=== PATIENT | male | born 1990 | race Caucasian/White ===

== ENCOUNTER 2018-02-04 20:02 | Emergency (ER) | payer SELFPAY ==
[2018-02-04 20:43] LABS: Absolute Lymphocytes (CBC) 2.1 K/uL (0.7-4.9); Absolute Monocytes 0.8 K/uL (0.1-1.3); Absolute Neutrophil 4.8 K/uL (1.8-8.0); Basophils % 1.1 % (0-1.3); Eosinophils % 1.6 % (0-4.4); Hematocrit 44.4 % (39.6-49.0); Lymphocytes % 27.2 % (15.3-44.8); MCH 29.5 pg (27.0-35.0); MCV 87.4 fL (80-100); MPV 7.8 fL (7.6-11.3); Monocytes % 9.9 % (3.3-12.3); RBC Red Blood Cell Count 5.08 M/uL (4.33-5.43)
[2018-02-04 20:52] LABS: Protime INR 1.18
[2018-02-04 20:59] LABS: Barbiturates NEGATIVE; Benzodiazepines NEGATIVE; Cocaine NEGATIVE; Opiates NEGATIVE; Phencyclidine NEGATIVE; THC Cannibis NEGATIVE
--- NOTE | 2018-02-04 21:00 | RAD REPORT ---
EXAM DESCRIPTION: RAD - Chest Single View - 02/04/2018 8:54 pm CLINICAL HISTORY: Chest pain. COMPARISON: 08/18/2017 FINDINGS: Portable technique limits examination quality. The lungs are grossly clear. The heart is normal in size. No displaced fractures. IMPRESSION: No acute intrathoracic process suspected.
[2018-02-04 21:07] LABS: Bicarbonate 24 mEq/L (21-31); Glucose Level 115 mg/dL (65-120); Potassium 3.3 mEq/L (3.6-5.0); Sodium Level 136 mEq/L (135-145)
[2018-02-04 21:13] LABS: ALT/SGPT 27 IU/L (10-60); AST/SGOT 22 IU/L (10-42); Albumin 4.7 g/dL (3.2-5.5); Alkaline Phosphatase 51 IU/L (42-121); BUN Blood Urea Nitrogen 21 mg/dL (6-20); Bilirubin Direct 0.2 mg/dL (0-0.2); Bilirubin Total 1.7 mg/dL (0.3-1.2); Protein, Total 7.8 g/dL (6.0-8.3)
[2018-02-04 21:19] LABS: METHAMPHETAM POSITIVE (NEGATIVE)
[2018-02-04 21:19] LABS: Alcohol Serum/Plasma < 10 mg/dl
[2018-02-04] MEDS ORDERED: NA CHLORIDE 0.9% 1,000 ML ONE (21:40)
[2018-02-04] MEDS ORDERED: POTASSIUM 25 MEQ EFFERV TAB ONE (22:55)
[2018-02-04 23:15] LABS: Urine Blood NEGATIVE (NEG); Urine Glucose NEGATIVE (NEG); Urine Protein 1+ (NEG); Urine Specific Gravity >1.030 (1.005-1.030); Urine pH 5.5 (5.0-7.0)
--- NOTE | 2018-02-05 09:38 | ER ---
Nurse's Notes [facility] Name: Gil Jose Age: 27 yrs Sex: Male : 1990 Arrival Date: 02/04/2018 Time: 20:07 Bed 18 Private MD: None, None Diagnosis: Depression, substance abuse (amphetamines), Suicidal Ideation/attempt Presentation: 02/04 20:15 Presenting complaint: EMS states: "He isn't really talking to us, but what we got was jd3 that he drank two chemicals 'the works: toilet bowl signs cleaner,' and a 'shower gel.' He is also complaining of his right side of his mouth and teeth, and his throat burning/hurting.". Transition of care: patient was not received from another setting of care. Onset of symptoms was February 04, 2018. Risk Assessment: Do you want to hurt yourself or someone else? Patient reports desire/thoughts of hurting themselves or someone else. Provider notified. Initial Sepsis Screen: Does the patient meet any 2 criteria? No. Patient's initial sepsis screen is negative. Does the patient have a suspected source of infection? No. Patient's initial sepsis screen is negative. Care prior to arrival: None. 20:15 Method Of Arrival: EMS: [facility] jd3 20:15 Acuity: FRANKI 2 jd3 Historical: - Allergies: 20:23 Codeine; jd3 - Home Meds: 20:23 None [Active]; jd3 - PMHx: 20:23 Anxiety; Asthma; Hernia; jd3 - PSHx: 20:23 Hernia repair; jd3 - Immunization history:: Adult Immunizations unknown. - Social history:: Smoking status: unknown. - Ebola Screening: : No symptoms or risks identified at this time. Screenin:38 Abuse screen: Denies threats or abuse. Nutritional screening: No deficits noted. jd3 Tuberculosis screening: No symptoms or risk factors identified. Fall Risk IV access (20 points). Ambulatory Aid- None/Bed Rest/Nurse Assist (0 pts). Mental Status- Overestimates/Forgets Limitations (15 pts.). Total Montejo Fall Scale indicates Low Risk Score (25-44 pts). Fall prevention measures have been instituted. Side Rails Up X 2 Placed close to Nursing Station Frequent Obs/Assesments occuring Family Present and informed to notify staff if they need to leave bedside. 02/05 08:42 Patient has been NPO before screening. The patient is alert, able to follow commands. iw The patient does not exhibit slurred or garbled speech The patient is not exhibiting difficulty speaking. The patient does not exhibit difficulty understanding words. The patient is able to swallow own secretions with no drooling or need for suction. Patient tolerated one teaspoon of water. No drooling, immediate coughing, gurgling, or clearing of the throat was noted. The patient tolerated 90mL of water. No drooling, immediate coughing, gurgling, or clearing of the throat was noted. The patient passed the bedside swallow screening. Oral medications may be given as ordered. Contact Physician for further diet orders. Assessment: 02/04 20:28 General: Appears uncomfortable, Behavior is inappropriate for age, quiet, jd3 uncooperative. Pain: Complains of pain in mouth and neck Quality of pain is described as burning, Unable to use pain scale. Patient appears to be guarding, quiet. Neuro: Level of Consciousness is awake, lethargic, Oriented to person, place, time, situation. Cardiovascular: Heart tones S1 S2 present Capillary refill < 3 seconds Patient's skin is warm and dry. Rhythm is regular. Respiratory: Airway is patent Respiratory effort is even, unlabored, Respiratory pattern is regular, symmetrical, Breath sounds with wheezes bilaterally. GI: Abdomen is round Bowel sounds present X 4 quads. Abd is soft and non tender X 4 quads. Reports nausea. : No signs and/or symptoms were reported regarding the genitourinary system. EENT: No signs and/or symptoms were reported regarding the EENT system. Derm: Skin is intact, Skin is dry, Skin is normal, Skin temperature is warm. Musculoskeletal: Circulation, motion, and sensation intact. Range of motion: intact in all extremities. 21:10 Reassessment: Patient stated to this nurse "I didn't drink any of the shower signs cleaner, I aj got the toilet bowl signs cleaner in my mouth and I am not sure if I swallowed any. I got some in my eye." Patient asked by police crime scene technician if he did this with the intent to harm himself and patient stated, "Why else would I do it." Patient reports pain and blurred vision to left eye. Eye irrigated with 20 ML of NS, patient would not tolerate more. Denies pain or burning in throat chest or abdomen. 21:10 Reassessment: pt refusing care. jd3 21:55 Reassessment: Patient and/or family updated on plan of care and expected duration. Pain jd3 level reassessed. Patient is alert, oriented x 3, equal unlabored respirations, skin warm/dry/pink. mental health officer at bedside. 22:10 Reassessment: Patient appears in no apparent distress at this time. Patient and/or jd3 family updated on plan of care and expected duration. Pain level reassessed. Patient is alert, oriented x 3, equal unlabored respirations, skin warm/dry/pink. pt complying with treatment. 23:15 Reassessment: Patient appears in no apparent distress at this time. Patient and/or jd3 family updated on plan of care and expected duration. Pain level reassessed. Patient is alert, oriented x 3, equal unlabored respirations, skin warm/dry/pink. Patient states feeling better. 02/05 01:00 Reassessment: Patient appears in no apparent distress at this time. Patient and/or jd3 family updated on plan of care and expected duration. Pain level reassessed. Patient is alert, oriented x 3, equal unlabored respirations, skin warm/dry/pink. pt resting in bed with eyes closed, even and unlabored respirations, no signs of distress noted at this time. sitter at bedside. 01:51 Reassessment: Patient appears in no apparent distress at this time. No changes from jd3 previously documented assessment. Patient and/or family updated on plan of care and expected duration. Pain level reassessed. Patient is alert, oriented x 3, equal unlabored respirations, skin warm/dry/pink. 02:45 Reassessment: Patient appears in no apparent distress at this time. No changes from jd3 previously documented assessment. Patient and/or family updated on plan of care and expected duration. Pain level reassessed. Patient is alert, oriented x 3, equal unlabored respirations, skin warm/dry/pink. 03:25 Reassessment: Patient appears in no apparent distress at this time. No changes from jd3 previously documented assessment. Patient and/or family updated on plan of care and expected duration. Pain level reassessed. Patient is alert, oriented x 3, equal unlabored respirations, skin warm/dry/pink. 04:17 Reassessment: Patient appears in no apparent distress at this time. No changes from jd3 previously documented assessment. Patient and/or family updated on plan of care and expected duration. Pain level reassessed. Patient is alert, oriented x 3, equal unlabored respirations, skin warm/dry/pink. 05:17 Reassessment: Patient appears in no apparent distress at this time. No changes from jd3 previously documented assessment. Patient and/or family updated on plan of care and expected duration. Pain level reassessed. Patient is alert, oriented x 3, equal unlabored respirations, skin warm/dry/pink. 06:15 Reassessment: Patient appears in no apparent distress at this time. No changes from jd3 previously documented assessment. Patient and/or family updated on plan of care and expected duration. Pain level reassessed. Patient is alert, oriented x 3, equal unlabored respirations, skin warm/dry/pink. 06:50 Reassessment: Patient appears in no apparent distress at this time. [facility] staff at em bedside. 07:15 General: Appears in no apparent distress. comfortable, Behavior is calm, cooperative, em Reports reports only drinking 2 gulps of toilet bowl signs cleaner, when asked if he still feels like hurting himself, replies, "I don't know haven't had time to think about it, I have been sleeping." reports wanting help, denies pain. Pain: Denies pain. Neuro: Level of Consciousness is awake, alert, obeys commands, Oriented to person, place, time, situation. Cardiovascular: Capillary refill < 3 seconds Patient's skin is warm and dry. Respiratory: Airway is patent Respiratory effort is even, unlabored, Respiratory pattern is regular, symmetrical. GI: Abdomen is flat. : No signs and/or symptoms were reported regarding the genitourinary system. EENT: Eyes. Derm: Skin is intact, Skin is pink, warm \\T\\ dry. Musculoskeletal: Range of motion: intact in all extremities. 07:25 Reassessment: Patient appears in no apparent distress at this time. I agree with above iw assessment by Mauricio Villarreal LVN. 08:21 Reassessment: Patient appears in no apparent distress at this time. Patient and/or em family updated on plan of care and expected duration. Pain level reassessed. Patient is alert, oriented x 3, equal unlabored respirations, skin warm/dry/pink. pt eating breakfast, tolerated well. 08:47 Reassessment: pt request to leave, will sign out AMA, denies SI/HI, pt request his em belongings, Dr. Mcintyre notified, Dr. Mcintyre at bedside, pt states, he is staying at "[facility]" and is in a program to help get his life together. contact information is Sreekanth - [phone]. 09:10 Reassessment: Patient appears in no apparent distress at this time. Spoke with Sreekanth at [facility]," will send transportation and be in treatment at facility. 09:45 Reassessment: Patient appears in no apparent distress at this time. Patient and/or em family updated on plan of care and expected duration. Pain level reassessed. awaiting for transportation to transport to "[facility]". 10:20 Reassessment: Patient appears in no apparent distress at this time. transportation em here, will take pt to facility, pt verbalizes understanding to return to ER if SI/HI. Psych: 02/04 20:32 Subjective: Patient's mood is sad, Delusions are denied, Hallucinations are denied jd3 Having thoughts of suicide. 20:36 Objective: Patient is uncooperative, using poor eye contact, Speech is slow, soft, jd3 slurred. Interventions: Removed personal items and placed in bag. Patient placed in hospital gown. Searched person for dangerous items. Urine collected and sent for urine drug test. Suicide Risk Assessment: Sad Person Scale: Sex of patient: Male: Score 1 point. Age of patient: Score 1 point if patient 15-34. Depression: Score 1 point if signs of depression are present. Previous Attempt: Score 1 point if patient has previously attempted suicide. Substance Abuse: Score 0 point if patient does not abuse alcohol or drugs. Rational Thinking: Score 1 point if patient is lacking rational thinking. Social Support: Score 1 point if social support is lacking and/or unavailable. Organized Plan: Score 1 point if patient had a plan in place. Relationship: Score 1 point if patient is , , , or for a single male Chronic Sickness: Score 0 point if patient does not have a chronic illness, debilitating, or severe disorder. TOTAL POINTS: If total points are 7-10, the proposed clinical action is to hospitalize or commit. Implement suicide precautions. Safety Checks: Personal items have been removed. Door is open. No visitors are present at this time. Pt denies substance abuse. Vital Signs: 20:27 BP 137 / 93; Pulse 117; Resp 19 S; Temp 98.6(O); Pulse Ox 95% on R/A; Weight 86.18 kg jd3 (R); Height 5 ft. 7 in. (170.18 cm) (R); Pain 5/10; 21:30 jd3 22:09 BP 137 / 86; Pulse 79; Resp 18; Pulse Ox 98% ; ms 23:33 BP 120 / 73; Pulse 95; Resp 17 S; Pulse Ox 98% on R/A; Pain 1/10; jd3 05 03:25 BP 114 / 69; Pulse 83; Resp 16 S; Pulse Ox 98% on R/A; Pain 0/10; jd3 07:15 BP 113 / 61; Pulse 84; Resp 16; Pulse Ox 97% on R/A; Pain 0/10; em 09:45 BP 118 / 71; Pulse 79; Resp 18; Pulse Ox 97% on R/A; Pain 0/10; em 05/25 20:27 Body Mass Index 29.76 (86.18 kg, 170.18 cm) jd3 02/04 21:30 pt refused. waiting for [facility] health officer before further implementations and jd3 procedures are done. ED Course: 20:07 Patient arrived in ED. rg2 20:07 Safety Checks: Personal items have been removed. The door is open or patient has been jd3 placed in a hallway bed/chair. There are no family/friend visitors at this time Sitter present at this time. 20:09 Abhay Bermudez NP is PHCP. pm1 20:09 Javid Alejandro MD is Attending Physician. pm1 20:15 Yash Walsh RN is Primary Nurse. jd3 20:15 Safety Checks: Personal items have been removed. The door is open or patient has been jd3 placed in a hallway bed/chair. There are no family/friend visitors at this time Sitter present at this time. 20:18 Triage completed. jd3 20:28 Arm band placed on. jd3 20:30 Safety Checks: Personal items have been removed. The door is open or patient has been jd3 placed in a hallway bed/chair. There are no family/friend visitors at this time Sitter present at this time. 20:36 None, None is Private Physician. ds1 20:36 notified poison control: they advised to monitor for aspiration, vomiting, drooling, \\T\\ rg2 dyspnea. give ice chips and to ensure able to swallow. they main concern in [employer] of mouth and esophagus. Pt is a candidate for EGD. 20:38 Patient has correct armband on for positive identification. Placed in gown. Bed in low jd3 position. Call light in reach. Side rails up X2. Adult w/ patient. 20:45 Safety Checks: Personal items have been removed. The door is open or patient has been jd3 placed in a hallway bed/chair. There are no family/friend visitors at this time Sitter present at this time. 20:54 Chest Single View XRAY In Process Unspecified. EDMS 21:00 Safety Checks: Personal items have been removed. The door is open or patient has been jd3 placed in a hallway bed/chair. There are no family/friend visitors at this time Sitter present at this time. 21:15 Safety Checks: Personal items have been removed. The door is open or patient has been jd3 placed in a hallway bed/chair. There are no family/friend visitors at this time Sitter present at this time. 21:30 Safety Checks: Personal items have been removed. The door is open or patient has been jd3 placed in a hallway bed/chair. There are no family/friend visitors at this time Sitter present at this time. 21:45 Safety Checks: Personal items have been removed. The door is open or patient has been jd3 placed in a hallway bed/chair. There are no family/friend visitors at this time Sitter present at this time. 23:00 Safety Checks: Personal items have been removed. The door is open or patient has been jd3 placed in a hallway bed/chair. There are no family/friend visitors at this time Sitter present at this time. 23:15 Safety Checks: Personal items have been removed. The door is open or patient has been jd3 placed in a hallway bed/chair. There are no family/friend visitors at this time Sitter present at this time. 23:30 Safety Checks: Personal items have been removed. The door is open or patient has been jd3 placed in a hallway bed/chair. There are no family/friend visitors at this time Sitter present at this time. 23:45 Safety Checks: Personal items have been removed. The door is open or patient has been jd3 placed in a hallway bed/chair. There are no family/friend visitors at this time Sitter present at this time. 02/05 00:00 Safety Checks: Personal items have been removed. The door is open or patient has been jd3 placed in a hallway bed/chair. There are no family/friend visitors at this time Sitter present at this time. 00:15 Safety Checks: Personal items have been removed. The door is open or patient has been jd3 placed in a hallway bed/chair. There are no family/friend visitors at this time Sitter present at this time. 00:30 Safety Checks: Personal items have been removed. The door is open or patient has been jd3 placed in a hallway bed/chair. There are no family/friend visitors at this time Sitter present at this time. 00:45 Safety Checks: Personal items have been removed. The door is open or patient has been jd3 placed in a hallway bed/chair. There are no family/friend visitors at this time Sitter present at this time. 01:00 Safety Checks: Personal items have been removed. The door is open or patient has been jd3 placed in a hallway bed/chair. There are no family/friend visitors at this time Sitter present at this time. 01:15 Safety Checks: Personal items have been removed. The door is open or patient has been jd3 placed in a hallway bed/chair. There are no family/friend visitors at this time Sitter present at this time. 01:30 Safety Checks: Personal items have been removed. The door is open or patient has been jd3 placed in a hallway bed/chair. There are no family/friend visitors at this time Sitter present at this time. 01:45 Safety Checks: Personal items have been removed. The door is open or patient has been jd3 placed in a hallway bed/chair. There are no family/friend visitors at this time Sitter present at this time. 02:00 Safety Checks: Personal items have been removed. The door is open or patient has been jd3 placed in a hallway bed/chair. There are no family/friend visitors at this time Sitter present at this time. 02:15 Safety Checks: Personal items have been removed. The door is open or patient has been jd3 placed in a hallway bed/chair. There are no family/friend visitors at this time Sitter present at this time. 02:30 Safety Checks: Personal items have been removed. The door is open or patient has been jd3 placed in a hallway bed/chair. There are no family/friend visitors at this time Sitter present at this time. 02:45 Safety Checks: Personal items have been removed. The door is open or patient has been jd3 placed in a hallway bed/chair. There are no family/friend visitors at this time Sitter present at this time. 03:00 Safety Checks: Personal items have been removed. The door is open or patient has been jd3 placed in a hallway bed/chair. There are no family/friend visitors at this time Sitter present at this time. 03:15 Safety Checks: Personal items have been removed. The door is open or patient has been jd3 placed in a hallway bed/chair. There are no family/friend visitors at this time Sitter present at this time. 03:30 Safety Checks: Personal items have been removed. The door is open or patient has been jd3 placed in a hallway bed/chair. There are no family/friend visitors at this time Sitter present at this time. 03:45 Safety Checks: Personal items have been removed. The door is open or patient has been jd3 placed in a hallway bed/chair. There are no family/friend visitors at this time Sitter present at this time. 04:00 Safety Checks: Personal items have been removed. The door is open or patient has been jd3 placed in a hallway bed/chair. There are no family/friend visitors at this time Sitter present at this time. 04:15 Safety Checks: Personal items have been removed. The door is open or patient has been jd3 placed in a hallway bed/chair. There are no family/friend visitors at this time Sitter present at this time. 04:30 Safety Checks: Personal items have been removed. The door is open or patient has been jd3 placed in a hallway bed/chair. There are no family/friend visitors at this time Sitter present at this time. 04:45 Safety Checks: Personal items have been removed. The door is open or patient has been jd3 placed in a hallway bed/chair. There are no family/friend visitors at this time Sitter present at this time. 05:00 Safety Checks: Personal items have been removed. The door is open or patient has been jd3 placed in a hallway bed/chair. There are no family/friend visitors at this time Sitter present at this time. 05:15 Safety Checks: Personal items have been removed. The door is open or patient has been jd3 placed in a hallway bed/chair. There are no family/friend visitors at this time Sitter present at this time. 05:30 Safety Checks: Personal items have been removed. The door is open or patient has been jd3 placed in a hallway bed/chair. There are no family/friend visitors at this time Sitter present at this time. 05:45 Safety Checks: Personal items have been removed. The door is open or patient has been jd3 placed in a hallway bed/chair. There are no family/friend visitors at this time Sitter present at this time. 06:00 Safety Checks: Personal items have been removed. The door is open or patient has been jd3 placed in a hallway bed/chair. There are no family/friend visitors at this time Sitter present at this time. 06:15 Safety Checks: Personal items have been removed. The door is open or patient has been jd3 placed in a hallway bed/chair. There are no family/friend visitors at this time Sitter present at this time. 06:30 Safety Checks: Personal items have been removed. The door is open or patient has been jd3 placed in a hallway bed/chair. There are no family/friend visitors at this time Sitter present at this time. 06:45 Safety Checks: Personal items have been removed. The door is open or patient has been jd3 placed in a hallway bed/chair. There are no family/friend visitors at this time Sitter present at this time. 09:35 Attending Physician role handed off by Javid Alejandro MD [facility] 09:35 Sreekanth Mcintyre MD is Attending Physician. kdr 09:41 No provider procedures requiring assistance completed. IV discontinued, intact, em bleeding controlled, No redness/swelling at site. Pressure dressing applied. Administered Medications: 02/04 23:03 Drug: Potassium Effervescent Tablet 50 mEq Route: PO; jd3 02/05 00:45 Follow up: Response: No adverse reaction jd3 02/04 23:03 Drug: NS 0.9% 1000 ml Route: IV; Rate: 1 bolus; Site: right antecubital; jd3 02/05 00:00 Follow up: Response: No adverse reaction; IV Status: Completed infusion; IV Intake: jd3 1000ml Intake: 00:00 IV: 1000ml; Total: 1000ml. jd3 Outcome: 09:37 Discharge ordered by MD. kdr 10:30 Discharged to home ambulatory. em 10:30 Condition: good 10:30 Discharge instructions given to patient, Instructed on discharge instructions, follow up and referral plans. Demonstrated understanding of instructions, follow-up care. 10:34 Patient left the ED. em Signatures: Dispatcher [employer] EDMS Ade Valderrama rg2 Brooklynn Rollins RN RN aj Rittger, Kevin, MD MD [facility] Mauricio Villarreal, BANK RECONCILIATOR BANK RECONCILIATOR em Lovely Kwok ds1 Kerrie Guzman, Debbie Ellington RN ms Abhay Bermudez, INDUSTRIAL THERAPIST INDUSTRIAL THERAPIST pm1 Yash Walsh RN RN jd3 Corrections: (The following items were deleted from the chart) 00:12 02/04 20:15 Presenting complaint: EMS states: "He isn't really talking to us, but what jd3 we got was that he drank two chemicals 'the works: toilet bowl signs cleaner,' and a 'shower gel.' H is also complaining of his right side of his mouth and teeth, and his throat burning/hurting." jd3 02/05 08:25 07:15 General: Appears in no apparent distress. comfortable, Behavior is calm, em cooperative, em 08: 08:21 Reassessment: Patient appears in no apparent distress at this time. Patient em and/or family updated on plan of care and expected duration. Pain level reassessed. Patient is alert, oriented x 3, equal unlabored respirations, skin warm/dry/pink. pt eating breakfast, tolerated well, reports only drinking 2 gulps of toilet bowl signs cleaner, denies pain em
--- NOTE | 2018-02-05 09:38 | EDPHYS ---
Physician Documentation [facility] Name: Gil Jose Age: 27 yrs Sex: Male : 1990 Arrival Date: 02/04/2018 Time: 20:07 Bed 18 Private MD: None, None ED Physician Sreekanth Mcintyre HPI: 02/04 22:00 This 27 yrs old Male presents to ER via EMS with complaints of Ingestion of pm1 foreign Substance. 22:00 The patient presents to the emergency department with a history of a suicide gesture, pm1 Drank toilet bowl aircraft cabin cleaner with intent to harm himself. Onset: The symptoms/episode began/occurred just prior to arrival. Past psychiatric history: Prior diagnosis: Schizophrenia per learning and development officer. Patient will not discuss psychiatric history with me, Psychiatric medications include: none, Primary psychiatric physician: the patient does not have a primary psychiatric physician, it is unknown whether or not the patient has had a prior suicide gesture, the patient has a previous inpatient psychiatric history, Per learning and development officer, patient will not discuss psychiatric history with me. Severity of symptoms: in the emergency department the symptoms have improved. Patient with complaints of mouth pain and left eye pain. Patient reports 1/4 full size bottle of [employer] Toilet Bowl Machine Sole Leveler. He put the aircraft cabin cleaner in his mouth but is not certain if he swallowed it. He reports that he splashed some in his left eye. Patient without any throat or abdominal pain. Historical: - Allergies: 20:23 Codeine; jd3 - Home Meds: 20:23 None [Active]; jd3 - PMHx: 20:23 Anxiety; Asthma; Hernia; jd3 - PSHx: 20:23 Hernia repair; jd3 - Immunization history:: Adult Immunizations unknown. - Social history:: Smoking status: unknown. - Ebola Screening: : No symptoms or risks identified at this time. ROS: 22:00 Constitutional: Negative for fever, chills, and weight loss, ENT: Negative for injury, pm1 pain, and discharge, Neck: Negative for injury, pain, and swelling, Cardiovascular: Negative for chest pain, palpitations, and edema, Respiratory: Negative for shortness of breath, cough, wheezing, and pleuritic chest pain, Abdomen/GI: Negative for abdominal pain, nausea, vomiting, diarrhea, and constipation, Back: Negative for injury and pain, : Negative for injury, bleeding, discharge, and swelling, MS/Extremity: Negative for injury and deformity, Skin: Negative for injury, rash, and discoloration, Neuro: Negative for headache, weakness, numbness, tingling, and seizure. 22:00 Eyes: Positive for pain, of the left eye. 22:00 Psych: Positive for suicide gesture, suicidal ideation. Exam: 21:36 Eyes: pH 7.0 left eye. pm1 22:00 Constitutional: This is a well developed, well nourished patient who is awake, alert, pm1 and in no acute distress. Head/Face: Normocephalic, atraumatic. 22:00 ENT: Nares patent. No nasal discharge, no septal abnormalities noted. Tympanic membranes are normal and external auditory canals are clear. Oropharynx with no redness, swelling, or masses, exudates, or evidence of obstruction, uvula midline. Mucous membranes moist. Neck: Trachea midline, no thyromegaly or masses palpated, and no cervical lymphadenopathy. Supple, full range of motion without nuchal rigidity, or vertebral point tenderness. No Meningismus. Chest/axilla: Normal chest wall appearance and motion. Nontender with no deformity. No lesions are appreciated. Cardiovascular: Regular rate and rhythm with a normal S1 and S2. No gallops, murmurs, or rubs. Normal PMI, no JVD. No pulse deficits. Respiratory: Lungs have equal breath sounds bilaterally, clear to auscultation and percussion. No rales, rhonchi or wheezes noted. No increased work of breathing, no retractions or nasal flaring. Abdomen/GI: Soft, non-tender, with normal bowel sounds. No distension or tympany. No guarding or rebound. No evidence of tenderness throughout. Back: No spinal tenderness. No costovertebral tenderness. Full range of motion. Skin: Warm, dry with normal turgor. Normal color with no rashes, no lesions, and no evidence of cellulitis. MS/ Extremity: Pulses equal, no cyanosis. Neurovascular intact. Full, normal range of motion. 22:00 Eyes: Periorbital structures: appear normal, Pupils: no acute changes, Extraocular movements: intact throughout, Conjunctiva: injected, in the left eye. 22:00 Neuro: Orientation: is normal, Mentation: is normal, Motor: is normal, moves all fours, Sensation: is normal, no obvious gross deficits, Gait: is steady, at a normal pace, without difficulty. 22:00 Psych: Behavior/mood is uncooperative, Affect is flat. Vital Signs: 20:27 BP 137 / 93; Pulse 117; Resp 19 S; Temp 98.6(O); Pulse Ox 95% on R/A; Weight 86.18 kg jd3 (R); Height 5 ft. 7 in. (170.18 cm) (R); Pain 5/10; 21:30 jd3 22:09 BP 137 / 86; Pulse 79; Resp 18; Pulse Ox 98% ; ms 23:33 BP 120 / 73; Pulse 95; Resp 17 S; Pulse Ox 98% on R/A; Pain 1/10; jd3 02/05 03:25 BP 114 / 69; Pulse 83; Resp 16 S; Pulse Ox 98% on R/A; Pain 0/10; jd3 07:15 BP 113 / 61; Pulse 84; Resp 16; Pulse Ox 97% on R/A; Pain 0/10; em 09:45 BP 118 / 71; Pulse 79; Resp 18; Pulse Ox 97% on R/A; Pain 0/10; em 02/04 20:27 Body Mass Index 29.76 (86.18 kg, 170.18 cm) jd3 02/04 21:30 pt refused. waiting for [facility] health officer before further implementations and jd3 procedures are done. MDM: 20:22 Patient medically screened. pm1 22:00 ED course: Patient drinking water without any nausea or vomiting. Patient denies any pm1 pain with drinking water. 23:56 Data reviewed: vital signs. Data interpreted: Pulse oximetry: on room air is 98 %. pm1 Interpretation: normal. 02/05 09:38 ED course: Had a detailed discussion with the patient about the events that led to his kdr being in the ED. He denies suicidal attempts/self harm. Has a long history of SI. Little family support locally. Has arranged for a place to stay in [place]. He has been there before as part of a rehab program. They were contacted by the nursing staff (see their note). . 02/04 20:23 Order name: Acetaminophen; Complete Time: 21:34 pm1 02/04 20:23 Order name: Basic Metabolic Panel; Complete Time: 21:34 02/04 20:23 Order name: CBC with Diff; Complete Time: 20:44 pm02/04 20:23 Order name: ETOH Level; Complete Time: 21:34 02/04 20:23 Order name: Hepatic Function; Complete Time: 21:34 02/04 20:23 Order name: PT-INR; Complete Time: 21:34 02/04 20:23 Order name: Ptt, Activated; Complete Time: 21:34 02/04 20:23 Order name: Salicylate; Complete Time: 22:33 pm02/04 20:23 Order name: Urine Drug Screen; Complete Time: 21:34 02/04 20:44 Order name: Chest Single View XRAY; Complete Time: 21:34 02/04 21:49 Order name: Urine Dipstick--Ancillary (enter results); Complete Time: 23:44 02/05 04:21 Order name: Potassium [facility] 02/04 20:23 Order name: EKG; Complete Time: 20:24 02/04 20:23 Order name: EKG - Nurse/Tech; Complete Time: 20:33 02/04 20:23 Order name: IV Saline Lock; Complete Time: 20:33 02/04 20:23 Order name: Labs collected and sent; Complete Time: 20:33 02/04 20:23 Order name: Urine Dipstick-Ancillary (obtain specimen); Complete Time: 20:51 02/04 20:44 Order name: Swallow Screen; Complete Time: 21:28 pm02/05 07:40 Order name: Diet Regular; Complete Time: 07:40 em Administered Medications: 02/04 23:03 Drug: Potassium Effervescent Tablet 50 mEq Route: PO; d3 02/05 00:45 Follow up: Response: No adverse reaction 02/04 23:03 Drug: NS 0.9% 1000 ml Route: IV; Rate: 1 bolus; Site: right antecubital; 02/05 00:00 Follow up: Response: No adverse reaction; IV Status: Completed infusion; IV Intake: jd3 1000ml Disposition: 13:50 Co-signature as Attending Physician, Sreekanth Mcintyre MD I agree with the assessment and kdr plan of care. Disposition: 02/05/18 09:37 Discharged to Home. Impression: Depression, substance abuse (amphetamines), Suicidal Ideation/attempt. - Condition is Fair. - Discharge Instructions: Polysubstance Abuse, Helping Someone Who is Suicidal, Depression, Adult, Ftsf-cu-Deni. - Thank You Letter, SBAR form form. - Follow up: Private Physician; When: 1 - 2 days; Reason: If symptoms return, Further diagnostic work-up, Recheck today's complaints, Continuance of care, Re-evaluation by your physician. - Problem is an acute exacerbation. - Symptoms have improved. Signatures: Dispatcher [employer] EDMS Sreekanth Mcintyre MD MD kdr Mauricio Villarreal, RETAIL SERVICE LEAD MERCHANDISER RETAIL SERVICE LEAD MERCHANDISER em Abhay Bermudez, ORACLE HYPERION CONSULTANT ORACLE HYPERION CONSULTANT pm1 Yash Walsh RN RN jd3 Corrections: (The following items were deleted from the chart) 02/04 23:04 21:07 Visual Acuity ordered. pm1 jd3 23:04 21:07 Misc. Order ordered. pm1 jd3 02/05 10:34 09:37 02/05/2018 09:37 Discharged to Home. Impression: Depression, substance abuse em (amphetamines), Suicidal Ideation/attempt. Condition is Fair. Forms are SBAR form, Medication Reconciliation Form, Thank You Letter, Antibiotic Education, Prescription Opioid Use. Follow up: Private Physician; When: 1 - 2 days; Reason: If symptoms return, Further diagnostic work-up, Recheck today's complaints, Continuance of care, Re-evaluation by your physician. Problem is an acute exacerbation. Symptoms have improved. kdr
--- NOTE | 2018-02-05 10:19 | EKG ---
Test Date: 2018-02-04 Test Time: 20:12:36 Enrollment Advisor: MEASUREMENT RESULTS: Intervals: Rate: 96 GA: 116 QRSD: 82 QT: 324 QTc: 409 [place]: P: 41 GA: 116 QRS: 66 T: 56 INTERPRETIVE STATEMENTS: Normal sinus rhythm Normal ECG Compared to ECG 11/09/2017 22:43:07 Sinus tachycardia no longer present Electronically Signed On 02-05-18 10:18:42 CDT by Louis Modi
[2018-02-05 10:39] VITALS: TEMP 98.6
[2018-02-05 10:43] VITALS: O2SAT 97
[2018-02-05 10:45] VITALS: BP 118/71
== END 2018-02-05 10:34 | disposition home or self-care (01) ==
LOC: ER 20:02
DX: T65.892A Toxic effect of other specified substances, intentional self-harm, initial encounter (principal); F15.10 Other stimulant abuse, uncomplicated; Y92.89 Other specified places as the place of occurrence of the external cause; Z88.5 Allergy status to narcotic agent
CPT/HCPCS: 36415; 71045; 80048; 80076; 80307; 80320; 80329; 81003; 84132; 85025; 85610; 85730; 93005; 96360; 99285; J7030

== ENCOUNTER 2020-06-15 23:45 | Emergency (ER) | payer SELFPAY ==
--- NOTE | 2020-06-16 01:05 | ER ---
Nurse's Notes [facility] Name: Gil Jose Age: 29 yrs Sex: Male : 1990 Arrival Date: 06/15/2020 Time: 23:48 Bed Waiting Private MD: Diagnosis: Presentation: 06/16 00:06 Chief complaint: Patient states: Nausea, vomiting began 2 hours; Diarrhea that began lp1 this morning, x3 episodes; Denies fever; abdominal cramping. Coronavirus screen: Client denies travel out of the [place] in the last 14 days. nausea, vomiting. Ebola Screen: No symptoms or risks identified at this time. Risk Assessment: Do you want to hurt yourself or someone else? Patient reports no desire to harm self or others. Onset of symptoms was June 16, 2020. 00:06 Method Of Arrival: Ambulatory lp1 00:06 Acuity: FRANKI 3 lp1 00:09 Initial Sepsis Screen: Does the patient meet any 2 criteria? No. Patient's initial lp1 sepsis screen is negative. Does the patient have a suspected source of infection? No. Patient's initial sepsis screen is negative. Triage Assessment: 00:10 General: Appears in no apparent distress. Behavior is appropriate for age. Pain: Denies lp1 pain. EENT: No signs and/or symptoms were reported regarding the EENT system. Neuro: Level of Consciousness is awake, alert, obeys commands. Cardiovascular: Patient's skin is warm and dry. Respiratory: Respiratory effort is even, unlabored. GI: Reports vomiting, Patient carrying emesis bag of about 150ml of emesis, yellow in color. : No signs and/or symptoms were reported regarding the genitourinary system. Derm: Skin is intact, Skin is dry, Skin is normal. Musculoskeletal: No deficits noted. Historical: - Allergies: 00:09 Codeine; lp1 - Home Meds: 00:09 None [Active]; lp1 - PMHx: 00:09 Anxiety; Asthma; Hernia; lp1 - PSHx: 00:09 Hernia repair; lp1 - Immunization history:: Adult Immunizations up to date. - Social history:: Smoking status: Patient reports the use of cigarette tobacco products, smokes one pack cigarettes per day. Screenin:09 Abuse screen: Denies threats or abuse. Denies injuries from another. Nutritional lp1 screening: No deficits noted. Tuberculosis screening: No symptoms or risk factors identified. Fall Risk None identified. Assessment: 00:35 Reassessment: Per lab, patient did not want labs drawn until assigned a room; remains lp1 in lobby at this time. Vital Signs: 00:09 BP 129 / 84; Pulse 97; Resp 18; Temp 98(O); Pulse Ox 98% on R/A; Weight 92.99 kg (R); lp1 Height 5 ft. 7 in. (170.18 cm); Pain 0/10; 00:09 Body Mass Index 32.11 (92.99 kg, 170.18 cm) lp1 ED Course: 06/15 23:48 Patient arrived in ED. bp1 06/16 00:00 Patient's name was called from ER lobby. No response. lp1 00:08 Triage completed. lp1 00:10 Abdominal pain workup initiated per nursing protocol. lp1 01:29 Patient's name was called from ER lobby. Unable to locate patient. Will disposition as lp1 left without being seen by a provider. Administered Medications: No medications were administered Outcome: 01:04 Patient left the ED. lp1 01:29 Patient left the ED. 1 Signatures: Sarah Magdaleno RN RN [address] [facility] Corrections: (The following items were deleted from the chart) 01:53 00:35 Reassessment: Per lab, patient did not want labs drawn until assigned a room lp1 lp1
[2020-06-16 01:52] VITALS: BP 129/84; TEMP 98; O2SAT 98
== END 2020-06-16 01:29 | disposition left against medical advice (07) ==
LOC: ER 23:45
DX: Z53.21 Procedure and treatment not carried out due to patient leaving prior to being seen by health care provider (principal)
CPT/HCPCS: 99281

== ENCOUNTER 2020-10-21 18:06 | Emergency (ER) | payer SELFPAY ==
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
[2020-10-21 21:35] VITALS: BP 136/77; TEMP 98.2; O2SAT 100
== END 2020-10-21 20:54 | disposition left against medical advice (07) ==
LOC: ER 18:06
DX: H53.8 Other visual disturbances (principal); F17.210 Nicotine dependence, cigarettes, uncomplicated; F41.9 Anxiety disorder, unspecified; J45.909 Unspecified asthma, uncomplicated; Z53.21 Procedure and treatment not carried out due to patient leaving prior to being seen by health care provider
CPT/HCPCS: 82947; 99281

== ENCOUNTER 2020-10-23 15:56 | Emergency (ER) | payer OTHER, SELFPAY ==
--- NOTE | 2020-10-23 18:06 | RAD REPORT ---
EXAM DESCRIPTION: RAD - C Spine Ap/Lat - 10/23/2020 5:48 pm CLINICAL HISTORY: Neck pain FINDINGS: Limited evaluation C7 spinous process No fracture or dislocation visualized
--- NOTE | 2020-10-23 18:09 | RAD REPORT ---
EXAM DESCRIPTION: RAD - Ribs Left - 10/23/2020 5:45 pm CLINICAL HISTORY: Rib pain FINDINGS: No fracture seen
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
[2020-10-23 18:34] VITALS: BP 119/78; TEMP 97.7; O2SAT 99
[2020-10-23] MEDS ORDERED: HYDROCODONE/APAP 10/325 TAB ONE (18:42)
== END 2020-10-23 18:30 | disposition home or self-care (01) ==
LOC: ER 15:56
DX: M54.2 Cervicalgia (principal); R07.81 Pleurodynia; V49.40XA Driver injured in collision with unspecified motor vehicles in traffic accident, initial encounter; F41.9 Anxiety disorder, unspecified; J45.909 Unspecified asthma, uncomplicated; K44.9 Diaphragmatic hernia without obstruction or gangrene
CPT/HCPCS: 72040; 99283

== ENCOUNTER 2020-12-16 00:44 | Emergency (ER) | payer SELFPAY ==
[2020-12-16 01:40] LABS: Absolute Lymphocytes (CBC) 1.9 K/uL (0.7-4.9); Basophils % 1.3 % (0-1.3); Hematocrit 42.1 % (39.6-49.0); Lymphocytes % 23.3 % (15.3-44.8); MPV 7.6 fL (7.6-11.3); RBC Red Blood Cell Count 4.89 M/uL (4.33-5.43)
[2020-12-16 01:54] LABS: Protime INR 1.05
[2020-12-16 02:02] LABS: ALT/SGPT 42 U/L (12-78); AST/SGOT 21 U/L (15-37); Albumin 3.8 g/dL (3.4-5.0); Alkaline Phosphatase 63 U/L (45-117); BUN Blood Urea Nitrogen 17 mg/dL (7-18); Bicarbonate 27 mmol/L (21-32); Bilirubin Direct 0.2 mg/dL (0-0.2); Bilirubin Total 0.7 mg/dL (0.2-1.0); Glucose Level 129 mg/dL (74-106); NT PRO-BNP 23 pg/mL (<125); Potassium 3.3 mmol/L (3.5-5.1); Protein, Total 7.1 g/dL (6.4-8.2); Sodium Level 139 mmol/L (136-145); Troponin (Emerg Dept Use Only) < 0.02 ng/mL (0.0-0.045)
[2020-12-16 02:16] LABS: Barbiturates NEGATIVE (NEGATIVE); Benzodiazepines NEGATIVE (NEGATIVE); Cocaine NEGATIVE (NEGATIVE); METHAMPHETAM NEGATIVE (NEGATIVE); Methadone NEGATIVE (NEGATIVE); Opiates NEGATIVE (NEGATIVE); Phencyclidine NEGATIVE (NEGATIVE); THC Cannibis NEGATIVE (NEGATIVE)
--- NOTE | 2020-12-16 02:42 | ER ---
Nurse's Notes [facility] Name: Gil Jose Age: 30 yrs Sex: Male : 1990 Arrival Date: 12/16/2020 Time: 00:47 Bed 18 Private MD: Diagnosis: Palpitations Presentation: 12/16 00:59 Chief complaint: Patient states: palpitations that woke me up abruptly about 30 minutes em ago, felt like heart was racing, denies chest pain or N/V. Coronavirus screen: Client denies travel out of the [place] in the last 14 days. Ebola Screen: Patient negative for fever greater than or equal to 101.5 degrees Fahrenheit, and additional compatible Ebola Virus Disease symptoms Patient denies exposure to infectious person. Patient denies travel to an Ebola-affected area in the 21 days before illness onset. No symptoms or risks identified at this time. Initial Sepsis Screen: Does the patient meet any 2 criteria? HR > 90 bpm. No. Patient's initial sepsis screen is negative. Does the patient have a suspected source of infection? No. Patient's initial sepsis screen is negative. Risk Assessment: Do you want to hurt yourself or someone else? Patient reports no desire to harm self or others. Onset of symptoms was December 16, 2020. 00:59 Method Of Arrival: Ambulatory em 00:59 Acuity: FRANKI 3 em Historical: - Allergies: 01:02 Codeine; em - PMHx: 01:02 Asthma; Anxiety; Hernia; em - PSHx: 01:02 Hernia repair; em - Immunization history:: Adult Immunizations up to date. - Social history:: Smoking status: Reported history of juuling and/or vaping. Screenin:48 Abuse screen: Denies threats or abuse. Nutritional screening: No deficits noted. fu Tuberculosis screening: No symptoms or risk factors identified. Fall Risk None identified. Assessment: 01:46 General: Appears uncomfortable, Behavior is cooperative, appropriate for age, anxious, fu Denies fever, feeling ill, fatigue, chills. Pain: Denies pain. Neuro: Level of Consciousness is awake, alert, obeys commands, Oriented to person, place, time, situation, Machine Cell Tuber are equal bilaterally Moves all extremities. Gait is steady, Speech is normal, Facial symmetry appears normal, Denies weakness dizziness, numbness headache. Cardiovascular: Reports palpitations, Denies chest pain, nausea, syncope, vomiting. Respiratory: Respiratory effort is even, unlabored, Respiratory pattern is regular. GI: Patient currently denies abdominal pain, diarrhea, nausea, vomiting. : No signs and/or symptoms were reported regarding the genitourinary system. EENT: No signs and/or symptoms were reported regarding the EENT system. Derm: Skin is intact, Skin is normal. Musculoskeletal: No signs and/or symptoms reported regarding the musculoskeletal system. 02:44 Reassessment: Patient and/or family updated on plan of care and expected duration. Pain fu level reassessed. Patient is alert, oriented x 3, equal unlabored respirations, skin warm/dry/pink. Vital Signs: 00:59 BP 125 / 69; Pulse 93; Resp 18; Temp 98.2(O); Pulse Ox 99% on R/A; Weight 92.99 kg; em Height 5 ft. 7 in. (170.18 cm); Pain 0/10; 01:45 BP 116 / 64; Pulse 90; Resp 14; Pulse Ox 93% on R/A; Pain 0/10; fu 02:30 BP 121 / 59; Pulse 79; Resp 13; Pulse Ox 93% on R/A; Pain 0/10; fu 00:59 Body Mass Index 32.11 (92.99 kg, 170.18 cm) em ED Course: 00:47 Patient arrived in ED. es 00:59 Ahmet Pompa MD is Attending Physician. tw4 01:01 Triage completed. em 01:02 Arm band placed on. em 01:04 Og Torres, RN is Primary Nurse. fu 01:18 XRAY Chest (1 view) In Process Unspecified. EDMS 01:20 Inserted saline lock: 20 gauge in right antecubital area, using aseptic technique. fu Blood collected. 01:25 Basic Metabolic Panel Sent. fu 01:25 CBC with Diff Sent. fu 01:25 LFT's Sent. fu 01:25 Magnesium Sent. fu 01:49 Patient has correct armband on for positive identification. Bed in low position. Call fu light in reach. monitoring and evaluation advisor on. Pulse ox on. NIBP on. 01:49 EKG done, reviewed by Ahmet Pompa MD. fu 03:22 No provider procedures requiring assistance completed. fu 03:22 IV discontinued, bleeding controlled, Pressure dressing applied. fu Administered Medications: No medications were administered Outcome: 02:41 Discharge ordered by tw4 03:22 Discharged to home ambulatory. fu 03:22 Condition: stable 03:22 Discharge instructions given to patient, Instructed on discharge instructions, follow up and referral plans. Demonstrated understanding of instructions, follow-up care. 03:22 Patient left the ED. fu Signatures: Dispatcher [employer] Dee Magallon Edgar, RN Og Bal RN Ahmet Brunson MD MD tw4
--- NOTE | 2020-12-16 02:42 | EDPHYS ---
Physician Documentation [facility] Name: Gil Jose Age: 30 yrs Sex: Male : 1990 Arrival Date: 12/16/2020 Time: 00:47 Bed 18 Private MD: ED Physician Ahmet Pompa HPI: 12/16 02:08 This 30 yrs old Male presents to ER via Ambulatory with complaints of tw4 Palpitations. 02:08 The patient presents with a history of heart skipping beats. Context: The symptoms tw4 occur at rest. Onset: The symptoms/episode began/occurred 1 week(s) ago, and became persistent just prior to arrival. Duration: The patient or guardian reports multiple episodes, that wax and wane, with no pattern. Modifying factors: The symptoms are aggravated by nothing. The symptoms are alleviated by nothing. Severity of symptoms: At their worst the symptoms were moderate in the emergency department the symptoms are unchanged. The patient has not experienced similar symptoms in the past. Historical: - Allergies: 01:02 Codeine; em - PMHx: 01:02 Asthma; Anxiety; Hernia; em - PSHx: 01:02 Hernia repair; em - Immunization history:: Adult Immunizations up to date. - Social history:: Smoking status: Reported history of juuling and/or vaping. ROS: 02:08 Constitutional: Negative for fever, chills, and weight loss, Eyes: Negative for injury, tw4 pain, redness, and discharge, Respiratory: Negative for shortness of breath, cough, wheezing, and pleuritic chest pain, Abdomen/GI: Negative for abdominal pain, nausea, vomiting, diarrhea, and constipation, Back: Negative for injury and pain, MS/Extremity: Negative for injury and deformity, Skin: Negative for injury, rash, and discoloration, Neuro: Negative for headache, weakness, numbness, tingling, and seizure. 02:08 Cardiovascular: Positive for palpitations, Negative for chest pain, edema, orthopnea. Exam: 02:08 Constitutional: This is a well developed, well nourished patient who is awake, alert, tw4 and in no acute distress. Head/Face: Normocephalic, atraumatic. Chest/axilla: Normal chest wall appearance and motion. Nontender with no deformity. No lesions are appreciated. Cardiovascular: Regular rate and rhythm with a normal S1 and S2. No gallops, murmurs, or rubs. Normal PMI, no JVD. No pulse deficits. Respiratory: Lungs have equal breath sounds bilaterally, clear to auscultation and percussion. No rales, rhonchi or wheezes noted. No increased work of breathing, no retractions or nasal flaring. Abdomen/GI: Soft, non-tender, with normal bowel sounds. No distension or tympany. No guarding or rebound. No evidence of tenderness throughout. Back: No spinal tenderness. No costovertebral tenderness. Full range of motion. Skin: Warm, dry with normal turgor. Normal color with no rashes, no lesions, and no evidence of cellulitis. MS/ Extremity: Pulses equal, no cyanosis. Neurovascular intact. Full, normal range of motion. Neuro: Awake and alert, GCS 15, oriented to person, place, time, and situation. Cranial nerves II-XII grossly intact. Motor strength 5/5 in all extremities. Sensory grossly intact. Cerebellar exam normal. Normal gait. Vital Signs: 00:59 BP 125 / 69; Pulse 93; Resp 18; Temp 98.2(O); Pulse Ox 99% on R/A; Weight 92.99 kg; em Height 5 ft. 7 in. (170.18 cm); Pain 0/10; 01:45 BP 116 / 64; Pulse 90; Resp 14; Pulse Ox 93% on R/A; Pain 0/10; fu 02:30 BP 121 / 59; Pulse 79; Resp 13; Pulse Ox 93% on R/A; Pain 0/10; fu 00:59 Body Mass Index 32.11 (92.99 kg, 170.18 cm) em MDM: 00:59 Patient medically screened. 12/16 01:00 Order name: Basic Metabolic Panel 12/16 01:00 Order name: CBC with Diff 12/16 01:00 Order name: LFT's 12/16 01:00 Order name: Magnesium 12/16 01:00 Order name: NT PRO-BNP; Complete Time: 02:36 12/16 02:36 Interpretation: Within normal limits: NT PRO-BNP 23. 12/16 01:00 Order name: PT-INR; Complete Time: 02:36 12/16 02:36 Interpretation: Within normal limits: PT 12.1. 12/16 01:00 Order name: Troponin (emerg Dept Use Only); Complete Time: 02:36 12/16 02:36 Interpretation: Within normal limits: TROPED < 0.02. 12/16 01:00 Order name: XRAY Chest (1 view) 12/16 01:00 Order name: EKG; Complete Time: 01:01 12/16 01:01 Order name: Basic Metabolic Panel; Complete Time: 02:36 EDMS 12/16 02:36 Interpretation: Normal except: K 3.3; GLUC 129. 12/16 01:01 Order name: CBC with Automated Diff; Complete Time: 02:36 EDMS 12/16 02:36 Interpretation: Within normal limits. 12/16 01:01 Order name: Liver (Hepatic) Function; Complete Time: 02:36 EDMS 12/16 02:36 Interpretation: Within normal limits. 12/16 01:01 Order name: Magnesium; Complete Time: 02:36 EDMS 12/16 02:37 Interpretation: Within normal limits: MG 2.0. 12/16 01:11 Order name: Urine Drug Screen; Complete Time: 02:36 4 12/16 02:37 Interpretation: Within normal limits. 12/16 01:00 Order name: Cardiac monitoring; Complete Time: :25 12/16 01:00 Order name: EKG - Nurse/Tech; Complete Time: 01:04 12/16 01:00 Order name: IV Saline Lock; Complete Time: :12/16 01:00 Order name: Labs collected and sent; Complete Time: :12/16 01:00 Order name: O2 Per Protocol; Complete Time: :12/16 01:00 Order name: O2 Sat Monitoring; Complete Time: : EC:08 Rate is 76 beats/min. Rhythm is regular, Sinus arrythmia. QRS [place] is Normal. VT tw4 interval is normal. QRS interval is normal. QT interval is normal. No Q waves. T waves are Normal. No ST changes noted. Clinical impression: Sinus arrythmia. Interpreted by me. Reviewed by me. Administered Medications: No medications were administered Disposition: 12/16/20 02:41 Discharged to Home. Impression: Palpitations. - Condition is Stable. - Medication Reconciliation Form, Thank You Letter, Antibiotic Education, Prescription Opioid Use form. - Follow up: Private Physician; When: Upon discharge from the Emergency Department; Reason: Recheck today's complaints, Continuance of care, Re-evaluation by your physician. - Problem is new. - Symptoms have improved. Signatures: Dispatcher [employer] Mauricio Quiroga RN Og Bal RN RN fu Wadley, Terrence, MD MD tw4 Corrections: (The following items were deleted from the chart) 03:22 02:41 12/16/2020 02:41 Discharged to Home. Impression: Palpitations. Condition is fu Stable. Forms are Medication Reconciliation Form, Thank You Letter, Antibiotic Education, Prescription Opioid Use. Follow up: Private Physician; When: Upon discharge from the Emergency Department; Reason: Recheck today's complaints, Continuance of care, Re-evaluation by your physician. Problem is new. Symptoms have improved. tw4
[2020-12-16 03:46] VITALS: TEMP 98.2
[2020-12-16 03:48] VITALS: O2SAT 93
[2020-12-16 03:49] VITALS: BP 121/59
--- NOTE | 2020-12-16 08:25 | RAD REPORT ---
EXAM DESCRIPTION: RAD - Chest Single View - 12/16/2020 1:18 am CLINICAL HISTORY: PALPITATIONS COMPARISON: Portable January 2018 TECHNIQUE: AP portable chest image was obtained 12/16/2020 1:18 am . FINDINGS: Lungs are clear. Heart and vasculature are normal. No measurable pleural effusion and no p neumothorax. No acute bony abnormality seen. No acute aortic findings suspected. IMPRESSION: No acute cardiopulmonary process. No significant change from comparison study.
--- NOTE | 2020-12-16 08:55 | EKG ---
Test Date: 2020-12-16 Test Time: 01:00:12 Psychology Clinician: LADY MEASUREMENT RESULTS: Intervals: Rate: 76 OR: 140 QRSD: 86 QT: 346 QTc: 389 [place]: P: 53 OR: 140 QRS: 75 T: 62 INTERPRETIVE STATEMENTS: Normal sinus rhythm with sinus arrhythmia Normal ECG Compared to ECG 02/04/2018 20:12:36 No significant changes Electronically Signed On 12-16-20 08:55:07 CDT by Louis Modi
== END 2020-12-16 03:22 | disposition home or self-care (01) ==
LOC: ER 00:44
DX: R00.2 Palpitations (principal); F17.290 Nicotine dependence, other tobacco product, uncomplicated; J45.909 Unspecified asthma, uncomplicated; F41.9 Anxiety disorder, unspecified
CPT/HCPCS: 36415; 71045; 80048; 80076; 80307; 83735; 83880; 84484; 85025; 85610; 93005; 99284

== ENCOUNTER 2020-12-26 16:08 | Emergency (ER) | payer SELFPAY ==
--- NOTE | 2020-12-26 21:01 | ER ---
Nurse's Notes [facility] Name: Gil Jose Age: 30 yrs Sex: Male : 1990 Arrival Date: 12/26/2020 Time: 16:11 Bed External Waiting Private MD: Diagnosis: Presentation: 12/26 16:34 Chief complaint: Patient states: SOB and palpitations int. for 10 days. Came here for ll1 same last week. Nothing specific found. Episodes of chest pain at times. Coronavirus screen: Client denies travel out of the [place] in the last 14 days. chills, difficulty breathing, fatigue, shortness of breath, Client presents with at least one sign or symptom that may indicate coronavirus-19. Standard/surgical mask placed on the client. Ebola Screen: Patient denies travel to an Ebola-affected area in the 21 days before illness onset. Initial Sepsis Screen: Does the patient meet any 2 criteria? No. Patient's initial sepsis screen is negative. Does the patient have a suspected source of infection? No. Patient's initial sepsis screen is negative. Risk Assessment: Do you want to hurt yourself or someone else? Patient reports no desire to harm self or others. Onset of symptoms was December 16, 2020. 16:34 Method Of Arrival: Ambulatory ll1 16:34 Acuity: FRANKI 3 ll1 Historical: - Allergies: 16:34 Codeine; ll1 - PMHx: 16:34 Anxiety; Hernia; ll1 - PSHx: 16:34 Hernia repair; ll1 - Immunization history:: Client reports having NOT received the Covid vaccine. Flu vaccine is not up to date. - Social history:: Smoking status: Reported history of juuling and/or vaping. Patient/guardian denies using tobacco, Stopped _ months ago .5. Vital Signs: 16:34 BP 119 / 76; Pulse 89; Resp 18; Temp 97.5; Pulse Ox 97% ; Weight 99.79 kg; Height 5 ft. ll1 7 in. (170.18 cm); Pain 0/10; 16:34 Body Mass Index 34.46 (99.79 kg, 170.18 cm) ll1 ED Course: 16:11 Patient arrived in ED. mr 16:37 Triage completed. ll1 16:37 Arm band placed on. ll1 17:49 EKG completed in triage. Results shown to MD. 1 20:00 Germán Parker PA is PHCP. tru 20:00 Brian Do MD is Attending Physician. tru Administered Medications: No medications were administered Outcome: 21:00 Patient left the ED. 1 Signatures: Germán Parker PA PA jmm Rivera, Mary mr Cindy Weiss, RN RN [facility]
== END 2020-12-26 21:00 | disposition left against medical advice (07) ==
LOC: ER 16:08
DX: Z53.21 Procedure and treatment not carried out due to patient leaving prior to being seen by health care provider (principal)
CPT/HCPCS: 93005; 99281

== ENCOUNTER 2021-08-06 23:25 | Emergency (ER) | payer SELFPAY ==
--- NOTE | 2021-08-07 01:54 | EDPHYS ---
Physician Documentation [facility] Name: Gil Jose Age: 30 yrs Sex: Male : 1990 Arrival Date: 08/06/2021 Time: 23:39 Bed 18 Private MD: ED Physician Sreekanth Mcintyre HPI: 08/07 03:51 This 30 yrs old Male presents to ER via Ambulatory with complaints of Sore Throat. kdr 03:51 The patient presents with sore throat. The patient describes throat pain as raw, kdr scratchy. Onset: The symptoms/episode began/occurred gradually, 2 day(s) ago. Severity of symptoms: At their worst the symptoms were mild, moderate, just prior to arrival, in the emergency department the symptoms are unchanged. Modifying factors: The symptoms are alleviated by nothing, the symptoms are aggravated by fluids, foods, Patient's oral intake status: good. Associated signs and symptoms: The patient has no apparent associated signs or symptoms. The patient has not experienced similar symptoms in the past. The patient has not recently seen a physician. Patient complains of a fever and sore throat for last 2 days. His temperature was noted to be about 100.1. He last had Tylenol at 4 hours prior to arrival. He also communicated that he had had oral sex with an individual who was recently diagnosed with herpes. He was concerned that he may have contracted this infection from the exposure . Historical: - Allergies: 00:11 Codeine; bb - Home Meds: 00:11 suboxone [Active]; bb - PMHx: 00:11 Anxiety; Asthma; Hernia; bb - PSHx: 00:11 hernia; bb - Immunization history:: Adult Immunizations up to date, Client reports having NOT received the Covid vaccine. - Social history:: Smoking status: Reported history of juuling and/or vaping. Patient uses alcohol, but reports only rare drinking. Patient/guardian denies using street drugs. ROS: 03:51 Constitutional: Negative for chills, and weight loss -he has had fever of 100.1 kdr recently Eyes: Negative for injury, pain, redness, and discharge, Neck: Negative for injury, pain, and swelling, Cardiovascular: Negative for chest pain, palpitations, and edema, Respiratory: Negative for shortness of breath, cough, wheezing, and pleuritic chest pain, Abdomen/GI: Negative for abdominal pain, nausea, vomiting, diarrhea, and constipation, Back: Negative for injury and pain, : Negative for injury, bleeding, discharge, and swelling, MS/Extremity: Negative for injury and deformity, Skin: Negative for injury, rash, and discoloration, Neuro: Negative for headache, weakness, numbness, tingling, and seizure activity. Psych: Negative for depression, anxiety, suicide ideation, homicidal ideation, and hallucinations, Allergy/Immunology: Negative for hives, rash, and allergies, Endocrine: Negative for neck swelling, polydipsia, polyuria, polyphagia, and marked weight changes, Hematologic/Lymphatic: Negative for swollen nodes, abnormal bleeding, and unusual bruising. 03:51 ENT: Positive for sore throat. Exam: 03:51 Constitutional: This is a well developed, well nourished patient who is awake, alert, kdr and in no acute distress. Head/Face: Normocephalic, atraumatic. Eyes: Pupils equal round and reactive to light, extra-ocular motions intact. Lids and lashes normal. Conjunctiva and sclera are non-icteric and not injected. Cornea within normal limits. Periorbital areas with no swelling, redness, or edema. Neck: Trachea midline, no thyromegaly or masses palpated, and no cervical lymphadenopathy. Supple, full range of motion without nuchal rigidity, or vertebral point tenderness. No Meningismus. Chest/axilla: Normal chest wall appearance and motion. Nontender with no deformity. No lesions are appreciated. Cardiovascular: Regular rate and rhythm with a normal S1 and S2. No gallops, murmurs, or rubs. Normal PMI, no JVD. No pulse deficits. Respiratory: Lungs have equal breath sounds bilaterally, clear to auscultation and percussion. No rales, rhonchi or wheezes noted. No increased work of breathing, no retractions or nasal flaring. Abdomen/GI: Soft, non-tender, with normal bowel sounds. No distension or tympany. No guarding or rebound. No evidence of tenderness throughout. Back: No spinal tenderness. No costovertebral tenderness. Full range of motion. Skin: Warm, dry with normal turgor. Normal color with no rashes, no lesions, and no evidence of cellulitis. MS/ Extremity: Pulses equal, no cyanosis. Neurovascular intact. Full, normal range of motion. Neuro: Awake and alert, GCS 15, oriented to person, place, time, and situation. Cranial nerves II-XII grossly intact. Motor strength 5/5 in all extremities. Sensory grossly intact. Cerebellar exam normal. Normal gait. Psych: Awake, alert, with orientation to person, place and time. Behavior, mood, and affect are within normal limits. 03:51 ENT: Posterior pharynx: Tonsils: with erythema, no enlargement, no exudate, no ulcerations, erythema, that is mild. Vital Signs: 00:09 BP 128 / 74; Pulse 86; Resp 16 S; Temp 98.3(O); Pulse Ox 100% on R/A; Weight 97.52 kg bb (R); Height 5 ft. 7 in. (170.18 cm) (R); Pain 7/10; 02:35 BP 117 / 45; Pulse 76; Resp 16 S; Temp 98(O); Pulse Ox 98% on R/A; bb 00:09 Body Mass Index 33.67 (97.52 kg, 170.18 cm) bb MDM: 01:53 Patient medically screened. kdr 03:51 Data reviewed: vital signs, nurses notes, lab test result(s). Counseling: I had a kdr detailed discussion with the patient and/or guardian regarding: the historical points, exam findings, and any diagnostic results supporting the discharge/admit diagnosis, lab results. 08/07 00:19 Order name: Strep bb 08/07 01:35 Order name: Throat Culture EDMS Administered Medications: No medications were administered Disposition Summary: 08/07/21 01:53 Discharge Ordered Location: Home kdr Problem: new kdr Symptoms: have improved kdr Condition: Stable kdr Diagnosis - Acute laryngopharyngitis kdr - Viral infection, unspecified kdr - Unspecified sexually transmitted disease - Possible secondary to exposure kdr Followup: kdr - With: Private Physician - When: 2 - 3 days - Reason: If symptoms return, Further diagnostic work-up, Recheck today's complaints, Continuance of care, Re-evaluation by your physician Discharge Instructions: - Discharge Summary Sheet kdr - Pharyngitis, [id number] kdr - Sore Throat, [id number] kdr - Viral Illness, Adult kdr Forms: - Medication Reconciliation Form kdr - Thank You Letter kdr - Antibiotic Education kdr Prescriptions: - Acyclovir 400 mg Oral Tablet - take 1 tablet by ORAL route every 8 hours for 7 days; 21 tablet; Refills: 0, kdr Product Selection Permitted Signatures: Dispatcher [employer] Sreekanth William MD MD kdr Ballard, Brenda, RN RN bb
--- NOTE | 2021-08-07 01:54 | ER ---
Nurse's Notes [facility] Name: Gil Jose Age: 30 yrs Sex: Male : 1990 Arrival Date: 08/06/2021 Time: 23:39 Bed 18 Private MD: Diagnosis: Acute laryngopharyngitis;Viral infection, unspecified;Unspecified sexually transmitted disease-Possible secondary to exposure Presentation: 08/07 00:09 Chief complaint: Patient states: he has had a fever and sore throat x 2 days fever was bb 100.1 last dose of tylenol 4 hours ago. Coronavirus screen: At this time, the client does not indicate any symptoms associated with coronavirus-19. Ebola Screen: No symptoms or risks identified at this time. Initial Sepsis Screen: Does the patient meet any 2 criteria? No. Patient's initial sepsis screen is negative. Does the patient have a suspected source of infection? No. Patient's initial sepsis screen is negative. Risk Assessment: Do you want to hurt yourself or someone else? Patient reports no desire to harm self or others. Onset of symptoms was August 04, 2021. 00:09 Method Of Arrival: Ambulatory bb 00:09 Acuity: FRANKI 4 bb Triage Assessment: 00:11 General: Appears in no apparent distress. Behavior is calm, cooperative. Pain: bb Complains of pain in throat Pain currently is 4 out of 10 on a pain scale. EENT: Throat is reddened. Neuro: Level of Consciousness is awake, alert, obeys commands, Oriented to person, place, time, situation. Cardiovascular: Capillary refill < 3 seconds Patient's skin is warm and dry. Respiratory: Respiratory effort is even, unlabored, Respiratory pattern is regular. GI: No signs and/or symptoms were reported involving the gastrointestinal system. Derm: Skin is pink, warm \T\ dry. Musculoskeletal: Circulation, motion, and sensation intact. Historical: - Allergies: 00:11 Codeine; bb - Home Meds: 00:11 suboxone [Active]; bb - PMHx: 00:11 Anxiety; Asthma; Hernia; bb - PSHx: 00:11 hernia; bb - Immunization history:: Adult Immunizations up to date, Client reports having NOT received the Covid vaccine. - Social history:: Smoking status: Reported history of juuling and/or vaping. Patient uses alcohol, but reports only rare drinking. Patient/guardian denies using street drugs. Screenin:15 Abuse screen: Denies threats or abuse. Nutritional screening: No deficits noted. bb Tuberculosis screening: No symptoms or risk factors identified. Fall Risk None identified. Assessment: 01:15 Reassessment: No changes from previously documented assessment. Patient is alert, bb oriented x 3, equal unlabored respirations, skin warm/dry/pink. 02:34 Reassessment: Patient is alert, oriented x 3, equal unlabored respirations, skin bb warm/dry/pink. pt verbalized understanding of and agrees to plan of care discharge instructions given pt ambulated with steady gait to exit. 02:36 Respiratory: Airway. bb Vital Signs: 00:09 BP 128 / 74; Pulse 86; Resp 16 S; Temp 98.3(O); Pulse Ox 100% on R/A; Weight 97.52 kg bb (R); Height 5 ft. 7 in. (170.18 cm) (R); Pain 7/10; 02:35 BP 117 / 45; Pulse 76; Resp 16 S; Temp 98(O); Pulse Ox 98% on R/A; bb 00:09 Body Mass Index 33.67 (97.52 kg, 170.18 cm) bb ED Course: 08/06 23:39 Patient arrived in ED. 23:49 Sreekanth Mcintyre MD is Attending Physician. kdr 08/07 00:11 Triage completed. bb 00:11 Arm band placed on Patient placed in waiting room, Patient notified of wait time. bb 01:15 Nisreen Reyes, RN is Primary Nurse. bb 01:15 Patient has correct armband on for positive identification. Bed in low position. Call bb light in reach. 02:36 Patient did not have IV access during this emergency room visit. bb 02:36 No provider procedures requiring assistance completed. bb Administered Medications: No medications were administered Outcome: 01:53 Discharge ordered by . kdr 02:36 Discharged to home ambulatory. bb 02:36 Condition: stable 02:36 Discharge instructions given to patient, Instructed on discharge instructions, follow up and referral plans. medication usage, Demonstrated understanding of instructions, follow-up care, medications, Prescriptions given X 1. 02:36 Patient left the ED. bb Signatures: Sreekanth Mcintyre MD MD kdr Nisreen Reyes, AILEEN RN bb Tiera Leal
[2021-08-07 02:42] VITALS: BP 117/45; TEMP 98; O2SAT 98
== END 2021-08-07 02:36 | disposition home or self-care (01) ==
LOC: ER 23:25
DX: J06.0 Acute laryngopharyngitis (principal); B34.9 Viral infection, unspecified; A64 Unspecified sexually transmitted disease; F41.9 Anxiety disorder, unspecified; Z88.5 Allergy status to narcotic agent
CPT/HCPCS: 87070; 87081; 99282

== ENCOUNTER 2022-10-15 10:39 | Emergency (ER) | payer SELFPAY ==
--- OUTSIDE RECORDS SUMMARY | 2022-10-15 10:49 | XMS REPORT | Continuity of Care Document ---
:1990 Author Organization [facility] t Address [facility] [place] [address] Care Team Providers Name Role Phone Jass Rollins Attending Clinician Unavailable Bhupinder Moreau Attending Clinician Unavailable Payers Payer Name Policy Type Policy Number Effective Date Expiration Date S ource Problems This patient has no known problems. Allergies, Adverse Reactions, Alerts This patient has no known allergies or adverse reactions. Social History Social Habit Start Date Stop Date Quantity Comments Source Sex Assigned At [birth year] Male Madalyn Maddox. 00:00:00 00:00:00 [facility] Smoking Status Start Date Stop Date Source Unknown if ever smoked [facility] Medications This patient has no known medications. Procedures Procedure Date / Time Performed Performing Clinician Sour e XR Chest 1 View 2022-08-13 21:50:00 [facility] EKG 12 Lead in 2022-05-24 17:21:00 [facility] EKG 12 Lead in 2022-05-24 17:21:00 [facility] Emergency [facility] XR Chest 1 View 2022-05-24 17:05:00 [facility] XR Chest 1 View 2022-05-24 17:05:00 [facility] Encounters Start End Encounter Admission Attending Care Care Encounter Source Date/Time Date/Time Type Type Clinicians Facility Department ID 2022-08-13 2022-08-13 Emergency ER Jass Rollins STKASSI STLSJB [id number] [facility] 21:09:00 23:08:00 -[id number] Franc Marie n 2022-05-25 2022-05-25 Emergency ER RACHEL Moreau STLSJB [id number] [facility] 01:41:00 03:05:00 Bhupinder -[id number] Franc Marie n 2022-05-24 2022-05-24 Emergency ER RACHEL Moreau STLSJB [id number] [facility] 16:49:00 18:08:00 Bhupinder -[id number] Franc Marie n Results Test Description Test Time Test Comments Results Result Comments Source Chemistry - BNP, HgbA1c, PTHi 2022-08-13 22:22:00 Test Item Value Reference Range Interpretation Comme nts Chemistry - BNP, HgbA1c, PTHi (test code = BNP) 28.8 pg/mL 0-100 N [id number] 22:21:00 Test Item Value Reference Range Interpretation Comments Chemistry (test code = 140 mmol/L 136-145 N NA-T) Chemistry (test code = 3.7 mmol/L 3.5-5.1 N K-T) Chemistry (test code = 106 mmol/L 98-107 N CL) Chemistry (test code = 26 mmol/L 22-29 N CO2) Chemistry (test code = 12 mmol/L 10-20 N ANGP) Chemistry (test code = 14 mg/dL 8.9-20.6 N BUN) Chemistry (test code = 0.84 mg/dL 0.7-1.3 N CREATT) Chemistry (test code = 120 Refer ence Range for EGFRCR) Estimated GFR: Greater than 90 mL/min/1.73 [id number] eGFR is based on the CK D-EPI 2020 equation thatdoes not us e a race coefficien t. Chemistry (test code = 116 mg/dL 70-105 H GLU-T) Chemistry (test code = 9.0 mg/dL 7.8-10.44 N CA) Chemistry (test code = 0.4 mg/dL 0.2-1.2 N TBILI-T) Chemistry (test code = 6.8 g/dL 6.0-8.3 N TP) Chemistry (test code = 4.2 g/dL 3.5-5.0 N ALB) Chemistry (test code = 2.6 g/dL 2.4-3.5 N GLOB) Chemistry (test code = 1.6 g/dL 1.2-2.2 N AG) Chemistry (test code = 52 U/L 40-110 N ALP) Chemistry (test code = 24 U/L 5-34 N AST) Chemistry (test code = 37 U/L 8-55 N ALT) [id number] 22:21:00 Test Item Value Reference Range Interpretation Comments Chemistry (test 0.015 ng/mL < 0.028 code = TROPI-R) Reference Ra nge 0.00 - 0.028 ng /mL Negative 0.029 - 0.29 ng/mL Indetermi cortez Greater or Equa l to 0.3 ng/mL Strongly suggests [place] [id number] 22:09:00 Test Item Value Reference Range Interpretation Comments Hematology (test code = WBCT) 6.4 10x3/uL 4.8-10.8 N Hematology (test code = RBCT) 4.78 mill/uL 4.70-6.10 N Hematology (test code = HGBT) 14.0 g/dL 14.0-18.0 N Hematology (test code = HCTT) 41.9 % 42.0-52.0 L Hematology (test code = MCV) 87.6 fl 78.0-98.0 N Hematology (test code = MCH) 29.2 pg 27.0-31.0 N Hematology (test code = MCHC) 33.3 g/dL 32.0-36.0 N Hematology (test code = RDW) 12.0 % 11.5-14.5 N Hematology (test code = PLTT) 316 10x3/uL 130-400 N Hematology (test code = MPV) 6.4 fL 7.4-10.4 L Hematology (test code = %NEUT) 72.8 % 42.0-75.0 N Hematology (test code = %LYMPH) 16.6 % 21.0-51.0 L Hematology (test code = %MONO) 8.4 % 0.0-10.0 N Hematology (test code = %EOS) 0.8 % 0.0-10.0 N Hematology (test code = %BASO) 1.5 % 0.0-1.0 H Hematology (test code = NEUT#) 4.6 thou/uL 1.40-6.50 N Hematology (test code = LYMPH#) 1.1 thou/uL 1.20-3.40 L Hematology (test code = MONO#) 0.5 thou/uL 0.11-0.59 N Hematology (test code = EOS#) 0.0 thou/uL 0.0-0.7 N Hematology (test code = BASO#) 0.1 thou/uL 0.0-0.2 N Serum or plasma sodium measurement (moles/volume)2022-08-13 21:55:00 Test Item Value Reference Range Interpretation Comments Sodium Level (test code = 2951-2) 140 mmol/L 136-145 [facility] potassium [facility] (moles/volume)2022-08-13 21:55:00 Test Item Value Reference Range Interpretation Comments Potassium Level (test code = 3.7 mmol/L 3.5-5.1 2823-3) [facility] chloride measurement (moles/volume)2022-08-13 21:55:00 Test Item Value Reference Range Interpretation Comments Chloride Level (test code = 106 mmol/L 98-107 5-0) [facility] plasma carbon dioxide, total measurement (moles/volume)2022-08-13 21:55:00 Test Item Value Reference Range Interpretation Comments Carbon Dioxide Level (test code = 26 mmol/L -29 2027-) [facility] or plasma anion [id number] 21:55:00 Test Item Value Reference Range Interpretation Comments Anion Gap (test code = 52422-0) 12 mmol/L 10-20 [facility] urea nitrogen measurement (mass/volume)2022-08-13 21:55:00 Test Item Value Reference Range Interpretation Comments Blood Urea Nitrogen (test code = 14 mg/dL 8.9-20.6 3094-0) [facility] creatinine measurement (mass/volume)2022-08-13 21:55:00 Test Item Value Reference Range Interpretation Comments Creatinine (test code = 2160-0) 0.84 mg/dL 0.7-1.3 [facility]Gl[facility] rate/1.73 sq M.predicted [Volume Rate/Area] in Serum, Plasma [id number] 21:55:00 Test Item Value Reference Range Interpretation Comments Estimated GFR (CKD-EPI 2020) (test code 120 = 80979-1) [facility]ucose [Mass/volume] in Serum or Plasma 2022-08-13 21:55:00 Test Item Value Reference Range Interpretation Comments Glucose Level (test code = 2345-7) 116 mg/dL 70-105 [facility] calcium measurement (mass/volume)2022-08-13 21:55:00 Test Item Value Reference Range Interpretation Comments Calcium Level (test code = 93275-3) 9.0 mg/dL 7.8-10.44 [facility] total bilirubin measurement (mass/volume)2022-08-13 21:55:00 Test Item Value Reference Range Interpretation Comments Total Bilirubin (test code = 0.4 mg/dL 0.2-1.2 1975-2) [facility] protein measurement (mass/volume)2022-08-13 21:55:00 Test Item Value Reference Range Interpretation Comments Serum Total Protein (test code = 6.8 g/dL 6.0-8.3 2885-2) [facility] or plasma albumin measurement by bromocresol green (BCG) dye binding method ([id number] 21:55:00 Test Item Value Reference Range Interpretation Comments Albumin (test code = 67967-8) 4.2 g/dL 3.5-5.0 [facility]obulin [Mass/volume] in Serum by calculation 2022-08-13 21:55:00 Test Item Value Reference Range Interpretation Comments Globulin (test code = 41320-7) 2.6 g/dL 2.4-3.5 [facility]Albumin/Globulin [Mass Ratio] in Serum or [id number] 21:55:00 Test Item Value Reference Range Interpretation Comments Albumin/Globulin Ratio (test code = 1.6 g/dL 1.2-2.2 1759-0) [facility]Alkaline phosphatase [Enzymatic activity/volume] in Serum or [id number] 21:55:00 Test Item Value Reference Range Interpretation Comments Alkaline Phosphatase (test code = 52 U/L 40-110 6768-6) [facility]rum or plasma aspartate aminotransferase measurement (enzymatic activity/volume)2022-08-13 21:55:00 Test Item Value Reference Range Interpretation Comments Aspartate Amino Transf (AST/SGOT) 24 U/L 5-34 (test code = 1920-8) [facility]ererum or plasma alanine aminotransferase measurement without P-5'-P (enzymatic [id number] 21:55:00 Test Item Value Reference Range Interpretation Comments Alanine Aminotransferase (ALT/SGPT) 37 U/L 8-55 (test code = 1744-2) [facility]Leukocytes [#/volume] in Blood by Automated [id number] 21:55:00 Test Item Value Reference Range Interpretation Comments White Blood Count (test code = 6.4 10x3/uL 4.8-10.8 6690-2) [facility] erythrocytes automated count (number/volume)2022-08-13 21:55:00 Test Item Value Reference Range Interpretation Comments Red Blood Count (test code = 4.78 mill/uL 4.70-6.10 789-8) [facility]Blood hemoglobin measurement (mass/volume) 2022-08-13 21:55:00 Test Item Value Reference Range Interpretation Comments Hemoglobin (test code = 718-7) 14.0 g/dL 14.0-18.0 [facility] DivisionAutomated erythrocyte mean corpuscular volume 2022-08-13 21:55:00 Test Item Value Reference Range Interpretation Comments Mean Corpuscular Volume (test code = 87.6 fl 78.0-98.0 787-2) [facility] DivisionAutomated erythrocyte mean corpuscular hemoglobin (mass per erythrocyte)2022-08-13 21:55:00 Test Item Value Reference Range Interpretation Comments Mean Corpuscular Hemoglobin (test 29.2 pg 27.0-31.0 code = 785-6) [facility] DivisionAutomated erythrocyte mean corpuscular hemoglobin concentration measurement (mass/[id number] 21:55:00 Test Item Value Reference Range Interpretation Comments Mean Corpuscular Hemoglobin Concent 33.3 g/dL 32.0-36.0 (test code = 786-4) [facility]Automated erythrocyte distribution width ratio 2022-08-13 21:55:00 Test Item Value Reference Range Interpretation Comments Red Cell Distribution Width (test code 12.0 % 11.5-14.5 = 788-0) [facility] DivisionAutomated blood platelet count (count/volume) 2022-08-13 21:55:00 Test Item Value Reference Range Interpretation Comments Platelet Count (test code = 316 10x3/uL 130-400 777-3) [facility] DivisionAutomated blood platelet mean [id number] 21:55:00 Test Item Value Reference Range Interpretation Comments Mean Platelet Volume (test code = 6.4 fL 7.4-10.4 05797-5) [facility] DivisionAutomated blood neutrophils/100 leukocytes 2022-08-13 21:55:00 Test Item Value Reference Range Interpretation Comments Neutrophils % (test code = 770-8) 72.8 % 42.0-75.0 [facility] DivisionLymphocytes/100 leukocytes in Blood by Automated [id number] 21:55:00 Test Item Value Reference Range Interpretation Comments Lymphocytes % (test code = 736-9) 16.6 % 21.0-51.0 [facility] DivisionAutomated blood monocytes/100 leukocytes 2022-08-13 21:55:00 Test Item Value Reference Range Interpretation Comments Monocytes % (test code = 5905-5) 8.4 % 0.0-10.0 [facility] DivisionAutomated blood eosinophils/100 leukocytes 2022-08-13 21:55:00 Test Item Value Reference Range Interpretation Comments Eosinophils % (test code = 713-8) 0.8 % 0.0-10.0 [facility] DivisionAutomated blood basophils/100 leukocytes 2022-08-13 21:55:00 Test Item Value Reference Range Interpretation Comments Basophils % (test code = 706-2) 1.5 % 0.0-1.0 [facility] neutrophils automated count (number/volume)2022-08-13 21:55:00 Test Item Value Reference Range Interpretation Comments Neutrophils # (test code = 751-8) 4.6 thou/uL 1.40-6.50 [facility] DivisionLymphocytes [#/volume] in Blood by Automated [id number] 21:55:00 Test Item Value Reference Range Interpretation Comments Lymphocytes # (test code = 731-0) 1.1 thou/uL 1.20-3.40 [facility] monocytes automated count (number/volume) 2022-08-13 21:55:00 Test Item Value Reference Range Interpretation Comments Monocytes # (test code = 742-7) 0.5 thou/uL 0.11-0.59 [facility] eosinophils automated count (count/volume)2022-08-13 21:55:00 Test Item Value Reference Range Interpretation Comments Eosinophils # (test code = 711-2) 0.0 thou/uL 0.0-0.7 [facility] blood basophil count (count/volume) 2022-08-13 21:55:00 Test Item Value Reference Range Interpretation Comments Basophils # (test code = 704-7) 0.1 thou/uL 0.0-0.2 [facility] DivisionChemistry2022-09-12 02:47:00 Test Item Value Reference Range Interpretation Comments Chemistry (test Less than < 0.028 code = TROPI-R) 0.010 ng/mL Reference Ra nge 0.00 - 0.028 ng /mL Negative 0.029 - 0.29 ng/mL Indetermi cortez Greater or Equa l to 0.3 ng/mL Stron gly suggests [place] [id number] 02:46:00 Test Item Value Reference Range Interpretation Comments Chemistry (test code = 140 mmol/L 136-145 N NA-T) Chemistry (test code = 3.8 mmol/L 3.5-5.1 N K-T) Chemistry (test code = 107 mmol/L 98-107 N CL) Chemistry (test code = 22 mmol/L 22-29 N CO2) Chemistry (test code = 15 mmol/L 10-20 N ANGP) Chemistry (test code = 14 mg/dL 8.9-20.6 N BUN) Chemistry (test code = 0.83 mg/dL 0.7-1.3 N CREATT) Chemistry (test code = 121 Refer ence Range for EGFRCR) Estimated GFR: Greater than 90 mL/min/1.73 v0Hxzdzloe eGFR is based on the CK D-EPI 2020 equation thatdoes not us e a race coefficien t. Chemistry (test code = 91 mg/dL 70-105 N GLU-T) Chemistry (test code = 8.9 mg/dL 7.8-10.44 N CA) Chemistry (test code = 1.2 mg/dL 0.2-1.2 N TBILI-T) Chemistry (test code = 7.2 g/dL 6.0-8.3 N TP) Chemistry (test code = 4.3 g/dL 3.5-5.0 N ALB) Chemistry (test code = 2.9 g/dL 2.4-3.5 N GLOB) Chemistry (test code = 1.5 g/dL 1.2-2.2 N AG) Chemistry (test code = 53 U/L 40-110 N ALP) Chemistry (test code = 28 U/L 5-34 N AST) Chemistry (test code = 50 U/L 8-55 N ALT) [id number] 02:43:00 Test Item Value Reference Range Interpretation Comments Coagulation (test Less than 0.27-0.43 L * Referenc e Range code = DDIMTT) 0.27 *mcg/mL Units: mcg/mL of fibrinogen equi valent units(FEU)Based upon a retrospective study of [facility] in January 2006, a result of"Less than 0. 44 mcg/mL FEU" is predictive of t he absence ofa DVT or PE. [id number] 02:38:00 Test Item Value Reference Range Interpretation Comments Hematology (test code 6.9 thou/uL 4.8-10.8 N = WBCT) Hematology (test code 4.79 mill/uL 4.70-6.10 N = RBCT) Hematology (test code 14.1 g/dL 14.0-18.0 N = HGBT) Hematology (test code 41.1 % 42.0-52.0 L = HCTT) Hematology (test code 85.8 fL 78.0-98.0 N ICU.TE U @0237. Pt. = MCV) received fluids on 05/24 visit Hematology (test code 29.4 pg 27.0-31.0 N = MCH) Hematology (test code 34.2 g/dL 32.0-36.0 N = MCHC) Hematology (test code 12.4 % 11.5-14.5 N = RDW) Hematology (test code 267 thou/uL 130-400 N = PLTT) Hematology (test code 6.0 fL 7.4-10.4 L = MPV) Hematology (test code 54.6 % 42.0-75.0 N = %NEUT) Hematology (test code 33.4 % 21.0-51.0 N = %LYMPH) Hematology (test code 9.2 % 0.0-10.0 N = %MONO) Hematology (test code 1.7 % 0.0-10.0 N = %EOS) Hematology (test code 1.1 % 0.0-1.0 H = %BASO) Hematology (test code 3.8 thou/uL 1.40-6.50 N = NEUT#) Hematology (test code 2.3 thou/uL 1.20-3.40 N = LYMPH#) Hematology (test code 0.6 thou/uL 0.11-0.59 H = MONO#) Hematology (test code 0.1 thou/uL 0.0-0.7 N = EOS#) Hematology (test code 0.1 thou/uL 0.0-0.2 N = BASO#) Serum or plasma urea nitrogen measurement (mass/volume)2022-05-25 02:15:00 Test Item Value Reference Range Interpretation Comments Blood Urea Nitrogen (test code = 14 mg/dL 8.9-20.6 3094-0) [facility]ere[facility] creatinine measurement (mass/volume)2022-05-25 02:15:00 Test Item Value Reference Range Interpretation Comments Creatinine (test code = 2160-0) 0.83 mg/dL 0.7-1.3 [facility] DivisionGlomerular filtration rate/1.73 sq M.predicted [Volume Rate/Area] in Serum, Plasma [id number] 02:15:00 Test Item Value Reference Range Interpretation Comments Estimated GFR (CKD-EPI 2020) (test code 121 = 71628-8) [facility]Glucose [Mass/volume] in Serum or Plasma 2022-05-25 02:15:00 Test Item Value Reference Range Interpretation Comments Glucose Level (test code = 2345-7) 91 mg/dL 70-105 [facility]ere[facility] or plasma calcium measurement (mass/volume)2022-05-25 02:15:00 Test Item Value Reference Range Interpretation Comments Calcium Level (test code = 69763-1) 8.9 mg/dL 7.8-10.44 [facility]ererum or plasma total bilirubin measurement (mass/volume)2022-05-25 02:15:00 Test Item Value Reference Range Interpretation Comments Total Bilirubin (test code = 1.2 mg/dL 0.2-1.2 1974-2) [facility] or plasma protein measurement (mass/volume)2022-05-25 02:15:00 Test Item Value Reference Range Interpretation Comments Serum Total Protein (test code = 7.2 g/dL 6.0-8.3 2885-2) [facility]ererum or plasma albumin measurement by bromocresol green (BCG) dye binding method ([id number] 02:15:00 Test Item Value Reference Range Interpretation Comments Albumin (test code = 21222-1) 4.3 g/dL 3.5-5.0 [facility]Globulin [Mass/volume] in Serum by calculation 2022-05-25 02:15:00 Test Item Value Reference Range Interpretation Comments Globulin (test code = 04955-2) 2.9 g/dL 2.4-3.5 [facility] DivisionAlbumin/Globulin [Mass Ratio] in Serum or [id number] 02:15:00 Test Item Value Reference Range Interpretation Comments Albumin/Globulin Ratio (test code = 1.5 g/dL 1.2-2.2 1759-0) [facility]Alkaline phosphatase [Enzymatic activity/volume] in Serum or [id number] 02:15:00 Test Item Value Reference Range Interpretation Comments Alkaline Phosphatase (test code = 53 U/L 40-110 6768-6) [facility] or plasma aspartate aminotransferase measurement (enzymatic activity/volume)2022-05-25 02:15:00 Test Item Value Reference Range Interpretation Comments Aspartate Amino Transf (AST/SGOT) 28 U/L 5-34 (test code = 1920-8) [facility]ererum or plasma alanine aminotransferase measurement without P-5'-P (enzymatic [id number] 02:15:00 Test Item Value Reference Range Interpretation Comments Alanine Aminotransferase (ALT/SGPT) 50 U/L 8-55 (test code = 1744-2) [facility]Leukocytes [#/volume] in Blood by Automated [id number] 02:15:00 Test Item Value Reference Range Interpretation Comments White Blood Count (test code = 6.9 thou/uL 4.8-10.8 6690-2) [facility] erythrocytes automated count (number/volume)2022-05-25 02:15:00 Test Item Value Reference Range Interpretation Comments Red Blood Count (test code = 4.79 mill/uL 4.70-6.10 789-8) [facility] hemoglobin measurement (mass/volume) 2022-05-25 02:15:00 Test Item Value Reference Range Interpretation Comments Hemoglobin (test code = 718-7) 14.1 g/dL 14.0-18.0 [facility]Automated erythrocyte mean corpuscular volume 2022-05-25 02:15:00 Test Item Value Reference Range Interpretation Comments Mean Corpuscular Volume (test code = 85.8 fL 78.0-98.0 787-2) [facility]Autom[facility] erythrocyte mean corpuscular hemoglobin (mass per erythrocyte)2022-05-25 02:15:00 Test Item Value Reference Range Interpretation Comments Mean Corpuscular Hemoglobin (test 29.4 pg 27.0-31.0 code = 785-6) [facility]Autom[facility] erythrocyte mean corpuscular hemoglobin concentration measurement (mass/[id number] 02:15:00 Test Item Value Reference Range Interpretation Comments Mean Corpuscular Hemoglobin Concent 34.2 g/dL 32.0-36.0 (test code = 786-4) [facility] erythrocyte distribution width ratio 2022-05-25 02:15:00 Test Item Value Reference Range Interpretation Comments Red Cell Distribution Width (test code 12.4 % 11.5-14.5 = 788-0) [facility] DivisionAutomated blood platelet count (count/volume) 2022-05-25 02:15:00 Test Item Value Reference Range Interpretation Comments Platelet Count (test code = 267 thou/uL 130-400 777-3) [facility] DivisionAutom[facility] blood platelet mean [id number] 02:15:00 Test Item Value Reference Range Interpretation Comments Mean Platelet Volume (test code = 6.0 fL 7.4-10.4 00006-7) [facility]Autom[facility] blood neutrophils/100 leukocytes 2022-05-25 02:15:00 Test Item Value Reference Range Interpretation Comments Neutrophils % (test code = 770-8) 54.6 % 42.0-75.0 [facility] DivisionLymphocytes/100 leukocytes in Blood by Automated [id number] 02:15:00 Test Item Value Reference Range Interpretation Comments Lymphocytes % (test code = 736-9) 33.4 % 21.0-51.0 [facility]Autom[facility] blood monocytes/100 leukocytes 2022-05-25 02:15:00 Test Item Value Reference Range Interpretation Comments Monocytes % (test code = 5905-5) 9.2 % 0.0-10.0 [facility]Automated blood eosinophils/100 leukocytes 2022-05-25 02:15:00 Test Item Value Reference Range Interpretation Comments Eosinophils % (test code = 713-8) 1.7 % 0.0-10.0 [facility] DivisionAutomated blood basophils/100 leukocytes 2022-05-25 02:15:00 Test Item Value Reference Range Interpretation Comments Basophils % (test code = 706-2) 1.1 % 0.0-1.0 [facility]Blood neutrophils automated count (number/volume)2022-05-25 02:15:00 Test Item Value Reference Range Interpretation Comments Neutrophils # (test code = 751-8) 3.8 thou/uL 1.40-6.50 [facility] DivisionLymphocytes [#/volume] in Blood by Automated [id number] 02:15:00 Test Item Value Reference Range Interpretation Comments Lymphocytes # (test code = 731-0) 2.3 thou/uL 1.20-3.40 [facility] monocytes automated count (number/volume) 2022-05-25 02:15:00 Test Item Value Reference Range Interpretation Comments Monocytes # (test code = 742-7) 0.6 thou/uL 0.11-0.59 [facility] eosinophils automated count (count/volume)2022-05-25 02:15:00 Test Item Value Reference Range Interpretation Comments Eosinophils # (test code = 711-2) 0.1 thou/uL 0.0-0.7 [facility] DivisionAutomated blood basophil count (count/volume) 2022-05-25 02:15:00 Test Item Value Reference Range Interpretation Comments Basophils # (test code = 704-7) 0.1 thou/uL 0.0-0.2 [facility] DivisionFibrin D-dimer FEU measurement in platelet poor plasma (mass/volume)2022-05-25 02:15:00 Test Item Value Reference Range Interpretation Comments D-Dimer (test code = Less than 0.27 *mcg/mL 0.27-0.43 77364-7) [facility] or plasma sodium measurement (moles/volume)2022-05-25 02:15:00 Test Item Value Reference Range Interpretation Comments Sodium Level (test code = 2951-2) 140 mmol/L 136-145 [facility]ere[facility] or plasma potassium measurement (moles/volume)2022-05-25 02:15:00 Test Item Value Reference Range Interpretation Comments Potassium Level (test code = 3.8 mmol/L 3.5-5.1 2823-3) [facility]ere[facility] or plasma chloride measurement (moles/volume)2022-05-25 02:15:00 Test Item Value Reference Range Interpretation Comments Chloride Level (test code = 107 mmol/L 98-107 2075-0) [facility]ererum or plasma carbon dioxide, total measurement (moles/volume)2022-05-25 02:15:00 Test Item Value Reference Range Interpretation Comments Carbon Dioxide Level (test code = 22 mmol/L -2027-) [facility]ererum or plasma anion [id number] 02:15:00 Test Item Value Reference Range Interpretation Comments Anion Gap (test code = 41554-9) 15 mmol/L 10-20 [facility] - BNP, HgbA1c, [id number] 17:35:00 Test Item Value Reference Range Interpretation Comments Chemistry - BNP, HgbA1c, PTHi 34.2 pg/mL 0-100 N (test code = BNP) [id number] 17:34:00 Test Item Value Reference Range Interpretation Comments Chemistry (test 0.013 ng/mL < 0.028 code = TROPI-R) Reference Ra nge 0.00 - 0.028 ng /mL Negative 0.029 - 0.29 ng/mL Indetermi cortez Greater or Equa l to 0.3 ng/mL Strongly suggests [place] [id number] 17:32:00 Test Item Value Reference Range Interpretation Comments Chemistry (test code = 139 mmol/L 136-145 N NA-T) Chemistry (test code = 3.5 mmol/L 3.5-5.1 N K-T) Chemistry (test code = 106 mmol/L 98-107 N CL) Chemistry (test code = 22 mmol/L 22-29 N CO2) Chemistry (test code = 15 mmol/L 10-20 N ANGP) Chemistry (test code = 12 mg/dL 8.9-20.6 N BUN) Chemistry (test code = 0.91 mg/dL 0.7-1.3 N CREATT) Chemistry (test code = 116 Refer ence Range for EGFRCR) Estimated GFR: Greater than 90 mL/min/1.73 f9Tpxbjioc eGFR is based on the CK D-EPI 2020 equation thatdoes not us e a race coefficien t. Chemistry (test code = 113 mg/dL 70-105 H GLU-T) Chemistry (test code = 9.2 mg/dL 7.8-10.44 N CA) Chemistry (test code = 1.3 mg/dL 0.2-1.2 H TBILI-T) Chemistry (test code = 7.6 g/dL 6.0-8.3 N TP) Chemistry (test code = 4.5 g/dL 3.5-5.0 N ALB) Chemistry (test code = 3.1 g/dL 2.4-3.5 N GLOB) Chemistry (test code = 1.5 g/dL 1.2-2.2 N AG) Chemistry (test code = 57 U/L 40-110 N ALP) Chemistry (test code = 28 U/L 5-34 N AST) Chemistry (test code = 54 U/L 8-55 N ALT) [id number] 17:32:00 Test Item Value Reference Range Interpretation Comments Chemistry (test code = CK) 342 U/L 30-200 H [id number] 17:21:00 Test Item Value Reference Range Interpretation Comments Hematology (test code = WBCT) 7.4 thou/uL 4.8-10.8 N Hematology (test code = RBCT) 4.88 mill/uL 4.70-6.10 N Hematology (test code = HGBT) 14.1 g/dL 14.0-18.0 N Hematology (test code = HCTT) 43.3 % 42.0-52.0 N Hematology (test code = MCV) 88.7 fL 78.0-98.0 N Hematology (test code = MCH) 29.0 pg 27.0-31.0 N Hematology (test code = MCHC) 32.6 g/dL 32.0-36.0 N Hematology (test code = RDW) 12.3 % 11.5-14.5 N Hematology (test code = PLTT) 308 thou/uL 130-400 N Hematology (test code = MPV) 6.4 fL 7.4-10.4 L Hematology (test code = %NEUT) 67.5 % 42.0-75.0 N Hematology (test code = %LYMPH) 22.0 % 21.0-51.0 N Hematology (test code = %MONO) 8.7 % 0.0-10.0 N Hematology (test code = %EOS) 0.5 % 0.0-10.0 N Hematology (test code = %BASO) 1.2 % 0.0-1.0 H Hematology (test code = NEUT#) 5.0 thou/uL 1.40-6.50 N Hematology (test code = LYMPH#) 1.6 thou/uL 1.20-3.40 N Hematology (test code = MONO#) 0.6 thou/uL 0.11-0.59 H Hematology (test code = EOS#) 0.0 thou/uL 0.0-0.7 N Hematology (test code = BASO#) 0.1 thou/uL 0.0-0.2 N Glomerular filtration rate/1.73 sq M.predicted [Volume Rate/Area] in Serum, Plasma [id number] 17:05:00 Test Item Value Reference Range Interpretation Comments Estimated GFR (CKD-EPI 2020) (test code 116 = 04051-5) [facility] [Mass/volume] in Serum or Plasma 2022-05-24 17:05:00 Test Item Value Reference Range Interpretation Comments Glucose Level (test code = 2345-7) 113 mg/dL 70-105 [facility] calcium measurement (mass/volume)2022-05-24 17:05:00 Test Item Value Reference Range Interpretation Comments Calcium Level (test code = 81124-9) 9.2 mg/dL 7.8-10.44 [facility] total bilirubin measurement (mass/volume)2022-05-24 17:05:00 Test Item Value Reference Range Interpretation Comments Total Bilirubin (test code = 1.3 mg/dL 0.2-1.2 1975-2) [facility] protein measurement (mass/volume)2022-05-24 17:05:00 Test Item Value Reference Range Interpretation Comments Serum Total Protein (test code = 7.6 g/dL 6.0-8.3 2885-2) [facility] albumin measurement by bromocresol green (BCG) dye binding method ([id number] 17:05:00 Test Item Value Reference Range Interpretation Comments Albumin (test code = 09714-3) 4.5 g/dL 3.5-5.0 [facility]Globulin [Mass/volume] in Serum by calculation 2022-05-24 17:05:00 Test Item Value Reference Range Interpretation Comments Globulin (test code = 81203-2) 3.1 g/dL 2.4-3.5 [facility]Albumin/Globulin [Mass Ratio] in Serum or [id number] 17:05:00 Test Item Value Reference Range Interpretation Comments Albumin/Globulin Ratio (test code = 1.5 g/dL 1.2-2.2 1759-0) [facility] DivisionAlkaline phosphatase [Enzymatic activity/volume] in Serum or Panvea5007-39-27 17:05:00 Test Item Value Reference Range Interpretation Comments Alkaline Phosphatase (test code = 57 U/L 40-110 6768-6) [facility] plasma aspartate aminotransferase measurement (enzymatic activity/volume)2022-05-24 17:05:00 Test Item Value Reference Range Interpretation Comments Aspartate Amino Transf (AST/SGOT) 28 U/L 5-34 (test code = 1920-8) [facility] DivisionCreatine kinase [Enzymatic activity/volume] in Serum or [id number] 17:05:00 Test Item Value Reference Range Interpretation Comments Creatine Kinase (test code = 2157-6) 342 U/L 30-200 [facility] or plasma alanine aminotransferase measurement without P-5'-P (enzymatic [id number] 17:05:00 Test Item Value Reference Range Interpretation Comments Alanine Aminotransferase (ALT/SGPT) 54 U/L 8-55 (test code = 1744-2) [facility] DivisionLeukocytes [#/volume] in Blood by Automated [id number] 17:05:00 Test Item Value Reference Range Interpretation Comments White Blood Count (test code = 7.4 thou/uL 4.8-10.8 6690-2) [facility]Blood erythrocytes automated count (number/volume)2022-05-24 17:05:00 Test Item Value Reference Range Interpretation Comments Red Blood Count (test code = 4.88 mill/uL 4.70-6.10 789-8) [facility]Blood hemoglobin measurement (mass/volume) 2022-05-24 17:05:00 Test Item Value Reference Range Interpretation Comments Hemoglobin (test code = 718-7) 14.1 g/dL 14.0-18.0 [facility] DivisionAutomated erythrocyte mean corpuscular volume 2022-05-24 17:05:00 Test Item Value Reference Range Interpretation Comments Mean Corpuscular Volume (test code = 88.7 fL 78.0-98.0 787-2) [facility] DivisionAutomated erythrocyte mean corpuscular hemoglobin (mass per erythrocyte)2022-05-24 17:05:00 Test Item Value Reference Range Interpretation Comments Mean Corpuscular Hemoglobin (test 29.0 pg 27.0-31.0 code = 785-6) [facility] DivisionAutomated erythrocyte mean corpuscular hemoglobin concentration measurement (mass/[id number] 17:05:00 Test Item Value Reference Range Interpretation Comments Mean Corpuscular Hemoglobin Concent 32.6 g/dL 32.0-36.0 (test code = 786-4) [facility] DivisionAutomated erythrocyte distribution width ratio 2022-05-24 17:05:00 Test Item Value Reference Range Interpretation Comments Red Cell Distribution Width (test code 12.3 % 11.5-14.5 = 788-0) [facility] DivisionAutomated blood platelet count (count/volume) 2022-05-24 17:05:00 Test Item Value Reference Range Interpretation Comments Platelet Count (test code = 308 thou/uL 130-400 777-3) [facility] DivisionAutomated blood platelet mean [id number] 17:05:00 Test Item Value Reference Range Interpretation Comments Mean Platelet Volume (test code = 6.4 fL 7.4-10.4 27212-9) [facility] DivisionAutomated blood neutrophils/100 leukocytes 2022-05-24 17:05:00 Test Item Value Reference Range Interpretation Comments Neutrophils % (test code = 770-8) 67.5 % 42.0-75.0 [facility] DivisionLymphocytes/100 leukocytes in Blood by Automated [id number] 17:05:00 Test Item Value Reference Range Interpretation Comments Lymphocytes % (test code = 736-9) 22.0 % 21.0-51.0 [facility] DivisionAutomated blood monocytes/100 leukocytes 2022-05-24 17:05:00 Test Item Value Reference Range Interpretation Comments Monocytes % (test code = 5905-5) 8.7 % 0.0-10.0 [facility] DivisionAutomated blood eosinophils/100 leukocytes 2022-05-24 17:05:00 Test Item Value Reference Range Interpretation Comments Eosinophils % (test code = 713-8) 0.5 % 0.0-10.0 [facility] DivisionAutomated blood basophils/100 leukocytes 2022-05-24 17:05:00 Test Item Value Reference Range Interpretation Comments Basophils % (test code = 706-2) 1.2 % 0.0-1.0 [facility]Blood neutrophils automated count (number/volume)2022-05-24 17:05:00 Test Item Value Reference Range Interpretation Comments Neutrophils # (test code = 751-8) 5.0 thou/uL 1.40-6.50 [facility] DivisionLymphocytes [#/volume] in Blood by Automated [id number] 17:05:00 Test Item Value Reference Range Interpretation Comments Lymphocytes # (test code = 731-0) 1.6 thou/uL 1.20-3.40 [facility] monocytes automated count (number/volume) 2022-05-24 17:05:00 Test Item Value Reference Range Interpretation Comments Monocytes # (test code = 742-7) 0.6 thou/uL 0.11-0.59 [facility]Blood eosinophils automated count (count/volume)2022-05-24 17:05:00 Test Item Value Reference Range Interpretation Comments Eosinophils # (test code = 711-2) 0.0 thou/uL 0.0-0.7 [facility] DivisionAutomated blood basophil count (count/volume) 2022-05-24 17:05:00 Test Item Value Reference Range Interpretation Comments Basophils # (test code = 704-7) 0.1 thou/uL 0.0-0.2 [facility] sodium measurement (moles/volume)2022-05-24 17:05:00 Test Item Value Reference Range Interpretation Comments Sodium Level (test code = 2951-2) 139 mmol/L 136-145 [facility]ere[facility] or plasma potassium measurement (moles/volume)2022-05-24 17:05:00 Test Item Value Reference Range Interpretation Comments Potassium Level (test code = 3.5 mmol/L 3.5-5.1 2823-3) [facility] or plasma chloride measurement (moles/volume)2022-05-24 17:05:00 Test Item Value Reference Range Interpretation Comments Chloride Level (test code = 106 mmol/L 98-107 2075-0) [facility]ere[facility] or plasma carbon dioxide, total measurement (moles/volume)2022-05-24 17:05:00 Test Item Value Reference Range Interpretation Comments Carbon Dioxide Level (test code = 22 mmol/L 22-29 2027-9) [facility]ere[facility] or plasma anion [id number] 17:05:00 Test Item Value Reference Range Interpretation Comments Anion Gap (test code = 73671-6) 15 mmol/L 10-20 [facility]ere[facility] or plasma urea nitrogen measurement (mass/volume)2022-05-24 17:05:00 Test Item Value Reference Range Interpretation Comments Blood Urea Nitrogen (test code = 12 mg/dL 8.9-20.6 3094-0) [facility] plasma creatinine measurement (mass/volume)2022-05-24 17:05:00 Test Item Value Reference Range Interpretation Comments Creatinine (test code = 2160-0) 0.91 mg/dL 0.7-1.3 [facility] DivisionGlomerular filtration rate/1.73 sq M.predicted [Volume Rate/Area] in Serum, Plasma [id number] 17:05:00 Test Item Value Reference Range Interpretation Comments Estimated GFR (CKD-EPI 2020) (test code 116 = 74398-3) [facility] DivisionGlucose [Mass/volume] in Serum or Plasma 2022-05-24 17:05:00 Test Item Value Reference Range Interpretation Comments Glucose Level (test code = 2345-7) 113 mg/dL 70-105 [facility]ere[facility] plasma calcium measurement (mass/volume)2022-05-24 17:05:00 Test Item Value Reference Range Interpretation Comments Calcium Level (test code = 40235-6) 9.2 mg/dL 7.8-10.44 [facility]ere[facility] or plasma total bilirubin measurement (mass/volume)2022-05-24 17:05:00 Test Item Value Reference Range Interpretation Comments Total Bilirubin (test code = 1.3 mg/dL 0.2-1.2 1974-2) [facility] or plasma protein measurement (mass/volume)2022-05-24 17:05:00 Test Item Value Reference Range Interpretation Comments Serum Total Protein (test code = 7.6 g/dL 6.0-8.3 2885-2) [facility]ere[facility] or plasma albumin measurement by bromocresol green (BCG) dye binding method ([id number] 17:05:00 Test Item Value Reference Range Interpretation Comments Albumin (test code = 71912-2) 4.5 g/dL 3.5-5.0 [facility] DivisionGlobulin [Mass/volume] in Serum by calculation 2022-05-24 17:05:00 Test Item Value Reference Range Interpretation Comments Globulin (test code = 02134-0) 3.1 g/dL 2.4-3.5 [facility] DivisionAlbumin/Globulin [Mass Ratio] in Serum or [id number] 17:05:00 Test Item Value Reference Range Interpretation Comments Albumin/Globulin Ratio (test code = 1.5 g/dL 1.2-2.2 1759-0) [facility] DivisionAlkaline phosphatase [Enzymatic activity/volume] in Serum or Dxtcge9360-95-03 17:05:00 Test Item Value Reference Range Interpretation Comments Alkaline Phosphatase (test code = 57 U/L 40-110 6768-6) [facility] or plasma aspartate aminotransferase measurement (enzymatic activity/volume)2022-05-24 17:05:00 Test Item Value Reference Range Interpretation Comments Aspartate Amino Transf (AST/SGOT) 28 U/L 5-34 (test code = 1920-8) [facility] DivisionCreatine kinase [Enzymatic activity/volume] in Serum or [id number] 17:05:00 Test Item Value Reference Range Interpretation Comments Creatine Kinase (test code = 2157-6) 342 U/L 30-200 [facility]ere[facility] or plasma alanine aminotransferase measurement without P-5'-P (enzymatic smkeye4896-39-06 17:05:00 Test Item Value Reference Range Interpretation Comments Alanine Aminotransferase (ALT/SGPT) 54 U/L 8-55 (test code = 1744-2) [facility] DivisionLeukocytes [#/volume] in Blood by Automated [id number] 17:05:00 Test Item Value Reference Range Interpretation Comments White Blood Count (test code = 7.4 thou/uL 4.8-10.8 6690-2) [facility]Blood erythrocytes automated count (number/volume)2022-05-24 17:05:00 Test Item Value Reference Range Interpretation Comments Red Blood Count (test code = 4.88 mill/uL 4.70-6.10 789-8) [facility] DivisionBlood hemoglobin measurement (mass/volume) 2022-05-24 17:05:00 Test Item Value Reference Range Interpretation Comments Hemoglobin (test code = 718-7) 14.1 g/dL 14.0-18.0 [facility] DivisionAutomated erythrocyte mean corpuscular volume 2022-05-24 17:05:00 Test Item Value Reference Range Interpretation Comments Mean Corpuscular Volume (test code = 88.7 fL 78.0-98.0 787-2) [facility] DivisionAutomated erythrocyte mean corpuscular hemoglobin (mass per erythrocyte)2022-05-24 17:05:00 Test Item Value Reference Range Interpretation Comments Mean Corpuscular Hemoglobin (test 29.0 pg 27.0-31.0 code = 785-6) [facility] DivisionAutomated erythrocyte mean corpuscular hemoglobin concentration measurement (mass/hcl0754-93-79 17:05:00 Test Item Value Reference Range Interpretation Comments Mean Corpuscular Hemoglobin Concent 32.6 g/dL 32.0-36.0 (test code = 786-4) [facility] DivisionAutomated erythrocyte distribution width ratio 2022-05-24 17:05:00 Test Item Value Reference Range Interpretation Comments Red Cell Distribution Width (test code 12.3 % 11.5-14.5 = 788-0) [facility] DivisionAutomated blood platelet count (count/volume) 2022-05-24 17:05:00 Test Item Value Reference Range Interpretation Comments Platelet Count (test code = 308 thou/uL 130-400 777-3) [facility] DivisionAutomated blood platelet mean [id number] 17:05:00 Test Item Value Reference Range Interpretation Comments Mean Platelet Volume (test code = 6.4 fL 7.4-10.4 94831-5) [facility] DivisionAutomated blood neutrophils/100 leukocytes 2022-05-24 17:05:00 Test Item Value Reference Range Interpretation Comments Neutrophils % (test code = 770-8) 67.5 % 42.0-75.0 [facility] DivisionLymphocytes/100 leukocytes in Blood by Automated [id number] 17:05:00 Test Item Value Reference Range Interpretation Comments Lymphocytes % (test code = 736-9) 22.0 % 21.0-51.0 [facility] DivisionAutomated blood monocytes/100 leukocytes 2022-05-24 17:05:00 Test Item Value Reference Range Interpretation Comments Monocytes % (test code = 5905-5) 8.7 % 0.0-10.0 [facility] DivisionAutomated blood eosinophils/100 leukocytes 2022-05-24 17:05:00 Test Item Value Reference Range Interpretation Comments Eosinophils % (test code = 713-8) 0.5 % 0.0-10.0 [facility] DivisionAutomated blood basophils/100 leukocytes 2022-05-24 17:05:00 Test Item Value Reference Range Interpretation Comments Basophils % (test code = 706-2) 1.2 % 0.0-1.0 [facility] neutrophils automated count (number/volume)2022-05-24 17:05:00 Test Item Value Reference Range Interpretation Comments Neutrophils # (test code = 751-8) 5.0 thou/uL 1.40-6.50 [facility] DivisionLymphocytes [#/volume] in Blood by Automated [id number] 17:05:00 Test Item Value Reference Range Interpretation Comments Lymphocytes # (test code = 731-0) 1.6 thou/uL 1.20-3.40 [facility] monocytes automated count (number/volume) 2022-05-24 17:05:00 Test Item Value Reference Range Interpretation Comments Monocytes # (test code = 742-7) 0.6 thou/uL 0.11-0.59 [facility] DivisionBlood eosinophils automated count (count/volume)2022-05-24 17:05:00 Test Item Value Reference Range Interpretation Comments Eosinophils # (test code = 711-2) 0.0 thou/uL 0.0-0.7 [facility] DivisionAutomated blood basophil count (count/volume) 2022-05-24 17:05:00 Test Item Value Reference Range Interpretation Comments Basophils # (test code = 704-7) 0.1 thou/uL 0.0-0.2 [facility] sodium measurement (moles/volume)2022-05-24 17:05:00 Test Item Value Reference Range Interpretation Comments Sodium Level (test code = 2951-2) 139 mmol/L 136-145 [facility]ere[facility] or plasma potassium measurement (moles/volume)2022-05-24 17:05:00 Test Item Value Reference Range Interpretation Comments Potassium Level (test code = 3.5 mmol/L 3.5-5.1 2823-3) [facility] or plasma chloride measurement (moles/volume)2022-05-24 17:05:00 Test Item Value Reference Range Interpretation Comments Chloride Level (test code = 106 mmol/L 98-107 5-0) [facility]ererum or plasma carbon dioxide, total measurement (moles/volume)2022-05-24 17:05:00 Test Item Value Reference Range Interpretation Comments Carbon Dioxide Level (test code = 22 mmol/L 22-29 2028-05) [facility] or plasma anion [id number] 17:05:00 Test Item Value Reference Range Interpretation Comments Anion Gap (test code = 85856-3) 15 mmol/L 10-20 [facility] plasma urea nitrogen measurement (mass/volume)2022-05-24 17:05:00 Test Item Value Reference Range Interpretation Comments Blood Urea Nitrogen (test code = 12 mg/dL 8.9-20.6 3094-0) [facility] creatinine measurement (mass/volume)2022-05-24 17:05:00 Test Item Value Reference Range Interpretation Comments Creatinine (test code = 2160-0) 0.91 mg/dL 0.7-1.3 [facility]XR [facility] : 1990 [facility]: HOW[facility] HER[facility] [address] Phys: Jass Rollins, PATRICK [id number] : 1990 Age: 31 SEX:M [phone] Exam Date: 08/13/22 Status:REG ER Acct: [id number] Loc: [facility] Pt Unit #: [id number] Report #: [id number] CC: Jass Rollins DOIMDGING SERVICES REPORT Report Status: Signed Order # Category/Exam [id number] RAD/XR Chest 1 View Portable ([id number]): . Results Portable chest at 2218 (08/13/2022) HISTORY: Palpitations COMPARISON: 05/24/2022 FINDINGS: The heart remains normal in size and the lungs are clear. No acute infiltrate or effusionwas seen. There is no vascular congestion or edema. IMPRESSION: Stable exam showing no acute findings Reported By: ESSENCE BRYAN Electronically Signed Date/Time: 08/13/222216 Technologist: Dictated Date/Time: 08/13/222215 Transcribed Date/Time:XR Chest 1 View Portable [facility] : 1990 [facility] Pt Name: HOWARD HERCULES [address] Phys: Bhupinder Moreau, [place] [id number] : 1990 Age: 31 SEX:M [phone] Exam Date: 05/24/22 Status: REG ER Acct: [id number] Loc: [facility] Pt Unit #: [id number] Report #: [id number] CC: Bhupinder Moreau IMAGING SERVICES REPORT Order # Category/Exam [id number] RAD/XR Chest 1 View Portable ([id number]): . Results EXAM: Single view of the chest HISTORY: Dyspnea COMPARISON: None FINDINGS: Single view of the chest shows a normal sized cardiomediastinal silhouette. There is no evidence of consolidation, mass, or pleural effusion. No acute osseous abnormality. IMPRESSION: No acute cardiopulmonary disease Reported By: Panfilo Toscano DO Electronically Signed Date/Time: 05/24/221724 Technologist: SACHA Dictated Date/Time: 05/24/221724 Transcribed Date/Time:
--- NOTE | 2022-10-15 11:08 | RAD REPORT ---
EXAM DESCRIPTION: CT - Head Brain Wo Cont - 10/15/2022 11:03 am CLINICAL HISTORY: Headache COMPARISON: HEAD BRAIN W O CONTRAST dated 05/05/2015 TECHNIQUE: Axial 5 mm thick images of the head were obtained without IV contrast. All CT scans are performed using dose optimization technique as appropriate and may include automated exposure control or mA/KV adjustment according to patient size. FINDINGS: No intracranial hemorrhage, mass, edema or shift of mid-line structures. No acute infarcti on changes seen. No abnormal extra-axial fluid collections. Ventricles are normal. No globe or orbita l content abnormality identifiable. Mastoid air cells and visualized portions of the paranasal sinuses are clear. No acute bony findings. IMPRESSION: Negative non-contrast CT head examination for acute or significant finding.
[2022-10-15] MEDS ORDERED: METOCLOPRAMIDE 10 MG/2mL INJ ONE (11:15)
[2022-10-15] MEDS ORDERED: NA CHLORIDE 0.9% 1,000 ML ONE (11:16)
[2022-10-15] MEDS ORDERED: KETOROLAC 30 MG/ML INJ ONE (11:16)
[2022-10-15] MEDS ORDERED: DIPHENHYDRAMINE 50 MG/ML VIAL ONE (11:16)
--- NOTE | 2022-10-15 12:36 | EDPHYS ---
Physician Documentation [facility] Name: Gil Jose Age: 32 yrs Sex: Male : 1990 Arrival Date: 10/15/2022 Time: 10:41 Bed 5 Private MD: ED Physician Mathew Briones HPI: 10/15 10:56 This 32 yrs old Male presents to ER via Ambulatory with complaints of Headache. pm1 10:56 The patient complains of pain to the Behind left eye. The patient describes the pm1 headache as aching, constant. Onset: The symptoms/episode began/occurred yesterday. Associated signs and symptoms: Pertinent positives: nausea, vomiting, Pertinent negatives: dizziness, fever. Severity of symptoms: in the emergency department the pain is actually worse. Headache History: The patient has had previous headaches and this one is similar to previous episodes. The symptoms are alleviated by nothing. the symptoms are aggravated by nothing. The patient has experienced similar episodes in the past, multiple times, and the symptoms today are exactly the same, to prior his prior headaches. He usually has kaleidoscope-like vision at the lateral aspect of his vision with headaches behind his eye. He usually is able to sleep it off but it did not go away when he woke up this time and defines that as his worse ever. Headache was not sudden onset and gradually got worse. Historical: - Allergies: 10:45 Codeine; ll1 - PMHx: 10:45 Anxiety; Asthma; Hernia; ll1 - PSHx: 10:45 hernia; ll1 - Immunization history:: Adult Immunizations up to date, Client reports having NOT received the Covid vaccine. - Social history:: Smoking status: Reported history of juuling and/or vaping. ROS: 10:56 Constitutional: Negative for fever, chills, and weight loss, Cardiovascular: Negative pm1 for chest pain, palpitations, and edema, Respiratory: Negative for shortness of breath, cough, wheezing, and pleuritic chest pain. 10:56 Neck: Negative for injury, pain, and swelling, Abdomen/GI: Negative for abdominal pain, nausea, vomiting, diarrhea, and constipation, Back: Negative for injury and pain, MS/Extremity: Negative for injury and deformity, Skin: Negative for injury, rash, and discoloration. 10:56 Neuro: Positive for headache, of the left eye. 10:56 All other systems are negative. Exam: 10:56 Constitutional: This is a well developed, well nourished patient who is awake, alert, pm1 and in no acute distress. Head/Face: Normocephalic, atraumatic. 10:56 Back: No spinal tenderness. No costovertebral tenderness. Full range of motion. Skin: Warm, dry with normal turgor. Normal color with no rashes, no lesions, and no evidence of cellulitis. MS/ Extremity: Pulses equal, no cyanosis. Neurovascular intact. Full, normal range of motion. 10:56 Eyes: Exam is negative for acute changes, Periorbital structures: no acute changes, Pupils: no acute changes, Extraocular movements: no acute changes, Conjunctiva: no acute changes, no injection. 10:56 ENT: Exam is negative for acute changes, Mouth: no acute changes, Lips: normal, moist, Oral mucosa: normal, pink and intact, moist. 10:56 Neck: Exam negative for acute changes, ROM/movement: no acute changes, Meningeal signs: are not present. 10:56 Cardiovascular: Exam negative for acute changes, Rate: normal, Rhythm: regular, Pulses: no pulse deficits are appreciated. 10:56 Respiratory: Exam negative for acute changes, respiratory distress, shortness of breath. 10:56 Abdomen/GI: Exam negative for acute changes, Inspection: abdomen appears normal. 10:56 Neuro: Exam negative for acute changes, Orientation: is normal, Mentation: is normal, Cranial nerves: CN II- XII are normal as tested, Cerebellar function: normal finger to nose testing, Motor: is normal, moves all fours, Sensation: no obvious gross deficits. Vital Signs: 10:53 BP 124 / 70; Pulse 70; Resp 18; Temp 98.2; Pulse Ox 100% ; Weight 95.25 kg; Height 5 ll1 ft. 7 in. (170.18 cm); Pain 7/10; 11:50 BP 135 / 52; Pulse 102; Resp 24 S; Pulse Ox 100% on R/A; Pain 1/10; kc6 12:24 BP 120 / 59; Pulse 75; Resp 17; Pulse Ox 96% on R/A; ap3 10:53 Body Mass Index 32.89 (95.25 kg, 170.18 cm) ll1 MDM: 10:56 Patient medically screened. pm1 10:56 Differential diagnosis: cluster headache, intracerebral hemorrhage, migraine, pm1 subarachnoid bleed, tension headache. 12:34 Data reviewed: vital signs. pm1 12:34 Counseling: I had a detailed discussion with the patient and/or guardian regarding: the pm1 historical points, exam findings, and any diagnostic results supporting the discharge/admit diagnosis, radiology results, the need for outpatient follow up, a family practitioner, to return to the emergency department if symptoms worsen or persist or if there are any questions or concerns that arise at home. 10/15 10:56 Order name: CT Head Brain wo Cont; Complete Time: 11:09 pm1 10/15 10:56 Order name: IV Saline Lock; Complete Time: 11:23 pm1 Administered Medications: 11:22 Drug: NS 0.9% 1000 ml Route: IV; Rate: 1000 ml; Site: right antecubital; kc6 12:43 Follow up: Response: No adverse reaction; IV Status: Completed infusion; IV Intake: kc6 1000ml 11:23 Drug: Benadryl (diphenhydrAMINE) 25 mg Route: IVP; Site: right antecubital; kc6 11:51 Follow up: Response: No adverse reaction kc6 11:23 Drug: Reglan (metoCLOPramide) 10 mg Route: IVP; Site: right antecubital; kc6 11:51 Follow up: Response: No adverse reaction kc6 11:23 Drug: Ketorolac 30 mg Route: IVP; Site: right antecubital; kc6 11:51 Follow up: Response: No adverse reaction; Pain is decreased kc6 Disposition: 19:21 Co-signature as Attending Physician, Mathew TYLER was immediately available on-site ms3 in the Emergency Department for consultation in the care of the patient. Disposition Summary: 10/15/22 12:35 Discharge Ordered Location: Home pm1 Problem: new pm1 Symptoms: have improved pm1 Condition: Stable pm1 Diagnosis - Headache pm1 Followup: pm1 - With: Emergency Department - When: As needed - Reason: Worsening of condition Followup: pm1 - With: Private Physician - When: 2 - 3 days - Reason: Recheck today's complaints, Continuance of care, Re-evaluation by your physician Discharge Instructions: - Discharge Summary Sheet pm1 - Cluster Headache pm1 - General Headache Without Cause pm1 - Migraine Headache pm1 Forms: - Medication Reconciliation Form pm1 - Thank You Letter pm1 - Antibiotic Education pm1 - Prescription Opioid Use pm1 - Work release form ss Prescriptions: - [id number] - take 1 tablet by ORAL route every 6 hours As needed; 20 tablet; Refills: 0, pm1 Product Selection Permitted Signatures: Dispatcher [employer] Abhay Walker NP SIGNAL WORKER pm1 Cindy Weiss RN RN ll1 Mathew Briones DO DO ms3 Maria Eugenia Birmingham RN RN kc6
--- NOTE | 2022-10-15 12:36 | ER ---
Nurse's Notes [facility] Name: Gil Jose Age: 32 yrs Sex: Male : 1990 Arrival Date: 10/15/2022 Time: 10:41 Bed 5 Private MD: Diagnosis: Headache Presentation: 10/15 10:50 Chief complaint: Patient states: ERNANDEZ, pressure behind eyes, change in peripheral vision ll1 since last night. + N/V. Coronavirus screen: Client denies travel out of the [place] in the last 14 days. At this time, the client does not indicate any symptoms associated with coronavirus-19. Ebola Screen: Patient denies travel to an Ebola-affected area in the 21 days before illness onset. Initial Sepsis Screen: Does the patient meet any 2 criteria? No. Patient's initial sepsis screen is negative. Does the patient have a suspected source of infection? Yes: S/S of meningitis or endocarditis. Risk Assessment: Do you want to hurt yourself or someone else? Patient reports no desire to harm self or others. Onset of symptoms was October 14, 2022. 10:50 Method Of Arrival: Ambulatory ll1 10:50 Acuity: FRANKI 3 ll1 Triage Assessment: 11:25 Headache History: Denies prior headaches. kc6 Historical: - Allergies: 10:45 Codeine; ll1 - PMHx: 10:45 Anxiety; Asthma; Hernia; ll1 - PSHx: 10:45 hernia; ll1 - Immunization history:: Adult Immunizations up to date, Client reports having NOT received the Covid vaccine. - Social history:: Smoking status: Reported history of juuling and/or vaping. Screenin:25 [facility] ED Fall Risk Assessment (Adult) History of falling in the last 3 months, kc6 including since admission No falls in past 3 months (0 pts) Confusion or Disorientation No (0 pts) Intoxicated or Sedated No (0 pts) Impaired Gait No (0 pts) Mobility Assist Device Used No (0 pt) Altered Elimination No (0 pt) Score/Fall Risk Level 0 - 2 = Low Risk Oriented to surroundings, Maintained a safe environment, Educated pt \T\ family on fall prevention, incl call for assistance when getting out of bed, Assessed \T\ reinforced patient's understanding of fall precautions, Hourly rounding (assess needs \T\ fall precautionary measures) done. Abuse screen: Denies threats or abuse. Denies injuries from another. Nutritional screening: No deficits noted. Tuberculosis screening: No symptoms or risk factors identified. Assessment: 11:23 General: Appears in no apparent distress. comfortable, Behavior is calm, cooperative, kc6 appropriate for age. Pain: Complains of pain in head Pain does not radiate. Pain currently is 7 out of 10 on a pain scale. Quality of pain is described as throbbing, pulsating, Pain began 1 day ago. Is continuous, Alleviated by nothing. Aggravated by increased activity, repositioning, Noted to be resistant to movement, Also complains of no other associated symptoms. Neuro: [place] Agitation-Sedation Scale (RASS): 0 - Alert and Calm Level of Consciousness is awake, alert, obeys commands, Oriented to person, place, time, situation, Appropriate for age. Cardiovascular: Capillary refill < 3 seconds. Cardiovascular: Denies chest pain. Respiratory: Airway is patent Trachea midline Respiratory effort is even, unlabored, Respiratory pattern is regular, symmetrical. GI: Parent/caregiver reports the patient having nausea, vomiting. : No signs and/or symptoms were reported regarding the genitourinary system. EENT: No signs and/or symptoms were reported regarding the EENT system. Derm: No signs and/or symptoms reported regarding the dermatologic system. Skin is intact, Skin is pink, warm \T\ dry. Musculoskeletal: No signs and/or symptoms reported regarding the musculoskeletal system. Circulation, motion, and sensation intact. Capillary refill < 3 seconds, Range of motion: intact in all extremities. 11:50 Reassessment: Patient and/or family updated on plan of care and expected duration. Pain kc6 level reassessed. Patient is alert, oriented x 3, equal unlabored respirations, skin warm/dry/pink. client stated his pain has decreased from a 7/10 to a 1/10 Patient states feeling better. Patient states symptoms have improved. Vital Signs: 10:53 BP 124 / 70; Pulse 70; Resp 18; Temp 98.2; Pulse Ox 100% ; Weight 95.25 kg; Height 5 ll1 ft. 7 in. (170.18 cm); Pain 7/10; 11:50 BP 135 / 52; Pulse 102; Resp 24 S; Pulse Ox 100% on R/A; Pain 1/10; kc6 12:24 BP 120 / 59; Pulse 75; Resp 17; Pulse Ox 96% on R/A; ap3 10:53 Body Mass Index 32.89 (95.25 kg, 170.18 cm) ll1 ED Course: 10:41 Patient arrived in ED. as 10:41 Abhay Bermudez NP is PHCP. pm1 10:41 Mathew Briones DO is Attending Physician. pm1 10:45 Arm band placed on. ll1 10:52 Triage completed. ll1 11:05 CT Head Brain wo Cont In Process Unspecified. EDMS 11:22 Maria Eugenia Birmingham, RN is Primary Nurse. kc6 11:25 Patient has correct armband on for positive identification. Bed in low position. Call kc6 light in reach. Side rails up X2. Adult w/ patient. 12:42 No provider procedures requiring assistance completed. IV discontinued, intact, kc6 bleeding controlled, No redness/swelling at site. Pressure dressing applied. Administered Medications: 11:22 Drug: NS 0.9% 1000 ml Route: IV; Rate: 1000 ml; Site: right antecubital; kc6 12:43 Follow up: Response: No adverse reaction; IV Status: Completed infusion; IV Intake: kc6 1000ml 11:23 Drug: Benadryl (diphenhydrAMINE) 25 mg Route: IVP; Site: right antecubital; kc6 11:51 Follow up: Response: No adverse reaction kc6 11:23 Drug: Reglan (metoCLOPramide) 10 mg Route: IVP; Site: right antecubital; kc6 11:51 Follow up: Response: No adverse reaction kc6 11:23 Drug: Ketorolac 30 mg Route: IVP; Site: right antecubital; kc6 11:51 Follow up: Response: No adverse reaction; Pain is decreased kc6 Medication: 12:42 VIS not applicable for this client. kc6 Intake: 12:43 IV: 1000ml; Total: 1000ml. kc6 Outcome: 12:35 Discharge ordered by MD. pm1 12:42 Discharged to home ambulatory, with significant other. kc6 12:42 Condition: stable 12:42 Discharge instructions given to patient, significant other, Instructed on discharge instructions, follow up and referral plans. Demonstrated understanding of instructions, follow-up care. 12:43 Patient left the ED. kc6 Signatures: Dispatcher [employer] Cathy Hartley Patrick, JOHNY HAND OR MACHINE PASTER pm1 Brooklynn Coleman RN RN ap3 Cindy Weiss RN RN ll1 Maria Eugenia Birmingham RN RN kc6 Corrections: (The following items were deleted from the chart) 10:55 10:53 Pulse 70bpm; Resp 18bpm; Pulse Ox 100%; Temp 98.2F; 95.25 kg; Height 5 ft. 7 in.; ll1 BMI: 32.8; Pain 7/10; ll1
[2022-10-15 12:47] VITALS: TEMP 98.2
[2022-10-15 12:50] VITALS: BP 120/59; O2SAT 96
== END 2022-10-15 12:43 | disposition home or self-care (01) ==
LOC: ER 10:39
DX: R51.9 Headache, unspecified (principal); Z88.5 Allergy status to narcotic agent
CPT/HCPCS: 70450; 96361; 96374; 96375; 99283; J1200; J2765; J7030

== ENCOUNTER 2024-05-09 18:17 | Emergency (ER) | payer OTHER ==
--- OUTSIDE RECORDS SUMMARY | 2024-05-09 18:25 | XMS REPORT | Continuity of Care Document ---
Author Name Unknown Address [address] [facility] [address] [place] [address] [facility] thconnect Address [address] [facility] [address] [place] [address] Care Team Providers Care Managed Care Coordinator Name Role Phone PCP, NO Primary Care Physician Unavailab Ramón Barone Attending Clinician Unavailable Cliff Hu Attending Clinician Unavailable Claudia Solo Attending Clinician UnavailRICHAR Rosales Attending Clinician UnavailJass Reyes Attending Clinician Unavailable Bhupinder Moreau Attending Clinician Unavailab ildefonso Physician, No Primary or Family Admitting Clinic kaitlynn Unavailable Cliff Hu Admitting Clinician Unavailable Payers Payer Name Policy Type Policy Number Effective Date Expirati on Date Source Allergies, Adverse Reactions, Alerts Allergy Name Allergy Type Status Severity Reaction(s) Onset Date Inactive Date Treating Clinician Comments Source fluticas one furoate DA Active U ANXIETY 12-21 00:00: 00 [facility] vilanter ol DA Active U ANXIETY - 00:00: 00 [facility] umeclidi nium DA Active U ANXIETY - 00:00: 00 [facility] codeine DA Active NE HIVES 12-18 00:00: 00 [facility] TRILOGY DA Active SV SOB, ANXIETY 12-17 00:00: 00 [facility] codeine DA Active NE HIVES 12-11 00:00: 00 [facility] fexofena dine DA Active MO SOB, ANXIETY 12-11 00:00: 00 [facility] Social History Social Habit Start Date Stop Date Quantity Comments Source Sex Assigned At 1990 00:00:00 1990 00:00:00 Male [facility] Smoking Status Start Date Stop Date Source Unknown if ever smoked [facility] Procedures Procedure Date / Time Performed Performing Clinicia n Source XR Chest 1 View Portable 2022-08-13 21:50:00 [facility] EKG 12 Lead in Emergency Room 2022-05-24 17:21:00 [facility] EKG 12 Lead in Emergency Room 2022-05-24 17:21:00 [facility] XR Chest 1 View Portable 2022-05-24 17:05:00 [facility] XR Chest 1 View Portable 2022-05-24 17:05:00 [facility] Encounters Start Date/Time End Date/Time Encounter Type Admission Type Attending [facility] Care Facility Care Department Encounter ID Source 2023-12-22 18:34:00 2023-12-23 00:43:00 Emergency EM Ramón Cuellar [facility] [id number] [facility] 2023-12-19 02:52:00 2023-12-20 13:24:00 Inpatient EM Cliff Hu [facility] CARD [id number] [facility] 2023-12-12 17:07:00 2023-12-12 19:38:00 Emergency EM Claudia Solo [facility] CERS [id number] [facility] 2022-11-08 21:00:00 2022-11-08 22:05:00 Emergency ER RICHAR ORTIZ [id number] 2022-08-13 21:09:00 2022-08-13 23:08:00 Emergency ER Jass Rollins [facility] [id number] [facility] 2022-05-25 01:41:00 2022-05-25 03:05:00 Emergency ER Bhupinder Moreau [facility] [id number] [facility] 2022-05-24 16:49:00 2022-05-24 18:08:00 Emergency ER Bhupinder Moreau [facility] [id number] [facility] Results Test Description Test Time Test Comments Results Resul t Comments Source - DUP VEIN UNI LT 2023-12-23 00:03:00 [facility] 1990 Sex: M FAX: Marii Gaytan MD R3 [place]: St: REG Name: HOWARD HERCULES [facility] : 1990 Age/S: 33/M [address] Unit #: [id number] Loc: [place] [address] Phys: Marii Gaytan MD R3 Acct: [id number] Dis Date: Status: REG ER PHONE #: [phone] Exam Date: 12/22/20232338 FAX #: [phone] Reason: swelling, r/o DVT EXAMS: CPT CODE: [id number] [place] [address] Examination: Ultrasound venous duplex left lower extremity Location code: H60 Comparison: None Discussion: Clinical history is remarkable for pain and swelling. Grayscale, duplex and spectral analysis was performed of the deep veins left lower extremity. The deep veins are normal in appearance. There is no evidence for deep venous thrombus. There is good compressibility the deep veins with normal response to augmentation and Valsalva maneuver. Impression: 1. There is no evidence for deep venous thrombus identified in the left lower extremity at 0003 Reported and signed by: Balbir Anderson MD CC: Marii Gaytan MD Technologist: YAMILE TOBIAS [facility] Date/Time/By: 12/23/2023 (2) : By: [email or web address] PAGE 1 Signed Report FAX: Marii Gaytan MD R3 [place]: St: REG Name: HOWARD HERCULES [facility] : 1990 Age/S: 33/M [address] Unit #: [id number] Loc: [place] [address] Phys: Marii Gaytan MD R3 Acct: [id number] Dis Date: Status: REG ER PHONE #: [phone] Exam Date: 12/22/20232338 FAX #: [phone] Reason: swelling, r/o DVT EXAMS: CPT CODE: [id number] [place] [address] (Continued) Orig Print D/T: S: 12/23/2023 (0006) PAGE 2 Signed Report Spec Comments: SOBLIHARI FUNCTION [id number] 21:06:00* Test Item Value Reference Range Interpretation Comme nts TOTAL PROTEIN (test code = PROT) 8.0 g/dL 6.3-8.2 N "A positive bias may occur for patients taking Eltrombopag(a bone marrow stimulant used to treat thrombocytopenia andaplastic anemia)." ALBUMIN (test code = ALB) 4.8 g/dL 3.5-5.0 N BILIRUBIN TOTAL (test code = BILT) 1.2 mg/dL 0.2-1.3 N "A positive b ias may occur for patients taking Eltrombopag(a bone marrow stimulant used to treat thrombocytopenia andaplastic anemia)." BILIRUBIN CONJUGATED (test code = BILCON) 0 mg/dL 0-0.3 N "A positive bias may occur for patients taking Eltrombopag(a bone marrow stimulant used to treat thrombocytopenia andaplastic anemia)." CONJUGATED BILIRUBIN IS THE REPLACEMENT ASSAY FOR DIRECTBILIRUBIN. BILIRUBIN UNCONJUGATED (test code = BILUNC) 1.2 mg/dL 0-1.1 H SGOT/AST (test code = AST) 72 U/L 15-46 H SGPT/ALT (test code = ALT) 92 U/L 0-49 H ALKALINE PHOSPHATASE (test code = ALKP) 56 U/L 38-126 N Spec Comments: SOBCREATINE KINASE (CK)2023-12-22 21:06:00* Test Item Value Reference Range Interpretation Comme nts CREATINE KINASE (CK) (test c ode = CK) 1118 U/L 55-170 H Spec Comments: [id number] 21:06:00* Test Item Value Reference Range Interpretation Comme nts LIPASE (test code = LIP) 88 U/L 23-300 N Spec Comments: [id number] 21:06:00* Test Item Value Reference Range Interpretation Comme nts MAGNESIUM (test code = MAG) 1.8 mg/dL 1.6-2.3 N Spec Comments: SOBNT PRO-BRAIN NATRIURETIC [id number] 21:06:00* Test Item Value Reference Range Interpretation Comme nts NT PRO-BRAIN NATRIURETIC PEPTI (test code = PROBNP) 21.1 pg/mL See_Comment N INTERPRETATION O F RESULTS Results of this test should be used in accordance with the appropriate clinical guidelines and in conjunction with clinical presentation and other diagnostic tests. Clinical guidelines recommend using natriuretic peptides in both Emergency Department (ED) and outpatient settings for diagnosis or exclusion of heart failure (HF). The performance of the VITROS NT-proBNP II test was evaluated separately in each of these settings using published age-independent and age-dependent cutoffs. EMERGENCY DEPARTMENT SETTINGS/INPATIENT: For patients presenting to the ED settings with acute or worsening dyspnea and clinical suspicion of HF, the VITROS NT-proBNP II test results should be interpreted as indicatedin the table below. ========Results(pg/mL) Age Group *Interpretation <300 All *Negative: Heart Failure Unlikely >=450 22-<50 * POSITIVE: Heart Failure >=900 50-<75 Likely >=1800 >=75 --------OUTPATIENT SETTINGS: In the outpatient settings, the optimal use of natriuretic peptides is to exclude HF. Therefore, a lower rule-out cutoff which increases sensitivity and negative predictive value is needed, as patients can present with limited, less acute HF symptoms. For ambulatory patients presenting to outpatient facilitieswith clinical suspicion of HF not previously diagnosed andat least one sign, symptom or risk factor for HF, the VITROSNT-proBNP II test results should be interpreted as indicatedin the table below: Results(pg/mL) Age Group *Interpretation <125 ALL * Negative - Heart Failure Unlikely >=125 ALL * Consider Heart Failure as well as other causes of NT-ProBNP elvation. The following interferents causes a bias at concentrationslisted in procedure. -Cefoxitin sodium -Sodium Azide [Automated message] The system which generated this result transmitted reference range: <20.0-125. The reference range was not used to interpret this result as normal/abnormal. Spec Comments: [id number] 21:06:00* Test Item Value Reference Range Interpretation Comme nts TROPONIN-I (test code = TROPI) < 0.012 ng/mL 0.012-0.033 L Please be advised of the updated reference ranges for the new Chemistry instrumentation. VITROS TROPONIN I CRITERIANORMAL PATIENT W/O CIRCULATING TNI: 0.012-0.033 ng/mLAMI DIAGNOSTIC CUTOFF: >/= 0.120 ng/mL~~~~~~~~~~~~~~~~~~~~~~ ~~~~~~~~~~~~~~~~~~~~~~~~~~~ ~~~~~~~~~~The use of serial sampling and testing protocol is arecommended practice.An elevated troponin level alone is often not sufficient fordiagnosis of myocardial infarction. Troponin results obtained by different assays may vary.Evaluation of the extent of myocardial damage based onincrease of troponin would be valid only if similarmethodology is used.~~~~~~~~~~~~~~~~~~~~~~ ~~~~~~~~~~~~~~~~~~~~~~~~~~~ ~~~~~~~~~~ A POSITIVE BIAS MAY OCCUR FOR PATIENTS TAKING BIOTIN SUPPLEMENTS~~~~~~~~~~~~~~~~ ~~~~~~~~~~~~~~~~~~~~~~~~~~~ ~~~~~~~~~~~~~~~~ Spec Comments: [id number] 20:18:00* Test Item Value Reference Range Interpretation Comme nts D-DIMER (test code = DDIMER) 274 ng/mLFEU 0-500 N THE DDIMER METHO D IS USED IN THE EXCLUSION OF DEEP VEINTHROMBOSIS AND/OR PULMONARY EMBOLISM AND THE CLINICAL CUT-OFF VALUE FOR EXCLUSION (500 NG/ML FEU) OF THESE CONDITIONSIS VALIDATED BY THE BILINGUAL TRAINER OF THE METHOD. A NEGATIVE DDIMER RESULT WHEN COMBINED WITH A CLINICALASSESSMENT OF LOW PRETEST PROBABILITY HAS BEEN SHOWN TO HAVEA HIGH NEGATIVE PREDICTIVE VALUE OF DVT OR PE. D-DIMER VALUES >500 ng/mL ARE NOT DIAGNOSTIC FOR DVT,PEOR DIC WITHOUT OTHER CONFIRMATORY TESTS AND APPROPRIATECLINICAL EVALUATIONS. - XR CHEST 1 [id number] 20:10:00 [facility] 1990 Sex: M FAX: Debbie Martel PA-C [place]: St: PRE Name: HOWARD HERCULES [facility] : 1990 Age/S: 33/M [address] Unit #: [id number] Loc: [place] [address] Phys: Debbie Martel PA-C Acct: [id number] Dis Date: Status: PRE ER PHONE #: [phone] Exam Date: 12/22/20231999 FAX #: [phone] Reason: Shortness of breath EXAMS: CPT CODE: [id number] XR CHEST 1 V 06868 EXAM: AP chest LOCATION: H 12 HISTORY: Shortness of breath COMPARISON: None. FINDINGS: The lungs are clear. No infiltrate or effusion is seen. The pulmonary vasculature is normal. The heart size is normal. The mediastinal silhouette isunremarkable. The bony thorax is intact. IMPRESSION: No acute disease. at 2009 Reported and signed by: Finesse Boyd MD CC: Debbie Martel Technologist: FRANK BEE Trnscrd Date/Time/By: 12/22/2023 (2009) : By: Felicia PAGE 1 Signed Report FAX: Debbie Martel PA-C [place]: St: PRE Name: HOWARD HERCULES [facility] : 1990 Age/S: 33/M [address] Unit #: [id number] Loc: [place] [address] Phys: Debbie Martel PA-C Acct: [id number] Dis Date: Status: PRE ER PHONE #: [phone] Exam Date: 2023 FAX #: [phone] Reason: Shortness of breath EXAMS: CPT CODE: [id number] XR CHEST 1 V 92983 (Continued) Orig Print D/T: S: 12/22/2023 (2012) PAGE 2 Signed ReportCBC W/AUTO [id number] 20:08:00* Test Item Value Reference Range Interpretation Comme nts WHITE BLOOD CELL (test code = WBC) 7.2 x10 3/uL 5.0-12.0 N RED BLOOD CELL (test code = RBC) 4.97 x10 6/uL 4.70-6.10 N HEMOGLOBIN (test code = HGB) 14.0 g/dL 14.0-18.0 N HEMATOCRIT (test code = HCT) 42.8 % 37.0-49.0 N MEAN CELL VOLUME (test code = MCV) 86 fL 80-94 N MEAN CELL HGB (test code = MCH) 28.2 pg 27-31 N MEAN CELL HGB CONCENTRATION (test code = MCHC) 32.7 g/dL 33-37 L RED CELL DISTRIBUTION WIDTH (test code = RDW) 13.3 % 11.5-15.5 N PLATELET COUNT (test code = PLT) 290 x10 3/uL 130-400 N MEAN PLATELET VOLUME (test c ode = MPV) 9.2 fL 9.4-16.4 L NEUTROPHIL % (test code = NT%) 69.2 % 43-65 H IMMATURE GRANULOCYTE % (test code = IG%) 0.3 % 0.0-2.0 N LYMPHOCYTE % (test code = LY%) 19.7 % 20.5-45.5 L MONOCYTE % (test code = MO%) 8.6 % 5.5-11.7 N EOSINOPHIL % (test code = EO%) 1.5 % 0.9-2.9 N BASOPHIL % (test code = BA%) 0.7 % 0.2-1.0 N NUCLEATED RBC % (test code = NRBC%) 0.0 % 0-1.0 N NEUTROPHIL # (test code = NT#) 4.97 x10 3/uL 2.2-4.8 H IMMATURE GRANULOCYTE # (test code = IG#) 0.02 x10 3/uL 0-0.03 N LYMPHOCYTE # (test code = LY#) 1.42 x10 3/uL 1.3-2.9 N MONOCYTE # (test code = MO#) 0.62 x10 3/uL 0.3-0.8 N EOSINOPHIL # (test code = EO#) 0.11 x10 3/uL 0.0-0.2 N BASOPHIL # (test code = BA#) 0.05 x10 3/uL 0.0-0.1 N [id number] 01:08:00* Test Item Value Reference Range Interpretation Comme nts LEAD (test code = LEAD) <1.0 ug/dL 0.0-3.4 Testing performe d by Inductively coupled plasma/MassSpectrometry.An alysis by inductively coupled plasma/massspectrometry (ICP/MS) Environmental Exposure: WHO Recommendation <5.0 Occupational Exposure: OSHA Lead Std 40.0 JONAH 30.0 Detection Limit = 1.0Performed At: [facility] [id number] Pasquale Travis MD Ph:[phone]][id number] 12:27:00* Test Item Value Reference Range Interpretation Comme nts CKMB (test code = CKMBT) 0.68 ng/mL 0.5-5.0 A positive bias may occur for patients taking BIOTINsupplements. Spec Comments: CK TODAYCREATINE KINASE (CK)2023-12-20 09:59:00* Test Item Value Reference Range Interpretation Comme nts CREATINE KINASE (CK) (test c ode = CK) 3586 U/L 55-170 HH COMPREHENSIVE METABOLIC [id number] 06:00:00* Test Item Value Reference Range Interpretation Comme nts SODIUM (test code = NA) 138 mmol/L 137-145 N POTASSIUM (test code = K) 3.9 mmol/L 3.4-5.0 N CHLORIDE (test code = CL) 112 mmol/L 98-107 H CARBON DIOXIDE (test code = CO2) 24 mmol/L 22-30 N ANION GAP (test code = GAP) 6 mmol/L 10-20 L GLUCOSE (test code = GLU) 106 mg/dL 74-106 N BLOOD UREA NITROGEN (test code = BUN) 11 mg/dL 9-20 N GLOMERULAR FILTRATION RATE (test code = GFR) 126 mL/min The Glomerular Filtration Rate is a calculated parameterbased on serum Creatinine, patient age and sex. GFR valuesless than 60 mL/min/1.73 square meters are indicative ofChronic Kidney Disease. Values less than 15 mL/min/1.73square meters indicate Kidney failure. The calculation forGFR is based on the CKD-EPI (2020) calculation. This formulais race indifferent and is the recommended formula for GFRby the National Kidney Foundation for Adults.The GFR will not calculate if the sex is unknown or if thepatient's age is <18 years. CREATININE (test code = CREAT) 0.7 mg/dL 0.7-1.3 N TOTAL PROTEIN (test code = PROT) 6.1 g/dL 6.3-8.2 L "A positive bias may occur for patients taking Eltrombopag(a bone marrow stimulant used to treat thrombocytopenia andaplastic anemia)." ALBUMIN (test code = ALB) 3.4 g/dL 3.5-5.0 L CALCIUM (test code = CA) 8.2 mg/dL 8.4-10.2 L BILIRUBIN TOTAL (test code = BILT) 0.4 mg/dL 0.2-1.3 N "A positive b ias may occur for patients taking Eltrombopag(a bone marrow stimulant used to treat thrombocytopenia andaplastic anemia)." BILIRUBIN CONJUGATED (test code = BILCON) 0 mg/dL 0-0.3 N "A positive bias may occur for patients taking Eltrombopag(a bone marrow stimulant used to treat thrombocytopenia andaplastic anemia)." CONJUGATE D BILIRUBIN IS THE REPLACEMENT ASSAY FOR DIRECTBILIRUBIN. BILIRUBIN UNCONJUGATED (test code = BILUNC) 0.4 mg/dL 0-1.1 N SGOT/AST (test code = AST) 52 U/L 15-46 H SGPT/ALT (test code = ALT) 62 U/L 0-49 H ALKALINE PHOSPHATASE (test code = ALKP) 44 U/L 38-126 N INDEX HEMOLYSIS (test code = HEMINDEX) 22 Index/DL 0-100 N CBC W/AUTO [id number] 05:51:00* Test Item Value Reference Range Interpretation Comme nts WHITE BLOOD CELL (test code = WBC) 5.7 x10 3/uL 5.0-12.0 N RED BLOOD CELL (test code = RBC) 4.40 x10 6/uL 4.70-6.10 L HEMOGLOBIN (test code = HGB) 12.4 g/dL 14.0-18.0 L HEMATOCRIT (test code = HCT) 38.7 % 37.0-49.0 N MEAN CELL VOLUME (test code = MCV) 88 fL 80-94 N MEAN CELL HGB (test code = MCH) 28.2 pg 27-31 N MEAN CELL HGB CONCENTRATION (test code = MCHC) 32.0 g/dL 33-37 L RED CELL DISTRIBUTION WIDTH (test code = RDW) 13.3 % 11.5-15.5 N PLATELET COUNT (test code = PLT) 250 x10 3/uL 130-400 MEAN PLATELET VOLUME (test c ode = MPV) 9.6 fL 9.4-16.4 N NEUTROPHIL % (test code = NT%) 45.3 % 43-65 N IMMATURE GRANULOCYTE % (test code = IG%) 0.2 % 0.0-2.0 N LYMPHOCYTE % (test code = LY%) 40.5 % 20.5-45.5 N MONOCYTE % (test code = MO%) 10.1 % 5.5-11.7 N EOSINOPHIL % (test code = EO%) 3.4 % 0.9-2.9 H BASOPHIL % (test code = BA%) 0.5 % 0.2-1.0 N NUCLEATED RBC % (test code = NRBC%) 0.0 % 0-1.0 N NEUTROPHIL # (test code = NT#) 2.57 x10 3/uL 2.2-4.8 N IMMATURE GRANULOCYTE # (test code = IG#) 0.01 x10 3/uL 0-0.03 N LYMPHOCYTE # (test code = LY#) 2.29 x10 3/uL 1.3-2.9 N MONOCYTE # (test code = MO#) 0.57 x10 3/uL 0.3-0.8 N EOSINOPHIL # (test code = EO#) 0.19 x10 3/uL 0.0-0.2 N BASOPHIL # (test code = BA#) 0.03 x10 3/uL 0.0-0.1 N CBC W/AUTO [id number] 13:41:00* Test Item Value Reference Range Interpretation Comme nts WHITE BLOOD CELL (test code = WBC) 4.8 x10 3/uL 5.0-12.0 L RED BLOOD CELL (test code = RBC) 4.30 x10 6/uL 4.70-6.10 L HEMOGLOBIN (test code = HGB) 12.1 g/dL 14.0-18.0 L CALLED RESULTS T O [id number] 12/19/23 AT 1152 BY [id number]. HEMATOCRIT (test code = HCT) 38.4 % 37.0-49.0 N MEAN CELL VOLUME (test code = MCV) 89 fL 80-94 N MEAN CELL HGB (test code = MCH) 28.1 pg 27-31 N MEAN CELL HGB CONCENTRATION (test code = MCHC) 31.5 g/dL 33-37 L RED CELL DISTRIBUTION WIDTH (test code = RDW) 13.3 % 11.5-15.5 N PLATELET COUNT (test code = PLT) 151 x10 3/uL 130-400 CALLED RESULTS T O [id number] 12/19/23 AT 1152 BY [id number]. MEAN PLATELET VOLUME (test code = MPV) 10.1 fL 9.4-16.4 N NEUTROPHIL % (test code = NT%) 53.6 % 43-65 N IMMATURE GRANULOCYTE % (test code = IG%) 0.2 % 0.0-2.0 N LYMPHOCYTE % (test code = LY%) 32.8 % 20.5-45.5 N MONOCYTE % (test code = MO%) 10.5 % 5.5-11.7 N EOSINOPHIL % (test code = EO%) 2.1 % 0.9-2.9 N BASOPHIL % (test code = BA%) 0.8 % 0.2-1.0 N NUCLEATED RBC % (test code = NRBC%) 0.0 % 0-1.0 N NEUTROPHIL # (test code = NT#) 2.54 x10 3/uL 2.2-4.8 N IMMATURE GRANULOCYTE # (test code = IG#) 0.01 x10 3/uL 0-0.03 N LYMPHOCYTE # (test code = LY#) 1.56 x10 3/uL 1.3-2.9 N MONOCYTE # (test code = MO#) 0.50 x10 3/uL 0.3-0.8 N EOSINOPHIL # (test code = EO#) 0.10 x10 3/uL 0.0-0.2 N BASOPHIL # (test code = BA#) 0.04 x10 3/uL 0.0-0.1 N PLATELET ESTIMATE (test code = PLTEST) ADEQUATE ADEQUATE PLATELET MORPHOLOGY (test code = PLTMORPH) NORMAL NORMAL URINALYSIS [id number] 13:06:00* Test Item Value Reference Range Interpretation Comme nts UA COLOR (test code = COLU) Light-Yellow Yellow UA APPEARANCE (test code = APPU) Clear Clear UA GLUCOSE DIPSTICK (test code = DGLUU) Normal Negative UA BILIRUBIN DIPSTICK (test code = BILU) Negative Negative UA KETONE DIPSTICK (test code = KETU) Negative mg/dL Negative UA SPECIFIC GRAVITY (test code = SGU) 1.024 <1.030 UA BLOOD DIPSTICK (test code = BLANCA) Negative Negative UA PH DIPSTICK (test code = RICKY) 6.0 5.0-8.0 UA PROTEIN DIPSTICK (test code = PROU) NEGATIVE mg/dL Negative UA UROBILINOGEN DIPSTICK (test code = URO) Negative mg/dL Negative UA NITRITE DIPSTICK (test code = KARTHIKEYAN) Negative Negative UA LEUKOCYTE ESTERASE DIPSTICK (test code = LEUU) NEGATIVE Negative UA WBC (test code = WBCU) 0-3 /HPF See_Comment [Automated Paracosma Nanapi] The system which generated this result transmitted reference range: <4-5. The reference range was not used to interpret this result as normal/abnormal. UA RBC (test code = RBCU) 0-3 /HPF See_Comment [Automated Paracosma Nanapi] The system which generated this result transmitted reference range: <4-5. The reference range was not used to interpret this result as normal/abnormal. UA BACTERIA (test code = BACU) None /HPF None-Rare UA MUCUS (test code = MUCU) Rare /LPF See_Comment [Automated messa ge] The system which generated this result transmitted reference range: <Rare. The reference range was not used to interpret this result as normal/abnormal. CARDIAC ENZYMES [id number] 12:53:00* Test Item Value Reference Range Interpretation Comme nts TROPONIN-I (test code = TROPI) < 0.012 ng/mL 0.012-0.033 L Please be advised of the updated reference ranges for the new Chemistry instrumentation. VITROS TROPONIN I CRITERIANORMAL PATIENT W/O CIRCULATING TNI: 0.012-0.033 ng/mLAMI DIAGNOSTIC CUTOFF: >/= 0.120 ng/mL~~~~~~~~~~~~~~~~~~~~~~ ~~~~~~~~~~~~~~~~~~~~~~~~~~~ ~~~~~~~~~~The use of serial sampling and testing protocol is arecommended practice.An elevated troponin level alone is often not sufficient fordiagnosis of myocardial infarction. Troponin results obtained by different assays may vary.Evaluation of the extent of myocardial damage based onincrease of troponin would be valid only if similarmethodology is used.~~~~~~~~~~~~~~~~~~~~~~ ~~~~~~~~~~~~~~~~~~~~~~~~~~~ ~~~~~~~~~~ A POSITIVE BIAS MAY OCCUR FOR PATIENTS TAKING BIOTIN SUPPLEMENTS~~~~~~~~~~~~~~~~ ~~~~~~~~~~~~~~~~~~~~~~~~~~~ ~~~~~~~~~~~~~~~~ [id number] 12:50:00* Test Item Value Reference Range Interpretation Comme nts CKMB (test code = CKMBT) 1.31 ng/mL 0.5-5.0 A positive bias may occur for patients taking BIOTINsupplements. COMPREHENSIVE METABOLIC [id number] 12:16:00* Test Item Value Reference Range Interpretation Comme nts SODIUM (test code = NA) 136 mmol/L 137-145 L POTASSIUM (test code = K) 4.1 mmol/L 3.4-5.0 N CHLORIDE (test code = CL) 110 mmol/L 98-107 H CARBON DIOXIDE (test code = CO2) 20 mmol/L 22-30 L ANION GAP (test code = GAP) 9 mmol/L 10-20 L GLUCOSE (test code = GLU) 108 mg/dL 74-106 H BLOOD UREA NITROGEN (test code = BUN) 15 mg/dL 9-20 N GLOMERULAR FILTRATION RATE (test code = GFR) 126 mL/min The Glomerular Filtration Rate is a calculated parameterbased on serum Creatinine, patient age and sex. GFR valuesless than 60 mL/min/1.73 square meters are indicative ofChronic Kidney Disease. Values less than 15 mL/min/1.73square meters indicate Kidney failure. The calculation forGFR is based on the CKD-EPI (2020) calculation. This formulais race indifferent and is the recommended formula for GFRby the National Kidney Foundation for Adults.The GFR will not calculate if the sex is unknown or if thepatient's age is <18 years. CREATININE (test code = CREAT) 0.7 mg/dL 0.7-1.3 N TOTAL PROTEIN (test code = PROT) 5.8 g/dL 6.3-8.2 L "A positive bias may occur for patients taking Eltrombopag(a bone marrow stimulant used to treat thrombocytopenia andaplastic anemia)." ALBUMIN (test code = ALB) 3.4 g/dL 3.5-5.0 L CALCIUM (test code = CA) 8.3 mg/dL 8.4-10.2 L BILIRUBIN TOTAL (test code = BILT) 0.6 mg/dL 0.2-1.3 N "A positive b ias may occur for patients taking Eltrombopag(a bone marrow stimulant used to treat thrombocytopenia andaplastic anemia)." BILIRUBIN CONJUGATED (test code = BILCON) 0 mg/dL 0-0.3 N "A positive bias may occur for patients taking Eltrombopag(a bone marrow stimulant used to treat thrombocytopenia andaplastic anemia)." CONJUGATE D BILIRUBIN IS THE REPLACEMENT ASSAY FOR DIRECTBILIRUBIN. BILIRUBIN UNCONJUGATED (test code = BILUNC) 0.4 mg/dL 0-1.1 N SGOT/AST (test code = AST) 75 U/L 15-46 H SGPT/ALT (test code = ALT) 69 U/L 0-49 H ALKALINE PHOSPHATASE (test code = ALKP) 40 U/L 38-126 N INDEX HEMOLYSIS (test code = HEMINDEX) 53 Index/DL 0-100 N CARDIAC ENZYMES [id number] 12:16:00* Test Item Value Reference Range Interpretation Comme nts TROPONIN-I (test code = TROPI) < 0.012 ng/mL 0.012-0.033 L Please be advised of the updated reference ranges for the new Chemistry instrumentation. VITROS TROPONIN I CRITERIANORMAL PATIENT W/O CIRCULATING TNI: 0.012-0.033 ng/mLAMI DIAGNOSTIC CUTOFF: >/= 0.120 ng/mL~~~~~~~~~~~~~~~~~~~~~~ ~~~~~~~~~~~~~~~~~~~~~~~~~~~ ~~~~~~~~~~The use of serial sampling and testing protocol is arecommended practice.An elevated troponin level alone is often not sufficient fordiagnosis of myocardial infarction. Troponin results obtained by different assays may vary.Evaluation of the extent of myocardial damage based onincrease of troponin would be valid only if similarmethodology is used.~~~~~~~~~~~~~~~~~~~~~~ ~~~~~~~~~~~~~~~~~~~~~~~~~~~ ~~~~~~~~~~ A POSITIVE BIAS MAY OCCUR FOR PATIENTS TAKING BIOTIN SUPPLEMENTS~~~~~~~~~~~~~~~~ ~~~~~~~~~~~~~~~~~~~~~~~~~~~ ~~~~~~~~~~~~~~~~ [id number] 12:16:00* Test Item Value Reference Range Interpretation Comme nts CKMB (test code = CKMBT) 1.18 ng/mL 0.5-5.0 N A positive bias may occur for patients taking BIOTINsupplements. LIPID PROFILE (CORONARY RISK)2023-12-19 08:37:00* Test Item Value Reference Range Interpretation Comme nts TRIGLYCERIDES (test code = TRIG) 96 mg/dL TRIGLYCERIDES REFERENCE RANGE:Normal: <150 mg/dLBorderline High: 150-199 mg/dLHigh: 200-499 mg/dLVery High: >=500 mg/dL CHOLESTEROL (test code = CHOL) 107 mg/dL CHOLESTEROL REFE RENCE RANGE:DESIRABLE: < 200 mg/dLBORDERLINE: 200-239 mg/dLHIGH: >=240 mg/dL HDL CHOLESTEROL (test code = HDL) 30 mg/dL 40-59 L LIPOPROTEIN LDL (test code = LDLC) 74.90 mg/dL 32-99 N CORONARY RISK FACTOR (test code = RISK) 3.57 CHOL/HDL RISK MALE: 1/2 AVG 3.43 FEMALE: 1/2 AVG 3.27 AVG 4.97 AVG 4.44 2X AVG 9.55 2X AVG 7.05 3X AVG 23.39 3X AVG 11.04~~~~~~~~~~~~~~~~ ~~~~~~~~~~~~~~~~~~~~~ ~~~~~~~~~~~~~~~~~~~~~ ~~National Cholesterol Education (NCEP) Guidelines:~~~~~~~~~~ ~~~~~~~~~~~~~~~~~~~~~ ~~~~~~~~~~~~~~~~~~~~~ ~~~~~~~~ HDL Cholesterol<40mg/dL : HDL Cholesterol (Major risk factor for CHD)>60mg/dL: HDL Cholesterol (Negative risk factor for CHD)40-59mg/dL: Borderline Risk LDL Cholesterol<100mg/d L: Desirable LDL-C rvowcidsbzulw810-819b g/dL: Borderline High Risk LDL-C nozathwifzkxn719-993w g/dL: High risk LDL-C concentration HDL-LDL Cholesterol is affected by a number of factors suchas smoking, age and sex.~~~~~~~~~~~~~~~~~ ~~~~~~~~~~~~~~~~~~~~~ ~~~~~~~~~~~~~~~~~~~~~ ~ [id number] 08:37:00* Test Item Value Reference Range Interpretation Comme nts MAGNESIUM (test code = MAG) 2.1 mg/dL 1.6-2.3 N CARDIAC ENZYMES [id number] 08:37:00* Test Item Value Reference Range Interpretation Comme nts TROPONIN-I (test code = TROPI) < 0.012 ng/mL 0.012-0.033 L Please be advised of the updated reference ranges for the new Chemistry instrumentation. VITROS TROPONIN I CRITERIANORMAL PATIENT W/O CIRCULATING TNI: 0.012-0.033 ng/mLAMI DIAGNOSTIC CUTOFF: >/= 0.120 ng/mL~~~~~~~~~~~~~~~~~~~~~~ ~~~~~~~~~~~~~~~~~~~~~~~~~~~ ~~~~~~~~~~The use of serial sampling and testing protocol is arecommended practice.An elevated troponin level alone is often not sufficient fordiagnosis of myocardial infarction. Troponin results obtained by different assays may vary.Evaluation of the extent of myocardial damage based onincrease of troponin would be valid only if similarmethodology is used.~~~~~~~~~~~~~~~~~~~~~~ ~~~~~~~~~~~~~~~~~~~~~~~~~~~ ~~~~~~~~~~ A POSITIVE BIAS MAY OCCUR FOR PATIENTS TAKING BIOTIN SUPPLEMENTS~~~~~~~~~~~~~~~~ ~~~~~~~~~~~~~~~~~~~~~~~~~~~ ~~~~~~~~~~~~~~~~ T4 [id number] 04:42:00* Test Item Value Reference Range Interpretation Comme nts T4 FREE (test code = T4F) 1.19 ng/dL 0.78-2.19 N - CTA CHEST FOR [id number] 02:50:00 [facility] 1990 Sex: M FAX: Klaudia Haq MD [address]: St: REG Name: HOWARD HERCULES [facility] [place] : 1990 Age/S: 33/M [address]: [id number] Loc: [place] [address] Phys: Klaudia Haq MD R3 Acct: [id number] Dis Date: Status: REG ER PHONE #: [phone] Exam Date: 12/18/20232358 FAX #: [phone] Reason: CHEST PAIN/SOB EXAMS: CPT CODE: [id number] [place] [address] LOCATION: 8 HISTORY: Male, 33 yearsof age with CHEST PAIN/SOB EXAM: CT ANGIOGRAPHY OF THE CHEST COMPARISON: Chest x-ray same day TECHNIQUE: Helical axial images were obtained from thoracic inlet to upper abdomen with nonionic IV contrast using the CT angiography protocol. Image post processing with 3-D volume rendering and/or MIPs and multiplanar reconstruction performed at the advanced workstation. One or more of the following dose reduction techniques were used: Automated exposure control; adjustment of the mA and/or kV according to the patient size; and/or use of iterative reconstruction technique. STATEMENT: Exam quality is acceptable. FINDINGS: AORTA: No aneurysm or dissection. PULMONARY ARTERIES: Within normal limits size and only moderately enhanced. No obvious central or proximal subcentral pulmonary artery filling defect. Distal pulmonary arteries not well assessed due to hemodilution. HEART: Heart size within normal limits. No significant pericardial effusion. MEDIASTINUM: No pneumomediastinum. Esophagus is unremarkable. No pathologically enlarged lymph nodes by CT criteria. Visualized portions of thyroid gland unremarkable. PLEURA: No pleural effusions. No pneumothorax. LUNGS: No significant emphysema. No focal infiltrate, consolidation or mass. BONES/SOFT TISSUES: No acute osseous abnormality. OTHER:Images through the upper abdomen show fatty infiltration of liver. IMPRESSION: 1. No obvious central or proximal subcentral pulmonary embolism. 2. No aortic aneurysm or dissection. 3. No acute infiltrate or effusion. PAGE 1 Signed Report (CONTINUED) FAX: Klaudia Haq MD R[address] [place]: St: REG------ Name: HOWARD HERCULES [facility] : 1990 Age/S: 33/M [address] Unit: [id number] Loc: [place], [place] [address]Cerz: Klaudia Haq MD Acct: [id number] Dis Date: Status: REG ER PHONE #: [phone] Exam Date: 12/18/2023 2359 FAX #: [phone] Reason: CHEST PAIN/SOB EXAMS: CPT CODE: [id number] [place] [address] (Continued) at 0250 Reported and signed by: Leila Mead MD CC: Klaudia Haq MD Technologist: RANI SAUNDERS; STEPHANIE Trnscrd Dt/Tm: 12/19/2023 (249) [email or web address] Orig Print D/T: S: 12/19/2023 (3 PAGE 2 SignedReportTSH REFLEX TO [id number] 02:49:00* Test Item Value Reference Range Interpretation Comme nts TSH REFLEX TO FT4 (test code = TSHREFLEX) 8.490 MIU/L 0.465-4.68 H A positive bias may occur for patients taking BIOTINsupplements. - CT ABD PELVIS W/[id number] 02:47:00 [facility] : 1990 Sex: M FAX: Klaudia Haq MD R[address] [place]: St: REG Name: HOWARD HERCULES [facility] : 1990 Age/S: 33/M [address] Unit: [id number] Loc: [place] [address] Phys: Klaudia Haq MD R3 Acct: [id number] Dis Date: Status: REG ER PHONE #: [phone] Exam Date: 12/18/2023 4838 FAX #: [phone] Reason: RLQ, RUQ ABDOMINAL PAIN EXAMS: CPT CODE: [id number] CT ABD PELVIS W/CONT 71073 LOCATION: H48 HISTORY: Male, 33 years of age with RLQ, RUQ ABDOMINAL PAIN EXAM: CT ABDOMEN AND PELVIS WITH IV CONTRAST COMPARISON: None at this time. TECHNIQUE: Contrast: Nonionic IV contrast was given. No GI contrast was given. Portal venous phase: Abdomen and pelvis Delayed phase: None Reconstructions: Coronal and sagittal One or more of the following dose reduction techniques were used: Automated exposure control; adjustment of the mA and/or kV according to the patient size; and/or use of iterative reconstruction technique. FINDINGS: Statements: Exam quality is acceptable. LOWER THORAX: Unremarkable. HEPATOBILIARY: Liver is fatty infiltrated. No discrete solid mass or hepatomegaly. The gallbladder is unremarkable. No biliary dilatation. PANCREAS: The pancreas is normal. SPLEEN: The spleen is normal. No mass or enlargement. ADRENALS: The adrenals are normal. GENITOURINARY: Right kidney contains a 1.5 cm diameter 54 Hounsfield units density exophytic mass in lower pole. No other discrete renal mass, hydronephrosis, or renal stone. Ureters are unremarkable. Urinary bladder is unremarkable. The visualized reproductive organs are unremarkable. GASTROINTESTINAL: No bowel wall thickening, bowel obstruction orperienteric inflammation. The appendix is normal. VASCULAR: No aortic aneurysm or dissection. IVC is unremarkable. Portal vein is patent. LYMPHATICS: No enlarged lymph nodes by CT size criteria. PAGE1 Signed Report (CONTINUED) FAX: Klaudia Haq MD R3 [place]: St: REG Name: HOWARD HERCULES [facility] : 1990 Age/S: 33/M [address] Unit: [id number] Loc: [place] [address] Phys: Klaudia Haq MD R3 Acct: [id number] Dis Date: Status: REG ER PHONE #: [phone] Exam Date: 12/18/2023 4068 FAX #: [phone] Reason: RLQ, RUQ ABDOMINAL PAIN EXAMS: CPT CODE: [id number] CT ABD PELVIS W/VTBU32241 (Continued) BONES/SOFT TISSUES: No acute osseous findings. 4.3 cm fat-containing umbilical hernia is noted. No other ventral hernias are seen. PERITONEUM/OTHER: No free intraperitoneal air. No free intraperitoneal fluid. IMPRESSION: 1. No acute findings in abdomen or pelvis. 2. 1.5 cm hypoden se solid appearing mass inferior right kidney. Recommend nonemergent further assessment with multiphasic contrast enhanced CT scan or MRI. 3. Fatty liver. 4. 4.3 cm fat-containing umbilical hernia. at 0247 Reported and signed by: Leila Mead MD CC: Klaudia Haq MD Technologist: RANI SAUNDERS; VIRGIE PÉREZ Trnscrd Dt/Tm: 12/19/2023 (0247) t.[email or web address] Orig Print D/T: S: 12/19/2023 (7070 PAGE 2 Signed Report- DUP VEIN [id number] 23:43:00 [facility] : 1990 Sex: M FAX: Klaudia Haq MD R[address] [place]: St: REG Name: HOWARD HERCULES [facility] : 1990 Age/S: 33/M [address] Unit #: [id number] Loc: [place] [address] Phys: Klaudia Haq MD R3 Acct: [id number] Dis Date: Status: REG ER PHONE #: [phone] Exam Date: 12/18/20232306 FAX #: [phone] Reason: BILATERAL CALF PAIN/SPASMS EXAMS: CPT CODE: [id number] DUP VEIN NATHEN 03889 EXAM: Ultrasound bilateral lower extremity venous Doppler LOCATION: C3 HISTORY: BILATERAL CALF PAIN/SPASMS COMPARISON: None available at the time of interpretation. TECHNIQUE: Grayscale real-time B-mode imaging with color flow and spectral flow Doppler analysis was performed of the bilateral lower extremities. FINDINGS: There is normal compressibility with no evidence of thrombus in the visualized venous structures of the bilateral lower extremities. IMPRESSION: No DVT in the visualized venous structures of the bilateral lower extremities. at 2343 Reported and signed by: Андрей Hein MD CC: Klaudia Haq MD Technologist: JASON GOMEZ Trnscrd Date/Time/By: 12/18/2023 (9474) : By: [email or web address] PAGE 1 Signed Report FAX: Klaudia Haq MD R3 [place]: St: REG Name: SHAWANDA HERCULES [facility] : 1990 Age/S: 33/M [address] Unit #: [id number] Loc: [place] [address] Phys: Klaudia Haq MD R3 Acct: [id number] Dis Date: Status: REG ER PHONE #: [phone] Date: 12/18/20232306 FAX #: [phone] Reason: BILATERAL CALF PAIN/SPASMS EXAMS: CPT CODE: [id number] DUP VEIN NATHEN 77297 (Continued) Orig Print D/T: S: 12/18/2023 (5944) PAGE 2 Signed ReportBASIC METABOLIC [id number] 23:11:00* Test Item Value Reference Range Interpretation Comme nts SODIUM (test code = NA) 138 mmol/L 137-145 N POTASSIUM (test code = K) 3.9 mmol/L 3.4-5.0 N CHLORIDE (test code = CL) 101 mmol/L 98-107 N CARBON DIOXIDE (test code = CO2) 30 mmol/L 22-30 N ANION GAP (test code = GAP) 11 mmol/L 10-20 N GLUCOSE (test code = GLU) 100 mg/dL 74-106 N BLOOD UREA NITROGEN (test code = BUN) 11 mg/dL 9-20 N GLOMERULAR FILTRATION RATE (test code = GFR) 116 mL/min The Glomerular Filtration Rate is a calculated parameterbased on serum Creatinine, patient age and sex. GFR valuesless than 60 mL/min/1.73 square meters are indicative ofChronic Kidney Disease. Values less than 15 mL/min/1.73square meters indicate Kidney failure. The calculation forGFR is based on the CKD-EPI (2020) calculation. This formulais race indifferent and is the recommended formula for GFRby the National Kidney Foundation for Adults.The GFR will not calculate if the sex is unknown or if thepatient's age is <18 years. CREATININE (test code = CREAT) 0.9 mg/dL 0.7-1.3 N CALCIUM (test code = CA) 9.2 mg/dL 8.4-10.2 N INDEX HEMOLYSIS (test code = HEMINDEX) 18 Index/DL 0-100 N LIVER FUNCTION [id number] 23:11:00* Test Item Value Reference Range Interpretation Comme nts TOTAL PROTEIN (test code = PROT) 7.8 g/dL 6.3-8.2 N "A positive bias may occur for patients taking Eltrombopag(a bone marrow stimulant used to treat thrombocytopenia andaplastic anemia)." ALBUMIN (test code = ALB) 4.6 g/dL 3.5-5.0 N BILIRUBIN TOTAL (test code = BILT) 0.9 mg/dL 0.2-1.3 N "A positive b ias may occur for patients taking Eltrombopag(a bone marrow stimulant used to treat thrombocytopenia andaplastic anemia)." BILIRUBIN CONJUGATED (test code = BILCON) 0 mg/dL 0-0.3 N "A positive bias may occur for patients taking Eltrombopag(a bone marrow stimulant used to treat thrombocytopenia andaplastic anemia)." CONJUGATED BILIRUBIN IS THE REPLACEMENT ASSAY FOR DIRECTBILIRUBIN. BILIRUBIN UNCONJUGATED (test code = BILUNC) 1.0 mg/dL 0-1.1 N SGOT/AST (test code = AST) 84 U/L 15-46 H SGPT/ALT (test code = ALT) 95 U/L 0-49 H ALKALINE PHOSPHATASE (test code = ALKP) 56 U/L 38-126 N CREATINE KINASE (CK)2023-12-18 23:11:00* Test Item Value Reference Range Interpretation Comme nts CREATINE KINASE (CK) (test c ode = CK) 7023 U/L 55-170 HH [id number] 23:11:00* Test Item Value Reference Range Interpretation Comme nts MAGNESIUM (test code = MAG) 2.0 mg/dL 1.6-2.3 N [id number] 23:11:00* Test Item Value Reference Range Interpretation Comme nts TROPONIN-I (test code = TROPI) < 0.012 ng/mL 0.012-0.033 L Please be advised of the updated reference ranges for the new Chemistry instrumentation. VITROS TROPONIN I CRITERIANORMAL PATIENT W/O CIRCULATING TNI: 0.012-0.033 ng/mLAMI DIAGNOSTIC CUTOFF: >/= 0.120 ng/mL~~~~~~~~~~~~~~~~~~~~~~ ~~~~~~~~~~~~~~~~~~~~~~~~~~~ ~~~~~~~~~~The use of serial sampling and testing protocol is arecommended practice.An elevated troponin level alone is often not sufficient fordiagnosis of myocardial infarction. Troponin results obtained by different assays may vary.Evaluation of the extent of myocardial damage based onincrease of troponin would be valid only if similarmethodology is used.~~~~~~~~~~~~~~~~~~~~~~ ~~~~~~~~~~~~~~~~~~~~~~~~~~~ ~~~~~~~~~~ A POSITIVE BIAS MAY OCCUR FOR PATIENTS TAKING BIOTIN SUPPLEMENTS~~~~~~~~~~~~~~~~ ~~~~~~~~~~~~~~~~~~~~~~~~~~~ ~~~~~~~~~~~~~~~~ - XR CHEST 1 [id number] 22:34:00 [facility] : 1990 Sex: M FAX: Francisco JavierPawan [place]: St: REG Name: HOWARD HERCULES [facility] [place] : 1990 Age/S: 33/M [address] Unit #: [id number] Loc: [place] [address] Phys: Pawan Mcintyre Acct: [id number] Dis Date: Status: REG ER PHONE #: [phone] Exam Date: 12/18/20232144 FAX #: [phone] Reason: chest pain EXAMS: CPT CODE: [id number] XR CHEST 1 V 29850 EXAM: - XR CHEST 1 V COMPARISON: 02/11/2024 LOCATION: C3 HISTORY: chest pain FINDINGS: Single view of the chest. No indwelling lines or tubes. No pneumothorax. The lungs are clear without significant effusions. The mediastinal contours are unremarkable/unchanged. No acute osseous findings are present. IMPRESSION: No acute cardiopulmonary abnormality. at 2234 Reported and signed by: Андрей Hein MD CC: Pawan Mcintyre Technologist: Klaudia Schwartz Trnscrd Date/Time/By: 12/18/2023 (2233) : By: [email or web address] PAGE 1 Signed Report FAX: Pawan Mcintyre [place]: St: REG -- Name: HOWARD HERCULES [facility] [place] : 1990 Age/S: 33/M [address] Unit #: [id number] Loc: [place] [address] Phys: DavidpaulkenishaPawan Ivan BAHENANN Acct: [id number] Dis Date: Status: REG ER PHONE #: [phone] Exam Date: 12/18/20232144 FAX #: [phone] Reason: chest pain EXAMS: CPT CODE: [id number] XR CHEST 1 V 89850 (Continued) Orig Print D/T: S: 12/18/2023 (2236) PAGE 2 Signed ReportCBC W/AUTO [id number] 22:25:00* Test Item Value Reference Range Interpretation Comme nts WHITE BLOOD CELL (test code = WBC) 8.8 x10 3/uL 5.0-12.0 N RED BLOOD CELL (test code = RBC) 5.11 x10 6/uL 4.70-6.10 N HEMOGLOBIN (test code = HGB) 14.1 g/dL 14.0-18.0 N HEMATOCRIT (test code = HCT) 44.1 % 37.0-49.0 N MEAN CELL VOLUME (test code = MCV) 86 fL 80-94 N MEAN CELL HGB (test code = MCH) 27.6 pg 27-31 N MEAN CELL HGB CONCENTRATION (test code = MCHC) 32.0 g/dL 33-37 L RED CELL DISTRIBUTION WIDTH (test code = RDW) 13.2 % 11.5-15.5 N PLATELET COUNT (test code = PLT) 301 x10 3/uL 130-400 N MEAN PLATELET VOLUME (test c ode = MPV) 9.5 fL 9.4-16.4 N NEUTROPHIL % (test code = NT%) 61.8 % 43-65 N IMMATURE GRANULOCYTE % (test code = IG%) 0.3 % 0.0-2.0 N LYMPHOCYTE % (test code = LY%) 27.1 % 20.5-45.5 N MONOCYTE % (test code = MO%) 8.6 % 5.5-11.7 N EOSINOPHIL % (test code = EO%) 1.4 % 0.9-2.9 N BASOPHIL % (test code = BA%) 0.8 % 0.2-1.0 N NUCLEATED RBC % (test code = NRBC%) 0.0 % 0-1.0 N NEUTROPHIL # (test code = NT#) 5.44 x10 3/uL 2.2-4.8 H IMMATURE GRANULOCYTE # (test code = IG#) 0.03 x10 3/uL 0-0.03 N LYMPHOCYTE # (test code = LY#) 2.39 x10 3/uL 1.3-2.9 N MONOCYTE # (test code = MO#) 0.76 x10 3/uL 0.3-0.8 N EOSINOPHIL # (test code = EO#) 0.12 x10 3/uL 0.0-0.2 N BASOPHIL # (test code = BA#) 0.07 x10 3/uL 0.0-0.1 N COMPREHENSIVE METABOLIC [id number] 18:27:00* Test Item Value Reference Range Interpretation Comme nts SODIUM (test code = NA) 138 MMOL/L 135-147 N POTASSIUM (test code = K) 3.8 MMOL/L 3.6-5.2 N CHLORIDE (test code = CL) 99 MMOL/L 98-108 N CARBON DIOXIDE (test code = CO2) 28 mmol/L 21-32 N GLUCOSE (test code = GLU) 109 mg/dL 70-110 N BLOOD UREA NITROGEN (test code = BUN) 12 MG/DL 6-21 N GLOMERULAR FILTRATION RATE (test code = GFR) 116 mL/min The Glomerular Filtration Rate is a calculated parameterbased on serum Creatinine, patient age and sex. GFR valuesless than 60 mL/min/1.73 square meters are indicative ofChronic Kidney Disease. Values less than 15 mL/min/1.73square meters indicate Kidney failure. The calculation forGFR is based on the CKD-EPI (202) calculation. This formulais race indifferent and is the recommended formula for GFRby the National Kidney Foundation for Adults.The GFR will not calculate if the sex is unknown or if thepatient's age is <18 years. CREATININE (test code = CREAT) 0.9 mg/dL 0.6-1.3 N TOTAL PROTEIN (test code = PROT) 7.9 g/dL 6.0-8.2 N ALBUMIN (test code = ALB) 4.3 G/DL 3.7-5.5 N CALCIUM (test code = CA) 8.8 mg/dL 8.7-10.5 N BILIRUBIN TOTAL (test code = BILT) 0.80 mg/dL 0.0-1.0 N SGOT/AST (test code = AST) 32 UNITS/L 10-37 N SGPT/ALT (test code = ALT) 65 UNITS/L 12-78 N ALKALINE PHOSPHATASE (test code = ALKP) 68 UNITS/L 46-116 N CREATINE KINASE (CK)2023-12-12 18:27:00* Test Item Value Reference Range Interpretation Comme [facility] CREATINE KINASE (CK) (test c ode = CK) 259 UNITS/L 26-308 N Chemistry - BNP, HgbA1c, [id number] 22:22:00* Test Item Value Reference Range Interpretation Comme [facility] Chemistry - BNP, HgbA1c, PTH i (test code = BNP) 28.8 pg/mL 0-100 N [id number] 22:21:00* Test Item Value Reference Range Interpretation Comme nts Chemistry (test code = NA-T) 140 mmol/L 136-145 N Chemistry (test code = K-T) 3.7 mmol/L 3.5-5.1 N Chemistry (test code = CL) 106 mmol/L 98-107 N Chemistry (test code = CO2) 26 mmol/L 22-29 N Chemistry (test code = ANGP) 12 mmol/L 10-20 N Chemistry (test code = BUN) 14 mg/dL 8.9-20.6 N Chemistry (test code = CREATT) 0.84 mg/dL 0.7-1.3 N Chemistry (test code = EGFRCR) 120 Reference Range for Estimated GFR: Greater than 90 mL/min/1.73 t0Jrmrkzwr eGFR is based on the CKD-EPI 2020 equation thatdoes not use a race coefficient. Chemistry (test code = GLU-T) 116 mg/dL 70-105 H Chemistry (test code = CA) 9.0 mg/dL 7.8-10.44 N Chemistry (test code = TBILI-T) 0.4 mg/dL 0.2-1.2 N Chemistry (test code = TP) 6.8 g/dL 6.0-8.3 N Chemistry (test code = ALB) 4.2 g/dL 3.5-5.0 N Chemistry (test code = GLOB) 2.6 g/dL 2.4-3.5 N Chemistry (test code = AG) 1.6 g/dL 1.2-2.2 N Chemistry (test code = ALP) 52 U/L 40-110 N Chemistry (test code = AST) 24 U/L 5-34 N Chemistry (test code = ALT) 37 U/L 8-55 N [id number] 22:21:00* Test Item Value Reference Range Interpretation Comme nts Chemistry (test code = TROPI-R) 0.015 ng/mL < 0.028 Reference Range 0.00 - 0.028 ng/mL Negative 0.029 - 0.29 ng/mL Indeterminate Greater or Equal to 0.3 ng/mL Strongly suggests NE [id number] 22:09:00* Test Item Value Reference Range Interpretation Comme nts Hematology (test code = WBCT) 6.4 10x3/uL [...] N Serum or plasma sodium measurement (moles/volume)2022-08-13 21:55:00* Test Item Value Reference Range Interpretation Comme [facility] Sodium Level (test code = 2951-2) 140 mmol/L 136-145 [facility] potassium [facility] (moles/volume)2022-08-13 21:55:00* Test Item Value Reference Range Interpretation Comme nts Potassium Level (test code = 2823-3) 3.7 mmol/L 3.5-5.1 [facility] chloride measurement (moles/volume)2022-08-13 21:55:00* Test Item Value Reference Range Interpretation Comme nts Chloride Level (test code = 2075-0) 106 mmol/L 98-107 [facility] carbon dioxide, total measurement (moles/volume)2022-08-13 21:55:00* Test Item Value Reference Range Interpretation Comme nts Carbon Dioxide Level (test c ode = 8-9) 26 mmol/L 22-29 [facility] plasma anion [id number] 21:55:00* Test Item Value Reference Range Interpretation Comme nts Anion Gap (test code = 59970-8) 12 mmol/L 10-20 [facility] urea nitrogen measurement (mass/volume)2022-08-13 21:55:00* Test Item Value Reference Range Interpretation Comme nts Blood Urea Nitrogen (test co de = 3094-0) 14 mg/dL 8.9-20.6 [facility] plasma creatinine measurement (mass/volume)2022-08-13 21:55:00* Test Item Value Reference Range Interpretation Comme nts Creatinine (test code = 2160-0) 0.84 mg/dL 0.7-1.3 [facility] CareGlomerular filtration rate/1.73 sq M.predicted [Volume Rate/Area] in Serum, Plasma [id number] 21:55:00* Test Item Value Reference Range Interpretation Comme nts Estimated GFR (CKD-EPI 2020) (test code = 47467-5) 120 [facility] Care[facility]ucose [Mass/volume] in Serum or Plasma 2022-08-13 21:55:00* Test Item Value Reference Range Interpretation Comme [facility] Glucose Level (test code = 2345-7) 116 mg/dL 70-105 [facility] plasma calcium measurement (mass/volume)2022-08-13 21:55:00* Test Item Value Reference Range Interpretation Comme [facility] Calcium Level (test code = 27159-5) 9.0 mg/dL 7.8-10.44 [facility] plasma total bilirubin measurement (mass/volume)2022-08-13 21:55:00* Test Item Value Reference Range Interpretation Comme [facility] Total Bilirubin (test code = 1975-2) 0.4 mg/dL 0.2-1.2 [facility] plasma protein measurement (mass/volume)2022-08-13 21:55:00* Test Item Value Reference Range Interpretation Comme [facility] Serum Total Protein (test co de = 2885-2) 6.8 g/dL 6.0-8.3 [facility] Hospitaler[facility] or plasma albumin measurement by bromocresol green (BCG) dye binding method ([id number] 21:55:00* Test Item Value Reference Range Interpretation Comme [facility] Albumin (test code = 47231-7) 4.2 g/dL 3.5-5.0 [facility] Care[facility]obulin [Mass/volume] in Serum by calculation 2022-08-13 21:55:00* Test Item Value Reference Range Interpretation Comme nts Globulin (test code = 73622-8) 2.6 g/dL 2.4-3.5 [facility] Care[facility]/Globulin [Mass Ratio] in Serum or [id number] 21:55:00* Test Item Value Reference Range Interpretation Comme nts Albumin/Globulin Ratio (test code = 1759-0) 1.6 g/dL 1.2-2.2 [facility] CareAlkaline phosphatase [Enzymatic activity/volume] in Serum or [id number] 21:55:00* Test Item Value Reference Range Interpretation Comme nts Alkaline Phosphatase (test c ode = 6768-6) 52 U/L 40-110 [facility]ate aminotransferase measurement (enzymatic activity/volume)2022-08-13 21:55:00* Test Item Value Reference Range Interpretation Comme nts Aspartate Amino Transf (AST/ SGOT) (test code = 1920-8) 24 U/L 5-34 [facility] alanine aminotransferase measurement without P-5'-P (enzymatic [id number] 21:55:00* Test Item Value Reference Range Interpretation Comme [facility] Alanine Aminotransferase (AL T/SGPT) (test code = 1744-2) 37 U/L 8-55 [facility] Care[facility]uk[facility] [#/volume] in Blood by Automated [id number] 21:55:00* Test Item Value Reference Range Interpretation Comme nts White Blood Count (test code = 6690-2) 6.4 10x3/uL 4.8-10.8 [facility] CareBlood erythrocytes automated count (number/volume)2022-08-13 21:55:00* Test Item Value Reference Range Interpretation Comme [facility] Red Blood Count (test code = 789-8) 4.78 mill/uL 4.70-6.10 [facility] CareBlood hemoglobin measurement (mass/volume) 2022-08-13 21:55:00* Test Item Value Reference Range Interpretation Comme nts Hemoglobin (test code = 718-7) 14.0 g/dL 14.0-18.0 [facility] CareAutomated erythrocyte mean corpuscular volume 2022-08-13 21:55:00* Test Item Value Reference Range Interpretation Comme [facility] Mean Corpuscular Volume (blanca t code = 787-2) 87.6 fl 78.0-98.0 [facility] CareAutomated erythrocyte mean corpuscular hemoglobin (mass per erythrocyte)2022-08-13 21:55:00* Test Item Value Reference Range Interpretation Comme [facility] Mean Corpuscular Hemoglobin (test code = 785-6) 29.2 pg 27.0-31.0 [facility] CareAutomated erythrocyte mean corpuscular hemoglobin concentration measurement (mass/[id number] 21:55:00* Test Item Value Reference Range Interpretation Comme [facility] Mean Corpuscular Hemoglobin Concent (test code = 786-4) 33.3 g/dL 32.0-36.0 [facility] CareAutom[facility] erythrocyte distribution width ratio 2022-08-13 21:55:00* Test Item Value Reference Range Interpretation Comme [facility] Red Cell Distribution Width (test code = 788-0) 12.0 % 11.5-14.5 [facility] CareAutom[facility] blood platelet count (count/volume) 2022-08-13 21:55:00* Test Item Value Reference Range Interpretation Comme [facility] Platelet Count (test code = 777-3) 316 10x3/uL 130-400 [facility] CareAutom[facility] blood platelet mean [id number] 21:55:00* Test Item Value Reference Range Interpretation Comme [facility] Mean Platelet Volume (test c ode = 81414-0) 6.4 fL 7.4-10.4 [facility] CareAutomated blood neutrophils/100 leukocytes 2022-08-13 21:55:00* Test Item Value Reference Range Interpretation Comme [facility] Neutrophils % (test code = 770-8) 72.8 % 42.0-75.0 [facility] CareLymphocytes/100 leukocytes in Blood by Automated [id number] 21:55:00* Test Item Value Reference Range Interpretation Comme nts Lymphocytes % (test code = 736-9) 16.6 % 21.0-51.0 [facility] CareAutom[facility] blood monocytes/100 leukocytes 2022-08-13 21:55:00* Test Item Value Reference Range Interpretation Comme nts Monocytes % (test code = 5905-5) 8.4 % 0.0-10.0 [facility] CareAutom[facility] blood eosinophils/100 leukocytes 2022-08-13 21:55:00* Test Item Value Reference Range Interpretation Comme nts Eosinophils % (test code = 713-8) 0.8 % 0.0-10.0 [facility] CareAutomated blood basophils/100 leukocytes 2022-08-13 21:55:00* Test Item Value Reference Range Interpretation Comme [facility] Basophils % (test code = 706-2) 1.5 % 0.0-1.0 [facility] neutrophils automated count (number/volume)2022-08-13 21:55:00* Test Item Value Reference Range Interpretation Comme [facility] Neutrophils # (test code = 751-8) 4.6 thou/uL 1.40-6.50 [facility] CareLymphocytes [#/volume] in Blood by Automated [id number] 21:55:00* Test Item Value Reference Range Interpretation Comme [facility] Lymphocytes # (test code = 731-0) 1.1 thou/uL 1.20-3.40 [facility] CareBlood monocytes automated count (number/volume) 2022-08-13 21:55:00* Test Item Value Reference Range Interpretation Comme [facility] Monocytes # (test code = 742-7) 0.5 thou/uL 0.11-0.59 [facility] CareBlood eosinophils automated count (count/volume)2022-08-13 21:55:00* Test Item Value Reference Range Interpretation Comme [facility] Eosinophils # (test code = 711-2) 0.0 thou/uL 0.0-0.7 [facility] CareAutom[facility] blood basophil count (count/volume) 2022-08-13 21:55:00* Test Item Value Reference Range Interpretation Comme nts Basophils # (test code = 704-7) 0.1 thou/uL 0.0-0.2 [facility] CareChemistry2022-09-12 02:47:00* Test Item Value Reference Range Interpretation Comme nts Chemistry (test code = TROPI-R) Less than 0.010 ng/mL < 0.028 * Reference Range 0.00 - 0.028 ng/mL Negative 0.029 - 0.29 ng/mL Indeterminate Greater or Equal to 0.3 ng/mL Strongly suggests NE Slwojsusy2777-90-70 02:46:00* Test Item Value Reference Range Interpretation Comme nts Chemistry (test code = NA-T) 140 mmol/L 136-145 N Chemistry (test code = K-T) 3.8 mmol/L 3.5-5.1 N Chemistry (test code = CL) 107 mmol/L 98-107 N Chemistry (test code = CO2) 22 mmol/L 22-29 N Chemistry (test code = ANGP) 15 mmol/L 10-20 N Chemistry (test code = BUN) 14 mg/dL 8.9-20.6 N Chemistry (test code = CREATT) 0.83 mg/dL 0.7-1.3 N Chemistry (test code = EGFRCR) 121 Reference Range for Estimated GFR: Greater than 90 mL/min/1.73 [id number] eGFR is based on the CKD-EPI 2020 equation thatdoes not use a race coefficient. Chemistry (test code = GLU-T) 91 mg/dL 70-105 N Chemistry (test code = CA) 8.9 mg/dL 7.8-10.44 N Chemistry (test code = TBILI-T) 1.2 mg/dL 0.2-1.2 N Chemistry (test code = TP) 7.2 g/dL 6.0-8.3 N Chemistry (test code = ALB) 4.3 g/dL 3.5-5.0 N Chemistry (test code = GLOB) 2.9 g/dL 2.4-3.5 N Chemistry (test code = AG) 1.5 g/dL 1.2-2.2 N Chemistry (test code = ALP) 53 U/L 40-110 N Chemistry (test code = AST) 28 U/L 5-34 N Chemistry (test code = ALT) 50 U/L 8-55 N Uvsaooqbsqe0038-97-63 02:43:00* Test Item Value Reference Range Interpretation Comme nts Coagulation (test code = DDIMTT) Less than 0.27 *mcg/mL 0.27-0.43 L * Reference Range Units: mcg/mL of fibrinogen equivalent units(FEU)Based upon a retrospective study of [facility] patients in January 2006, a result of"Less than 0.44 mcg/mL FEU" is predictive of the absence ofa DVT or PE. [id number] 02:38:00* Test Item Value Reference Range Interpretation Comme nts Hematology (test code = WBCT) 6.9 thou/uL 4.8-10.8 N Hematology (test code = RBCT) 4.79 mill/uL 4.70-6.10 N Hematology (test code = HGBT) 14.1 g/dL 14.0-18.0 N Hematology (test code = HCTT) 41.1 % 42.0-52.0 L Hematology (test code = MCV) 85.8 fL 78.0-98.0 N ICU.TEU @0237. P t. received fluids on 05/24 visit Hematology (test code = MCH) 29.4 pg 27.0-31.0 N Hematology (test code = MCHC) 34.2 g/dL 32.0-36.0 N Hematology (test code = RDW) 12.4 % 11.5-14.5 N Hematology (test code = PLTT) 267 thou/uL 130-400 N Hematology (test code = MPV) 6.0 fL 7.4-10.4 L Hematology (test code = %NEUT) 54.6 % 42.0-75.0 N Hematology (test code = %LYMPH) 33.4 % 21.0-51.0 N Hematology (test code = %MONO) 9.2 % 0.0-10.0 N Hematology (test code = %EOS) 1.7 % 0.0-10.0 N Hematology (test code = %BASO) 1.1 % 0.0-1.0 H Hematology (test code = NEUT#) 3.8 thou/uL 1.40-6.50 N Hematology (test code = LYMPH#) 2.3 thou/uL 1.20-3.40 N Hematology (test code = MONO#) 0.6 thou/uL 0.11-0.59 H Hematology (test code = EOS#) 0.1 thou/uL 0.0-0.7 N Hematology (test code = BASO#) 0.1 thou/uL 0.0-0.2 N Serum or plasma creatinine measurement (mass/volume)2022-05-25 02:15:00* Test Item Value Reference Range Interpretation Comme [facility] Creatinine (test code = 2160-0) 0.83 mg/dL 0.7-1.3 [facility] CareGlomerular filtration rate/1.73 sq M.predicted [Volume Rate/Area] in Serum, Plasma [id number] 02:15:00* Test Item Value Reference Range Interpretation Comme nts Estimated GFR (CKD-EPI 2020) (test code = 97633-7) 121 [facility] CareGlucose [Mass/volume] in Serum or Plasma 2022-05-25 02:15:00* Test Item Value Reference Range Interpretation Comme [facility] Glucose Level (test code = 2345-7) 91 mg/dL 70-105 [facility] calcium measurement (mass/volume)2022-05-25 02:15:00* Test Item Value Reference Range Interpretation Comme nts Calcium Level (test code = 12908-1) 8.9 mg/dL 7.8-10.44 [facility] total bilirubin measurement (mass/volume)2022-05-25 02:15:00* Test Item Value Reference Range Interpretation Comme nts Total Bilirubin (test code = 1975-2) 1.2 mg/dL 0.2-1.2 [facility] plasma protein measurement (mass/volume)2022-05-25 02:15:00* Test Item Value Reference Range Interpretation Comme [facility] Serum Total Protein (test co de = 2885-2) 7.2 g/dL 6.0-8.3 [facility]er[facility] plasma albumin measurement by bromocresol green (BCG) dye binding method ([id number] 02:15:00* Test Item Value Reference Range Interpretation Comme [facility] Albumin (test code = 30686-1) 4.3 g/dL 3.5-5.0 [facility] CareGlobulin [Mass/volume] in Serum by calculation 2022-05-25 02:15:00* Test Item Value Reference Range Interpretation Comme nts Globulin (test code = 29933-0) 2.9 g/dL 2.4-3.5 [facility] CareAlbumin/Globulin [Mass Ratio] in Serum or [id number] 02:15:00* Test Item Value Reference Range Interpretation Comme [facility] Albumin/Globulin Ratio (test code = 1759-0) 1.5 g/dL 1.2-2.2 [facility] CareAlkaline phosphatase [Enzymatic activity/volume] in Serum or Anyciv2478-40-27 02:15:00* Test Item Value Reference Range Interpretation Comme nts Alkaline Phosphatase (test c ode = 6768-6) 53 U/L 40-110 [facility] plasma aspartate aminotransferase measurement (enzymatic activity/volume)2022-05-25 02:15:00* Test Item Value Reference Range Interpretation Comme nts Aspartate Amino Transf (AST/ SGOT) (test code = 1920-8) 28 U/L 5-34 [facility] alanine aminotransferase measurement without P-5'-P (enzymatic [id number] 02:15:00* Test Item Value Reference Range Interpretation Comme nts Alanine Aminotransferase (AL T/SGPT) (test code = 1744-2) 50 U/L 8-55 [facility] CareLeukocytes [#/volume] in Blood by Automated [id number] 02:15:00* Test Item Value Reference Range Interpretation Comme nts White Blood Count (test code = 6690-2) 6.9 thou/uL 4.8-10.8 [facility] CareBlood erythrocytes automated count (number/volume)2022-05-25 02:15:00* Test Item Value Reference Range Interpretation Comme nts Red Blood Count (test code = 789-8) 4.79 mill/uL 4.70-6.10 [facility] CareBlood hemoglobin measurement (mass/volume) 2022-05-25 02:15:00* Test Item Value Reference Range Interpretation Comme nts Hemoglobin (test code = 718-7) 14.1 g/dL 14.0-18.0 [facility] CareAutomated erythrocyte mean corpuscular volume 2022-05-25 02:15:00* Test Item Value Reference Range Interpretation Comme [facility] Mean Corpuscular Volume (blanca t code = 787-2) 85.8 fL 78.0-98.0 [facility] CareAutomated erythrocyte mean corpuscular hemoglobin (mass per erythrocyte)2022-05-25 02:15:00* Test Item Value Reference Range Interpretation Comme [facility] Mean Corpuscular Hemoglobin (test code = 785-6) 29.4 pg 27.0-31.0 [facility] CareAutomated erythrocyte mean corpuscular hemoglobin concentration measurement (mass/[id number] 02:15:00* Test Item Value Reference Range Interpretation Comme [facility] Mean Corpuscular Hemoglobin Concent (test code = 786-4) 34.2 g/dL 32.0-36.0 [facility] CareAutomated erythrocyte distribution width ratio 2022-05-25 02:15:00* Test Item Value Reference Range Interpretation Comme [facility] Red Cell Distribution Width (test code = 788-0) 12.4 % 11.5-14.5 [facility] CareAutom[facility] blood platelet count (count/volume) 2022-05-25 02:15:00* Test Item Value Reference Range Interpretation Comme [facility] Platelet Count (test code = 777-3) 267 thou/uL 130-400 [facility] CareAutomated blood platelet mean lkxrrh9640-48-67 02:15:00* Test Item Value Reference Range Interpretation Comme [facility] Mean Platelet Volume (test c ode = 46397-5) 6.0 fL 7.4-10.4 [facility] CareAutomated blood neutrophils/100 leukocytes 2022-05-25 02:15:00* Test Item Value Reference Range Interpretation Comme nts Neutrophils % (test code = 770-8) 54.6 % 42.0-75.0 [facility] CareLymphocytes/100 leukocytes in Blood by Automated [id number] 02:15:00* Test Item Value Reference Range Interpretation Comme nts Lymphocytes % (test code = 736-9) 33.4 % 21.0-51.0 [facility] CareAutom[facility] blood monocytes/100 leukocytes 2022-05-25 02:15:00* Test Item Value Reference Range Interpretation Comme nts Monocytes % (test code = 5905-5) 9.2 % 0.0-10.0 [facility] CareAutom[facility] blood eosinophils/100 leukocytes 2022-05-25 02:15:00* Test Item Value Reference Range Interpretation Comme nts Eosinophils % (test code = 713-8) 1.7 % 0.0-10.0 [facility] CareAutomated blood basophils/100 leukocytes 2022-05-25 02:15:00* Test Item Value Reference Range Interpretation Comme nts Basophils % (test code = 706-2) 1.1 % 0.0-1.0 [facility] CareBl[facility] neutrophils automated count (number/volume)2022-05-25 02:15:00* Test Item Value Reference Range Interpretation Comme nts Neutrophils # (test code = 751-8) 3.8 thou/uL 1.40-6.50 [facility] CareLymphocytes [#/volume] in Blood by Automated [id number] 02:15:00* Test Item Value Reference Range Interpretation Comme nts Lymphocytes # (test code = 731-0) 2.3 thou/uL 1.20-3.40 [facility] CareBlood monocytes automated count (number/volume) 2022-05-25 02:15:00* Test Item Value Reference Range Interpretation Comme nts Monocytes # (test code = 742-7) 0.6 thou/uL 0.11-0.59 [facility] CareBlood eosinophils automated count (count/volume)2022-05-25 02:15:00* Test Item Value Reference Range Interpretation Comme nts Eosinophils # (test code = 711-2) 0.1 thou/uL 0.0-0.7 [facility] CareAutomated blood basophil count (count/volume) 2022-05-25 02:15:00* Test Item Value Reference Range Interpretation Comme nts Basophils # (test code = 704-7) 0.1 thou/uL 0.0-0.2 [facility] CareFibrin D-dimer FEU measurement in platelet poor plasma (mass/volume)2022-05-25 02:15:00* Test Item Value Reference Range Interpretation Comme [facility] D-Dimer (test code = 94953-1) Less than 0.27 *mcg/mL 0.27-0.43 [facility] sodium measurement (moles/volume)2022-05-25 02:15:00* Test Item Value Reference Range Interpretation Comme [facility] Sodium Level (test code = 2951-2) 140 mmol/L 136-145 [facility] plasma potassium measurement (moles/volume)2022-05-25 02:15:00* Test Item Value Reference Range Interpretation Comme [facility] Potassium Level (test code = 2823-3) 3.8 mmol/L 3.5-5.1 [facility]er[facility] plasma chloride measurement (moles/volume)2022-05-25 02:15:00* Test Item Value Reference Range Interpretation Comme [facility] Chloride Level (test code = 2075-0) 107 mmol/L 98-107 [facility] plasma carbon dioxide, total measurement (moles/volume)2022-05-25 02:15:00* Test Item Value Reference Range Interpretation Comme [facility] Carbon Dioxide Level (test c ode = 2027-9) 22 mmol/L 22-29 [facility] plasma anion [id number] 02:15:00* Test Item Value Reference Range Interpretation Comme [facility] Anion Gap (test code = 27072-5) 15 mmol/L 10-20 [facility] urea nitrogen measurement (mass/volume)2022-05-25 02:15:00* Test Item Value Reference Range Interpretation Comme [facility] Blood Urea Nitrogen (test co de = 3094-0) 14 mg/dL 8.9-20.6 [facility] CareChem[facility] - BNP, HgbA1c, [id number] 17:35:00* Test Item Value Reference Range Interpretation Comme [facility] Chemistry - BNP, HgbA1c, PTH i (test code = BNP) 34.2 pg/mL 0-100 N Xshltwnsm3180-21-30 17:34:00* Test Item Value Reference Range Interpretation Comme [facility] Chemistry (test code = TROPI-R) 0.013 ng/mL < 0.028 Reference Range 0.00 - 0.028 ng/mL Negative 0.029 - 0.29 ng/mL Indeterminate Greater or Equal to 0.3 ng/mL Strongly suggests NE Bdcualebm7186-71-74 17:32:00* Test Item Value Reference Range Interpretation Comme [facility] Chemistry (test code = NA-T) 139 mmol/L 136-145 N Chemistry (test code = K-T) 3.5 mmol/L 3.5-5.1 N Chemistry (test code = CL) 106 mmol/L 98-107 N Chemistry (test code = CO2) 22 mmol/L 22-29 N Chemistry (test code = ANGP) 15 mmol/L 10-20 N Chemistry (test code = BUN) 12 mg/dL 8.9-20.6 N Chemistry (test code = CREATT) 0.91 mg/dL 0.7-1.3 N Chemistry (test code = EGFRCR) 116 Reference Range for Estimated GFR: Greater than 90 mL/min/1.73 b8Pmbfqedh eGFR is based on the CKD-EPI 2020 equation thatdoes not use a race coefficient. Chemistry (test code = GLU-T) 113 mg/dL 70-105 H Chemistry (test code = CA) 9.2 mg/dL 7.8-10.44 N Chemistry (test code = TBILI-T) 1.3 mg/dL 0.2-1.2 H Chemistry (test code = TP) 7.6 g/dL 6.0-8.3 N Chemistry (test code = ALB) 4.5 g/dL 3.5-5.0 N Chemistry (test code = GLOB) 3.1 g/dL 2.4-3.5 N Chemistry (test code = AG) 1.5 g/dL 1.2-2.2 N Chemistry (test code = ALP) 57 U/L 40-110 N Chemistry (test code = AST) 28 U/L 5-34 N Chemistry (test code = ALT) 54 U/L 8-55 N Pcteqsiuw7759-59-67 17:32:00* Test Item Value Reference Range Interpretation Comme nts Chemistry (test code = CK) 342 U/L 30-200 H Jznkvawijl6167-08-04 17:21:00* Test Item Value Reference Range Interpretation Comme nts Hematology (test code = WBCT) 7.4 thou/uL [...] sq M.predicted [Volume Rate/Area] in Serum, Plasma [id number] 17:05:00* Test Item Value Reference Range Interpretation Comme nts Estimated GFR (CKD-EPI 2020) (test code = 98201-3) 116 [facility] CareGlucose [Mass/volume] in Serum or Plasma 2022-05-24 17:05:00* Test Item Value Reference Range Interpretation Comme nts Glucose Level (test code = 2345-7) 113 mg/dL 70-105 [facility] calcium measurement (mass/volume)2022-05-24 17:05:00* Test Item Value Reference Range Interpretation Comme nts Calcium Level (test code = 09500-1) 9.2 mg/dL 7.8-10.44 [facility]er[facility] plasma total bilirubin measurement (mass/volume)2022-05-24 17:05:00* Test Item Value Reference Range Interpretation Comme nts Total Bilirubin (test code = 1975-2) 1.3 mg/dL 0.2-1.2 [facility] protein measurement (mass/volume)2022-05-24 17:05:00* Test Item Value Reference Range Interpretation Comme [facility] Serum Total Protein (test co de = 2885-2) 7.6 g/dL 6.0-8.3 [facility]er[facility] plasma albumin measurement by bromocresol green (BCG) dye binding method ([id number] 17:05:00* Test Item Value Reference Range Interpretation Comme nts Albumin (test code = 04321-2) 4.5 g/dL 3.5-5.0 [facility] CareGlobulin [Mass/volume] in Serum by calculation 2022-05-24 17:05:00* Test Item Value Reference Range Interpretation Comme nts Globulin (test code = 31679-8) 3.1 g/dL 2.4-3.5 [facility] CareAlbumin/Globulin [Mass Ratio] in Serum or [id number] 17:05:00* Test Item Value Reference Range Interpretation Comme nts Albumin/Globulin Ratio (test code = 1759-0) 1.5 g/dL 1.2-2.2 [facility] CareAlkaline phosphatase [Enzymatic activity/volume] in Serum or Twqgdb9261-68-02 17:05:00* Test Item Value Reference Range Interpretation Comme nts Alkaline Phosphatase (test c ode = 6768-6) 57 U/L 40-110 [facility]er[facility] plasma aspartate aminotransferase measurement (enzymatic activity/volume)2022-05-24 17:05:00* Test Item Value Reference Range Interpretation Comme nts Aspartate Amino Transf (AST/ SGOT) (test code = 1920-8) 28 U/L 5-34 [facility] CareCreatine kinase [Enzymatic activity/volume] in Serum or [id number] 17:05:00* Test Item Value Reference Range Interpretation Comme nts Creatine Kinase (test code = 2157-6) 342 U/L 30-200 [facility]er[facility] plasma alanine aminotransferase measurement without P-5'-P (enzymatic svmgiw3537-31-17 17:05:00* Test Item Value Reference Range Interpretation Comme nts Alanine Aminotransferase (AL T/SGPT) (test code = 1744-2) 54 U/L 8-55 [facility] CareLeukocytes [#/volume] in Blood by Automated [id number] 17:05:00* Test Item Value Reference Range Interpretation Comme nts White Blood Count (test code = 6690-2) 7.4 thou/uL 4.8-10.8 [facility] CareBlood erythrocytes automated count (number/volume)2022-05-24 17:05:00* Test Item Value Reference Range Interpretation Comme nts Red Blood Count (test code = 789-8) 4.88 mill/uL 4.70-6.10 [facility] CareBlood hemoglobin measurement (mass/volume) 2022-05-24 17:05:00* Test Item Value Reference Range Interpretation Comme nts Hemoglobin (test code = 718-7) 14.1 g/dL 14.0-18.0 [facility] CareAutomated erythrocyte mean corpuscular volume 2022-05-24 17:05:00* Test Item Value Reference Range Interpretation Comme [facility] Mean Corpuscular Volume (blanca t code = 787-2) 88.7 fL 78.0-98.0 [facility] CareAutomated erythrocyte mean corpuscular hemoglobin (mass per erythrocyte)2022-05-24 17:05:00* Test Item Value Reference Range Interpretation Comme [facility] Mean Corpuscular Hemoglobin (test code = 785-6) 29.0 pg 27.0-31.0 [facility] CareAutomated erythrocyte mean corpuscular hemoglobin concentration measurement (mass/[id number] 17:05:00* Test Item Value Reference Range Interpretation Comme [facility] Mean Corpuscular Hemoglobin Concent (test code = 786-4) 32.6 g/dL 32.0-36.0 [facility] CareAutomated erythrocyte distribution width ratio 2022-05-24 17:05:00* Test Item Value Reference Range Interpretation Comme [facility] Red Cell Distribution Width (test code = 788-0) 12.3 % 11.5-14.5 [facility] CareAutom[facility] blood platelet count (count/volume) 2022-05-24 17:05:00* Test Item Value Reference Range Interpretation Comme nts Platelet Count (test code = 777-3) 308 thou/uL 130-400 [facility] CareAutom[facility] blood platelet mean vwwmwy0365-47-05 17:05:00* Test Item Value Reference Range Interpretation Comme nts Mean Platelet Volume (test c ode = 14480-0) 6.4 fL 7.4-10.4 [facility] CareAutomated blood neutrophils/100 leukocytes 2022-05-24 17:05:00* Test Item Value Reference Range Interpretation Comme nts Neutrophils % (test code = 770-8) 67.5 % 42.0-75.0 [facility] CareLymphocytes/100 leukocytes in Blood by Automated [id number] 17:05:00* Test Item Value Reference Range Interpretation Comme nts Lymphocytes % (test code = 736-9) 22.0 % 21.0-51.0 [facility] CareAutomated blood monocytes/100 leukocytes 2022-05-24 17:05:00* Test Item Value Reference Range Interpretation Comme nts Monocytes % (test code = 5905-5) 8.7 % 0.0-10.0 [facility] CareAutomated blood eosinophils/100 leukocytes 2022-05-24 17:05:00* Test Item Value Reference Range Interpretation Comme nts Eosinophils % (test code = 713-8) 0.5 % 0.0-10.0 [facility] CareAutom[facility] blood basophils/100 leukocytes 2022-05-24 17:05:00* Test Item Value Reference Range Interpretation Comme nts Basophils % (test code = 706-2) 1.2 % 0.0-1.0 [facility] Care[facility] neutrophils automated count (number/volume)2022-05-24 17:05:00* Test Item Value Reference Range Interpretation Comme nts Neutrophils # (test code = 751-8) 5.0 thou/uL 1.40-6.50 [facility] CareLymphocytes [#/volume] in Blood by Automated [id number] 17:05:00* Test Item Value Reference Range Interpretation Comme nts Lymphocytes # (test code = 731-0) 1.6 thou/uL 1.20-3.40 [facility] monocytes automated count (number/volume) 2022-05-24 17:05:00* Test Item Value Reference Range Interpretation Comme nts Monocytes # (test code = 742-7) 0.6 thou/uL 0.11-0.59 [facility] eosinophils automated count (count/volume)2022-05-24 17:05:00* Test Item Value Reference Range Interpretation Comme nts Eosinophils # (test code = 711-2) 0.0 thou/uL 0.0-0.7 [facility] CareAutom[facility] blood basophil count (count/volume) 2022-05-24 17:05:00* Test Item Value Reference Range Interpretation Comme nts Basophils # (test code = 704-7) 0.1 thou/uL 0.0-0.2 [facility] sodium measurement (moles/volume)2022-05-24 17:05:00* Test Item Value Reference Range Interpretation Comme nts Sodium Level (test code = 2951-2) 139 mmol/L 136-145 [facility] potassium measurement (moles/volume)2022-05-24 17:05:00* Test Item Value Reference Range Interpretation Comme nts Potassium Level (test code = 2823-3) 3.5 mmol/L 3.5-5.1 [facility] chloride measurement (moles/volume)2022-05-24 17:05:00* Test Item Value Reference Range Interpretation Comme nts Chloride Level (test code = 2075-0) 106 mmol/L 98-107 [facility] plasma carbon dioxide, total measurement (moles/volume)2022-05-24 17:05:00* Test Item Value Reference Range Interpretation Comme nts Carbon Dioxide Level (test c ode = 2027-9) 22 mmol/L 22-29 [facility] or plasma anion [id number] 17:05:00* Test Item Value Reference Range Interpretation Comme nts Anion Gap (test code = 23608-1) 15 mmol/L 10-20 [facility] urea nitrogen measurement (mass/volume)2022-05-24 17:05:00* Test Item Value Reference Range Interpretation Comme nts Blood Urea Nitrogen (test co de = 3094-0) 12 mg/dL 8.9-20.6 [facility] plasma creatinine measurement (mass/volume)2022-05-24 17:05:00* Test Item Value Reference Range Interpretation Comme nts Creatinine (test code = 2160-0) 0.91 mg/dL 0.7-1.3 [facility] CareGlomerular filtration rate/1.73 sq M.predicted [Volume Rate/Area] in Serum, Plasma [id number] 17:05:00* Test Item Value Reference Range Interpretation Comme nts Estimated GFR (CKD-EPI 2020) (test code = 04814-6) 116 [facility] Care[facility]ucose [Mass/volume] in Serum or Plasma 2022-05-24 17:05:00* Test Item Value Reference Range Interpretation Comme nts Glucose Level (test code = 2345-7) 113 mg/dL 70-105 [facility] calcium measurement (mass/volume)2022-05-24 17:05:00* Test Item Value Reference Range Interpretation Comme [facility] Calcium Level (test code = 11410-7) 9.2 mg/dL 7.8-10.44 [facility] or plasma total bilirubin measurement (mass/volume)2022-05-24 17:05:00* Test Item Value Reference Range Interpretation Comme [facility] Total Bilirubin (test code = 1975-2) 1.3 mg/dL 0.2-1.2 [facility] plasma protein measurement (mass/volume)2022-05-24 17:05:00* Test Item Value Reference Range Interpretation Comme [facility] Serum Total Protein (test co de = 2885-2) 7.6 g/dL 6.0-8.3 [facility]er[facility] or plasma albumin measurement by bromocresol green (BCG) dye binding method ([id number] 17:05:00* Test Item Value Reference Range Interpretation Comme [facility] Albumin (test code = 96861-8) 4.5 g/dL 3.5-5.0 [facility] CareGlobulin [Mass/volume] in Serum by calculation 2022-05-24 17:05:00* Test Item Value Reference Range Interpretation Comme [facility] Globulin (test code = 71000-1) 3.1 g/dL 2.4-3.5 [facility] CareAlbumin/Globulin [Mass Ratio] in Serum or [id number] 17:05:00* Test Item Value Reference Range Interpretation Comme [facility] Albumin/Globulin Ratio (test code = 1759-0) 1.5 g/dL 1.2-2.2 [facility] CareAlkaline phosphatase [Enzymatic activity/volume] in Serum or [id number] 17:05:00* Test Item Value Reference Range Interpretation Comme nts Alkaline Phosphatase (test c ode = 6768-6) 57 U/L 40-110 [facility]er[facility] or plasma aspartate aminotransferase measurement (enzymatic activity/volume)2022-05-24 17:05:00* Test Item Value Reference Range Interpretation Comme nts Aspartate Amino Transf (AST/ SGOT) (test code = 1920-8) 28 U/L 5-34 [facility] CareCreatine kinase [Enzymatic activity/volume] in Serum or [id number] 17:05:00* Test Item Value Reference Range Interpretation Comme nts Creatine Kinase (test code = 2157-6) 342 U/L 30-200 [facility]er[facility] or plasma alanine aminotransferase measurement without P-5'-P (enzymatic [id number] 17:05:00* Test Item Value Reference Range Interpretation Comme nts Alanine Aminotransferase (AL T/SGPT) (test code = 1744-2) 54 U/L 8-55 [facility] CareLeukocytes [#/volume] in Blood by Automated [id number] 17:05:00* Test Item Value Reference Range Interpretation Comme [facility] White Blood Count (test code = 6690-2) 7.4 thou/uL 4.8-10.8 [facility] Care[facility] erythrocytes automated count (number/volume)2022-05-24 17:05:00* Test Item Value Reference Range Interpretation Comme [facility] Red Blood Count (test code = 789-8) 4.88 mill/uL 4.70-6.10 [facility] Care[facility] hemoglobin measurement (mass/volume) 2022-05-24 17:05:00* Test Item Value Reference Range Interpretation Comme nts Hemoglobin (test code = 718-7) 14.1 g/dL 14.0-18.0 [facility] CareAutom[facility] erythrocyte mean corpuscular volume 2022-05-24 17:05:00* Test Item Value Reference Range Interpretation Comme nts Mean Corpuscular Volume (blanca t code = 787-2) 88.7 fL 78.0-98.0 [facility] CareAutom[facility] erythrocyte mean corpuscular hemoglobin (mass per erythrocyte)2022-05-24 17:05:00* Test Item Value Reference Range Interpretation Comme nts Mean Corpuscular Hemoglobin (test code = 785-6) 29.0 pg 27.0-31.0 [facility] Care[facility] erythrocyte mean corpuscular hemoglobin concentration measurement (mass/[id number] 17:05:00* Test Item Value Reference Range Interpretation Comme nts Mean Corpuscular Hemoglobin Concent (test code = 786-4) 32.6 g/dL 32.0-36.0 [facility] Care[facility] erythrocyte distribution width ratio 2022-05-24 17:05:00* Test Item Value Reference Range Interpretation Comme [facility] Red Cell Distribution Width (test code = 788-0) 12.3 % 11.5-14.5 [facility] Care[facility] blood platelet count (count/volume) 2022-05-24 17:05:00* Test Item Value Reference Range Interpretation Comme [facility] Platelet Count (test code = 777-3) 308 thou/uL 130-400 [facility] CareAutom[facility] blood platelet mean [id number] 17:05:00* Test Item Value Reference Range Interpretation Comme nts Mean Platelet Volume (test c ode = 52936-8) 6.4 fL 7.4-10.4 [facility] CareAutom[facility] blood neutrophils/100 leukocytes 2022-05-24 17:05:00* Test Item Value Reference Range Interpretation Comme nts Neutrophils % (test code = 770-8) 67.5 % 42.0-75.0 [facility] CareLymphocytes/100 leukocytes in Blood by Automated [id number] 17:05:00* Test Item Value Reference Range Interpretation Comme nts Lymphocytes % (test code = 736-9) 22.0 % 21.0-51.0 [facility] CareAutom[facility] blood monocytes/100 leukocytes 2022-05-24 17:05:00* Test Item Value Reference Range Interpretation Comme nts Monocytes % (test code = 5905-5) 8.7 % 0.0-10.0 [facility] Care[facility] blood eosinophils/100 leukocytes 2022-05-24 17:05:00* Test Item Value Reference Range Interpretation Comme nts Eosinophils % (test code = 713-8) 0.5 % 0.0-10.0 [facility] CareAutom[facility] blood basophils/100 leukocytes 2022-05-24 17:05:00* Test Item Value Reference Range Interpretation Comme [facility] Basophils % (test code = 706-2) 1.2 % 0.0-1.0 [facility] Care[facility] neutrophils automated count (number/volume)2022-05-24 17:05:00* Test Item Value Reference Range Interpretation Comme nts Neutrophils # (test code = 751-8) 5.0 thou/uL 1.40-6.50 [facility] CareLymphocytes [#/volume] in Blood by Automated [id number] 17:05:00* Test Item Value Reference Range Interpretation Comme [facility] Lymphocytes # (test code = 731-0) 1.6 thou/uL 1.20-3.40 [facility] Care[facility] monocytes automated count (number/volume) 2022-05-24 17:05:00* Test Item Value Reference Range Interpretation Comme [facility] Monocytes # (test code = 742-7) 0.6 thou/uL 0.11-0.59 [facility] CareBlood eosinophils automated count (count/volume)2022-05-24 17:05:00* Test Item Value Reference Range Interpretation Comme [facility] Eosinophils # (test code = 711-2) 0.0 thou/uL 0.0-0.7 [facility] CareAutom[facility] blood basophil count (count/volume) 2022-05-24 17:05:00* Test Item Value Reference Range Interpretation Comme nts Basophils # (test code = 704-7) 0.1 thou/uL 0.0-0.2 [facility] plasma sodium measurement (moles/volume)2022-05-24 17:05:00* Test Item Value Reference Range Interpretation Comme nts Sodium Level (test code = 2951-2) 139 mmol/L 136-145 [facility]er[facility] plasma potassium measurement (moles/volume)2022-05-24 17:05:00* Test Item Value Reference Range Interpretation Comme nts Potassium Level (test code = 2823-3) 3.5 mmol/L 3.5-5.1 [facility]er[facility] plasma chloride measurement (moles/volume)2022-05-24 17:05:00* Test Item Value Reference Range Interpretation Comme [facility] Chloride Level (test code = 2075-0) 106 mmol/L 98-107 [facility]er[facility] or plasma carbon dioxide, total measurement (moles/volume)2022-05-24 17:05:00* Test Item Value Reference Range Interpretation Comme [facility] Carbon Dioxide Level (test c ode = 2027-) 22 mmol/L 22-29 [facility]er[facility] or plasma anion [id number] 17:05:00* Test Item Value Reference Range Interpretation Comme [facility] Anion Gap (test code = 61513-0) 15 mmol/L 10-20 [facility] plasma urea nitrogen measurement (mass/volume)2022-05-24 17:05:00* Test Item Value Reference Range Interpretation Comme [facility] Blood Urea Nitrogen (test co de = 3094-0) 12 mg/dL 8.9-20.6 [facility] plasma creatinine measurement (mass/volume)2022-05-24 17:05:00* Test Item Value Reference Range Interpretation Comme [facility] Creatinine (test code = 2160-0) 0.91 mg/dL 0.7-1.3 [facility] CareXR [facility] 1 View Portable [facility] 1990 [facility]: [facility] [address] Phys: [place] [address] : 1990 Age: 31 SEX:M [phone] Exam Date: 08/13/22 Status: REG ER Acct: [id number] Loc: [facility] Pt Unit #: [id number] Report #: [id number] CC: Jass Rollins DO IMAGING SERVICES REPORT Report Status: Signed Order # Category/Exam [id number] RAD/XR Chest 1 View Portable ([id number]): . Results Portable chest at 2218 (08/13/2022) HISTORY: Palpitations COMPARISON: 05/24/2022 FINDINGS: The heart remains normal in size and the lungs are clear. No acute infiltrate or effusionwas seen. There is no vascular congestion or edema. IMPRESSION: Stable exam showing no acute findings Reported By: AVI BEGUM MD Electronically Signed Date/Time: 08/13/222216 Technologist: Dictated Date/Time: 08/13/222215 Transcribed Date/Time:XR Chest 1 View Portable [facility] : 1990 [facility] HOW[facility] HERCUL[facility] [address] Phys: [place] [address] : 1990 Age: 31 SEX:M [phone] Exam Date: 05/24/22 Status: REG ER Acct: [id number] Loc: [facility] Pt Unit #: [id number] Report #: [id number] CC: Bhupinder Moreau IMAGING SERVICES REPORT Order # Category/Exam [id number] RAD/XR Chest 1 View Portable ([id number]): . Results EXAM: Single view of the chest HISTORY: Dyspnea COMPARISON: None FINDINGS: Single view of the chest shows a normal sized cardiomediastinal silhouette. There is no evidence of consolidation, mass, or pleural effusion. No acute osseous abnormality. IMPRESSION: No acute cardiopulmonary disease Reported By: Panfilo Toscano DO Electronically Signed Date/Time: 05/24/221724 Technologist: SACHA Dictated Date/Time: 05/24/221724 Transcribed Date/Time: Notes Date/Time Note Provider Source 2023-12-22 20:52:00 [facility] EMERGENCY PROVIDER REPORT REPORT#:[id number] REPORT STATUS: Signed DATE:12/22/23 TIME: 2051 PATIENT: HOWARD HERCULES UNIT #: [id number] ROOM/BED: AGE: 33 SEX: M PCP PHYS: No Primary or Family Physician SERVICE AUTHOR: Marii Gaytan MD R3 * ALL edits or amendments must be made on the electronic/computer document * Marii Gatyan 12/22/232051: HPI-General Illness General Initial Greet Date/Time 12/22/23 1837 Presentation Chief Complaint Shortness of breath Free Text HPI Notes Free Text HPI Notes Patient is a 33-year-old male past medical history significant for recent rhabdomyolysis, anxiety, asthma who presented to the ED for acute onset of shortness of breath while sitting at a computer. Patient reports that he was discharged from this facility 2 days ago after being admitted for rhabdomyolysis. Today while he was sitting, he noted he had sudden onset shortness of breath, measured his heart rate which was low which was "abnormal for him," and then when he was exerting himself to jump into the 120s. He also reports of left lower extremity swelling and pain that has been ongoing for the past week. Currently, denies any chest pain, abdominal pain, nausea, vomiting, recent travel, recent surgeries or any other complaint at this time. Risk-Chest Pain Under 40 Risk Stratification )( HEART for MACE )( HEART for MACE Response Value History Low index of suspicion 0 ECG Interpretation Normal ECG 0 Age Age under 45 0 Risk Factors for CAD 1-2 CAD risk factors 1 Troponin < or = to NL troponin 0 Total 1 HEART Score for MACE 0-3 (low risk 0.9%-1.7%) HEART Score Reference Resource material only. Click 'Cancel' button and information will not be inserted into or become part of the medical record Risk factors considered for determining a patient's HEART Score include: hypercholesterolemia (hyperlipidemia), hypertension, diabetes mellitus, cigarette smoking, positive family history and obesity. Major Adverse Cardiac Events (MACE) include: acute myocardial infarction, ischaemic stroke, coronary arterial occlusion and . References: Dexter HOUSTON, Parker JUAREZ, et al. Chest pain in the emergency room: value of the HEART score. [facility] Heart J. 2008 Khoi:16(6):191-6. PubMed PMID: 99487481; PubMed Central PMCID: [id number]. Parker JUAREZ, Dexter HOUSTON, et al. A prospective validation of the HEART score for chest pain patients at the emergency department. Int J Cardiol. 2013 Jun 3:168(3):2153 -8. Doi: 10.1016/j.ijcard.2013.01.255. Epub 2012Nov 17. PubMed PMID: 70037277. Review of Systems Free Text ROS Notes Free Text ROS Notes All other ROS are negative except for what is stated in HPI and above. 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 Additional Medical History ADHD Additional Surgical History None related to current complaint Additional Family History Thyroid disease CHF DM Alcohol Use Denies EtOH use Drug Use Denies recreational drugs Smoking status for patients 13 years old or older: Current every day smoker Physical Exam Vital Signs Vital Signs First Documented: Result Date Time Pulse Ox 98 12/21 1837 B/P 143/86 12/21 183 B/P Mean 104.7 12/21 1837 O2 Delivery Room air 12/21 1837 Temp 98.2 12/21 1837 Pulse 100 12/21 1837 Resp 18 12/21 1837 Last Documented: Result Date Time Pulse Ox 98 12/21 1837 B/P 143/86 12/21 1837 B/P Mean 104.7 12/21 1837 O2 Delivery Room air 12/21 1837 Temp 98.2 12/21 1837 Pulse 100 12/21 1837 Resp 18 12/21 1837 Review of Vital Signs Reviewed Free Text PE Notes Free Text PE Notes Gen: WD/WN, A O x3, NAD HEENT: NC/AT. Patent airway. Mucous membranes are moist. Neck: Atraumatic, supple. Cardiac: RRR, unable to appreciate murmurs or rubs. Respiratory: Equal breath sounds bilaterally. No respiratory distress, wheezing, rales or rhonchi. Abdomen: Non-distended, non-tender, soft. No rebound or guarding. MSK: Left lower extremity with 2+ pitting edema and tenderness to the calf. Right lower extremity with 1+ pitting edema, minimal tenderness to the calf. Atraumatic, normal inspection, FROM. Skin: Visualized skin is warm and dry. /Rectum: Deferred. Neurologic: A O x3, normal speech. No obvious focal deficits. Psychiatric: Appropriate mood and affect. Interpretation Diagnostics Lab Results Interpretation Results Laboratory Tests 12/22/231942: [Embedded Image Not Available] Laboratory Tests: 12/21 1942 Chemistry Sodium (137 - 145 mmol/L) 137 Potassium (3.4 - 5.0 mmol/L) 4.1 Chloride (98 - 107 mmol/L) 101 Carbon Dioxide (22 - 30 mmol/L) 29 Anion Gap (10 - 20 mmol/L) 11 BUN (9 - 20 mg/dL) 12 Creatinine (0.7 - 1.3 mg/dL) 0.8 Glomerular Filtr Rate (mL/min) 121 Glucose (74 - 106 mg/dL) 98 Calcium (8.4 - 10.2 mg/dL) 9.6 Magnesium (1.6 - 2.3 mg/dL) 1.8 Total Bilirubin (0.2 - 1.3 mg/dL) 1.2 Conjugated Bilirubin (0 - 0.3 mg/dL) 0 Unconjugated Bilirubin (0 - 1.1 mg/dL) 1.2 H AST (15 - 46 U/L) 72 H ALT (0 - 49 U/L) 92 H Total Alk Phosphatase (38 - 126 U/L) 56 Total Creatine Kinase (55 - 170 U/L) 1118 H Troponin I (0.012 - 0.033 ng/mL) < 0.012 L NT-Pro-B Natriuret Pep (<20.0 - 125 pg/mL) 21.1 Total Protein (6.3 - 8.2 g/dL) 8.0 Albumin (3.5 - 5.0 g/dL) 4.8 Lipase (23 - 300 U/L) 88 Specimen Hemolysis (0 - 100 Index/DL) 26 Coagulation D-Dimer (0 - 500 ng/mLFEU) 274 Hematology WBC (5.0 - 12.0 x10 3/uL) 7.2 RBC (4.70 - 6.10 x10 6/uL) 4.97 Hgb (14.0 - 18.0 g/dL) 14.0 Hct (37.0 - 49.0 %) 42.8 MCV (80 - 94 fL) 86 MCH (27 - 31 pg) 28.2 MCHC (33 - 37 g/dL) 32.7 L RDW (11.5 - 15.5 %) 13.3 Plt Count (130 - 400 x10 3/uL) 290 MPV (9.4 - 16.4 fL) 9.2 L Neut % (Auto) (43 - 65 %) 69.2 H Lymph % (Auto) (20.5 - 45.5 %) 19.7 L Garrard % (Auto) (5.5 - 11.7 %) 8.6 Eos % (Auto) (0.9 - 2.9 %) 1.5 Baso % (Auto) (0.2 - 1.0 %) 0.7 Neut # (Auto) (2.2 - 4.8 x10 3/uL) 4.97 H Lymph # (Auto) (1.3 - 2.9 x10 3/uL) 1.42 Garrard # (Auto) (0.3 - 0.8 x10 3/uL) 0.62 Eos # (Auto) (0.0 - 0.2 x10 3/uL) 0.11 Baso # (Auto) (0.0 - 0.1 x10 3/uL) 0.05 Immature Gran % (0.0 - 2.0 %) 0.3 Nucleated RBC % (0 - 1.0 %) 0.0 Recent Impressions: RADIOLOGY - XR CHEST 1 V 12/21 1958 Report Impression - Status: SIGNED Entered: 12/22/20232012 IMPRESSION: No acute disease. Impression By: Finesse Anderson MD ULTRASOUND - DUP VEIN UNI LT 12/21 5689 Report Impression - Status: SIGNED Entered: 12/23/2023 0006 Impression: 1. There is no evidence for deep venous thrombus identified in the left lower extremity Impression By: DellVRBalbir Jacobo MD Re-Evaluation [facility] ED Course Medication(s) Ordered Medication(s) Ordered: Electrolytic, Caloric, And Dennise Sig/Hakan Start time Last Medication Dose Route Stop Time Status Admin Sodium Chloride 1,000 ML X1ED STA 12/21 1843 DC 12/21 IV 12/21 Free Text MDM Notes Free Text MDM Notes -HPI: GIVEN BY: Patient CODE STATUS: Presumed full code Acuity: Moderate Comorbidities Impacting Treatment/Risk of Complications/Morbidity: Clinical history, medical history Differential Diagnosis: DVT, ACS, PE, rhabdomyolysis, musculoskeletal pain, myostitis Decision Rules/Clinical Scores: Heart score - Interpretation and utilization of risk stratification: Patient has a heart score of 1, which indicates a low risk of a major cardiac event over the next 6 weeks. External Documents Reviewed: Patient was seen in the ED on 12/18/2023 presenting for multiple complaints including 1-1/2 months of calf cramping and muscle spasms, central nonradiating chest pain, and shortness of breath that has also been ongoing for the past couple of weeks. His CK during that visit was 7023, CT of the chest did not review any aneurysm, dissection, or PE. He was admitted for rhabdomyolysis at the time. Social Determinants of Health: Clinically well-appearing, hemodynamically stable , if work-up and/or exam is reassuring, patient will be a safe discharge with outpatient follow up ED Course: - Brief A/P: Patient is a 33-year-old male past medical history significant for recent rhabdomyolysis, anxiety, asthma who presented to the ED for acute onset of shortness of breath while sitting at a computer. Initial vitals are hemodynamically stable except for tachycardia rate 100 bpm. On exam, patient is alert and oriented, answering questions appropriately, in no acute distress. 2+ pitting edema to left lower extremity and tenderness to the calf, 1+ pitting edema to the right with mild tenderness to the calf. Lung sounds were clear in all lung chase. Patient's comobidities listed above added to the high complexity of care. A broad differential was considered as listed above and is not exclusive. Initial workup by triage included: Basic laboratory studies, D- dimer, chest x-ray, EKG. I added left lower extremity ultrasound. 2055: EKG Independently reviewed and interpreted by me at this time, and was performed at 1855 shows SR with a rate of 78 bpm, sinus arrhythmia noted, normal axis, normal intervals, no acute ST segment changes. 2100: Images independently reviewed and interpreted by me: Chest x-ray shows no acute abnormalities. No obvious focal infiltrates, pneumothorax, or bony abnormalities. Laboratory studies independently reviewed and interpreted by me: CBC without leukocytosis to suggest significant systemic inflammatory response or infectious etiology, H H stable 14 and 42.8. D-dimer is 274, unlikely PE at this time. Chemistry is within normal limits. AST and ALT mildly elevated today, but appears to be consistent from 12/18/2023, today is 72 and 92, previous was 52 and 62. Patient does not have any abdominal tenderness. CK is still elevated today at 1118, while it was in the 7000 during his previous admission. He has no signs renal injury today, nor did he have any signs of renal injury during his previous admission. 2110: Troponin is negative. Pending ultrasound this time. 2306: Disposition pending ultrasound, call automated access systems technician at this time, states that patient is being transported to the ultrasound unit at this time. 0010: Ultrasound shows no evidence of DVT. Patient re-evaluated who is resting comfortably. Discussed all laboratory and imaging studies, answered all questions at bedside. Shared decision making with patient and considered disposition for discharge. Discussed the importance of PCP follow up, referred cardiology follow-up, and was given strict return precautions, which patient verbalized understanding and is agreeable to plan. Patient discharged in stable condition. Prescriptions: None indicated at this time Surgical plans: None indicated at this time Primary Clinical Impression: Shortness of breath - SECONDARY DX: Generalized muscle pain, elevated CK Notice: Parts of this note were created using [employer] speech recognition dictation software. All attempts were made to correct any errors at the time of dictation. However, there may be some errors present in the thread spooler that were inadvertently overlooked during the dictation. Patient Discharge Departure Vital Signs/Condition Vital Signs First Documented: Result Date Time Pulse Ox 98 12/21 1838 B/P 143/86 04/ 1838 B/P Mean 104.7 04/10 1838 O2 Delivery Room air 12/21 1837 Temp 98.2 / 1838 Pulse 100 04/ 1838 Resp 18 12/21 1838 Last Documented: Result Date Time Pulse Ox 98 12/21 1838 B/P 143/86 04/10 1838 B/P Mean 104.7 04/10 1838 O2 Delivery Room air 12/21 183 Temp 98.2 / 1838 Pulse 100 04/10 1838 Resp 18 12/21 1838 All vital signs available at the time of this entry have been reviewed. Clinical Impression Clinical Impression Primary Impression: Shortness of breath Secondary Impressions: Elevated CK, Muscle pain Disposition Decision Discharge )( Discharged to Home Yes )( Time 0015 )( Date 12/23/23 Discharge/Care Plan Counseled Regarding Diagnosis, Lab results, Imaging studies, Need for follow-up, When to return to ED Patient Instructions Creatine Kinase (Blood), ED Shortness of Breath (Dyspnea) Additional Instructions Please follow up with your or referred primary care doctor within 1-2 days. Please return to the emergency department for any acute worsening of your symptoms including worsening shortness of breath, passing out, or any other concerns. Please follow-up with referred pedal assembler, Dr. Harrington within 3-5 days. Departure Forms RESIDENT PHYSICIANS Discharge Note I have spoken with the patient and/or caregivers. I have explained the patient's condition, diagnoses and treatment plan based on the information available to me at this time. I have answered the patient's and/or caregiver's questions and addressed any concerns. The patient and/or caregivers have as good an understanding of the patient's diagnosis, condition and treatment plan as can be expected at this point. The vital signs have been stable. The patient's condition is stable and appropriate for discharge from the emergency department. The patient will pursue further outpatient evaluation with the primary care physician or other designated or consulting physician as outlined in the discharge instructions. The patient and/or caregivers are agreeable to this plan of care and follow-up instructions have been explained in detail. The patient and/or caregivers have received these instructions in written format and have expressed an understanding of the discharge instructions. The patient and/or caregivers are aware that any significant change in condition or worsening of symptoms should prompt an immediate return to this or the closest emergency department or a call to 911. Dania Cuellareed 12/30/231921: Physical Exam Basic Physical Exam Basic PE GEN: Well appearing/NAD, HEAD: Atraumatic/NC, EYES: PERRL, conj clear, ENT: Membranes moist, NECK: Supple, RESP: No resp distress, CV: Reg rate rhythm, ABD: Soft/non-tender, EXT: No gross abnormality, SKIN: No rashes, warm/ dry, NEURO: alert oriented, NEURO: gross movement NL, PSYCH: NL thought content Patient Discharge Departure Discharge/Care Plan Referrals Provider Referral: Vadim Paulson MD Address: [address] [address] Provider Referral: Last Zendejas MD Address: [address] [place] [address] [place] [id number] Supervising Physician Note Resident Saw Pt This patient was seen by a resident. I have personally seen the patient, performed the critical or herrera portions of the service, and participated in the management of the patient. I have reviewed and agree with the resident's note, and I have reviewed all labs, ECGs, and imaging studies or reports. I agree with this resident's findings, exam and plan. at 0114 at 5517 RPT #:[id number] END OF REPORT [facility] 2023-12-22 18:41:00 [facility] ([facility]) EMERGENCY PROVIDER REPORT REPORT#:[id number] REPORT STATUS: Signed DATE:12/22/23 TIME: 184 PATIENT: HOWARD HERCULES UNIT #: [id number] ROOM/BED: AGE: 33 SEX: M PCP PHYS: No Primary or Family Physician SERVICE AUTHOR: Debbie Martel PA-C * ALL edits or amendments must be made on the electronic/computer document * Provider in Triage - Adult Provider in Triage Initial Greet Date/Time 12/22/23 1837 Greet Note I have greeted and performed a focused rapid initial assessment of this patient. A comprehensive ED assessment and evaluation of the patient, analysis of all test results, and completion of the medical decision-making process will be conducted by additional ED providers. Free Text PIT Notes Free Text PIT Notes 33-year-old male presenting for shortness of breath, heart palpitations, generalized muscle weakness. Was admitted last week and discharged on Wednesday for rhabdomyolysis, had a CK of 7000, when he was discharged it was down to 3000. He was also diagnosed with asthma at that time discharged on albuterol and budesonide. States that he was feeling well up until today around noon or all of his symptoms returned. 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 Denies any other health problems or taking any other medications. Surgical history of right inguinal hernia repair. PMH-Provider in Triage Stated Complaint SOB,"HEART IS FLUTTERING",MUSCLE WEAKNESS Allergies Coded Allergies: codeine (Mild, HIVES 12/19/23) fluticasone furoate (From TRELEGY ELLIPTA) (ANXIETY 12/22/23) umeclidinium (From TRELEGY ELLIPTA) (ANXIETY 12/22/23) vilanterol (From TRELEGY ELLIPTA) (ANXIETY 12/22/23) Home Medications Reported Medications ALBUTEROL (ALBUTEROL HFA 90 MCG/ACT) 2 PUFF INH RTQ4H PRN PRN SHORTNESS OF BREATH BUDESONIDE/FORMOTEROL (SYMBICORT 160/4.5 MCG/ACT 10.2GM) 2 PUFF INH RTBID BUPRENORPHINE/NALOXONE (SUBOXONE 8/2 MG SL FILM) 1 TAB SL TID at 2150 [facility] #:[id number] END OF REPORT [facility] 2023-12-20 16:10:00 [id number] [facility] [address] [facility] [place] [address] PATIENT NAME: HOWARD HERCULES ADMIT DATE: 12/19/23 ACCOUNT NO: [id number] ROOM NO: [place] [address] AGE: 33 REPORT TYPE: DISCHARGE SUMMARY SEX: M ADMITTING PHYSICIAN:Cliff Hu MD ATTENDING PHYSICIAN:Cliff Hu MD ADMISSION DATE: 12/19/2023 02:52:00 DISCHARGE DATE: 12/20/2023 13:24:00 HOSPITAL COURSE: Howard Hercules is a 33-year-old with a history of asthma diagnosed about a year ago, ADHD, complaining of multiple complaints over the past 1 and 1/2 months, has been intermittent calf pain, cramp, muscle spasm, intermittent central nonradiating chest pain with shortness of breath. He uses ibuprofen. He does not use any other medication. His CK level was high. He was having cramps. He is not on statin, but [place]. We gave him plenty of fluid. His CK was more than 7000, but it has decreased to 3000 and his all symptoms were resolved. His kidney function was okay. His creatinine was normal. His liver function test was slightly abnormal due to the possible fatty liver versus rhabdomyolysis itself and he does not have any other symptom to favor dermatomyositis or polymyositis. Therefore, I am going to discharge him. He does have a kidney mass, which he is going to be evaluated as an outpatient. See medication reconciliation. Dictated By: Cliff Hu MD Date Dictated: 12/20/2023 16:10:27 Date Transcribed: 12/21/2023 03:32:24 CATHLEEN/BEV Receipt ID: [id number] Authenticated by Cliff Hu MD On 12/21/2023 05:26:59 PM at 0526 PATIENT NAME: HOWARD HERCULES [facility] 2023-12-19 12:04:00 [phone] [facility] [id number] [place], [place] [address]y. [address] [place] [address] PATIENT NAME: HOWARD HERCULES ADMIT DATE: 12/19/23 ACCOUNT NO: [id number] ROOM NO: [id number] AGE: 33 REPORT TYPE: HISTORY AND PHYSICAL SEX: M ADMITTING PHYSICIAN:Cliff Hu MD ATTENDING PHYSICIAN:Cliff Hu MD ADMISSION DATE: 12/19/2023 02:52:00 HISTORY OF PRESENT ILLNESS: Howard Hercules who is 33-year-old male with a history of asthma diagnosed 1 year ago, ADHD, presented to the ED complaining of multiple complaints including that over the past 1 and 1/2 months, he has been having intermittent calf pain, cramping, muscle spasm intermittent central nonradiating chest pain, shortness of breath, and [place] and he uses sometimes ibuprofen. He does not use any other medication. His CK level was high and he was having cramps. He is not on statin, but he [place]. The patient was given 3 liters of fluid for the CK level. He is feeling a little bit better. His creatinine was are normal. He signed AMA previously. He has also noted mid right abdominal pain, dark urine. No nausea, no vomiting, no fever. 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 REVIEW OF SYSTEMS: CONSTITUTIONAL: Generalized weakness. RESPIRATORY: No cough, no congestion. CARDIOVASCULAR: Chest pain, shortness of breath. GASTROINTESTINAL: Reported abdominal pain, no nausea, no vomiting. ALLERGIES: ALLERGY TO CODEINE AND TRELEGY. PAST MEDICAL HISTORY: Asthma, ADD, opioid addiction and ADHD. SOCIAL HISTORY: Nonsmoker, nonalcoholic. PHYSICAL EXAMINATION: VITAL SIGNS: Blood pressure 133/60, heart rate is 86, and respiratory rate 18. NECK: Supple, no JVD, no carotid bruit. CHEST: Clear. CARDIOVASCULAR SYSTEM: S1, S2, no gallop. ABDOMEN: Soft. EXTREMITIES: Lower extremity, no edema. CENTRAL NERVOUS SYSTEM: No focal neuro deficit. LABORATORY DATA: His electrolytes are normal. His LFTs are abnormal with AST 84, ALT 95 and his CK level is 7000. His troponin I is negative. His TSH is slightly hypothyroid 8.90. Chest x-ray is normal. Doppler studies are negative. CT of the abdomen shows 1.5 cm hypodense mass inferior to the right kidney which he is himself is aware PATIENT NAME: HOWARD HERCULES of fatty liver, 4.3 cm, fat-containing umbilical hernia. ASSESSMENT AND PLAN: The patient with rhabdomyolysis may be effect of the drug, may be [place]. He takes Adderall, ADD, fatty liver, abnormal LFTs secondary to rhabdo versus fatty liver itself, 1.5 hypodense solid-appearing mass inferior right kidney. Recommend multiphase contrast enhanced CT scan. I am going to give him lots of IV fluids explained to him to come off rhabdomyolysis, protect himself from the sun and give him fluids and monitor his urine output and he does not complain of any joint pain. So, it is very unlikely to be some kind of a dermato or polymyositis. I will check his sed rate. Abdominal pain with right kidney mass, also going to get Dr. Ly to see him and we will follow him up with GI and DVT prophylaxis. Dictated By: Cliff Hu MD Date Dictated: 12/19/2023 12:04:04 Date Transcribed: 12/19/2023 12:56:50 CATHLEEN/MELANI/DIMITRY Receipt ID: [id number] Authenticated by Cilff Hu MD On 12/21/2023 05:26:59 PM at 0526 PATIENT NAME: HOWARD HERCULES [facility] 2023-12-19 08:39:00 [facility] Hospitalist History Physical REPORT#:[id number] REPORT STATUS: Signed REPORT INITIALIZATION DATE:12/19/23 TIME: 0839 PATIENT: HOWARD HERCULES UNIT #: [id number] [facility] AGE: 33 SEX: M ATTEND: Cliff Hu MD ADM AUTHOR: Cliff Hu MD REPT SERVICE DT/TIME: 12/19/23 0839 * ALL edits or amendments must be made on the electronic/computer document * History Past medical history: Reports: Asthma (ADD, opiod addiction). Additional medical history: ADHD Additional surgical history: None related to current complaint Smoking status for patients 13 years old or older: Current every day smoker Medication/Allergy-Vaccine Hx Allergies: Coded Allergies: codeine (Mild, HIVES 12/19/23) Uncoded Allergies: TRILOGY (Severe, SOB, ANXIETY 12/18/23) at 1958 RPT #:[id number] END OF REPORT [facility] 2023-12-18 22:40:00 [facility] EMERGENCY PROVIDER REPORT REPORT#:[id number] REPORT STATUS: Signed DATE:12/18/23 TIME: 2239 PATIENT: HOWARD HERCULES UNIT #: [id number] [id number] AGE: 33 SEX: M PCP PHYS: No Primary or Family Physician SERVICE AUTHOR: Klaudia Haq MD R3 * ALL edits or amendments must be made on the electronic/computer document * Klaudia Haq 12/18/232239: HPI-General Illness General Initial Greet Date/Time 12/18/238 Assumed Care at Time 2229 Date 12/18/23 Presentation Chief Complaint Multip medical complaints Free Text HPI Notes Free Text HPI Notes 33-year-old male with past medical history of asthma diagnosed 1 year ago and ADHD presents to the ED complaining of multiple complaints. Patient states that over the past month and a half, he has had intermittent calf cramping and muscle spasms. Patient also notes intermittent central nonradiating chest pain and shortness of breath that is also been going on for the past couple of weeks. Patient reports that about 2 months ago he had blood work done by primary care doctor that included a CK level that was in the 500s, after he had rechecked it increased to almost 600 despite increasing his fluid intake. Patient reports that about a week ago he was admitted to the hospital and was given 3 L of fluids for elevated CK level, and at discharge was recommended to stop working for a week. Patient noted that today he had muscle cramps so he went back to the original hospital and was told that he had "rhabdomyolysis" at CK level of 1000, he signed out AMA to come to our ED for evaluation. He also notes mild right-sided abdominal pain and dark urine. Patient denies nausea, vomiting, fever, recent illness, diarrhea. 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 Patient states that he takes albuterol, 10 mg Adderall twice daily, Suboxone. Review of Systems Review of Systems Constitutional Reports: Weakness - generalized. Denies: Fever. Respiratory Reports: Shortness of breath. Denies: Cough, productive. Cardiovascular Reports: Chest pain. GI Reports: Abdominal pain. Denies: Nausea, Vomiting. Musculoskeletal Reports: Myalgia. Past Medical History - Adult Stated Complaint RHABDO WORSENING CK >1000 Calculated Suicide Risk (nurs) No risk Past Medical History: Reports: Asthma (ADD, opiod addiction). Additional Medical History ADHD Additional Surgical History None related to current complaint Smoking status for patients 13 years old or older: Never Smoker Physical Exam Vital Signs Vital Signs First Documented: Result Date Time Pulse Ox 99 12/17 2204 B/P 143/77 12/17 2204 B/P Mean 99.2 12/17 2204 Temp 36.8 12/17 2204 Pulse 107 12/17 2204 Resp 18 12/17 2204 Last Documented: Result Date Time Pulse 98 12/18 153 Pulse Ox 96 12/18 152 B/P 133/60 12/18 015 B/P Mean 86 12/18 152 Temp 36.7 12/18 0145 Resp 18 12/17 220 Review of Vital Signs Reviewed Free Text PE Notes Free Text PE Notes General/Const awake, alert, no acute distress MS Head atraumatic, normocephalic Eyes atraumatic, PERRL, EOMI Ears/Nose/Throat atraumatic, airway patent, mucous membranes moist MS Neck atraumatic, supple, full range of motion Resp/Chest atraumatic, breath sounds nml, breath sounds bilateral, no respiratory distress, no rales, no wheezes Cardiovascular Borderline tachycardia, regular rhythm, heart sounds nml, no murmurs, peripheral pulses intact Abdomen/GI atraumatic, soft, right lower quadrant and mid abdominal tenderness, no guarding, no rebound, no rigidity MS Back atraumatic, full range of motion, non-tender, no CVA tenderness MS Extremities atraumatic, full range of motion, no asymmetric calf swelling, no peripheral edema, mild calf tenderness bilaterally Skin atraumatic, color nml, no rash, warm Neurologic oriented x3, speech nml, no motor deficits, no sensory deficits Interpretation Diagnostics Lab Results Interpretation Results Laboratory Tests 12/18/23 2210: [Embedded Image Not Available] Laboratory Tests: 12/18 12/18 12/17 0249 0146 2210 Chemistry Sodium (137 - 145 mmol/L) 138 Potassium (3.4 - 5.0 mmol/L) 3.9 Chloride (98 - 107 mmol/L) 101 Carbon Dioxide (22 - 30 mmol/L) 30 Anion Gap (10 - 20 mmol/L) 11 BUN (9 - 20 mg/dL) 11 Creatinine (0.7 - 1.3 mg/dL) 0.9 Glomerular Filtr Rate (mL/min) 116 Glucose (74 - 106 mg/dL) 100 Calcium (8.4 - 10.2 mg/dL) 9.2 Magnesium (1.6 - 2.3 mg/dL) 2.0 Total Bilirubin (0.2 - 1.3 mg/dL) 0.9 Conjugated Bilirubin (0 - 0.3 mg/dL) 0 Unconjugated Bilirubin (0 - 1.1 mg/dL) 1.0 AST (15 - 46 U/L) 84 H ALT (0 - 49 U/L) 95 H Total Alk Phosphatase (38 - 126 U/L) 56 Total Creatine Kinase (55 - 170 U/L) 7023 *H Troponin I (0.012 - 0.033 ng/mL) < 0.012 L Total Protein (6.3 - 8.2 g/dL) 7.8 Albumin (3.5 - 5.0 g/dL) 4.6 TSH (0.465 - 4.68 MIU/L) 8.490 H Free T4 (0.78 - 2.19 ng/dL) 1.19 Specimen Hemolysis (0 - 100 Index/DL) 18 Hematology WBC (5.0 - 12.0 x10 3/uL) 8.8 RBC (4.70 - 6.10 x10 6/uL) 5.11 Hgb (14.0 - 18.0 g/dL) 14.1 Hct (37.0 - 49.0 %) 44.1 MCV (80 - 94 fL) 86 MCH (27 - 31 pg) 27.6 MCHC (33 - 37 g/dL) 32.0 L RDW (11.5 - 15.5 %) 13.2 Plt Count (130 - 400 x10 3/uL) 301 MPV (9.4 - 16.4 fL) 9.5 Neut % (Auto) (43 - 65 %) 61.8 Lymph % (Auto) (20.5 - 45.5 %) 27.1 Garrard % (Auto) (5.5 - 11.7 %) 8.6 Eos % (Auto) (0.9 - 2.9 %) 1.4 Baso % (Auto) (0.2 - 1.0 %) 0.8 Neut # (Auto) (2.2 - 4.8 x10 3/uL) 5.44 H Lymph # (Auto) (1.3 - 2.9 x10 3/uL) 2.39 Garrard # (Auto) (0.3 - 0.8 x10 3/uL) 0.76 Eos # (Auto) (0.0 - 0.2 x10 3/uL) 0.12 Baso # (Auto) (0.0 - 0.1 x10 3/uL) 0.07 Immature Gran % (0.0 - 2.0 %) 0.3 Nucleated RBC % (0 - 1.0 %) 0.0 Recent Impressions: RADIOLOGY - XR CHEST 1 V 12/18 2143 Report Impression - Status: SIGNED Entered: 12/18/2023 2237 IMPRESSION: No acute cardiopulmonary abnormality. Impression By: Андрей Felix MD ULTRASOUND - DUP VEIN NATHEN 12/17 2307 Report Impression - Status: SIGNED Entered: 12/18/2023 2346 IMPRESSION: No DVT in the visualized venous structures of the bilateral lower extremities. Impression By: Андрей Felix MD CAT SCAN - CT ABD PELVIS W/CONT 12/17 235 Report Impression - Status: SIGNED Entered: 12/19/2023 0250 IMPRESSION: 1. No acute findings in abdomen or pelvis. 2. 1.5 cm hypodense solid appearing mass inferior right kidney. Recommend nonemergent further assessment with multiphasic contrast enhanced CT scan or MRI. 3. Fatty liver. 4. 4.3 cm fat-containing umbilical hernia. Impression By: Leila Tee MD CAT SCAN - CTA CHEST FOR PE 12/17 2349 Report Impression - Status: SIGNED Entered: 12/19/2023 0253 IMPRESSION: 1. No obvious central or proximal subcentral pulmonary embolism. 2. No aortic aneurysm or dissection. 3. No acute infiltrate or effusion. Impression By: Leila Tee MD Lab Imaging Statement Laboratory radiographic studies reviewed and considered in the medical decision-making. ECG #1 Interpretation Text/Dict Note Rate 105, sinus tachycardia, rightward axis, no STEMI Re-Evaluation MDM Free Text MDM Notes Free Text MDM Notes - Differential diagnoses include rhabdomyolysis, dehydration, intra-abdominal pathology, electrolyte abnormality ACS, PE, DVT. Also considered occupational hazards in this patient such as lead poisoning given multiple complaints for multiple months. - History was obtained from the patient. - The patient likely has acute rhabdomyolysis. Patient was given 1 L of fluids while in the ED. - Labs and imaging were reviewed and independently interpreted by me, and included pertinent findings of: AST 84, ALT 95, CK 7023, other labs unremarkable. CT of the chest did not reveal any acute aneurysm or dissection, no PE, no acute infiltrates, no acute findings in the abdomen or pelvis, there is a 1.5 cm hypodense appearing mass in the inferior right kidney, fatty liver, 4.3 cm fat-containing umbilical hernia. Patient is pending UA, lead level, and TSH levels on admission. - I discussed the results of labs and imaging with the patient, he states that he is feeling mildly better after initial fluids, will start patient on maintenance fluids. Patient agrees to plan for admission. - The hospitalist Dr. Hu agreed to plan and admission: #: 11 Name: Howard Hercules Admitting Diagnosis: Rhabdomyolysis, abdominal pain, chest pain, history of opiate abuse on Suboxone Level of Care: Telemetry Admit vs Obs: Admit PCP/Specialist: None, from out of town HPI/PMH: Patient complains of worsening generalized weakness and myalgias over the past couple of weeks, has had elevated CK levels over the past 2 months Abnormal vitals/labs: Labs are grossly unremarkable except for CK level 7023, AST 84, ALT 95, pending UA, TSH, lead level on admission. CTA chest and CT abdomen did not reveal any acute abnormalities including no PE Treatment: 1 L NS, patient now on 150 mL/h D5W LR ED Course Medication(s) Ordered Medication(s) Ordered: Diagnostic Agents Sig/Hakan Start time Last Medication Dose Route Stop Time Status Admin Iopamidol 84 ML .STK-MED ONE 12/17 2359 DC / IV 12/18 0000 2359 Electrolytic, Caloric, And Dennise Sig/Hakan Start time Last Medication Dose Route Stop Time Status Admin Sodium Chloride 5 ML Q12HR 12/18 0900 AC 12/18 IV 03/18 0901 0858 Sodium Chloride 5 ML ASDIR PRN 12/18 0300 DC IV 12/18 0851 Sodium Chloride 10 ML ASDIR PRN 12/18 0300 DC IV 12/18 0851 Sodium Chloride 250 ML ASDIR PRN 12/18 0300 DC IV 12/18 0851 Dextrose/Lactated 1,000 ML X1ED STA 12/18 0157 DC Ringer's IV 12/18 0836 Sodium Chloride 1,000 ML X1ED STA 12/17 2153 DC / IV 12/17 2252 2215 Patient Discharge Departure Vital Signs/Condition Vital Signs First Documented: Result Date Time Pulse Ox 99 12/17 2204 B/P 143/77 12/17 2204 B/P Mean 99.2 12/17 2204 Temp 36.8 12/17 2204 Pulse 107 12/17 2204 Resp 18 04/06 2205 Last Documented: Result Date Time Pulse 98 12/18 153 Pulse Ox 96 12/18 152 B/P 133/60 12/18 152 B/P Mean 86 12/18 152 Temp 36.7 12/18 0145 Resp 18 12/17 2205 All vital signs available at the time of this entry have been reviewed. Condition Stable, Improved Clinical Impression Clinical Impression Primary Impression: Rhabdomyolysis Secondary Impressions: Abdominal pain, Chest pain Disposition Decision Hospitalize Hosp Physician Name Cliff Hu MD [facility] Physician Hospitalist Request Time 024 Request Date 12/19/23 )( Accepts Hospitalization Yes )( Reason for Hospitalization rhabdomyolysis )( Accepted Time 248 )( Accepted Date 12/19/23 Call Information will see patient, agrees with eval, agrees with plan Discharge/Care Plan Admit Note I have spoken with the patient and/or caregivers. I have explained the patient's condition, diagnoses and treatment plan based on the information available to me at this time. I have answered the patient's and/or caregiver's questions and addressed any concerns. The patient and/or caregivers have as good an understanding of the patient's diagnosis, condition and treatment plan as can be expected at this point. The patient has been stabilized within the capability of the emergency department. The patient will be transported for further care and management or will be moved to an observation or inpatient service. I have communicated with the staff or medical practitioner taking over this patient's care. Delbert Ram 12/19/23 1637: Past Medical History - Adult Allergies Coded Allergies: codeine (Mild, HIVES 12/19/23) Uncoded Allergies: TRILOGY (Severe, SOB, ANXIETY 12/18/23) Home Medications Reported Medications ALBUTEROL (ALBUTEROL HFA 90 MCG/ACT) 2 PUFF INH RTQ4H PRN PRN SHORTNESS OF BREATH BUDESONIDE/FORMOTEROL (SYMBICORT 160/4.5 MCG/ACT 10.2GM) 2 PUFF INH RTBID BUPRENORPHINE/NALOXONE (SUBOXONE 8/2 MG SL FILM) 1 TAB SL TID Physical Exam Physical Exam Resp/Chest Respiratory/Chest No respiratory distress Patient Discharge Departure Quality Measures Appropriate CT Use for PE 18 years or older, Mod-High pretest for PE, CTPA ordered Supervising Physician Note Resident Saw Pt This patient was seen by a resident. I performed the critical or herrera portions of the service, and participated in the management of the patient. I have reviewed and agree with the resident's note, and I have reviewed all labs, ECGs, and imaging studies or reports. I agree with this resident's findings, exam and plan. rhabdomyolysis at 0255 at 1638 RPT #:[id number] END OF REPORT [facility] 2023-12-18 22:07:00 [id number] [facility] [address] [place] [address] PATIENT NAME: HOWARD HERCULES ADMIT DATE: 12/19/23 ACCOUNT NO: [id number] ROOM NO: [id number] AGE: 33 REPORT TYPE: ELECTROCARDIOGRAM SEX: M ADMITTING PHYSICIAN:Cliff Hu MD ATTENDING PHYSICIAN:Cliff Hu MD Order: [id number] Test Reason : Test Date/Time Stamp: WedDec 18 2023 22:07:42 Blood Pressure : / mmHG Vent. Rate : 105 BPM Atrial Rate : 105 BPM P-R Int : 150 ms QRS Dur : 082 ms QT Int : 324 ms P-R-T Axes : 113 103 149 degrees QTc Int : 428 ms Suspect arm lead reversal, interpretation assumes no reversal Sinus tachycardia Possible Right ventricular hypertrophy Nonspecific ST and T wave abnormality Abnormal ECG Confirmed by FRANK SANZ ([id number]) on 12/19/2023 12:54:07 PM Referred By: Self Referred Confirmed by:FRANK SANZ at [id number] PATIENT NAME: HOWARD HERCULES [facility] 2023-12-18 21:55:00 [facility] ([facility]) EMERGENCY PROVIDER REPORT REPORT#:[id number] REPORT STATUS: Signed DATE:12/18/23 TIME: 2154 PATIENT: HOWARD HERCULES UNIT #: [id number] ROOM/BED: AGE: 33 SEX: M PCP PHYS: No Primary or Family Physician SERVICE DT: AUTHOR: Pawan Mcintyre * ALL edits or amendments must be made on the electronic/computer document * Provider in Triage - Adult Provider in Triage Initial Greet Date/Time 12/18/232147 Greet Note I have greeted and performed a focused rapid initial assessment of this patient. A comprehensive ED assessment and evaluation of the patient, analysis of all test results, and completion of the medical decision-making process will be conducted by additional ED providers. Free Text PIT Notes Free Text PIT Notes 33-year-old male presents ED with chief complaint of bodyaches cramps and fatigue states he was diagnosed with rhabdo 1 week ago and states symptoms have been getting worse. Patient states he was at a freestanding emergency room where they roma a CK level which was over 1000. Patient states he feels fatigued and rundown denies any known reason why he might be in rhabdo History asthma Surgical history hernia repair Social history vape use Allergies codeine, Trelegy PCP clinic PE General/Const No acute distress Respiratory/Chest No respiratory distress Cardiovascular Heart sounds normal Neurologic Alert, Oriented X3 Psychiatric Mood normal Notice: Parts of this note were created using [employer] speech recognition dictation software. All things were made to correct any errors at the time of dictation, however there may be some errors present in the thread spooler that were inadvertently overlooked during the dictation. PMH-Provider in Triage Stated Complaint RHABDO WORSENING CK >1000 Allergies Coded Allergies: codeine (Mild, HIVES 12/12/23) Uncoded Allergies: TRILOGY (Severe, SOB, ANXIETY 12/18/23) Past Medical History: Reports: Asthma (ADD, opiod addiction). Smoking status: Smoking status for patients 13 years old or older: Unknown,if ever smoked at 3064 RPT #:[id number] END OF REPORT [facility] 2023-12-12 17:45:00 [facility] ([facility]) EMERGENCY PROVIDER REPORT REPORT#:[id number] REPORT STATUS: Signed DATE:12/12/23 TIME: 1744 PATIENT: HOWARD HERCULES UNIT #: [id number] ROOM/BED: AGE: 33 SEX: M PCP PHYS: No Primary or Family Physician SERVICE AUTHOR: Claudia Solo DO * ALL edits or amendments must be made on the electronic/computer document * HPI-General Illness General Confirmed Patient Yes Patient Type New patient Initial Greet Date/Time 12/12/231736 Assumed Care at Time 1740 Presentation Chief Complaint Palpitations, Shortness of breath (muscle pain, ) Hx Obtained From Patient Sudden in Onset? No Onset Occurred Today, sob and palpitations started today, he felt a little sob, hx asthma, used his albuterol inhaler, then felt palpitations. Has been having muscle pain for one month, saw pcp, ck 545, today muscle pain is more intense. No fevers Symptom Duration Since onset, Constant Progression since Onset Constant Pain/Sev: Onset Mild Pain/Sev: Current Moderate Associated with Reports: Difficulty breathing, Shortness of breath. Denies: Abdominal pain, Chest pain, Congestion, Cough, Diaphoresis, Difficulty swallowing, Discharge, Dizziness, Fever, Headache, Inability to bear weight, Itching, Joint pain, Loss of consciousness, Loss of taste, Loss of smell, Nasal discharge, Nausea, Neck pain, Numb extremities, Off balance, Pain, Pain on walking, Rash, Speech abnormal, Syncope, Vision change, Vomiting, Weak extremity, Weakness. Associated Other Pt denies other symptoms Review of Systems ROS Statements Complete sys rev neg except as marked. Past Medical History - Adult Stated Complaint [id number] PAIN-WEAK Allergies Coded Allergies: fexofenadine (From ANDREI) (Intermediate, SOB, ANXIETY 12/12/23) codeine (Mild, HIVES 12/12/23) Past Medical History: Reports: Asthma (ADD, opiod addiction). Physical Exam Vital Signs Vital Signs First Documented: Result Date Time Pulse Ox 99 12/11 1739 B/P 143/67 12/11 1739 B/P Mean 92 12/11 1739 O2 Delivery Room air 12/11 173 Temp 36.7 12/11 173 Pulse 107 12/11 1739 Resp 16 12/11 1738 Last Documented: Result Date Time Pulse Ox 99 12/11 1739 B/P 143/67 12/11 1739 B/P Mean 92 12/11 1739 O2 Delivery Room air 12/11 1738 Temp 36.7 03/1738 Pulse 107 12/11 1738 Resp 16 12/11 1738 Review of Vital Signs Reviewed Basic Physical Exam Basic PE GEN: Well appearing/NAD, HEAD: Atraumatic/NC, EYES: PERRL, conj clear, ENT: Membranes moist, NECK: Supple, RESP: No resp distress, CV: Reg rate rhythm, ABD: Soft/non-tender, EXT: No gross abnormality, SKIN: No rashes, warm/ dry, NEURO: alert oriented, NEURO: gross movement NL, PSYCH: NL thought content Interpretation Diagnostics Lab Results Interpretation Results Laboratory Tests 12/12/231754: [Embedded Image Not Available] Laboratory Tests: 12/11 1754 Chemistry Sodium (135 - 147 MMOL/L) 138 Potassium (3.6 - 5.2 MMOL/L) 3.8 Chloride (98 - 108 MMOL/L) 99 Carbon Dioxide (21 - 32 mmol/L) 28 BUN (6 - 21 MG/DL) 12 Creatinine (0.6 - 1.3 mg/dL) 0.9 Glomerular Filtr Rate (mL/min) 116 Glucose (70 - 110 mg/dL) 109 Calcium (8.7 - 10.5 mg/dL) 8.8 Total Bilirubin (0.0 - 1.0 mg/dL) 0.80 AST (10 - 37 UNITS/L) 32 ALT (12 - 78 UNITS/L) 65 Total Alk Phosphatase (46 - 116 UNITS/L) 68 Total Creatine Kinase (26 - 308 UNITS/L) 259 Total Protein (6.0 - 8.2 g/dL) 7.9 Albumin (3.7 - 5.5 G/DL) 4.3 Coagulation D-Dimer (0 - 500 ng/mLFEU) 290 Hematology WBC (5.0 - 12.0 x10 3/uL) 8.4 RBC (4.70 - 6.10 x10 6/uL) 5.13 Hgb (14.0 - 18.0 g/dL) 14.4 Hct (37.0 - 49.0 %) 45.2 MCV (80 - 94 fL) 88 MCH (27 - 31 pg) 28.1 MCHC (33 - 37 g/dL) 31.9 L RDW (11.5 - 15.5 %) 13.0 Plt Count (130 - 400 x10 3/uL) 315 MPV (9.4 - 16.4 fL) 8.9 L Neut % (Auto) (43 - 65 %) 71.8 H Lymph % (Auto) (20.5 - 45.5 %) 19.5 L Garrard % (Auto) (5.5 - 11.7 %) 7.4 Eos % (Auto) (0.9 - 2.9 %) 0.6 L Baso % (Auto) (0.2 - 1.0 %) 0.5 Neut # (Auto) (2.2 - 4.8 x10 3/uL) 6.02 H Lymph # (Auto) (1.3 - 2.9 x10 3/uL) 1.63 Garrard # (Auto) (0.3 - 0.8 x10 3/uL) 0.62 Eos # (Auto) (0.0 - 0.2 x10 3/uL) 0.05 Baso # (Auto) (0.0 - 0.1 x10 3/uL) 0.04 Immature Gran % (0.0 - 2.0 %) 0.2 Recent Impressions: RADIOLOGY - XR CHEST 2 V 12/11 1749 Report Impression - Status: SIGNED Entered: 12/12/20231808 IMPRESSION: No evidence of acute cardiopulmonary disease. Impression By: Blank Ruiz MD Lab Statement Laboratory studies reviewed and considered in the medical decision-making. Imaging Statement Radiographic studies reviewed and considered in the medical decision-making. ECG #1 Interpretation Date 12/12/23 Time 1751 Interpreted by ED physician NL ECG Interpretation Normal rate, Normal sinus rhythm, No acute ischemic changes, No STEMI Re-Evaluation MDM Re-Evaluation/Progress #1 Time of Re-Eval 1839 Re-Eval Status Improved ED Course Medication(s) Ordered Medication(s) Ordered: Electrolytic, Caloric, And Dennise Sig/Hakan Start time Last Medication Dose Route Stop Time Status Admin Sodium Chloride 1,000 ML X1ED STA 12/11 1810 AC 12/11 IV 12/11 1909 182 Patient Discharge Departure Vital Signs/Condition Vital Signs First Documented: Result Date Time Pulse Ox 99 12/11 1738 B/P 143/67 12/11 1738 B/P Mean 92 12/11 1738 O2 Delivery Room air 12/11 1738 Temp 36.7 12/11 1738 Pulse 107 12/11 1738 Resp 16 12/11 1738 Last Documented: Result Date Time Pulse Ox 99 12/11 1738 B/P 143/67 12/11 1738 B/P Mean 92 12/11 1738 O2 Delivery Room air 12/11 1738 Temp 36.7 12/11 1738 Pulse 107 12/11 1738 Resp 16 12/11 1738 All vital signs available at the time of this entry have been reviewed. Condition Stable Clinical Impression Clinical Impression Primary Impression: Palpitations Secondary Impressions: Myalgia Disposition Decision Discharge )( Discharged to Home Yes )( Time 184 )( Date 12/12/23 at 1848 RPT #:[id number] END OF REPORT [facility]
--- NOTE | 2024-05-09 19:51 | ER ---
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 Coronavirus screen: At this time, the client does not indicate any symptoms associated with coronavirus-19. Ebola Screen: No symptoms or risks identified at this time. Initial Sepsis Screen: Does the patient meet any 2 criteria? HR > 90 bpm. Does the patient have a suspected source of infection? No. Patient's initial sepsis screen is negative. Risk Assessment: Do you want to hurt yourself or someone else? Patient reports no desire to harm self or others. Onset of symptoms was May 09, 2024. 18:27 Method Of Arrival: Ambulatory kc6 18:27 Acuity: FRANKI 3 kc6 Triage Assessment: 18:27 General: Appears in no apparent distress. comfortable, obese, well groomed, well kc6 developed, Behavior is calm, cooperative, appropriate for age. Pain: Denies pain. EENT: No signs and/or symptoms were reported regarding the EENT system. Neuro: Level of Consciousness is awake, alert, obeys commands, Oriented to person, place, time, situation, Appropriate for age. Cardiovascular: Reports palpitations, Denies chest pain, shortness of breath, Capillary refill < 3 seconds Rhythm is sinus tachycardia. Respiratory: Airway is patent Trachea midline Respiratory effort is even, unlabored, Respiratory pattern is regular, symmetrical, Onset: The symptoms/episode began/occurred just prior to arrival, the patient has mild shortness of breath. GI: No signs and/or symptoms were reported involving the gastrointestinal system. : No signs and/or symptoms were reported regarding the genitourinary system. Derm: Skin is intact, is healthy with good turgor, Skin is diaphoretic, Skin is normal, Skin temperature is warm. Musculoskeletal: No signs and/or symptoms reported regarding the musculoskeletal system. Circulation, motion, and sensation intact. Capillary refill < 3 seconds, Range of motion: intact in all extremities. Historical: - Allergies: 18:32 Codeine; kc6 - PMHx: 18:32 Anxiety; Asthma; Hernia; kc6 - PSHx: 18:32 hernia; kc6 - Immunization history:: Client reports having NOT received the Covid vaccine. Flu vaccine is not up to date. - Infectious Disease History:: Denies. - Social history:: Smoking status: Reported history of juuling and/or vaping. Screenin:27 [facility] ED Fall Risk Assessment (Adult) History of falling in the last 3 months, kc6 including since admission No falls in past 3 months (0 pts) Confusion or Disorientation No (0 pts) Intoxicated or Sedated No (0 pts) Impaired Gait No (0 pts) Mobility Assist Device Used No (0 pt) Altered Elimination No (0 pt) Score/Fall Risk Level 0 - 2 = Low Risk. Abuse screen: Denies threats or abuse. Denies injuries from another. Nutritional screening: No deficits noted. Tuberculosis screening: No symptoms or risk factors identified. Assessment: 18:27 Reassessment: please see triage. kc6 19:14 Reassessment: pt called from lobby. no answer. kc6 Vital Signs: 18:27 BP 135 / 74; Pulse 112; Resp 19 S; Temp 98.9(O); Pulse Ox 99% on R/A; Weight 122.47 kg kc6 (R); Height 5 ft. 8 in. (R); Pain 0/10; 18:27 Body Mass Index 41.05 (122.47 kg, 172.72 cm) kc6 18:27 Pain Scale: Adult kc6 ED Course: 18:21 Patient arrived in ED. mr 18:24 Trang France FNP-C is PHCP. kb 18:24 Nilesh Kahn MD is Attending Physician. kb 18:27 Allergy band placed. Adult w/ patient. kc6 18:32 Triage completed. kc6 18:32 Arm band placed on. EKG completed in triage. Results shown to MD. kc6 18:54 Radiology exam delayed due to PT WAS NOT FOUND IN ER LOBBY OR IN ER HW. az 19:10 Radiology exam delayed due to ANOTHER ATTEMPT TO FIND PT. NO ANSWER. az 20:09 No provider procedures requiring assistance completed. Patient did not have IV access kc6 during this emergency room visit. Administered Medications: 20:09 CANCELLED (Patient Refused): ns 0.9% 1000 ml IV at 1000 ml once vc1 Outcome: 19:50 Discharge ordered by MD. chadwick 20:09 Eloped from waiting room, after seeing physician post triage evaluation and consult. kc6 post triage consult Time discovered patient gone: May 09, 2024 at 19:14 20:10 Patient left the ED. kc6 Signatures: Trang France, NIKOLAY-C BREWING DIRECTOR-Helen Lyon, Reg Reg mr Guan, Maria Eugenia Humphrey RN RN kc6 Nicki Campuzano RN vc1 Corrections: (The following items were deleted from the chart) 20:10 20:09 Eloped from waiting room, after seeing physician post triage evaluation and kc6 consult. post triage consult kc6
--- NOTE | 2024-05-09 19:51 | EDPHYS ---
Physician Documentation [facility] Name: Gil Jose Age: 33 yrs Sex: Male : 1990 Arrival Date: 05/09/2024 Time: 18:17 Bed IW7 Private MD: ED Physician Nilesh Kahn HPI: 05/09 18:34 This 33 yrs old Male presents to ER via Ambulatory with complaints of Palpitations. 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 States he has a pulse ox so he checked his vitals and his HR was in the 160s. Historical: - Allergies: 18:32 Codeine; kc6 - PMHx: 18:32 Anxiety; Asthma; Hernia; kc6 - PSHx: 18:32 hernia; kc6 - Immunization history:: Client reports having NOT received the Covid vaccine. Flu vaccine is not up to date. - Infectious Disease History:: Denies. - Social history:: Smoking status: Reported history of juuling and/or vaping. ROS: 18:28 Constitutional: As per HPI kb Exam: 18:28 Constitutional: This is a well developed, well nourished patient who is awake, alert, kb and in no acute distress. Head/Face: Normocephalic, atraumatic. ENT: Moist Mucous membranes Cardiovascular: Tachycardic rate Respiratory: Respirations even and unlabored. No increased work of breathing. Talking in full sentences Abdomen/GI: Soft, non-tender. No distention Skin: Warm, dry with normal turgor. Normal color. MS/ Extremity: Pulses equal, no cyanosis. Neurovascular intact. Full, normal range of motion. Neuro: Awake and alert, GCS 15, oriented to person, place, time, and situation. Moves all extremities. Normal gait. 18:34 ECG was reviewed by the Attending Physician. kb Vital Signs: 18:27 BP 135 / 74; Pulse 112; Resp 19 S; Temp 98.9(O); Pulse Ox 99% on R/A; Weight 122.47 kg kc6 (R); Height 5 ft. 8 in. (R); Pain 0/10; 18:27 Body Mass Index 41.05 (122.47 kg, 172.72 cm) kc6 18:27 Pain Scale: Adult kc6 MDM: 18:24 Patient medically screened. kb 19:49 Differential diagnosis: arrythmia, dehydration, stress disorder. Data reviewed: vital kb signs, nurses notes. ED course: Pt elected to leave from [facility] prior to diagnostic testing. 05/09 18: Order name: EKG; Complete Time: 18:29 kb 05/09 18: Order name: EKG - Nurse/Tech; Complete Time: 18:33 kb EC:34 Rate is 103 beats/min. Rhythm is regular. QRS Maryneal is Normal. AK interval is normal at kb 142 msec. QRS interval is normal at 76 msec. QT interval is normal at 419 msec. Administered Medications: 20:09 CANCELLED (Patient Refused): ns 0.9% 1000 ml IV at 1000 ml once vc1 Disposition Summary: 05/09/24 19:50 Discharge Ordered Notes: Location: Home kb Condition: Stable kb Diagnosis - Palpitations kb - Tachycardia, unspecified kb Followup: kb - With: Emergency Department - When: As needed - Reason: Worsening of condition Followup: kb - With: Private Physician - When: 2 - 3 days - Reason: Recheck today's complaints, Continuance of care, Re-evaluation by your physician Discharge Instructions: - Discharge Summary Sheet kb - Palpitations, [id number] kb - Sinus Tachycardia kb Forms: - Medication Reconciliation Form kb - Antibiotic Education kb - Prescription Opioid Use kb - Patient Portal Instructions kb - Leadership Thank You Letter kb Signatures: Dispatcher [employer] EDMS Trang France, NIKOLAY-Ivan LINK-Maria Eugenia Mooney, RN RN kc6 Nicki Campuzano RN vc1 Corrections: (The following items were deleted from the chart) 18:29 18:29 BASIC METABOLIC PANEL+C.LAB.BRZ ordered. EDMS EDMS 18:29 18:29 CBC+H.LAB.BRZ ordered. EDMS EDMS 18:29 18:29 D-DIMER+COAG.LAB.BRZ ordered. EDMS EDMS 18:29 18:29 Troponin High Sensitivity+C.LAB.BRZ ordered. EDMS EDMS 18:29 18:29 CREATINE PHOSPHOKINASE+C.LAB.BRZ ordered. EDMS EDMS 20:09 18:29 Cardiac monitoring ordered. kb vc1 : 18:29 Labs collected and sent ordered. kb vc1 : 18:29 NS 0.9% IV 1000 ml IV at 1000 ml once ordered. kb vc1 : 18:29 IV Saline Lock ordered. kb vc1 : 18: Oxygen Per Protocol ordered. kb vc1 : 18: O2 Sat Monitoring ordered. kb vc1
[2024-05-09 20:36] VITALS: BP 135/74; TEMP 98.9; O2SAT 99
--- NOTE | 2024-05-11 12:56 | EKG ---
Test Date: 2024-05-09 Test Time: 18:31:00 Sales And Marketing Vice President: GREGG MEASUREMENT RESULTS: Intervals: Rate: 103 ID: [id number] QRSD: 76 QT: 320 QTc: 419 [place]: P: 57 ID: [id number] QRS: 67 T: 54 INTERPRETIVE STATEMENTS: Sinus tachycardia Otherwise normal ECG Compared to ECG 12/26/2020 16:43:22 Sinus rhythm no longer present Sinus arrhythmia no longer present Electronically Signed On 05-11-24 12:55:13 CDT by Андрей Lucero
== END 2024-05-09 20:10 | disposition home or self-care (01) ==
LOC: ER 18:17
DX: R00.0 Tachycardia, unspecified (principal)
CPT/HCPCS: 93005; 99282

== ENCOUNTER 2024-06-19 12:59 | Inpatient (IN) | payer OTHER ==
--- OUTSIDE RECORDS SUMMARY | 2024-06-19 13:05 | XMS REPORT | Continuity of Care Document ---
Author Name Unknown Address [address] [facility] [address] [place] [address] [facility] Address [address] [facility]. 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 Name Role Phone PCP, NO Primary Care Physician Unavailab VENESSA Bernal Attending Clinician UnavailVENESSA Yoo Attending Clinician UnavailTalita Sesay PA-C Attending Clinician + TALITA RODRIGUEZ Attending Clinician Unavailable TALITA RODRIGUEZ Attending Clinician Unavailable Venessa Khan MD Attending Clinician + Po, Yulissa [facility] Main Attending Clinician UnavailCLIFF Chen Attending Clinician Unavailable CLIFF PERRY Attending Clinician Unavailable Cliff Perry MD Attending Clinician [phone] Mario Burnett MD Attending Clinician [phone] MARIO BURNETT Attending Clinician Unavail able MARIO BURNETT Attending Clinician Unavail elvis Hung, Generic Provider Attending Clinician Unavailable Aleena Livingston Attending Clinician [phone] Unknown, Attending Attending Clinician UnavailALEENA Manrique Attending Clinician Unavailable Ramón Cuellar Attending Clinician Unavailable Cliff Hu Attending Clinician Unavailable Claudia Solo Attending Clinician UnavailRICHAR Rosales Attending Clinician UnavailJass Reyes Attending Clinician Unavailable Bhupinder Moreau Attending Clinician Unavailab VENESSA Bernal Admitting Clinician UnavailMARIO Padilla Admitting Clinician Unavail elvis Physician, No Primary or Family Admitting Clinic kaitlynn Unavailable Cliff Hu Admitting Clinician Unavailable Payers Payer Name Policy Type Policy Number Effective Date Expirati on Date Source JAMARI HERNANDEZO [id number] 2021 00:00:00 Problems Condition Name Condition Details Condition Category Status Onset Date Resolution Date Last Treatment Date Treating Clinician Comments Source Ulnar nerve compressio n, left Ulnar nerve compressio n, left Disease Active 06-08 00:00: 00 [facility] Pre-op testing Pre-op testing Disease Active 06-08 00:00: 00 [facility] Generalize d anxiety disorder Generalize d Anxiety Disorder Problem Active 05-18 00:00: 00 [facility] Asthma Asthma Problem Active 05-18 00:00: 00 [facility] Rhabdomyol ysis Rhabdomyol ysis Problem Active 05-18 00:00: 00 [facility] Ulnar neuropathy of left arm Ulnar Neuropathy of Left Arm Problem Active 05-18 00:00: 00 [facility] Allergies, Adverse Reactions, Alerts Allergy Name Allergy Type Status Severity Reaction(s) Onset Date Inactive Date Treating Clinician Comments Source fluticas one furoate DA Active U ANXIETY - 00:00: 00 [facility] vilanter ol DA Active U ANXIETY - 00:00: 00 [facility] umeclidi nium DA Active U ANXIETY 2024-0 4-10 00:00: 00 [facility] codeine DA Active [place] HIVES 2023-0 4-07 00:00: 00 [facility] TRILOGY DA Active SV SOB, ANXIETY 2023-0 4-06 00:00: 00 [facility] codeine DA Active [place] HIVES 2023-0 3-31 00:00: 00 [facility] fexofena dine DA Active [place] SOB, ANXIETY 2023-0 3-31 00:00: 00 [facility] Trilog Drug Allergy Active Rash 2023-0 3-02 00:00: 00 [facility] TRILOG DRUG Active Low Palpitations 2023-0 3-02 00:00: 00 [facility] FLUTICAS ONE-UMEC LIDIN- LANTER DRUG Active High Palpitations 2022-09 2-05 00:00: 00 [facility] Fluticas one-Umec lidin-Vi lanter Drug Allergy Active Shortness of Breath 1 2-05 00:00: 00 [facility] CODEINE DRUG INGREDI Active Low Hives 2021-0 1-01 00:00: 00 [facility] Codeine Drug Allergy Active Rash 2021-0 1-01 00:00: 00 [facility] Codeine Allergy to substanc e Active [facility] TRELEGY ELLIPTA Allergy to substanc e Active [facility] Social History Social Habit Start Date Stop Date Quantity Comments Source History of tobacco use Smokes tobacco daily [facility] Comment 2024-06-08 00:00:00 2024-06-08 00:00:00 vapes [facility] Tobacco use and exposure 2024-06-08 00:00:00 2024-06-08 00:00:00 Smokeless tobacco non-user [facility] Alcoholic beverage intake 2024-06-08 00:00:00 2024-06-08 00:00:00 Ex-drinker (finding) [facility] History of Social function 2024-05-26 00:00:2024-05-26 00:00:00 [facility] Sex assigned at 1990 00:00:00 1990 00:00:00 [facility] Smoking Status Start Date Stop Date Source Tobacco smoking consumption unknown [facility] Smokes tobacco daily 2024-06-08 00:00:00 [facility] Never smoked tobacco [facility] Medications Ordered Medication Name Filled Medication Name Start Date Stop Date Current Medication? Ordering Clinician Indication Dosage Frequency Signature (SIG) Comments Components Source buprenorphi ne-naloxone 8-2 mg sublingual film 05-26 09:08: [address] 1 Film under the tongue in the morning. [facility] diclofenac dodium 1 % gel 05-18 00:00: 00 Yes Apply to area(s). [facility] dexamethaso ne (DECADRON) injection 10 mg 05-13 22:30: 00 05-13 21:35 :00 No [id number] 10mg 10 mg, Intramuscu lar, ONCE, 1 dose, On 05/13/24 at 1730, Routine [facility] ipratropium -albuteroL (DUONEB) 0.5 mg-3 mg(2.5 mg base)/3 mL nebulizer solution 3 mL 05-13 22:15: 00 05-13 21:36 :00 No [id number] 3mL 3 mL, Inhalation , ONCE, 1 dose, On 05/13/24 at 1715, Routine [facility] albuterol 90 mcg/actuati on inhaler 05-13 00:00: 00 Yes [id number] 2{puff} Inhale 2 Puffs every 6 (six) hours as needed for Wheezing, Shortness of Breath, Bronchospa sm or Chest tightness. [facility] ibuprofen 800 mg tablet 03-28 00:00: 00 Yes 800mg Take 1 tablet by mouth every 8 (eight) hours as needed. [facility] budesonide- formoteroL 160-4.5 mcg/actuati on inhaler 2022-09 00:00: 00 Yes 2{puff} Inhale 2 Puffs in the morning and 2 Puffs in the evening. [facility] levalbutero l 1.25 mg/3 mL solution for nebulizatio n USE 1 VIAL VIA NEBULIZER THREE TIMES DAILY levalbutero l 1.25 mg/3 mL solution for nebulizatio n USE 1 VIAL VIA NEBULIZER THREE TIMES DAILY No levalbuter ol 1.25 mg/3 mL solution for nebulizati on USE 1 VIAL VIA NEBULIZER THREE TIMES DAILY [facility] levalbutero l HFA 45 mcg/actuati on aerosol inhaler INHALE 2 PUFFS BY MOUTH EVERY 6 HOURS levalbutero l HFA 45 mcg/actuati on aerosol inhaler INHALE 2 PUFFS BY MOUTH EVERY 6 HOURS No levalbuter ol HFA 45 mcg/actuat ion aerosol inhaler INHALE 2 PUFFS BY MOUTH EVERY 6 HOURS [facility] Spiriva Respimat 2.5 mcg/actuati on solution for inhalation INHALE 2 SPRAY(S) BY MOUTH ONCE DAILY Spiriva Respimat 2.5 mcg/actuati on solution for inhalation INHALE 2 SPRAY(S) BY MOUTH ONCE DAILY No Spiriva Respimat 2.5 mcg/actuat ion solution for inhalation INHALE 2 SPRAY(S) BY MOUTH ONCE DAILY [facility] Vital Signs Vital Name Observation Time Observation Value Comments S ource Body height 2024-06-05 21:12:00 167.6 cm [facility] Body weight 2024-06-05 21:12:00 128.368 kg [facility] BMI 2024-06-05 21:12:00 45.68 kg/m2 [facility] Systolic blood pressure 2024-05-26 14:06:00 119 mm[Hg] [facility] Diastolic blood pressure 2024-05-26 14:06:00 67 mm[Hg] [facility] Heart rate 2024-05-26 14:06:00 75 /min [facility] Body temperature 2024-05-26 14:06:00 36.83 Astrid [facility] Body height 2024-05-26 14:06:00 172.7 cm [facility] Body weight 2024-05-26 14:06:00 128.822 kg [facility] BMI 2024-05-26 14:06:00 43.18 kg/m2 [facility] Body Weight 2024-05-18 00:00:00 4496 [oz_av] [facility] BP Diastolic 2024-05-18 00:00:00 63 mm[Hg] [facility] Height 2024-05-18 00:00:00 68 [in_i] [facility] BMI (Body Mass Index) 2024-05-18 00:00:00 42.7 kg/m2 [facility] BP Systolic 2024-05-18 00:00:00 114 mm[Hg] [facility] Systolic blood pressure 2024-05-13 21:22:00 129 mm[Hg] [facility] Diastolic blood pressure 2024-05-13 21:22:00 78 mm[Hg] [facility] Heart rate 2024-05-13 21:22:00 80 /min [facility] Body temperature 2024-05-13 21:22:00 36.72 Astrid [facility] Respiratory rate 2024-05-13 21:22:00 20 /min [facility] Body weight 2024-05-13 21:22:00 125.828 kg [facility] Oxygen saturation in Arterial blood by Pulse oximetry 2024-05-13 21:22:00 96 /min [facility] Procedures Procedure Date / Time Performed Performing Clinicia n Source XR CHEST 2 VW 2024-06-12 19:19:00 Talita Rodriguez [facility] EKG-12 LEAD 2024-06-12 19:12:12 Doctor Unass igned, [place] [facility] XR Chest 1 View Portable 2022-08-13 21:50:00 [facility] EKG 12 Lead in Emergency Room 2022-05-24 17:21:00 [facility] EKG 12 Lead in Emergency Room 2022-05-24 17:21:00 [facility] XR Chest 1 View Portable 2022-05-24 17:05:00 [facility] XR Chest 1 View Portable 2022-05-24 17:05:00 [facility] Encounters Start Date/Time End Date/Time Encounter Type Admission Type Attending [facility] Care Department Encounter ID Source 2024-06-19 06:57:00 2024-06-19 06:57:00 Outpatient VENESSA FLETCHER CRAIG [facility] [id number] [facility] 2024-06-12 14:04:22 2024-06-12 23:59:00 Hospital Encounter Michael Talita [facility] 1.840.114 350.1.13.10 4.2.7.2.686 [id number] [facility] 2024-06-12 13:46:28 2024-06-12 14:03:00 Hospital Encounter Venessa Khan Craig [facility] 1.840.114 350.1.13.10 4.2.7.2.686 [id number] [facility] 2024-06-12 13:46:28 2024-06-12 14:03:00 Outpatient R MICHAELTALITA FengTALITA FISHMAN [facility] [id number] [facility] 2024-06-12 13:45:00 2024-06-12 14:00:00 Child Development Teacher Visit Pob, Adc Lab Main Venessa Khan Pominh, [facility] Main [facility] 1.840.114 350.1.13.10 4.2.7.2.686 [id number] [facility] 2024-06-08 00:00:00 2024-06-08 11:26:36 Telephone [facility] 1.84.114 350.1.13.10 4.2.7.2.686 [id number] [facility] 2024-06-08 00:00:00 2024-06-08 09:22:20 Prep For Surgery Michael [facility] 1..840.114 350.1.13.10 4.2.7.2.686 [id number] [facility] 2024-06-05 16:00:00 2024-06-05 16:51:32 Outpatient R TALITA RODRIGUEZ [facility] [id number] [facility] 2024-06-05 16:00:00 2024-06-05 16:51:32 Office Visit Michael [facility] 1.840.114 350.1.13.10 4.2.7.2.686 [id number] [facility] 2024-06-02 08:45:00 2024-06-02 08:45:00 Outpatient R VENESSA KHAN VENESSA [facility] [id number] [facility] 2024-05-31 11:48:07 2024-05-31 23:59:00 Outpatient R [place]O LOKIMARY JANE PERRY [facility] [id number] [facility] 2024-05-31 11:48:07 2024-05-31 23:59:00 Hospital Encounter [facility] 1..840.114 350.1.13.10 4.2.7.2.686 [id number] [facility] 2024-05-30 00:00:00 2024-05-30 11:25:20 Telephone Mario Burnett [facility] 1..840.114 350.1.13.10 4.2.7.2.686 [id number] [facility] 2024-05-30 10:30:00 2024-05-30 10:30:00 Outpatient Lucrecia MICHAEL, TALITA TALITA RODRIGUEZ [facility] [id number] [facility] 2024-05-26 09:20:00 2024-05-26 09:57:55 Outpatient MARIO MACEDO HOWARD [facility] [id number] [facility] 2024-05-26 09:20:00 2024-05-26 09:57:55 Office Visit Mario Burnett [facility] 1.2.840.114 350.1.13.10 4.2.7.2.686 [id number] [facility] 2024-05-24 00:00:00 2024-05-24 11:51:01 Letter (Out) Campaigns, Generic Provider Campaigns, Generic Provider [facility] 1..840.114 350.1.13.10 4.2.7.2.686 [id number] [facility] 2024-05-18 00:00:00 2024-05-18 00:00:00 Nina Arreaga APRN-CUSTOM APPLICATOR-B C: [address] [place] [address] , Ph. [facility] [phone] [id number] [facility] 2024-05-14 00:00:00 2024-05-14 17:44:13 Telephone Aleena Green [facility] 1..840.114 350.1.13.10 4.2.7.2.686 [id number] [facility] 2024-05-13 16:20:00 2024-05-13 16:40:00 Urgent Care Aleena Green, Attending [facility] 1.2.840.114 350.1.13.10 4.2.7.2.686 [id number] [facility] 2024-05-13 16:20:00 2024-05-13 16:20:00 Outpatient R ALEENA GREEN [facility] [id number] [facility] 2023-12-22 18:34:00 2023-12-23 00:43:00 Emergency EM Ramón Cuellar [facility] [id number] 90 [facility] 2023-12-19 02:52:00 2023-12-20 13:24:00 Inpatient EM Cliff Hu [facility] [id number] 32 [facility] 2023-12-12 17:07:00 2023-12-12 19:38:00 Emergency EM Claudia Solo [facility] [id number] 03 [facility] 2022-11-08 21:00:00 2022-11-08 22:05:00 Emergency ER RICHAR ORTIZ [facility] [id number] [facility] 2022-08-13 21:09:00 2022-08-13 23:08:00 [facility] [id number] [facility] 2022-05-25 01:41:00 2022-05-25 03:05:00 Emergency ER [facility] [id number] [facility] 2022-05-24 16:49:00 2022-05-24 18:08:00 Emergency ER [facility] [id number] [facility] Results Test Description Test Time Test Comments Results Resul t Comments Source XR CHEST 2 VW 2 00:34:45 EXAM: XR CHEST 2 VW COMPARISON: None. HISTORY: SURGERY ? TECHNIQUE: PA and lateral views of the chest were obtained. FINDINGS: No focal consolidation is identified. No pleural effusion or pneumothoraxis seen. The cardiomediastinal silhouette is unremarkable.No acute osseous abnormalities. [facility] - DUP VEIN UNI LT 04-1 00:03:00 [facility] 1990 Sex: M FAX: Marii Gaytan MD R3 [place]: St: REG Name: GIL HERCULES [facility] : 1990 Age/S: 33/M [address] Unit #: [id number] Loc: [place] [address] Phys: Marii Gaytan MD R3 Acct: [id number] Dis Date: Status: REG ER PHONE #: [phone] Exam Date: 12/22/2023 2339 FAX #: [phone] Reason: swelling, r/o DVT EXAMS: CPT CODE: [id number] [place] [address] Examination: Ultrasound venous duplex left lower extremity [...] CC: Marii Gaytan MD Technologist: YAMILE TOBIAS Trnscrd Date/Time/By: 12/23/2023 (0003) : By: [email or web address] PAGE 1 Signed Report FAX: Marii Gaytan MD R3 [place]: St: REG Name: GIL HERCULES [facility] : 1990 Age/S: 33/M [address] Unit #: [id number] Loc: [place] [address] Phys: Marii Gaytan MD R3 Acct: [id number] Dis Date: Status: REG ER PHONE #: [phone] Exam Date: 12/22/2023 2339 FAX #: [phone] Reason: swelling, r/o DVT EXAMS: CPT CODE: [id number] [address] (Continued) Orig Print D/T: S: 12/23/2023 (0006) PAGE 2 Signed Report Spec Comments: SOBLIVER FUNCTION [id number] 21:06:00* Test Item Value Reference Range Interpretation [...] CK) 1118 U/L 55-170 H Spec Comments: [id number] 21:06:00* Test Item Value Reference Range Interpretation Comme nts LIPASE (test code = LIP) 88 U/L 23-300 N Spec Comments: [id number] 21:06:00* Test Item Value Reference Range Interpretation Comme nts MAGNESIUM (test code = MAG) 1.8 mg/dL 1.6-2.3 N Spec Comments: SOBNT PRO-BRAIN NATRIURETIC [id number] 21:06:00* Test Item Value Reference Range Interpretation [...] interpret this result as normal/abnormal. Spec Comments: [id number] 21:06:00* Test Item Value Reference Range Interpretation [...] TAKING BIOTIN SUPPLEMENTS~~~~~~~~~~~~~~~~ ~~~~~~~~~~~~~~~~~~~~~~~~~~~ ~~~~~~~~~~~~~~~~ Spec Comments: [id number] 20:18:00* Test Item Value Reference Range Interpretation Comme nts D-DIMER (test code = DDIMER) 274 ng/mLFEU 0-500 N THE DDIMER METHO D IS USED IN THE EXCLUSION OF DEEP VEINTHROMBOSIS AND/OR PULMONARY EMBOLISM AND THE CLINICAL CUT-OFF VALUE FOR EXCLUSION (500 NG/ML FEU) OF THESE CONDITIONSIS VALIDATED BY THE DRUG SAFETY DATA MANAGEMENT SPECIALIST OF THE METHOD. A NEGATIVE DDIMER RESULT WHEN COMBINED WITH A CLINICALASSESSMENT OF LOW PRETEST PROBABILITY HAS BEEN SHOWN TO HAVEA HIGH NEGATIVE PREDICTIVE VALUE OF DVT OR PE. D-DIMER VALUES >500 ng/mL ARE NOT DIAGNOSTIC FOR DVT,PEOR DIC WITHOUT OTHER CONFIRMATORY TESTS AND APPROPRIATECLINICAL EVALUATIONS. - XR CHEST 1 [id number] 20:10:00 [facility] 1990 Sex: M FAX: Debbie Martel PA-C [place]: St: PRE Name: GIL HERCULES [facility] : 1990 Age/S: 33/M [address] Unit #: [id number] Loc: [place] [address] Phys: Debbie Martel PA-C Acct: [id number] Dis Date: Status: PRE ER PHONE #: [phone] Exam Date: 12/22/20231999 FAX #: [phone] Reason: Shortness of breath EXAMS: CPT CODE: [id number] XR CHEST 1 V 18267 EXAM: AP chest LOCATION: H 12 HISTORY: Shortness of breath COMPARISON: None. FINDINGS: The lungs are clear. No infiltrate or effusion isseen. The pulmonary vasculature is normal. The heart size is normal. The mediastinal silhouette is unremarkable. The bony thorax is intact. IMPRESSION: No acute disease. at 2009 Reported and signed by: Finesse Boyd MD CC:Debbie Martel Technologist: FRANK BEE Trnscrd Date/Time/By: 12/22/2023 (2009) : By: Dell PAGE 1 Signed Report FAX: Debbie Martel PA-C [place]: [facility]: PRE Name: GIL HERCULES [facility] : 1990 Age/S: 33/M [address] Unit #: [id number] Loc: [place] [address] Phys: DelonteDebbie snyder PA-C Acct: [id number] Dis Date: Status: PRE ER PHONE #: [phone] Exam Date: 12/22/20231999 FAX #: [phone] Reason: Shortness of breath EXAMS: CPT CODE: [id number] XR CHEST 1 V 23398 () Orig Print D/T: S: 12/22/2023 (2012) PAGE 2 Signed ReportCBC W/AUTO [id number] 20:08:00* Test Item Value Reference Range Interpretation [...] = BA#) 0.05 x10 3/uL 0.0-0.1 N [id number] 01:08:00* Test Item Value Reference Range Interpretation Comme nts LEAD (test code = LEAD) <1.0 ug/dL 0.0-3.4 Testing performe d by Inductively coupled plasma/MassSpectrometry.An alysis by inductively coupled plasma/massspectrometry (ICP/MS) Environmental Exposure: WHO Recommendation <5.0 Occupational Exposure: OSHA Lead Std 40.0 JONAH 30.0 Detection Limit = 1.0Performed At: [facility] [address] [id number] Pasquale Travis MD Ph:[phone]][id number] 12:27:00* Test Item Value Reference Range Interpretation Comme nts CKMB (test code = CKMBT) 0.68 ng/mL 0.5-5.0 A positive bias may occur for patients taking BIOTINsupplements. Spec Comments: CK TODAYCREATINE KINASE (CK)2023-12-20 09:59:00* Test Item Value Reference Range Interpretation Comme nts CREATINE KINASE (CK) (test c ode = CK) 3586 U/L 55-170 HH COMPREHENSIVE METABOLIC [id number] 06:00:00* Test Item Value Reference Range Interpretation [...] HEMINDEX) 22 Index/DL 0-100 N CBC W/AUTO [id number] 05:51:00* Test Item Value Reference Range Interpretation [...] 0.03 x10 3/uL 0.0-0.1 N CBC W/AUTO [id number] 13:41:00* Test Item Value Reference Range Interpretation Comme nts WHITE BLOOD CELL (test code = WBC) 4.8 x10 3/uL 5.0-12.0 L RED BLOOD CELL (test code = RBC) 4.30 x10 6/uL 4.70-6.10 L HEMOGLOBIN (test code = HGB) 12.1 g/dL 14.0-18.0 L CALLED RESULTS T O [id number] 12/19/23 AT 1152 BY [id number]. HEMATOCRIT (test code = HCT) 38.4 % [...] x10 3/uL 130-400 CALLED RESULTS T O [id number] 12/19/23 AT 1152 BY [id number]. MEAN PLATELET VOLUME (test code = MPV) [...] (test code = PLTMORPH) NORMAL NORMAL URINALYSIS [id number] 13:06:00* Test Item Value Reference Range Interpretation [...] code = WBCU) 0-3 /HPF See_Comment [Automated Electric [employer]sa ge] The system which generated this result transmitted reference range: <4-5. The reference range was not used to interpret this result as normal/abnormal. UA RBC (test code = RBCU) 0-3 /HPF See_Comment [Automated [employer] Objectsa ge] The system which generated this result transmitted reference range: <4-5. The reference range was not used to interpret this result as normal/abnormal. UA BACTERIA (test code = BACU) None /HPF None-Rare UA MUCUS (test code = MUCU) Rare /LPF See_Comment [Automated Electric Objectsa ge] The system which generated this result transmitted reference range: <Rare. The reference range was not used to interpret this result as normal/abnormal. CARDIAC ENZYMES [id number] 12:53:00* Test Item Value Reference Range Interpretation [...] FOR PATIENTS TAKING BIOTIN SUPPLEMENTS~~~~~~~~~~~~~~~~ ~~~~~~~~~~~~~~~~~~~~~~~~~~~ ~~~~~~~~~~~~~~~~ [id number] 12:50:00* Test Item Value Reference Range Interpretation Comme nts CKMB (test code = CKMBT) 1.31 ng/mL 0.5-5.0 A positive bias may occur for patients taking BIOTINsupplements. COMPREHENSIVE METABOLIC [id number] 12:16:00* Test Item Value Reference Range Interpretation [...] HEMINDEX) 53 Index/DL 0-100 N CARDIAC ENZYMES [id number] 12:16:00* Test Item Value Reference Range Interpretation [...] FOR PATIENTS TAKING BIOTIN SUPPLEMENTS~~~~~~~~~~~~~~~~ ~~~~~~~~~~~~~~~~~~~~~~~~~~~ ~~~~~~~~~~~~~~~~ [id number] 12:16:00* Test Item Value Reference Range Interpretation [...] Borderline Risk LDL Cholesterol<100mg/d L: Desirable LDL-C rxegxvitbboaj889-955u g/dL: Borderline High Risk LDL-C bkvbimqthrdgq503-465u g/dL: High risk LDL-C concentration HDL-LDL Cholesterol is affected by a number of factors suchas smoking, age and sex.~~~~~~~~~~~~~~~~~ ~~~~~~~~~~~~~~~~~~~~~ ~~~~~~~~~~~~~~~~~~~~~ ~ [id number] 08:37:00* Test Item Value Reference Range Interpretation Comme nts MAGNESIUM (test code = MAG) 2.1 mg/dL 1.6-2.3 N CARDIAC ENZYMES [id number] 08:37:00* Test Item Value Reference Range Interpretation [...] PATIENTS TAKING BIOTIN SUPPLEMENTS~~~~~~~~~~~~~~~~ ~~~~~~~~~~~~~~~~~~~~~~~~~~~ ~~~~~~~~~~~~~~~~ T4 [id number] 04:42:00* Test Item Value Reference Range Interpretation Comme nts T4 FREE (test code = T4F) 1.19 ng/dL 0.78-2.19 N - CTA CHEST FOR [id number] 02:50:00 [facility] 1990 Sex: M FAX: Klaudia Haq MD R3 [place]: St: REG Name: GIL HERCULES [facility] : 1990 Age/S: 33/M [address] Unit: [id number] Loc: [place] [address] Phys: Klaudia Haq MD R3 Acct: [id number] Dis Date: Status: REG ER PHONE #: [phone] Exam Date: 12/18/2023 235 FAX #: [phone] Reason: CHEST P AIN/SOB EXAMS: CPT CODE: [id number] [place] [address] LOCATION: H48 HISTORY: Male, 33 years of age with CHEST PAIN/SOB EXAM: CT ANGIOGRAPHY OF THE CHEST COMPARISON: Chest x-ray same day TECHNIQUE: Helical axial images were obtained from thoracic inlet to upper abdomen with nonionic IV contrast using the CT angiography protocol. Image post processing with 3-D volume rendering and/or MIPs andmultiplanar reconstruction performed at the advanced workstation. One or more of the following dosereduction techniques were used: Automated exposure control; adjustment of the mA and/or kV according to the patient size; and/or use of iterative reconstruction technique. STATEMENT: Exam quality is a cceptable. FINDINGS: AORTA: No aneurysm or dissection. PULMONARY [...] mass. BONES/SOFT TISSUES: No acute osseous abnormality. OTHER: Images through the upper abdomen show fatty infiltration of liver. IMPRESSION: 1. No obvious central or proximal subcentral pulmonary embolism. 2. No aortic aneurysm or dissection. 3. No acute infiltrate or effusion. PAGE 1 Signed Report (CONTINUED) FAX: Klaudia Haq MD [place]: St: REG Name: GIL HERCULES [facility] : 1990 Age/S: 33/M [address] Unit: [id number] Loc: [place] [address] Phys: Klaudia Haq MD R3 Acct: [id number] Dis Date: Status: REG ER PHONE #: [phone] Exam Date:12/18/2023 2354 FAX #: [phone] Reason: CHEST PAIN/SOB EXAMS: CPT CODE: [id number] CTA CHEST FORPE 65547 (Continued) at 0250 Reported and signed by: Leila Mead MD CC: Klaudia Haq MD Technologist: RANI SAUNDERS; VIRGIE PÉREZ Trnscrd Dt/Tm: 12/19/2023 (249) tWEROCLW Orig Print D/T: S: 12/19/2023 (252 PAGE 2 Signed ReportTSH REFLEX TO [id number] 02:49:00* Test Item Value Reference Range Interpretation Comme nts TSH REFLEX TO FT4 (test code = TSHREFLEX) 8.490 MIU/L 0.465-4.68 H A positive bias may occur for patients taking BIOTINsupplements. - CT ABD PELVIS W/[id number] 02:47:00 [facility] 1990 Sex: M FAX: Klaudia Haq MD R3 [place]: St: REG Name: GIL HERCULES [facility] : 1990 Age/S: 33/M [address] Unit: [id number] Loc: [place] [address] Phys: Klaudia Haq MD R3 Acct: [id number] Dis Date: Status: REG ER PHONE #: [phone] Exam Date: 12/18/2023 2350 FAX #: [phone] Reason: RLQ, RUQ ABDOMINAL PAIN EXAMS: CPT CODE: [id number] CT ABD PELVIS W/CONT 68864 LOCATION: H48 HISTORY: Male, 33 years of [...] GENITOURINARY: Right kidney contains a 1.5 cm dgqotayv01 Hounsfield units density exophytic mass in lower pole. No other discrete renal mass, hydronephros is, or renal stone. Ureters are unremarkable. Urinary bladder is unremarkable. The visualized reproductive organs are unremarkable. GASTROINTESTINAL: No bowel wall thickening, bowel obstruction or perienteric inflammation. The appendix is normal. VASCULAR: No aortic aneurysm or dissection. IVC is unremarkable. Portal vein is patent. LYMPHATICS: No enlarged lymph nodes by CT size criteria. PAGE 1 Signed Report (CONTINUED) FAX: Klaudia Haq MD R3 [place]: St: REG Name: GIL HERCULES [facility] [place] : 1990 Age/S: 33/M [address] Unit: [id number] Loc: [place] [address] Phys: Klaudia Haq MD R3 Acct: [id number] Dis Date: Status: REG ER PHONE #: [phone] Exam Date: 12/18/2023 2359 FAX #: [phone] Reason: RLQ, RUQ ABDOMINAL PAIN EXAMS: CPT CODE: [id number] CT ABD PELVIS W/CONT 68419 (Continued) BONES/SOFT TISSUES: No acute osseous findings. [...] Technologist: RANI SAUNDERS; VIRGIE PÉREZ Trnscrd Dt/Tm: 12/19/2023(0247) Mary Carmen.EDDIEW Orig Print D/T: S: 12/19/2023 (6810 PAGE 2 Signed Report- DUP VEIN [id number] 23:43:00 [facility] 1990 Sex: M FAX: Klaudia Haq MD R3 [place]: St: REG Name: GIL HERCULES [facility] : 1990 Age/S: 33/M [address] Unit #: [id number] Loc: [place] [address] Phys: Klaudia Haq MD R3 Acct: [id number] Dis Date: Status: REG ER PHONE #: [phone] Exam Date: 12/18/20232306 FAX #: [phone] Reason: BILATERAL CALF PAIN/SPASMS EXAMS: CPT CODE: [id number] [facility] VEIN NATHEN [address] EXAM: Ultrasound bilateral lower extremity venous Doppler [...] MD Technologist: JASON GOMEZ Trnscrd Date/Time/By: 12/18/2023 (3179) : By: [email or web address] PAGE 1 Signed Report FAX: Klaudia Haq MD R3 [place]: St: RE G Name: GIL HERCULES [facility] : 1990 Age/S: 33/M [address] Unit #: [id number] Loc: [place] [address] Phys: Klaudia Haq MD R3 Acct: [id number] Dis Date: Status: REG ER PHONE #: [phone] Exam Date: 12/18/2023 230 FAX #: [phone] Reason: BILATERAL CALF PAIN/SPASMS EXAMS: CPT CODE: [id number] DUP VEIN NATHEN [address]355 (Continued) Orig Print D/T: S: 12/18/2023 (4045) PAGE 2 Signed ReportBASIC METABOLIC [id number] 23:11:00* Test Item Value Reference Range Interpretation [...] HEMINDEX) 18 Index/DL 0-100 N LIVER FUNCTION [id number] 23:11:00* Test Item Value Reference Range Interpretation [...] ode = CK) 7023 U/L 55-170 HH [id number] 23:11:00* Test Item Value Reference Range Interpretation Comme nts MAGNESIUM (test code = MAG) 2.0 mg/dL 1.6-2.3 N [id number] 23:11:00* Test Item Value Reference Range Interpretation [...] SUPPLEMENTS~~~~~~~~~~~~~~~~ ~~~~~~~~~~~~~~~~~~~~~~~~~~~ ~~~~~~~~~~~~~~~~ - XR CHEST 1 [id number] 22:34:00 [facility] : 1990 Sex: M FAX: Pawan Mcintyre [place]: [address] St: REG Name: GIL HERCULES [facility] : 1990 Age/S: 33/M [address] [id number] Loc: [place] [address] Phys: Pawan Mcintyre Acct: [id number] Dis Date: Status: REG ER PHONE #: [phone] Exam Date: 12/18/20232144 FAX #: [phone] Reason: chest pain EXAMS: CPT CODE: [id number] XR CHEST 1 V 46204 EXAM: - XR CHEST 1 V COMPARISON: 02/11/2024 LOCATION: C3 HISTORY: chest pain FINDINGS: Single view of the chest. No indwelling lines ortubes. No pneumothorax. The lungs are clear without significant effusions. The mediastinal contoursare unremarkable/unchanged. No acute osseous findings are present. IMPRESSION: No acute cardiopulmonary abnormality. at 2234 Reported andsigned by: Андрей Hein MD CC: Pawan Mcintyre Technologist: Kluadia Schwartz Trnleydard Date/Time/By: 12/18/2023 (2233) : By: [email or web address] PAGE 1 Signed Report FAX: Pawan Mcintyre [place]: St: REG -- Name: GIL HERCULES [facility] : 1990 Age/S: 33/M [address] Unit #: [id number] Loc: [place] [address] Phys: Pawan Mcintyre Acct: [id number] Dis Date: Status: REG ERPHONE #: [phone] Exam Date: 12/18/20232144 FAX #: [phone] Reason: chest pain EXAMS: CPTCODE: [id number] XR CHEST 1 V 59099 (Continued) Orig Print D/T: S: 12/18/2023 (5521) PAGE 2 Signed ReportCBC W/AUTO [id number] 22:25:00* Test Item Value Reference Range Interpretation [...] 0.07 x10 3/uL 0.0-0.1 N COMPREHENSIVE METABOLIC [id number] 18:27:00* Test Item Value Reference Range Interpretation [...] Test Item Value Reference Range Interpretation Comme [facility] CREATINE KINASE (CK) (test c ode = CK) 259 UNITS/L 26-308 N Chemistry - BNP, HgbA1c, [id number] 22:22:00* Test Item Value Reference Range Interpretation Comme [facility] Chemistry - BNP, HgbA1c, PTH i (test code = BNP) 28.8 pg/mL 0-100 N Xcesqkufr8759-94-60 22:21:00* Test Item Value Reference Range Interpretation Comme [facility] Chemistry (test code = NA-T) 140 mmol/L [...] for Estimated GFR: Greater than 90 mL/min/1.73 l7Yxrtcgcl eGFR is based on the CKD-EPI 2020 [...] code = ALT) 37 U/L 8-55 N Zjjuekiiz1977-58-36 22:21:00* Test Item Value Reference Range Interpretation Comme [facility] Chemistry (test code = TROPI-R) 0.015 ng/mL < 0.028 Reference Range 0.00 - 0.028 ng/mL Negative 0.029 - 0.29 ng/mL Indeterminate Greater or Equal to 0.3 ng/mL Strongly suggests TN Qcdvcfnarr0433-40-64 22:09:00* Test Item Value Reference Range Interpretation [...] nts Sodium Level (test code = 2951-2) 140 mmol/L 136-145 [facility] or plasma potassium measurement (moles/volume)2022-08-13 21:55:00* Test Item Value Reference Range Interpretation Comme [facility] Potassium Level (test code = 2823-3) 3.7 mmol/L 3.5-5.1 [facility] Systemer[facility] or plasma chloride measurement (moles/volume)2022-08-13 21:55:00* Test Item Value Reference Range Interpretation Comme nts Chloride Level (test code = 2075-0) 106 mmol/L 98-107 [facility] Systemer[facility] or plasma carbon dioxide, total measurement (moles/volume)2022-08-13 21:55:00* Test Item Value Reference Range Interpretation Comme [facility] Carbon Dioxide Level (test c ode = 8-9) 26 mmol/L 22-29 [facility] Systemerum or plasma anion [id number] 21:55:00* Test Item Value Reference Range Interpretation Comme nts Anion Gap (test code = 26230-6) 12 mmol/L 10-20 [facility] Systemer[facility] or plasma urea nitrogen measurement (mass/volume)2022-08-13 21:55:00* Test Item Value Reference Range Interpretation Comme [facility] Blood Urea Nitrogen (test co de = 3094-0) 14 mg/dL 8.9-20.6 [facility]er[facility] or plasma creatinine measurement (mass/volume)2022-08-13 21:55:00* Test Item Value Reference Range Interpretation Comme nts Creatinine (test code = 2160-0) 0.84 mg/dL 0.7-1.3 [facility] WestGlomerular filtration rate/1.73 sq M.predicted [Volume Rate/Area] in Serum, Plasma [id number] 21:55:00* Test Item Value Reference Range Interpretation Comme nts Estimated GFR (CKD-EPI 2020) (test code = 68731-2) 120 [facility] WestGlucose [Mass/volume] in Serum or Plasma 2022-08-13 21:55:00* Test Item Value Reference Range Interpretation Comme [facility] Glucose Level (test code = 2345-7) 116 mg/dL 70-105 [facility] Systemerum or plasma calcium measurement (mass/volume)2022-08-13 21:55:00* Test Item Value Reference Range Interpretation Comme [facility] Calcium Level (test code = 51079-1) 9.0 mg/dL 7.8-10.44 [facility] Systemerum or plasma total bilirubin measurement (mass/volume)2022-08-13 21:55:00* Test Item Value Reference Range Interpretation Comme [facility] Total Bilirubin (test code = 1975-2) 0.4 mg/dL 0.2-1.2 [facility] Systemerum or plasma protein measurement (mass/volume)2022-08-13 21:55:00* Test Item Value Reference Range Interpretation Comme [facility] Serum Total Protein (test co de = 2885-2) 6.8 g/dL 6.0-8.3 [facility] Systemerum or plasma albumin measurement by bromocresol green (BCG) dye binding method ([id number] 21:55:00* Test Item Value Reference Range Interpretation Comme [facility] Albumin (test code = 61145-1) 4.2 g/dL 3.5-5.0 [facility] WestGlobulin [Mass/volume] in Serum by calculation 2022-08-13 21:55:00* Test Item Value Reference Range Interpretation Comme [facility] Globulin (test code = 06309-3) 2.6 g/dL 2.4-3.5 [facility] WestAlbumin/Globulin [Mass Ratio] in Serum or Cgvikp8661-45-18 21:55:00* Test Item Value Reference Range Interpretation Comme [facility] Albumin/Globulin Ratio (test code = 1759-0) 1.6 g/dL 1.2-2.2 [facility] WestAlkaline phosphatase [Enzymatic activity/volume] in Serum or [id number] 21:55:00* Test Item Value Reference Range Interpretation Comme nts Alkaline Phosphatase (test c ode = 6768-6) 52 U/L 40-110 [facility] Systemerum or plasma aspartate aminotransferase measurement (enzymatic activity/volume)2022-08-13 21:55:00* Test Item Value Reference Range Interpretation Comme nts Aspartate Amino Transf (AST/ SGOT) (test code = 1920-8) 24 U/L 5-34 [facility] Systemerum or plasma alanine aminotransferase measurement without P-5'-P (enzymatic putdqs3419-12-67 21:55:00* Test Item Value Reference Range Interpretation Comme nts Alanine Aminotransferase (AL T/SGPT) (test code = 1744-2) 37 U/L 8-55 [facility] WestLeukocytes [#/volume] in Blood by Automated sigux5022-15-42 21:55:00* Test Item Value Reference Range Interpretation Comme [facility] White Blood Count (test code = 6690-2) 6.4 10x3/uL 4.8-10.8 [facility] WestBlood erythrocytes automated count (number/volume)2022-08-13 21:55:00* Test Item Value Reference Range Interpretation Comme [facility] Red Blood Count (test code = 789-8) 4.78 mill/uL 4.70-6.10 [facility]Blood hemoglobin measurement (mass/volume) 2022-08-13 21:55:00* Test Item Value Reference Range Interpretation Comme nts Hemoglobin (test code = 718-7) 14.0 g/dL 14.0-18.0 [facility] WestAutomated erythrocyte mean corpuscular volume 2022-08-13 21:55:00* Test Item Value Reference Range Interpretation Comme nts Mean Corpuscular Volume (blanca t code = 787-2) 87.6 fl 78.0-98.0 [facility] WestAutomated erythrocyte mean corpuscular hemoglobin (mass per erythrocyte)2022-08-13 21:55:00* Test Item Value Reference Range Interpretation Comme nts Mean Corpuscular Hemoglobin (test code = 785-6) 29.2 pg 27.0-31.0 [facility] WestAutom[facility] erythrocyte mean corpuscular hemoglobin concentration measurement (mass/dch0324-67-96 21:55:00* Test Item Value Reference Range Interpretation Comme nts Mean Corpuscular Hemoglobin Concent (test code = 786-4) 33.3 g/dL 32.0-36.0 [facility]Automated erythrocyte distribution width ratio 2022-08-13 21:55:00* Test Item Value Reference Range Interpretation Comme [facility] Red Cell Distribution Width (test code = 788-0) 12.0 % 11.5-14.5 [facility]Automated blood platelet count (count/volume) 2022-08-13 21:55:00* Test Item Value Reference Range Interpretation Comme [facility] Platelet Count (test code = 777-3) 316 10x3/uL 130-400 [facility] WestAutom[facility] blood platelet mean vkulrv4279-61-54 21:55:00* Test Item Value Reference Range Interpretation Comme [facility] Mean Platelet Volume (test c ode = 66759-9) 6.4 fL 7.4-10.4 [facility] WestAutomated blood neutrophils/100 leukocytes 2022-08-13 21:55:00* Test Item Value Reference Range Interpretation Comme [facility] Neutrophils % (test code = 770-8) 72.8 % 42.0-75.0 [facility] WestLymphocytes/100 leukocytes in Blood by Automated arwkm0484-18-79 21:55:00* Test Item Value Reference Range Interpretation Comme nts Lymphocytes % (test code = 736-9) 16.6 % 21.0-51.0 [facility]Automated blood monocytes/100 leukocytes 2022-08-13 21:55:00* Test Item Value Reference Range Interpretation Comme nts Monocytes % (test code = 5905-5) 8.4 % 0.0-10.0 [facility]Autom[facility] blood eosinophils/100 leukocytes 2022-08-13 21:55:00* Test Item Value Reference Range Interpretation Comme nts Eosinophils % (test code = 713-8) 0.8 % 0.0-10.0 [facility]Autom[facility] blood basophils/100 leukocytes 2022-08-13 21:55:00* Test Item Value Reference Range Interpretation Comme [facility] Basophils % (test code = 706-2) 1.5 % 0.0-1.0 [facility]Blood neutrophils automated count (number/volume)2022-08-13 21:55:00* Test Item Value Reference Range Interpretation Comme [facility] Neutrophils # (test code = 751-8) 4.6 thou/uL 1.40-6.50 [facility] WestLymphocytes [#/volume] in Blood by Automated yffrr9996-59-95 21:55:00* Test Item Value Reference Range Interpretation Comme [facility] Lymphocytes # (test code = 731-0) 1.1 thou/uL 1.20-3.40 [facility] monocytes automated count (number/volume) 2022-08-13 21:55:00* Test Item Value Reference Range Interpretation Comme [facility] Monocytes # (test code = 742-7) 0.5 thou/uL 0.11-0.59 [facility] WestBlood eosinophils automated count (count/volume)2022-08-13 21:55:00* Test Item Value Reference Range Interpretation Comme [facility] Eosinophils # (test code = 711-2) 0.0 thou/uL 0.0-0.7 [facility]Autom[facility] blood basophil count (count/volume) 2022-08-13 21:55:00* Test Item Value Reference Range Interpretation Comme [facility] Basophils # (test code = 704-7) 0.1 thou/uL 0.0-0.2 [facility] WestChemistry2022-09-12 02:47:00* Test Item Value Reference Range Interpretation Comme nts Chemistry (test code = TROPI-R) Less than 0.010 ng/mL < 0.028 * Reference Range 0.00 - 0.028 ng/mL Negative 0.029 - 0.29 ng/mL Indeterminate Greater or Equal to 0.3 ng/mL Strongly suggests [place] Tovcruayn1324-98-89 02:46:00* Test Item Value Reference Range Interpretation [...] for Estimated GFR: Greater than 90 mL/min/1.73 d3Bmpychor eGFR is based on the CKD-EPI 2020 [...] code = ALT) 50 U/L 8-55 N Fgdhdrquizp6240-60-91 02:43:00* Test Item Value Reference Range Interpretation Comme nts Coagulation (test code = DDIMTT) Less than 0.27 *mcg/mL 0.27-0.43 L * Reference Range Units: mcg/mL of fibrinogen equivalent units(FEU)Based upon a retrospective study of [facility] patients in January 2006, a result of"Less than 0.44 mcg/mL FEU" is predictive of the absence ofa DVT or PE. Asxblnyqmj7965-58-54 02:38:00* Test Item Value Reference Range Interpretation [...] Comme nts Creatinine (test code = 2160-0) 0.83 mg/dL 0.7-1.3 [facility] WestGlomerular filtration rate/1.73 sq M.predicted [Volume Rate/Area] in Serum, Plasma [id number] 02:15:00* Test Item Value Reference Range Interpretation Comme nts Estimated GFR (CKD-EPI 2020) (test code = 30681-1) 121 [facility] WestGlucose [Mass/volume] in Serum or Plasma 2022-05-25 02:15:00* Test Item Value Reference Range Interpretation Comme [facility] Glucose Level (test code = 2345-7) 91 mg/dL 70-105 [facility] Systemerum or plasma calcium measurement (mass/volume)2022-05-25 02:15:00* Test Item Value Reference Range Interpretation Comme [facility] Calcium Level (test code = 99655-3) 8.9 mg/dL 7.8-10.44 [facility] Systemerum or plasma total bilirubin measurement (mass/volume)2022-05-25 02:15:00* Test Item Value Reference Range Interpretation Comme [facility] Total Bilirubin (test code = 1975-2) 1.2 mg/dL 0.2-1.2 [facility] Systemerum or plasma protein measurement (mass/volume)2022-05-25 02:15:00* Test Item Value Reference Range Interpretation Comme [facility] Serum Total Protein (test co de = 2885-2) 7.2 g/dL 6.0-8.3 [facility] Systemerum or plasma albumin measurement by bromocresol green (BCG) dye binding method ([id number] 02:15:00* Test Item Value Reference Range Interpretation Comme [facility] Albumin (test code = 07195-8) 4.3 g/dL 3.5-5.0 [facility] WestGlobulin [Mass/volume] in Serum by calculation 2022-05-25 02:15:00* Test Item Value Reference Range Interpretation Comme nts Globulin (test code = 81870-9) 2.9 g/dL 2.4-3.5 [facility] WestAlbumin/Globulin [Mass Ratio] in Serum or Zqutwx0583-21-34 02:15:00* Test Item Value Reference Range Interpretation Comme nts Albumin/Globulin Ratio (test code = 1759-0) 1.5 g/dL 1.2-2.2 [facility] WestAlkaline phosphatase [Enzymatic activity/volume] in Serum or Dkycem5288-58-59 02:15:00* Test Item Value Reference Range Interpretation Comme nts Alkaline Phosphatase (test c ode = 6768-6) 53 U/L 40-110 [facility] Systemerum or plasma aspartate aminotransferase measurement (enzymatic activity/volume)2022-05-25 02:15:00* Test Item Value Reference Range Interpretation Comme nts Aspartate Amino Transf (AST/ SGOT) (test code = 1920-8) 28 U/L 5-34 [facility] Systemerum or plasma alanine aminotransferase measurement without P-5'-P (enzymatic mnrefc5130-87-29 02:15:00* Test Item Value Reference Range Interpretation Comme nts Alanine Aminotransferase (AL T/SGPT) (test code = 1744-2) 50 U/L 8-55 [facility] WestLeukocytes [#/volume] in Blood by Automated ommwv4269-47-83 02:15:00* Test Item Value Reference Range Interpretation Comme [facility] White Blood Count (test code = 6690-2) 6.9 thou/uL 4.8-10.8 [facility] WestBlood erythrocytes automated count (number/volume)2022-05-25 02:15:00* Test Item Value Reference Range Interpretation Comme nts Red Blood Count (test code = 789-8) 4.79 mill/uL 4.70-6.10 [facility] WestBlood hemoglobin measurement (mass/volume) 2022-05-25 02:15:00* Test Item Value Reference Range Interpretation Comme nts Hemoglobin (test code = 718-7) 14.1 g/dL 14.0-18.0 [facility]Automated erythrocyte mean corpuscular volume 2022-05-25 02:15:00* Test Item Value Reference Range Interpretation Comme nts Mean Corpuscular Volume (blanca t code = 787-2) 85.8 fL 78.0-98.0 [facility] WestAutom[facility] erythrocyte mean corpuscular hemoglobin (mass per erythrocyte)2022-05-25 02:15:00* Test Item Value Reference Range Interpretation Comme [facility] Mean Corpuscular Hemoglobin (test code = 785-6) 29.4 pg 27.0-31.0 [facility]Autom[facility] erythrocyte mean corpuscular hemoglobin concentration measurement (mass/zki4545-09-86 02:15:00* Test Item Value Reference Range Interpretation Comme [facility] Mean Corpuscular Hemoglobin Concent (test code = 786-4) 34.2 g/dL 32.0-36.0 [facility]Autom[facility] erythrocyte distribution width ratio 2022-05-25 02:15:00* Test Item Value Reference Range Interpretation Comme [facility] Red Cell Distribution Width (test code = 788-0) 12.4 % 11.5-14.5 [facility]Autom[facility] blood platelet count (count/volume) 2022-05-25 02:15:00* Test Item Value Reference Range Interpretation Comme [facility] Platelet Count (test code = 777-3) 267 thou/uL 130-400 [facility]Autom[facility] blood platelet mean bsyhja7851-97-30 02:15:00* Test Item Value Reference Range Interpretation Comme [facility] Mean Platelet Volume (test c ode = 56656-6) 6.0 fL 7.4-10.4 [facility]Autom[facility] blood neutrophils/100 leukocytes 2022-05-25 02:15:00* Test Item Value Reference Range Interpretation Comme [facility] Neutrophils % (test code = 770-8) 54.6 % 42.0-75.0 [facility] WestLymphocytes/100 leukocytes in Blood by Automated amfqo8733-06-80 02:15:00* Test Item Value Reference Range Interpretation Comme nts Lymphocytes % (test code = 736-9) 33.4 % 21.0-51.0 [facility]Autom[facility] blood monocytes/100 leukocytes 2022-05-25 02:15:00* Test Item Value Reference Range Interpretation Comme nts Monocytes % (test code = 5905-5) 9.2 % 0.0-10.0 [facility]Autom[facility] blood eosinophils/100 leukocytes 2022-05-25 02:15:00* Test Item Value Reference Range Interpretation Comme [facility] Eosinophils % (test code = 713-8) 1.7 % 0.0-10.0 [facility]Autom[facility] blood basophils/100 leukocytes 2022-05-25 02:15:00* Test Item Value Reference Range Interpretation Comme [facility] Basophils % (test code = 706-2) 1.1 % 0.0-1.0 [facility]Blood neutrophils automated count (number/volume)2022-05-25 02:15:00* Test Item Value Reference Range Interpretation Comme [facility] Neutrophils # (test code = 751-8) 3.8 thou/uL 1.40-6.50 [facility] WestLymphocytes [#/volume] in Blood by Automated yyfjf9812-96-51 02:15:00* Test Item Value Reference Range Interpretation Comme [facility] Lymphocytes # (test code = 731-0) 2.3 thou/uL 1.20-3.40 [facility]Blood monocytes automated count (number/volume) 2022-05-25 02:15:00* Test Item Value Reference Range Interpretation Comme [facility] Monocytes # (test code = 742-7) 0.6 thou/uL 0.11-0.59 [facility] eosin[facility] automated count (count/volume)2022-05-25 02:15:00* Test Item Value Reference Range Interpretation Comme [facility] Eosinophils # (test code = 711-2) 0.1 thou/uL 0.0-0.7 [facility]Autom[facility] blood basophil count (count/volume) 2022-05-25 02:15:00* Test Item Value Reference Range Interpretation Comme [facility] Basophils # (test code = 704-7) 0.1 thou/uL 0.0-0.2 [facility] WestFibr[facility] D-dimer FEU measurement in platelet poor plasma (mass/volume)2022-05-25 02:15:00* Test Item Value Reference Range Interpretation Comme [facility] D-Dimer (test code = 38572-0) Less than 0.27 *mcg/mL 0.27-0.43 [facility] sodium measurement (moles/volume)2022-05-25 02:15:00* Test Item Value Reference Range Interpretation Comme [facility] Sodium Level (test code = 2951-2) 140 mmol/L 136-145 [facility] plasma potassium measurement (moles/volume)2022-05-25 02:15:00* Test Item Value Reference Range Interpretation Comme [facility] Potassium Level (test code = 2823-3) 3.8 mmol/L 3.5-5.1 [facility] or plasma chloride measurement (moles/volume)2022-05-25 02:15:00* Test Item Value Reference Range Interpretation Comme [facility] Chloride Level (test code = 2075-0) 107 mmol/L 98-107 [facility] or plasma carbon dioxide, total measurement (moles/volume)2022-05-25 02:15:00* Test Item Value Reference Range Interpretation Comme [facility] Carbon Dioxide Level (test c ode = 2027-9) 22 mmol/L 22-29 [facility]er[facility] or plasma anion [id number] 02:15:00* Test Item Value Reference Range Interpretation Comme [facility] Anion Gap (test code = 01106-9) 15 mmol/L 10-20 [facility] plasma urea nitrogen measurement (mass/volume)2022-05-25 02:15:00* Test Item Value Reference Range Interpretation Comme [facility] Blood Urea Nitrogen (test co de = 3094-0) 14 mg/dL 8.9-20.6 [facility]Chemistry - BNP, HgbA1c, [id number] 17:35:00* Test Item Value Reference Range Interpretation Comme [facility] Chemistry - BNP, HgbA1c, PTH i (test code = BNP) 34.2 pg/mL 0-100 N Wszqotric4962-07-50 17:34:00* Test Item Value Reference Range Interpretation Comme [facility] Chemistry (test code = TROPI-R) 0.013 ng/mL < 0.028 Reference Range 0.00 - 0.028 ng/mL Negative 0.029 - 0.29 ng/mL Indeterminate Greater or Equal to 0.3 ng/mL Strongly suggests [place] Fanzzhnvp3763-53-90 17:32:00* Test Item Value Reference Range Interpretation Comme nts Chemistry (test code = NA-T) 139 mmol/L [...] for Estimated GFR: Greater than 90 mL/min/1.73 n2Bntbupau eGFR is based on the CKD-EPI 2020 [...] code = ALT) 54 U/L 8-55 N Iurxoeqfw0299-45-30 17:32:00* Test Item Value Reference Range Interpretation Comme nts Chemistry (test code = CK) 342 U/L 30-200 H Ludvzpwwzu1449-72-86 17:21:00* Test Item Value Reference Range Interpretation [...] sq M.predicted [Volume Rate/Area] in Serum, Plasma [id number] 17:05:00* Test Item Value Reference Range Interpretation Comme nts Estimated GFR (CKD-EPI 2020) (test code = 51406-3) 116 [facility]Glucose [Mass/volume] in Serum or Plasma 2022-05-24 17:05:00* Test Item Value Reference Range Interpretation Comme nts Glucose Level (test code = 2345-7) 113 mg/dL 70-105 [facility] or plasma calcium measurement (mass/volume)2022-05-24 17:05:00* Test Item Value Reference Range Interpretation Comme [facility] Calcium Level (test code = 87829-3) 9.2 mg/dL 7.8-10.44 [facility] or plasma total bilirubin measurement (mass/volume)2022-05-24 17:05:00* Test Item Value Reference Range Interpretation Comme [facility] Total Bilirubin (test code = 1975-2) 1.3 mg/dL 0.2-1.2 [facility] or plasma protein measurement (mass/volume)2022-05-24 17:05:00* Test Item Value Reference Range Interpretation Comme [facility] Serum Total Protein (test co de = 2885-2) 7.6 g/dL 6.0-8.3 [facility] or plasma albumin measurement by bromocresol green (BCG) dye binding method ([id number] 17:05:00* Test Item Value Reference Range Interpretation Comme [facility] Albumin (test code = 37273-7) 4.5 g/dL 3.5-5.0 [facility] WestGlobulin [Mass/volume] in Serum by calculation 2022-05-24 17:05:00* Test Item Value Reference Range Interpretation Comme nts Globulin (test code = 09563-9) 3.1 g/dL 2.4-3.5 [facility] WestAlbumin/Globulin [Mass Ratio] in Serum or Dpprfa9289-37-89 17:05:00* Test Item Value Reference Range Interpretation Comme [facility] Albumin/Globulin Ratio (test code = 1759-0) 1.5 g/dL 1.2-2.2 [facility] WestAlkaline phosphatase [Enzymatic activity/volume] in Serum or Zorfca0866-94-13 17:05:00* Test Item Value Reference Range Interpretation Comme nts Alkaline Phosphatase (test c ode = 6768-6) 57 U/L 40-110 [facility] Systemer[facility] or plasma aspartate aminotransferase measurement (enzymatic activity/volume)2022-05-24 17:05:00* Test Item Value Reference Range Interpretation Comme nts Aspartate Amino Transf (AST/ SGOT) (test code = 1920-8) 28 U/L 5-34 [facility] WestCreatine kinase [Enzymatic activity/volume] in Serum or Byjgad6017-97-59 17:05:00* Test Item Value Reference Range Interpretation Comme nts Creatine Kinase (test code = 2157-6) 342 U/L 30-200 [facility] or plasma alanine aminotransferase measurement without P-5'-P (enzymatic saoldj9149-87-45 17:05:00* Test Item Value Reference Range Interpretation Comme [facility] Alanine Aminotransferase (AL T/SGPT) (test code = 1744-2) 54 U/L 8-55 [facility] WestLeukocytes [#/volume] in Blood by Automated [id number] 17:05:00* Test Item Value Reference Range Interpretation Comme [facility] White Blood Count (test code = 6690-2) 7.4 thou/uL 4.8-10.8 [facility]Blood erythrocytes automated count (number/volume)2022-05-24 17:05:00* Test Item Value Reference Range Interpretation Comme [facility] Red Blood Count (test code = 789-8) 4.88 mill/uL 4.70-6.10 [facility]Blood hemoglobin measurement (mass/volume) 2022-05-24 17:05:00* Test Item Value Reference Range Interpretation Comme [facility] Hemoglobin (test code = 718-7) 14.1 g/dL 14.0-18.0 [facility] WestAutomated erythrocyte mean corpuscular volume 2022-05-24 17:05:00* Test Item Value Reference Range Interpretation Comme [facility] Mean Corpuscular Volume (blanca t code = 787-2) 88.7 fL 78.0-98.0 [facility] WestAutomated erythrocyte mean corpuscular hemoglobin (mass per erythrocyte)2022-05-24 17:05:00* Test Item Value Reference Range Interpretation Comme [facility] Mean Corpuscular Hemoglobin (test code = 785-6) 29.0 pg 27.0-31.0 [facility] WestAutom[facility] erythrocyte mean corpuscular hemoglobin concentration measurement (mass/xlz7370-64-20 17:05:00* Test Item Value Reference Range Interpretation Comme [facility] Mean Corpuscular Hemoglobin Concent (test code = 786-4) 32.6 g/dL 32.0-36.0 [facility]Autom[facility] erythrocyte distribution width ratio 2022-05-24 17:05:00* Test Item Value Reference Range Interpretation Comme [facility] Red Cell Distribution Width (test code = 788-0) 12.3 % 11.5-14.5 [facility]Autom[facility] blood platelet count (count/volume) 2022-05-24 17:05:00* Test Item Value Reference Range Interpretation Comme [facility] Platelet Count (test code = 777-3) 308 thou/uL 130-400 [facility]Autom[facility] blood platelet mean eotbpx1538-95-29 17:05:00* Test Item Value Reference Range Interpretation Comme [facility] Mean Platelet Volume (test c ode = 38628-3) 6.4 fL 7.4-10.4 [facility]Autom[facility] blood neutrophils/100 leukocytes 2022-05-24 17:05:00* Test Item Value Reference Range Interpretation Comme [facility] Neutrophils % (test code = 770-8) 67.5 % 42.0-75.0 [facility] WestLymphocytes/100 leukocytes in Blood by Automated cnwlt5911-21-01 17:05:00* Test Item Value Reference Range Interpretation Comme [facility] Lymphocytes % (test code = 736-9) 22.0 % 21.0-51.0 [facility]Autom[facility] blood monocytes/100 leukocytes 2022-05-24 17:05:00* Test Item Value Reference Range Interpretation Comme [facility] Monocytes % (test code = 5905-5) 8.7 % 0.0-10.0 [facility]Autom[facility] blood eosinophils/100 leukocytes 2022-05-24 17:05:00* Test Item Value Reference Range Interpretation Comme nts Eosinophils % (test code = 713-8) 0.5 % 0.0-10.0 [facility]Autom[facility] blood basophils/100 leukocytes 2022-05-24 17:05:00* Test Item Value Reference Range Interpretation Comme nts Basophils % (test code = 706-2) 1.2 % 0.0-1.0 [facility]Blood neutrophils automated count (number/volume)2022-05-24 17:05:00* Test Item Value Reference Range Interpretation Comme [facility] Neutrophils # (test code = 751-8) 5.0 thou/uL 1.40-6.50 [facility] WestLymphocytes [#/volume] in Blood by Automated ksxvj7688-62-92 17:05:00* Test Item Value Reference Range Interpretation Comme [facility] Lymphocytes # (test code = 731-0) 1.6 thou/uL 1.20-3.40 [facility]Blood monocytes automated count (number/volume) 2022-05-24 17:05:00* Test Item Value Reference Range Interpretation Comme [facility] Monocytes # (test code = 742-7) 0.6 thou/uL 0.11-0.59 [facility] WestBlood eosinophils automated count (count/volume)2022-05-24 17:05:00* Test Item Value Reference Range Interpretation Comme [facility] Eosinophils # (test code = 711-2) 0.0 thou/uL 0.0-0.7 [facility]Autom[facility] blood basophil count (count/volume) 2022-05-24 17:05:00* Test Item Value Reference Range Interpretation Comme [facility] Basophils # (test code = 704-7) 0.1 thou/uL 0.0-0.2 [facility]er[facility] or plasma sodium measurement (moles/volume)2022-05-24 17:05:00* Test Item Value Reference Range Interpretation Comme [facility] Sodium Level (test code = 2951-2) 139 mmol/L 136-145 [facility]er[facility] or plasma potassium measurement (moles/volume)2022-05-24 17:05:00* Test Item Value Reference Range Interpretation Comme nts Potassium Level (test code = 2823-3) 3.5 mmol/L 3.5-5.1 [facility]er[facility] or plasma chloride measurement (moles/volume)2022-05-24 17:05:00* Test Item Value Reference Range Interpretation Comme nts Chloride Level (test code = 2075-0) 106 mmol/L 98-107 [facility]er[facility] or plasma carbon dioxide, total measurement (moles/volume)2022-05-24 17:05:00* Test Item Value Reference Range Interpretation Comme [facility] Carbon Dioxide Level (test c ode = 2027-) 22 mmol/L 22-29 [facility] Systemer[facility] or plasma anion [id number] 17:05:00* Test Item Value Reference Range Interpretation Comme [facility] Anion Gap (test code = 15486-5) 15 mmol/L 10-20 [facility] Systemer[facility] or plasma urea nitrogen measurement (mass/volume)2022-05-24 17:05:00* Test Item Value Reference Range Interpretation Comme [facility] Blood Urea Nitrogen (test co de = 3094-0) 12 mg/dL 8.9-20.6 [facility]er[facility] or plasma creatinine measurement (mass/volume)2022-05-24 17:05:00* Test Item Value Reference Range Interpretation Comme [facility] Creatinine (test code = 2160-0) 0.91 mg/dL 0.7-1.3 [facility] WestGlomerular filtration rate/1.73 sq M.predicted [Volume Rate/Area] in Serum, Plasma [id number] 17:05:00* Test Item Value Reference Range Interpretation Comme [facility] Estimated GFR (CKD-EPI 2020) (test code = 77878-4) 116 [facility] WestGlucose [Mass/volume] in Serum or Plasma 2022-05-24 17:05:00* Test Item Value Reference Range Interpretation Comme [facility] Glucose Level (test code = 2345-7) 113 mg/dL 70-105 [facility]er[facility] or plasma calcium measurement (mass/volume)2022-05-24 17:05:00* Test Item Value Reference Range Interpretation Comme nts Calcium Level (test code = 76297-4) 9.2 mg/dL 7.8-10.44 [facility] Systemer[facility] or plasma total bilirubin measurement (mass/volume)2022-05-24 17:05:00* Test Item Value Reference Range Interpretation Comme nts Total Bilirubin (test code = 1975-2) 1.3 mg/dL 0.2-1.2 [facility] Systemer[facility] or plasma protein measurement (mass/volume)2022-05-24 17:05:00* Test Item Value Reference Range Interpretation Comme [facility] Serum Total Protein (test co de = 2885-2) 7.6 g/dL 6.0-8.3 [facility] Systemer[facility] or plasma albumin measurement by bromocresol green (BCG) dye binding method ([id number] 17:05:00* Test Item Value Reference Range Interpretation Comme [facility] Albumin (test code = 40726-0) 4.5 g/dL 3.5-5.0 [facility] WestGlobulin [Mass/volume] in Serum by calculation 2022-05-24 17:05:00* Test Item Value Reference Range Interpretation Comme [facility] Globulin (test code = 72802-8) 3.1 g/dL 2.4-3.5 [facility] WestAlbumin/Globulin [Mass Ratio] in Serum or Xfiwaz1903-13-06 17:05:00* Test Item Value Reference Range Interpretation Comme [facility] Albumin/Globulin Ratio (test code = 1759-0) 1.5 g/dL 1.2-2.2 [facility] WestAlkaline phosphatase [Enzymatic activity/volume] in Serum or Qbogoj3771-53-01 17:05:00* Test Item Value Reference Range Interpretation Comme [facility] Alkaline Phosphatase (test c ode = 6768-6) 57 U/L 40-110 [facility]er[facility] or plasma aspartate aminotransferase measurement (enzymatic activity/volume)2022-05-24 17:05:00* Test Item Value Reference Range Interpretation Comme [facility] Aspartate Amino Transf (AST/ SGOT) (test code = 1920-8) 28 U/L 5-34 [facility] WestCreatine kinase [Enzymatic activity/volume] in Serum or Mhxtne7406-83-12 17:05:00* Test Item Value Reference Range Interpretation Comme [facility] Creatine Kinase (test code = 2157-6) 342 U/L 30-200 [facility] Systemer[facility] or plasma alanine aminotransferase measurement without P-5'-P (enzymatic asitop9902-79-77 17:05:00* Test Item Value Reference Range Interpretation Comme nts Alanine Aminotransferase (AL T/SGPT) (test code = 1744-2) 54 U/L 8-55 [facility] WestLeukocytes [#/volume] in Blood by Automated jwobe7585-21-62 17:05:00* Test Item Value Reference Range Interpretation Comme [facility] White Blood Count (test code = 6690-2) 7.4 thou/uL 4.8-10.8 [facility]Blood erythrocytes automated count (number/volume)2022-05-24 17:05:00* Test Item Value Reference Range Interpretation Comme [facility] Red Blood Count (test code = 789-8) 4.88 mill/uL 4.70-6.10 [facility]Blood hemoglobin measurement (mass/volume) 2022-05-24 17:05:00* Test Item Value Reference Range Interpretation Comme [facility] Hemoglobin (test code = 718-7) 14.1 g/dL 14.0-18.0 [facility]Autom[facility] erythrocyte mean corpuscular volume 2022-05-24 17:05:00* Test Item Value Reference Range Interpretation Comme [facility] Mean Corpuscular Volume (blanca t code = 787-2) 88.7 fL 78.0-98.0 [facility]Autom[facility] erythrocyte mean corpuscular hemoglobin (mass per erythrocyte)2022-05-24 17:05:00* Test Item Value Reference Range Interpretation Comme [facility] Mean Corpuscular Hemoglobin (test code = 785-6) 29.0 pg 27.0-31.0 [facility]Autom[facility] erythrocyte mean corpuscular hemoglobin concentration measurement (mass/pzn6288-20-59 17:05:00* Test Item Value Reference Range Interpretation Comme [facility] Mean Corpuscular Hemoglobin Concent (test code = 786-4) 32.6 g/dL 32.0-36.0 [facility]Autom[facility] erythrocyte distribution width ratio 2022-05-24 17:05:00* Test Item Value Reference Range Interpretation Comme [facility] Red Cell Distribution Width (test code = 788-0) 12.3 % 11.5-14.5 [facility]Autom[facility] blood platelet count (count/volume) 2022-05-24 17:05:00* Test Item Value Reference Range Interpretation Comme nts Platelet Count (test code = 777-3) 308 thou/uL 130-400 [facility]Autom[facility] blood platelet mean erxwrx5039-98-29 17:05:00* Test Item Value Reference Range Interpretation Comme [facility] Mean Platelet Volume (test c ode = 39006-4) 6.4 fL 7.4-10.4 [facility]Autom[facility] blood neutrophils/100 leukocytes 2022-05-24 17:05:00* Test Item Value Reference Range Interpretation Comme [facility] Neutrophils % (test code = 770-8) 67.5 % 42.0-75.0 [facility] WestLymphocytes/100 leukocytes in Blood by Automated cdeuz5467-75-46 17:05:00* Test Item Value Reference Range Interpretation Comme [facility] Lymphocytes % (test code = 736-9) 22.0 % 21.0-51.0 [facility]Autom[facility] blood monocytes/100 leukocytes 2022-05-24 17:05:00* Test Item Value Reference Range Interpretation Comme [facility] Monocytes % (test code = 5905-5) 8.7 % 0.0-10.0 [facility]Autom[facility] blood eosinophils/100 leukocytes 2022-05-24 17:05:00* Test Item Value Reference Range Interpretation Comme [facility] Eosinophils % (test code = 713-8) 0.5 % 0.0-10.0 [facility]Autom[facility] blood basophils/100 leukocytes 2022-05-24 17:05:00* Test Item Value Reference Range Interpretation Comme nts Basophils % (test code = 706-2) 1.2 % 0.0-1.0 [facility] neutrophils automated count (number/volume)2022-05-24 17:05:00* Test Item Value Reference Range Interpretation Comme nts Neutrophils # (test code = 751-8) 5.0 thou/uL 1.40-6.50 [facility] WestLymphocytes [#/volume] in Blood by Automated pqgah9474-49-01 17:05:00* Test Item Value Reference Range Interpretation Comme nts Lymphocytes # (test code = 731-0) 1.6 thou/uL 1.20-3.40 [facility] monocytes automated count (number/volume) 2022-05-24 17:05:00* Test Item Value Reference Range Interpretation Comme nts Monocytes # (test code = 742-7) 0.6 thou/uL 0.11-0.59 [facility] eosinophils automated count (count/volume)2022-05-24 17:05:00* Test Item Value Reference Range Interpretation Comme nts Eosinophils # (test code = 711-2) 0.0 thou/uL 0.0-0.7 [facility]Autom[facility] blood basophil count (count/volume) 2022-05-24 17:05:00* Test Item Value Reference Range Interpretation Comme nts Basophils # (test code = 704-7) 0.1 thou/uL 0.0-0.2 [facility] plasma sodium measurement (moles/volume)2022-05-24 17:05:00* Test Item Value Reference Range Interpretation Comme nts Sodium Level (test code = 2951-2) 139 mmol/L 136-145 [facility] plasma potassium measurement (moles/volume)2022-05-24 17:05:00* Test Item Value Reference Range Interpretation Comme nts Potassium Level (test code = 2823-3) 3.5 mmol/L 3.5-5.1 [facility] plasma chloride measurement (moles/volume)2022-05-24 17:05:00* Test Item Value Reference Range Interpretation Comme nts Chloride Level (test code = 2075-0) 106 mmol/L 98-107 [facility] or plasma carbon dioxide, total measurement (moles/volume)2022-05-24 17:05:00* Test Item Value Reference Range Interpretation Comme [facility] Carbon Dioxide Level (test c ode = 2028-05) 22 mmol/L 22-29 [facility]er[facility] or plasma anion [id number] 17:05:00* Test Item Value Reference Range Interpretation Comme [facility] Anion Gap (test code = 74690-1) 15 mmol/L 10-20 [facility] plasma urea nitrogen measurement (mass/volume)2022-05-24 17:05:00* Test Item Value Reference Range Interpretation Comme [facility] Blood Urea Nitrogen (test co de = 3094-0) 12 mg/dL 8.9-20.6 [facility] plasma creatinine measurement (mass/volume)2022-05-24 17:05:00* Test Item Value Reference Range Interpretation Comme [facility] Creatinine (test code = 2160-0) 0.91 mg/dL 0.7-1.3 [facility] Portable [facility] 1990 [facility]: GIL HERCULES [address] Phys: Jass Rollins, PATRICK [address] : 1990 Age: 31 SEX:M [phone] Exam Date: 08/13/22 Status: REG ER Acct: [id number] Loc: [facility] Pt Unit #: [id number] Report #: [id number] CC: Jass Rollins DO IMAGING SERVICES REPORT Report Status: Signed Order # Category/Exam [id number] RAD/XR Chest 1View Portable ([id number]): . Results Portable chest at 2218 (08/13/2022) HISTORY: Palpitations COMPARISON: 05/24/2022 FINDINGS: The heart remains normal in size and the lungs are clear. No acute infiltrate or effusionwas seen. There is no vascular congestion or edema. IMPRESSION: Stable exam showingno acute findings Reported By: RANCHO BRYAN MD Electronically Signed Date/Time: 08/13/222216 Technologist: Dictated Date/Time: 08/13/222215 Transcribed Date/Time:XR Chest 1 View Portable [facility] : 1990 [facility] Name: GIL HERCULES [address] Phys: [place] [address] : 1990 Age: 31 SEX:M [phone] Exam Date: 05/24/22 Status: REG ER Acct: [id number] Loc: [facility] Pt Unit #: [id number] Report #: [id number] CC: Bhupinder Moreau IMAGING SERVICES REPORT Order # Category/Exam [id number] RAD/XR Chest 1 View Portable ([id number]): . Results EXAM: Single view of the chest HISTORY: Dyspnea COMPARISON: None FINDINGS: Single view of the chest shows a normal sized cardiomediastinal silhouette. There is no evidence of consolidation, mass, or pleural effusion. No acute osseous abnormality. IMPRESSION: No acute cardiopulmonary disease Reported By: Panfilo Toscano DO Electronically Signed Date/Time: 05/24/221724 Technologist: [facility] Dictated Date/Time: 05/24/221724 Transcribed Date/Time: Notes Date/Time Note Provider Source 2024-06-12 13:45:00 Images from the original note were not included. Venipuncture collection performed by clean technique on the left anticubitus. Total of 1 attempts were made. Slight pressure and a bandage/dressing were applied to the site(s). The patient experienced no complications. The following specimens were processed according to instructions and sent to [facility] laboratories per lab order on 06/12/2024 : LT BLUE SST 1 RED LAV 1 PPT DK GREEN (LiHep) DK GREEN (SodH) SUH DK BLUE (K2) DK BLUE (S) ACD Blood Culture NIPT/NTD Patient has been identified by and name and was provided with cup, antiseptic towelette, and clean catch instructions. 1 urine specimen(s) sent. Unpreserved 1 Urine Culture Aptima tube Other urine [facility] 2024-05-30 11:23:53 Patient signed Release forms to receive Fitz Rivera on 05/26/2024. Uploaded it to [employer] Nathanael Thurston [facility] 2024-05-14 17:43:17 Spoke to pt. As per Cl Green,[employer] patient is able to use steroid inhaler. Arti Shetty RN 05/14/2024 5:44 PM T [facility] 2024-05-14 17:02:12 Nurse spoke with patient already [facility] 2024-05-14 16:04:29 Gil Hercules is a 33 year old male Patient wants to know if he can use his steroid inhaler. Patient was seen at urgent care 05/13 and received a steroid shot . Please call at [phone] (home) [facility] 2023-12-22 20:52:00 [facility] ([facility]) EMERGENCY PROVIDER REPORT REPORT#:[id number] REPORT STATUS: Signed DATE:12/22/23 TIME: 2051 PATIENT: GIL HERCULES UNIT #: [id number] ROOM/BED: AGE: 33 SEX: M PCP PHYS: No Primary or Family Physician SERVICE AUTHOR: Marii Gaytan MD R3 * ALL edits or amendments must be made on the electronic/computer document * Marii Gaytan 12/22/232051: HPI-General Illness General Initial Greet Date/Time [...] emergency room: value of the HEART score. [facility] Heart J. 2008 Khoi:16(6):191-6. PubMed PMID: [id number]; PubMed Central PMCID: [id number]. Parker JUAREZ, Dexter HOUSTON, et al. A prospective validation of the HEART score for chest pain patients at the emergency department. Int J Cardiol. 2013 Jun 3:168(3):2153 -8. Doi: 10.1016/j.ijcard.2013.01.255. Epub 2012Nov 17. PubMed PMID: [id number]. Review of Systems Free Text ROS Notes [...] 12/21 1837 Pulse 100 12/21 1837 Resp 12/21 Review of Vital Signs Reviewed Free Text [...] (Auto) (20.5 - 45.5 %) 19.7 L Valley % (Auto) (5.5 - 11.7 %) 8.6 Eos % (Auto) (0.9 - 2.9 %) 1.5 Baso % (Auto) (0.2 - 1.0 %) 0.7 Neut # (Auto) (2.2 - 4.8 x10 3/uL) 4.97 H Lymph # (Auto) (1.3 - 2.9 x10 3/uL) 1.42 Valley # (Auto) (0.3 - 0.8 x10 3/uL) [...] ULTRASOUND - DUP VEIN UNI LT 12/21 2339 Report Impression - Status: SIGNED Entered: 12/23/2023 0006 Impression: 1. There is no evidence for deep venous thrombus identified in the left lower extremity Impression By: [email or web address] Balbir Ballesteros MD Re-Evaluation MDM ED Course Medication(s) Ordered Medication(s) Ordered: Electrolytic, [...] normal intervals, no acute ST segment changes. 2099: Images independently reviewed and interpreted by me: [...] this time. 2306: Disposition pending ultrasound, call BooRah at this time, states that patient is [...] Parts of this note were created using [employer] speech recognition dictation software. All attempts were made to correct any errors at the time of dictation. However, there may be some errors present in the director corporate communications that were inadvertently overlooked during the dictation. Patient Discharge Departure Vital Signs/Condition Vital Signs First Documented: Result Date Time Pulse Ox 98 / 1838 B/P 143/86 04/ 1838 B/P Mean 104.7 04/ 1838 O2 Delivery Room air 12/21 1837 Temp 98.2 /1837 Pulse 100 / 1838 Resp 18 12/21 1838 Last Documented: Result Date Time Pulse Ox 98 / 1838 B/P 143/86 04/ 1838 B/P Mean 104.7 /10 1838 O2 Delivery Room air 12/21 183 Temp 98.2 12/21 1838 Pulse 100 / 1838 Resp 18 12/21 1838 All vital [...] any other concerns. Please follow-up with referred housekeeper home, Dr. Harrington within 3-5 days. Departure Forms [...] emergency department or a call to 911. Ramón Cuellar 12/30/231921: Physical Exam Basic Physical Exam Basic [...] Referrals Provider Referral: Vadim Paulson MD Address: [address] [address] Provider Referral: Last Zendejas MD Address: [address] [place] [address] [place], [place] [id number] Supervising Physician Note Resident Saw Pt This [...] findings, exam and plan. at 0114 at 0780 RPT #:[id number] [facility] 18:41:00 [facility] ([facility]) EMERGENCY PROVIDER REPORT REPORT#:[id number] REPORT STATUS: Signed DATE:12/22/23 TIME: 1840 PATIENT: GIL HERCULES UNIT #: [id number] ROOM/BED: AGE: 33 SEX: M PCP PHYS: No Primary or Family Physician SERVICE AUTHOR: Debbie Martel PA-C * ALL edits or amendments must be made on the electronic/computer document * Provider in Triage - Adult Provider in Triage Initial Greet Date/Time 12/22/231836 Greet Note I have greeted and performed [...] 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 Denies any other health problems or taking [...] FILM) 1 TAB SL TID at 2150 [facility] #:[id number] END OF REPORT FRANK 2023-12-20 16:10:00 [id number] [facility] [address] [place] [address] PATIENT NAME: GIL HERCULES ADMIT DATE: 12/19/23 ACCOUNT NO: [id number] ROOM NO: [id number] AGE: 33 REPORT TYPE: DISCHARGE SUMMARY SEX: M ADMITTING PHYSICIAN:Cliff Hu MD ATTENDING PHYSICIAN:Cliff Hu MD ADMISSION DATE: 12/19/2023 02:52:00 DISCHARGE DATE: 12/20/2023 13:24:00 HOSPITAL COURSE: Gil Hercules is a 33-year-old with a history [...] Date Transcribed: 12/21/2023 03:32:24 CATHLEEN/BEV Receipt ID: [id number] Authenticated by Cliff Hu MD On 12/21/2023 05:26:59 PM at 0526 PATIENT NAME: GIL HERCULES [facility] 2023-12-19 12:04:00 [id number] [facility] [address] [place] [address] PATIENT NAME: GIL HERCULES ADMIT DATE: 12/19/23 ACCOUNT NO: [id number] ROOM NO: [place] [address] AGE: 33 REPORT TYPE: HISTORY AND PHYSICAL SEX: M ADMITTING PHYSICIAN:Cliff Hu MD ATTENDING PHYSICIAN:Cliff Hu MD ADMISSION DATE: 12/19/2023 02:52:00 HISTORY OF PRESENT ILLNESS: Gil Hercules who is 33-year-old male with a [...] he is himself is aware PATIENT NAME: GIL HERCULES of fatty liver, 4.3 cm, fat-containing [...] Dictated: 12/19/2023 12:04:04 Date Transcribed: 12/19/2023 12:56:50 NEMilvia/MELANI/DIMITRY Receipt ID: [id number] Authenticated by Cliff Hu MD On 12/21/2023 05:26:59 PM at 0526 PATIENT NAME: GIL HERCULES [facility]23[facility]12[facility]19 08:39:00 [facility] REPORT#:[id number] REPORT STATUS: Signed REPORT INITIALIZATION DATE:12/19/23 TIME: 838 PATIENT: GIL HERCULES UNIT #: [id number] ROOM/BED: [address]: [address] AGE: 33 SEX: M ATTEND: Cliff [...] (Severe, SOB, ANXIETY 12/18/23) at 1958 RPT #:[id number] END OF REPORT [facility] 2023-12-18 22:40:00 [facility] ([facility]) EMERGENCY PROVIDER REPORT REPORT#:[id number] REPORT STATUS: Signed DATE:12/18/23 TIME: 2239 PATIENT: GIL HERCULES UNIT #: [id number] ROOM/BED: AB996-R AGE: 33 SEX: M PCP PHYS: No Primary or Family Physician SERVICE AUTHOR: Klaudia Haq MD R3 * ALL edits or amendments must be made on the electronic/computer document * Klaudia Haq 12/18/232239: HPI-General Illness General Initial Greet Date/Time 12/18/232147 Assumed Care at Time 2229 Date 12/18/23 [...] Last Documented: Result Date Time Pulse 98 12/184 Pulse Ox 96 12/18 0153 B/P 133/60 12/18 0153 B/P Mean 86 12/18 152 Temp 36.7 12/18 014 Resp 18 12/17 2204 Review of Vital Signs Reviewed Free Text [...] Available] Laboratory Tests: 12/18 12/18 12/17 0249 4896 2210 Chemistry Sodium (137 - 145 mmol/L) [...] % (Auto) (20.5 - 45.5 %) 27.1 Valley % (Auto) (5.5 - 11.7 %) 8.6 Eos % (Auto) (0.9 - 2.9 %) 1.4 Baso % (Auto) (0.2 - 1.0 %) 0.8 Neut # (Auto) (2.2 - 4.8 x10 3/uL) 5.44 H Lymph # (Auto) (1.3 - 2.9 x10 3/uL) 2.39 Valley # (Auto) (0.3 - 0.8 x10 3/uL) 0.76 Eos # (Auto) (0.0 - 0.2 x10 3/uL) 0.12 Baso # (Auto) (0.0 - 0.1 x10 3/uL) 0.07 Immature Gran % (0.0 - 2.0 %) 0.3 Nucleated RBC % (0 - 1.0 %) 0.0 Recent Impressions: RADIOLOGY - XR CHEST 1 V 12/18 2143 Report Impression - Status: SIGNED Entered: 12/18/20232236 IMPRESSION: No acute cardiopulmonary abnormality. Impression By: Андрей Felix MD ULTRASOUND - DUP VEIN NATHEN 12/17 2307 Report Impression - Status: SIGNED Entered: 12/18/2023 2346 IMPRESSION: No DVT in the visualized venous structures of the bilateral lower extremities. Impression By: Андрей Felix MD CAT SCAN - CT ABD PELVIS W/CONT 04/06 2350 Report Impression - Status: SIGNED Entered: 12/19/2023249 IMPRESSION: 1. No acute findings in abdomen or pelvis. 2. 1.5 cm hypodense solid appearing mass inferior right kidney. Recommend nonemergent further assessment with multiphasic contrast enhanced CT scan or MRI. 3. Fatty liver. 4. 4.3 cm fat-containing umbilical hernia. Impression By: Leila Tee MD CAT SCAN - CTA CHEST FOR PE 12/17 2349 Report Impression - Status: SIGNED Entered: 12/19/2023252 IMPRESSION: 1. No obvious central or proximal [...] Dr. Hu agreed to plan and admission: Rm #: 11 Name: Gil Hercules Admitting Diagnosis: Rhabdomyolysis, abdominal pain, chest [...] 1,000 ML X1ED STA 12/17 2153 DC /06 IV 12/17 2252 2215 Patient Discharge Departure Vital Signs/Condition Vital Signs First Documented: Result Date Time Pulse Ox 99 12/17 2204 B/P 143/77 12/17 220 B/P Mean 99.2 12/17 2204 Temp 36.8 12/17 220 Pulse 107 / 220 Resp 18 12/17 2204 Last Documented: Result Date Time Pulse 98 12/18 0154 Pulse Ox 96 12/18 0153 B/P 133/60 12/18 0153 B/P Mean 86 12/18 0153 Temp 36.7 12/18 0145 Resp 18 12/17 2204 All vital signs available at the time of this entry have been reviewed. Condition Stable, Improved Clinical Impression Clinical Impression Primary Impression: Rhabdomyolysis Secondary Impressions: Abdominal pain, Chest pain Disposition Decision Hospitalize Hosp Physician Name Cliff Hu MD Hosp Physician Hospitalist Request Time 024 Request Date 12/19/23 )( Accepts Hospitalization Yes )( Reason for Hospitalization rhabdomyolysis )( Accepted Time 024 )( Accepted Date 12/19/23 Call Information will [...] medical practitioner taking over this patient's care. Elliot Ram 12/19/23 2187: Past Medical History - Adult Allergies Coded [...] plan. rhabdomyolysis at 0255 at 1638 RPT #:[id number] END OF REPORT [facility]-12-[facility] 22:07:00 [id number] [facility] [address] [place] [address] PATIENT NAME: GIL HERCULES ADMIT DATE: 12/19/23 ACCOUNT NO: [id number] ROOM NO: [place] [address] AGE: 33 REPORT TYPE: ELECTROCARDIOGRAM SEX: M ADMITTING PHYSICIAN:Cliff Hu MD ATTENDING PHYSICIAN:Cliff Hu MD Order: [id number] Test Reason : Test Date/Time Stamp: WedDec [...] T wave abnormality Abnormal ECG Confirmed by FRNAK SANZ ([id number]) on 12/19/2023 12:54:07 PM Referred By: Self Referred Confirmed by:FRANK SANZ at 1254 PATIENT NAME: GIL HERCULES [facility] 2023-12-18 21:55:00 [facility] ([facility]) EMERGENCY PROVIDER REPORT REPORT#:[id number] REPORT STATUS: Signed DATE:12/18/23 TIME: 2154 PATIENT: GIL HERCULES UNIT #: [id number] ROOM/BED: AGE: 33 SEX: M PCP PHYS: No Primary or Family Physician SERVICE DT: AUTHOR: Pawan Mcintyre * ALL edits or amendments must be made on the electronic/computer document * Provider in Triage - Adult Provider in Triage Initial Greet Date/Time 12/18/232 Greet Note I have greeted and performed [...] Parts of this note were created using [employer] speech recognition dictation software. All things were made to correct any errors at the time of dictation, however there may be some errors present in the director corporate communications that were inadvertently overlooked during the dictation. PMH-Provider in Triage Stated Complaint RHABDO WORSENING CK >1000 Allergies Coded Allergies: codeine (Mild, HIVES 12/12/23) Uncoded Allergies: TRILOGY (Severe, SOB, ANXIETY 12/18/23) Past Medical History: Reports: Asthma (ADD, opiod addiction). Smoking status: Smoking status for patients 13 years old or older: Unknown,if ever smoked at 2156 RPT #:[id number] END OF REPORT [facility] 2023-12-12 17:45:00 [facility] ([facility]) EMERGENCY PROVIDER REPORT REPORT#:[id number] REPORT STATUS: Signed DATE:12/12/23 TIME: 1744 PATIENT: GIL HERCULES UNIT #: [id number] ROOM/BED: AGE: 33 SEX: M PCP PHYS: No Primary or Family Physician SERVICE AUTHOR: Claudia Solo DO * ALL edits or amendments must be made on the electronic/computer document * HPI-General Illness General Confirmed Patient Yes Patient Type New patient Initial Greet Date/Time 12/12/23 1737 Assumed Care at Time 1740 Presentation Chief [...] Past Medical History - Adult Stated Complaint [id number] PAIN-WEAK Allergies Coded Allergies: fexofenadine (From ANDREI) (Intermediate, SOB, ANXIETY 12/12/23) codeine (Mild, HIVES 12/12/23) Past Medical History: Reports: Asthma (ADD, opiod addiction). Physical Exam Vital Signs Vital Signs First Documented: Result Date Time Pulse Ox 99 12/11 1739 B/P 143/67 12/11 1739 B/P Mean 92 12/11 1739 O2 Delivery Room air 12/11 173 Temp 36.7 12/11 1739 Pulse 107 12/11 1739 Resp 16 12/11 1738 Last Documented: Result Date Time Pulse Ox 99 12/11 1739 B/P 143/67 12/11 1739 B/P Mean 92 12/11 1739 O2 Delivery Room air 12/11 173 Temp 36.7 12/11 173 Pulse 107 12/11 1739 Resp 16 12/11 1738 Review of Vital [...] (Auto) (20.5 - 45.5 %) 19.5 L Valley % (Auto) (5.5 - 11.7 %) 7.4 Eos % (Auto) (0.9 - 2.9 %) 0.6 L Baso % (Auto) (0.2 - 1.0 %) 0.5 Neut # (Auto) (2.2 - 4.8 x10 3/uL) 6.02 H Lymph # (Auto) (1.3 - 2.9 x10 3/uL) 1.63 Valley # (Auto) (0.3 - 0.8 x10 3/uL) 0.62 Eos # (Auto) (0.0 - 0.2 x10 3/uL) 0.05 Baso # (Auto) (0.0 - 0.1 x10 3/uL) 0.04 Immature Gran % (0.0 - 2.0 %) 0.2 Recent Impressions: RADIOLOGY - XR CHEST 2 V 12/11 1749 Report Impression - Status: SIGNED Entered: 12/12/2023 180 IMPRESSION: No evidence of acute cardiopulmonary disease. [...] Sodium Chloride 1,000 ML X1ED STA 12/11 1811 AC 12/11 IV 12/11 1910 1824 Patient Discharge Departure Vital Signs/Condition Vital Signs First Documented: Result Date Time Pulse Ox 99 12/11 1739 B/P 143/67 12/11 1739 B/P Mean 92 12/11 1739 O2 Delivery Room air 12/11 173 Temp 36.7 12/11 1739 Pulse 107 12/11 1739 Resp 16 12/11 1738 Last Documented: Result Date Time Pulse Ox 99 12/11 1739 B/P 143/67 12/11 1739 B/P Mean 92 12/11 173 O2 Delivery Room air 12/11 173 Temp 36.7 12/11 173 Pulse 107 12/11 1739 Resp 16 12/11 173 All vital signs available at the time of this entry have been reviewed. Condition Stable Clinical Impression Clinical Impression Primary Impression: Palpitations Secondary Impressions: Myalgia Disposition Decision Discharge )( Discharged to Home Yes )( Time 1848 )( Date 12/12/23 at 1848 RPT #:[id number] END OF REPORT [facility]
[2024-06-19] MEDS ORDERED: ASPIRIN 81 MG CHEWABLE TABLET ONE (13:40)
[2024-06-19] MEDS ORDERED: NA CHLORIDE 0.9% 1,000 ML ONE (13:40)
[2024-06-19 14:07] LABS: Absolute Lymphocytes (CBC) 0.5 K/uL (0.7-4.9); Absolute Monocytes 0.1 K/uL (0.1-1.3); Absolute Neutrophil 6.5 K/uL (1.8-8.0); Basophils % 0.5 % (0-1.3); Eosinophils % 0.1 % (0-4.4); Hematocrit 40.2 % (39.6-49.0); Hemoglobin 13.2 g/dL (13.6-17.9); Lymphocytes % 7.6 % (15.3-44.8); MCH 28.4 pg (27.0-35.0); MCHC 32.9 g/dL (32.0-36.0); MCV 86.4 fL (80-100); Neutrophils % 90.8 % (41.7-73.7); Platelets 267 thou/uL (152-406); RBC Red Blood Cell Count 4.65 M/uL (4.33-5.43); Red Cell Distribution Width 14.2 % (12.1-15.2)
[2024-06-19 14:15] LABS: D-Dimer 0.401 FEUug/mL (0-0.500); Protime INR 1.07
[2024-06-19 14:17] LABS: ALT/SGPT 61 U/L (16-61); Albumin 3.6 g/dL (3.4-5.0); Alkaline Phosphatase 63 U/L (45-117); Anion Gap 9.7 mEq/L (5.0-15.0); BUN Blood Urea Nitrogen 17 mg/dL (7-18); Bicarbonate 26 mEq/L (21-32); Bilirubin Total 0.6 mg/dL (0.2-1.0); Globulin 3.6 g/dL (2.3-3.5); Glomerular Filtration Rate 81 ml/min (=/>90); Glucose Level 216 mg/dL (74-106); NT PRO-BNP 48 pg/mL (<125); Protein, Total 7.2 g/dL (6.4-8.2); Sodium Level 137 mEq/L (136-145); Troponin High Sensitivity 4.6 pg/mL (<58.9)
[2024-06-19 14:18] LABS: AST/SGOT 33 U/L (15-37); Bilirubin Direct < 0.2 mg/dL (0-0.2); Bilirubin Indirect, Calculated 0.4 mg/dL (0.2-0.8); Magnesium 1.7 mg/dL (1.6-2.4); Potassium 4.7 mEq/L (3.5-5.1)
--- NOTE | 2024-06-19 15:02 | RAD REPORT ---
EXAMINATION: ONE VIEW CHEST XR CLINICAL INDICATION: Male, 33 years old.CHEST PAIN TECHNIQUE: 1 View, AP supine, X-ray of the chest was performed. [id number]. COMPARISON: 12/16/2020 FINDINGS: Lungs and pleura: Clear lungs. No effusion. Heart and mediastinum: Normal heart size. Unremarkable mediastinal contours. Osseous structures: No acute abnormality. Tubes/lines: None Other: None. IMPRESSION: No acute intrathoracic abnormality.
--- NOTE | 2024-06-19 15:11 | RAD REPORT ---
EXAMINATION: CTA CHEST PE CLINICAL INDICATION: Male, 33 years old. Chest pain;Dyspnea;Palpitations TECHNIQUE: This examination was performed according to an angiographic protocol with 3D post-processi ng. This involves 3D reconstructions, MIPs, volume rendered images and/or shaded surface rendering. One or more of the following dose reduction techniques were used: Automated exposure control, adjustm ent of the mA and/or kV according to patient size, and/or iterative reconstruction. Unless otherwise specified, incidental findings do not require dedicated imaging follow-up. [id number]. COMPARISON: No prior exam. FINDINGS: LOWER NECK: Visualized thyroid gland and soft tissues are normal. LUNGS AND AIRWAYS: Airways are clear. No evidence of airspace or interstitial process. No nodules. PLEURA: No pleural effusion. No pneumothorax. Hemidiaphragms are normally positioned. MEDIASTINUM AND LYMPH NODES: No mediastinal mass or fluid collection. Normal size mediastinal, hilar, and axillary lymph nodes. THORACIC AORTA: Normal caliber and configuration. PULMONARY ARTERIES: No evidence of pulmonary embolism. The subsegmental pulmonary arteries are not we ll evaluated. HEART: Normal heart size. No pericardial effusion. No coronary calcifications. OSSEOUS STRUCTURES AND CHEST WALL: Intact. UPPER ABDOMEN: Hepatomegaly with steatosis. IMPRESSION: No evidence of pulmonary emboli to the segmental level. Lungs are clear.
[2024-06-19 15:24] LABS: Blood Morphology Comment NOT SEEN (NOT SEEN); Platelet Estimate ADEQ; White Blood Cell Scan OK (OK)
[2024-06-19] MEDS ORDERED: ALBUTEROL 2.5 MG/3 ML NEB SOL ONE (15:50)
[2024-06-19] MEDS ORDERED: IPRATROPIUM BROM 0.5MG/2.5ML ONE (15:50)
--- NOTE | 2024-06-19 16:38 | ER ---
Nurse's Notes [facility] Name: Gil Jose Age: 33 yrs Sex: Male : 1990 Arrival Date: 06/19/2024 Time: 12:59 Bed 20 Private MD: Diagnosis: Hypoxemia;Chest pain, unspecified Presentation: 06/19 13:17 Chief complaint: Patient states: Left sided chest pain onset 30 minutes [employer]. Pt states cm10 that he has been having this pain for the last 2 weeks and it has been intermittent. Pt reports that he had ulnar nerve decompression surgery this morning at 0700 and at 11 had a red bull. Coronavirus screen: Client denies travel out of the [place] in the last 14 days. At this time, the client does not indicate any symptoms associated with coronavirus-19. Ebola Screen: Patient denies travel to an Ebola-affected area in the 21 days before illness onset. No symptoms or risks identified at this time. Initial Sepsis Screen: Does the patient meet any 2 criteria? HR > 90 bpm. No. Patient's initial sepsis screen is negative. Does the patient have a suspected source of infection? No. Patient's initial sepsis screen is negative. Risk Assessment: Do you want to hurt yourself or someone else? Patient reports no desire to harm self or others. Onset of symptoms was June 19, 2024. 13:17 Method Of Arrival: Ambulatory cm10 13:17 Acuity: FRANKI 2 cm10 Triage Assessment: 13:19 General: Appears in no apparent distress. comfortable, Behavior is calm, cooperative. cm10 Neuro: No deficits noted. Level of Consciousness is awake, alert, obeys commands, Oriented to person, place, time, situation, Appropriate for age. Cardiovascular: Chest pain is described as Pain is 3 out of 10 on a pain scale. quality is sharp, is located in left began 30 minutes prior to arrival. Respiratory: No deficits noted. Airway is patent Respiratory effort is even, unlabored, Respiratory pattern is regular, symmetrical. Historical: - Allergies: 13:18 Codeine; cm10 - PMHx: 13:18 Anxiety; Asthma; Hernia; cm10 - PSHx: 13:18 hernia; Ulnar nerve decompression; cm10 - Immunization history:: Adult Immunizations up to date. - Infectious Disease History:: Denies. - Social history:: Smoking status: Reported history of juuling and/or vaping. Screenin:09 [facility] ED Fall Risk Assessment (Adult) History of falling in the last 3 months, kc6 including since admission No falls in past 3 months (0 pts) Confusion or Disorientation No (0 pts) Intoxicated or Sedated No (0 pts) Impaired Gait No (0 pts) Mobility Assist Device Used No (0 pt) Altered Elimination No (0 pt) Score/Fall Risk Level 0 - 2 = Low Risk Oriented to surroundings. Abuse screen: Denies threats or abuse. Denies injuries from another. Nutritional screening: No deficits noted. Tuberculosis screening: No symptoms or risk factors identified. Assessment: 14:41 General: Appears in no apparent distress. comfortable, obese, well groomed, well kc6 developed, Behavior is calm, cooperative, appropriate for age. Pain: Complains of pain in anterior aspect of left upper chest Pain does not radiate. Pain began 30 min ago. Is continuous. Neuro: Level of Consciousness is awake, alert, obeys commands, Oriented to person, place, time, situation, Appropriate for age. Cardiovascular: Reports chest pain, shortness of breath, Heart tones S1 S2 present Capillary refill < 3 seconds Rhythm is sinus tachycardia. Respiratory: Airway is patent Trachea midline Respiratory effort is even, unlabored, Respiratory pattern is regular, symmetrical. GI: No signs and/or symptoms were reported involving the gastrointestinal system. : No signs and/or symptoms were reported regarding the genitourinary system. EENT: No signs and/or symptoms were reported regarding the EENT system. Derm: No signs and/or symptoms reported regarding the dermatologic system. Skin is intact, is healthy with good turgor, Skin is pink, warm \\T\\ dry. Musculoskeletal: No signs and/or symptoms reported regarding the musculoskeletal system. Circulation, motion, and sensation intact. Capillary refill < 3 seconds, Range of motion: intact in all extremities. 15:41 Reassessment: Patient appears in no apparent distress at this time. No changes from kc6 previously documented assessment. Patient and/or family updated on plan of care and expected duration. Pain level reassessed. Patient is alert, oriented x 3, equal unlabored respirations, skin warm/dry/pink. 16:30 Reassessment: pt uses call light and tells this nurse, "I'm suffocating. I feel like I kc6 can't breathe. Can I get the oxygen again?" pt appears to be 88% on RA, placed on 3L via NC and SPO2 is 95%. ALLEN Thomas made aware. 17:51 Reassessment: Patient appears in no apparent distress at this time. No changes from kc6 previously documented assessment. Patient and/or family updated on plan of care and expected duration. Pain level reassessed. Patient is alert, oriented x 3, equal unlabored respirations, skin warm/dry/pink. 18:54 Reassessment: Patient appears in no apparent distress at this time. No changes from kc6 previously documented assessment. Patient and/or family updated on plan of care and expected duration. Pain level reassessed. Patient is alert, oriented x 3, equal unlabored respirations, skin warm/dry/pink. Vital Signs: 13:17 BP 157 / 68; Pulse 122; Resp 18; Temp 99.3; Pulse Ox 97% on R/A; Weight 122.47 kg; cm10 Height 5 ft. 8 in. ; Pain 3/10; 14:08 BP 119 / 55; Pulse 100; Resp 15 S; Pulse Ox 90% on R/A; kc6 16:27 BP 127 / 58; Pulse 100; Resp 19 S; Pulse Ox 88% on R/A; kc6 17:51 BP 111 / 60; Pulse 98; Resp 18 S; Pulse Ox 93% on 3 lpm NC; kc6 18:54 BP 108 / 67; Pulse 83; Resp 19 S; Pulse Ox 94% on 3 lpm NC; kc6 13:17 Body Mass Index 41.05 (122.47 kg, 172.72 cm) cm10 13:17 Pain Scale: Adult cm10 ED Course: 13:00 Patient arrived in ED. ra3 13:09 Emily Leger PA-C is PHCP. sb4 13:09 Gabriele Torres MD is Attending Physician. sb4 13:17 EKG completed in triage. Results shown to . cm10 13:18 Triage completed. cm10 13:19 EKG done, by ED staff, reviewed by Emily Leger PA-C. cm10 13:38 Maria Eugenia Birmingham, RN is Primary Nurse. kc6 13:54 Inserted saline lock: 22 gauge in right forearm, using aseptic technique. Blood kc6 collected. Flushed with 10 mL NS. Missed attempt(s): 20 gauge in right antecubital area. 14:08 Patient has correct armband on for positive identification. Bed in low position. Call kc6 light in reach. Side rails up X 1. Adult w/ patient. monitoring tech on. Pulse ox on. NIBP on. Door closed. Noise minimized. Lights dimmed. Pillow given. 14:21 XRAY Chest (1 view) In Process Unspecified. EDMS 15:00 CT Chest For PE Angio In Process Unspecified. EDMS 16:36 Sandra Mckinney MD is Hospitalizing Provider. sb4 Administered Medications: 13:54 Not Given (Patient Refused): aspirinchewable tablet 324 mg PO once; 81 mg tablets x 4 kc6 13:58 Drug: NS 0.9% IV 1000 ml IV at 1 bolus Per protocol; 1000 mL bolus Route: IV; Rate: 1 kc6 bolus; Site: right forearm; 14:43 Follow up: Response: No adverse reaction; IV Status: Completed infusion; IV Intake: kc6 1000ml 15:53 Drug: DuoNeb Nebulize (3:1) (2.5 mg - 0.5 mg) 3 ml Nebulizer once Route: Nebulizer; kc6 16:43 Follow up: Response: No adverse reaction kc6 16:57 Drug: MethylPrednisoLONE IVP 125 mg IVP once Route: IVP; Site: right forearm; kc6 17:52 Follow up: Response: No adverse reaction kc6 Intake: 14:43 IV: 1000ml; Total: 1000ml. kc6 Outcome: 16:37 Decision to Hospitalize by Provider. sb4 19:16 Admitted to Med/surg accompanied by juanita ramirez 19:16 Condition: stable 19:16 Instructed on the need for admit, 19:16 Patient left the ED. rg5 Signatures: Dispatcher [employer] EDMS Maria Eugenia Birmingham RN RN kc6 Emily Leger PAJoe PAJoe sb4 Maylin Grace, RN RN cm10 Ruba Harman ra3 Mauricio Hendrix, AILEEN RN rg5
--- NOTE | 2024-06-19 16:38 | EDPHYS ---
Physician Documentation [facility] Name: Gil Jose Age: 33 yrs Sex: Male : 1990 Arrival Date: 06/19/2024 Time: 12:59 Bed 20 Private MD: LANA Physician Gabriele Torres HPI: 06/19 13:54 This 33 yrs old Male presents to ER via Ambulatory with complaints of Chest Pain. sb4 13:57 Patient reports intermittent left-sided substernal chest pain x 2 weeks. He states that sb4 he has a pulse oximeter at home and notices that when he has these episodes, his oxygen goes into the low 90s and his HR ranges from 120-150s. He states that these episodes are associated with dizziness, nausea, and shortness of breath. He did have an ulnar nerve release surgery today that he says was uncomplicated. Reports history of asthma, does not smoke. Says he drank an energy drink today but is not abnormal for him. Historical: - Allergies: 13:18 Codeine; cm10 - PMHx: 13:18 Anxiety; Asthma; Hernia; cm10 - PSHx: 13:18 hernia; Ulnar nerve decompression; cm10 - Immunization history:: Adult Immunizations up to date. - Infectious Disease History:: Denies. - Social history:: Smoking status: Reported history of juuling and/or vaping. ROS: 14:11 Constitutional: Negative for fever, chills, and weight loss, sb4 14:11 Cardiovascular: Positive for chest pain, 14:11 Respiratory: Positive for shortness of breath, 14:11 All other systems are negative, Exam: 14:11 Constitutional: This is a well developed, well nourished patient who is awake, alert, sb4 and in no acute distress. Head/Face: Normocephalic, atraumatic. Eyes: Extra-ocular motions intact. Periorbital areas with no swelling, redness, or edema. ENT: Mucous membranes moist. Respiratory: Lungs have equal breath sounds bilaterally, clear to auscultation and percussion. No rales, rhonchi or wheezes noted. No increased work of breathing, no retractions or nasal flaring. Abdomen/GI: Soft, non-tender, no distension. Skin: Warm, dry with normal turgor. Normal color with no rashes, no lesions, and no evidence of cellulitis. 14:11 Cardiovascular: Rate: tachycardic, Rhythm: regular, Vital Signs: 13:17 BP 157 / 68; Pulse 122; Resp 18; Temp 99.3; Pulse Ox 97% on R/A; Weight 122.47 kg; cm10 Height 5 ft. 8 in. ; Pain 3/10; 14:08 BP 119 / 55; Pulse 100; Resp 15 S; Pulse Ox 90% on R/A; kc6 16:27 BP 127 / 58; Pulse 100; Resp 19 S; Pulse Ox 88% on R/A; kc6 17:51 BP 111 / 60; Pulse 98; Resp 18 S; Pulse Ox 93% on 3 lpm NC; kc6 18:54 BP 108 / 67; Pulse 83; Resp 19 S; Pulse Ox 94% on 3 lpm NC; kc6 13:17 Body Mass Index 41.05 (122.47 kg, 172.72 cm) cm10 13:17 Pain Scale: Adult cm10 MDM: 13:10 Patient medically screened. sb4 15:13 Data reviewed: vital signs, nurses notes, lab test result(s), EKG, radiologic studies. sb4 Consideration of Admission/Observation Escalation of care including admission/observation considered. Care significantly affected by the following chronic conditions: Obesity. Scoring Tools HEART Score: History: ECG: Age: Risk Factors: 1 or 2 risk factors (1), Troponin: Total Score = 1. Counseling: I had a detailed discussion with the patient and/or guardian regarding the historical points, exam findings, and any diagnostic results supporting the discharge/admit diagnosis, the presence of at least one elevated blood pressure reading (>120/80) during this emergency department visit, lab results, radiology results. 06/19 13:29 Order name: Basic Metabolic Panel; Complete Time: 14:19 sb4 06/19 13:29 Order name: CBC with Diff; Complete Time: 15:25 sb4 06/19 13:29 Order name: D-Dimer; Complete Time: 14:16 sb4 06/19 13:29 Order name: LFT's; Complete Time: 14:19 sb4 06/19 13:29 Order name: Magnesium; Complete Time: 14:19 sb4 06/19 13:29 Order name: NT PRO-BNP; Complete Time: 14:19 sb4 06/19 13:29 Order name: PT-INR; Complete Time: 14:16 sb4 06/19 13:29 Order name: Troponin HS; Complete Time: 14:19 sb4 06/19 13:29 Order name: TSH; Complete Time: 14:19 sb4 06/19 15:24 Order name: CBC Smear Scan; Complete Time: 15:25 EDMS 06/19 17:45 Order name: CBC with Automated Diff EDMS 06/19 17:45 Order name: CBC with Automated Diff EDMS 06/19 17:45 Order name: CBC with Automated Diff EDMS 06/19 17:45 Order name: CBC with Automated Diff EDMS 06/19 17:45 Order name: Comprehensive Metabolic Panel EDMS 06/19 17:45 Order name: Comprehensive Metabolic Panel EDMS 06/19 17:45 Order name: Comprehensive Metabolic Panel EDMS 06/19 17:45 Order name: Comprehensive Metabolic Panel EDMS 06/19 17:45 Order name: Lipid Profile EDMS 06/19 17:45 Order name: Lipid Profile EDMS 06/19 17:45 Order name: Magnesium EDMS 06/19 17:45 Order name: Magnesium EDMS 06/19 17:45 Order name: Magnesium EDMS 06/19 17:45 Order name: Magnesium EDMS 06/19 17:45 Order name: Phosphorus EDMS 06/19 17:45 Order name: Phosphorus EDMS 06/19 17:45 Order name: Phosphorus EDMS 06/19 17:45 Order name: Phosphorus EDMS 06/19 13:29 Order name: XRAY Chest (1 view); Complete Time: 15:03 sb4 06/19 14:28 Order name: CT Chest For PE Angio; Complete Time: 15:12 sb4 06/19 13:29 Order name: EKG; Complete Time: 13:29 sb4 06/19 13:29 Order name: Cardiac monitoring; Complete Time: 13:39 sb4 06/19 13:29 Order name: EKG - Nurse/Tech; Complete Time: 13:54 sb4 06/19 13:29 Order name: IV Saline Lock; Complete Time: 13:54 sb4 06/19 13:29 Order name: Labs collected and sent; Complete Time: 13:54 sb4 06/19 13:29 Order name: O2 Per Protocol; Complete Time: 13:39 sb4 06/19 13:29 Order name: O2 Sat Monitoring; Complete Time: 13:39 sb4 10 16:14 Order name: Vital Signs: without NC; Complete Time: 16:27 sb4 EC:37 Rate is 119 beats/min. Rhythm is regular, Sinus tachycardia. OR interval is normal at sb4 154 msec. QRS interval is normal at 80 msec. QT interval is normal at 302 msec. No Q waves. T waves are Normal. No ST changes noted. Clinical impression: Sinus tachycardia and No evidence of ischemia. Interpreted by me. Reviewed by me. Administered Medications: 13:54 Not Given (Patient Refused): aspirinchewable tablet 324 mg PO once; 81 mg tablets x 4 kc6 13:58 Drug: NS 0.9% IV 1000 ml IV at 1 bolus Per protocol; 1000 mL bolus Route: IV; Rate: 1 kc6 bolus; Site: right forearm; 14:43 Follow up: Response: No adverse reaction; IV Status: Completed infusion; IV Intake: kc6 1000ml 15:53 Drug: DuoNeb Nebulize (3:1) (2.5 mg - 0.5 mg) 3 ml Nebulizer once Route: Nebulizer; kc6 16:43 Follow up: Response: No adverse reaction kc6 16:57 Drug: MethylPrednisoLONE IVP 125 mg IVP once Route: IVP; Site: right forearm; kc6 17:52 Follow up: Response: No adverse reaction kc6 Disposition Summary: 06/19/24 16:37 Hospitalization Ordered Notes: Hospitalization Status: Observation sb4 Provider: Sandra Mckinney sb Location: Telemetry/MedSur (observation) sb4 Condition: Fair sb4 Problem: new sb4 Symptoms: are unchanged sb4 Bed/Room Type: Standard sb4 Room Assignment: 219(06/19/24 17:56) bd Diagnosis - Hypoxemia sb4 - Chest pain, unspecified sb4 Discharge Instructions: - Discharge Summary Sheet sb4 - Supraventricular Tachycardia, Adult sb4 - Sinus Tachycardia sb4 Forms: - Medication Reconciliation Form sb4 - SBAR form sb4 - Leadership Thank You Letter sb4 Signatures: Dispatcher [employer] Keren Licea Kaitlyn, RN RN kc6 Emily Leger PA-C PA-C sb4 Maylin Grace RN RN cm10 Corrections: (The following items were deleted from the chart) 13: 13:29 BASIC METABOLIC PANEL+C.LAB.BRZ ordered. EDMS EDMS 13: 13:29 CBC+H.LAB.BRZ ordered. EDMS EDMS 13: 13:29 D-DIMER+COAG.LAB.BRZ ordered. EDMS EDMS 13: 13:29 HEPATIC FUNCTION+C.LAB.BRZ ordered. EDMS EDMS 13: 13:29 MAGNESIUM+C.LAB.BRZ ordered. EDMS EDMS 13: 13:29 PROBNP+C.LAB.BRZ ordered. EDMS EDMS 13: 13:29 PROTIME (+INR)+COAG.LAB.BRZ ordered. EDMS EDMS 13: 13:29 Troponin High Sensitivity+C.LAB.BRZ ordered. EDMS EDMS 13: 13:29 THYROID STIMULAT HORMONE+C.LAB.BRZ ordered. EDMS EDMS 17:56 16:37 sb4 bd
[2024-06-19] MEDS ORDERED: METHYLPREDNISOLONE 125 MG INJ ONE (16:47)
--- NOTE | 2024-06-19 17:43 | P.HP ---
Certification for Inpatient Patient admitted to: Inpatient With expected LOS: >2 Midnights Patient will require the following post-hospital care: None Practitioner: I am a practitioner with admitting privileges, knowledge of patient current condition, hospital course, and medical plan of care. Services: Services provided to patient in accordance with Admission requirements found in Title 42 Section 412.3 of the Code of Federal Regulations <Ariela Alaniz - Last Filed: 06/19/24 17:29> Patient History Date of Service: 06/19/24 Reason for admission: Hypoxic respiratory failure secondary to RAD, angina/palpitations History of Present Illness: Mr. Jose is a 33-year-old gentleman with a past medical history of asthma, over the last several months he has had increasingly bothersome palpitations with shortness of breath, increased dyspnea on exertion, and chest pain. He had an ulnar nerve release today and the palpitations were more intense and he presented to the emergency department. On arrival his SpO2 was 88%. Chest x- ray clear, CT for PE negative, lab work unremarkable. We will admit him for further evaluation and treatment. 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 Home medications list reviewed: Yes (Patient takes Suboxone 8 mg 3 times daily (will need to bring his own)) - Past Medical/Surgical History Has patient received pneumonia vaccine in the past: No Diabetic: No -: opiod dependence -: ulnar nerve entrapment -: asthma -: Ulnar nerve release (today06/19/2024) Dr. Chirinos -: inguinal hernia repair -: umbilical hernia repair Psychosocial/ Personal History: Mr. Jose lives at home with his . Recently lost employment. Vaping more and exercising less - Family History Family History: Reviewed- Non-Contributory - Social History Smoking Status: Current every day smoker Smoking therapy provided: No (Vapes) Alcohol use: No CD- Drugs: No Caffeine use: Yes Place of Residence: Home <Ariela Alaniz - Last Filed: 06/19/24 17:29> Date of Service: 06/19/24 <Sandra Mckinney - Last Filed: 06/21/24 05:37> Allergies codeine Allergy (Severe, Verified 06/19/24 21:18) Hives fluticasone furoate [From Trelegy Ellipta] Allergy (Verified 06/19/24 21:20) Shortness of breath umeclidinium [From Trelegy Ellipta] Allergy (Verified 06/19/24 21:20) Shortness of breath vilanterol [From Trelegy Ellipta] Allergy (Verified 06/19/24 21:20) Shortness of breath Home Medications: Albuterol Inhaler [Ventolin Inhaler*] 90 mcg OP DAILY PRN 06/19/24 Budesonide/Formoterol Fumarate [Symbicort 160-4.5 Mcg Inhaler] 160 mcg PO BID 06/19/24 Buprenorphine HCl/Naloxone HCl [Buprenorphine-Nalox 8-2Mg Film] 8 mg SL TID 06/19/24 Review of Systems 10-point ROS is otherwise unremarkable General: Unremarkable ENT: Unremarkable Respiratory: Shortness of Breath, SOB with Excertion, As per HPI Cardiovascular: Chest Pain, Palpitations, Paroxysmal Noc. Dyspnea Gastrointestinal: Unremarkable Genitourinary: Unremarkable Musculoskeletal: As per HPI Integumentary: Unremarkable Neurological: Unremarkable Lymphatics: Unremarkable <Ariela Alaniz Pillo - Last Filed: 06/19/24 17:29> Physical Examination - Vital Signs Temperature: 99.3 F Blood Pressure: 129/58 Pulse: 100 Respirations: 20 Pulse Ox (%): 92 (O2 at 2L) - Physical Exam General: Alert, Oriented x3, Cooperative, Obese, Other (Left upper extremity casted, full range of motion of fingers, numbness which is not new to left fourth and fifth fingers) HEENT: Atraumatic, Normocephalic Neck: Supple Respiratory: Clear to auscultation bilaterally, Normal air movement Cardiovascular: No murmurs, Irregular heart rate/rhythm Capillary refill: <2 Seconds Gastrointestinal: Normal bowel sounds Musculoskeletal: No clubbing, Other (Left upper extremity casted secondary to surgery today with a ulnar nerve release) Integumentary: No rashes Neurological: Normal speech, Normal tone, Normal affect Lymphatics: No axilla or inguinal lymphadenopathy External genitalia: Deferred Rectal: Deferred - Studies Laboratory Data (last 24 hrs) 06/19/24 06/19/24 06/19/24 13:43 13:43 13:43 WBC 7.20 Hgb 13.2 L Hct 40.2 Plt Count 267 PT 12.0 INR 1.07 Sodium 137 Potassium 4.7 BUN 17 Creatinine 1.22 Glucose 216 H Magnesium 1.7 Total Bilirubin 0.6 AST 33 ALT 61 Alkaline Phosphatase 63 <Ariela Alaniz - Last Filed: 06/19/24 17:29> Assessment and Plan - Plan Hypoxic resp failure 2nd to reactive airway disease Palpitations Dyspnea on exertion angina Nebs every 6h Symbicort every 12h Solu-Medrol 60mg every 6h Gentle IVF Up from bed to chair 3 times daily to 4 times daily Trend cardiac enzymes Telemetry Propranolol 20 mg p.o. twice daily (will monitor asthma closely/however patient tachycardic with PACs and chest pain which he feels is worsened by his inhaler) Monitor and trend blood pressure, heart rate, and SpO2 s/p left ulnar nerve release today 06/19/24) Elevate affected extremity Neurochecks every 4 hours VTE prophylaxis Lovenox Plan to discharge in: 24 Hours - Advance Directives Does patient have a Living Will: No Does patient have a Durable POA for Healthcare: No - Code Status/Comfort Care Code Status Assessed: Yes (Full) <Ariela Alaniz - Last Filed: 06/19/24 17:29> Date of Service: 06/19/24 Chart has been reviewed. Events of the last 24 hours have been noted. Case discussed with SEAMUS. I performed a substantial part of the MDM during this patient's care today. I personally made or approved the documented management plan and acknowledge its risk of complications. I agree with the findings and documentation provided in the SEAMUS's notes <Sandra Mckinney - Last Filed: 06/21/24 05:37>
[2024-06-19] MEDS: NA CHLORIDE 0.9% 1,000 ML IV SCH (18:00)
[2024-06-19] MEDS: ENOXAPARIN 40 MG/0.4 ML SQ SCH (18:00)
[2024-06-19] MEDS: METHYLPREDNISOLONE 125 MG INJ IV SCH (18:00)
[2024-06-19] MEDS: ALBUTEROL 2.5 MG/3 ML NEB SOL NEB SCH (20:00)
[2024-06-19] MEDS: IPRATROPIUM BROM 0.5MG/2.5ML NEB SCH (20:00)
[2024-06-19] MEDS: BUDESONIDE 0.5 MG/2 ML NEB NEB SCH (20:00)
[2024-06-19] MEDS: ATORVASTATIN 40 MG TAB PO SCH (21:00)
[2024-06-19] MEDS: PROPRANOLOL HCL 10 MG TAB PO SCH (21:00)
[2024-06-20 06:15] LABS: Absolute Lymphocytes (CBC) 0.8 K/uL (0.7-4.9); Absolute Monocytes 0.2 K/uL (0.1-1.3); Absolute Neutrophil 8.6 K/uL (1.8-8.0); Hematocrit 40.4 % (39.6-49.0); Hemoglobin 13.2 g/dL (13.6-17.9); Lymphocytes % 8.1 % (15.3-44.8); MCH 28.2 pg (27.0-35.0); MCHC 32.5 g/dL (32.0-36.0); MCV 86.8 fL (80-100); MPV 7.7 fL (7.6-11.3); Monocytes % 2.2 % (3.3-12.3); Neutrophils % 89.7 % (41.7-73.7); Platelets 281 thou/uL (152-406); RBC Red Blood Cell Count 4.66 M/uL (4.33-5.43); Red Cell Distribution Width 14.2 % (12.1-15.2)
[2024-06-20 06:32] LABS: Albumin 3.4 g/dL (3.4-5.0); Bilirubin Total 0.4 mg/dL (0.2-1.0); Globulin 3.5 g/dL (2.3-3.5); Protein, Total 6.9 g/dL (6.4-8.2); Troponin High Sensitivity 12.6 pg/mL (<58.9)
[2024-06-20] MEDS: ASPIRIN EC 81 MG TAB PO SCH (09:00)
[2024-06-20] MEDS: SUBOXONE SL SCH (09:30)
--- NOTE | 2024-06-20 10:14 | P.PN ---
Subjective Date of Service: 06/20/24 Chief Complaint: Hypoxic respiratory failure secondary to RAD, angina/palpitations Subjective: No new changes (states continued sob but lesser O2 requirement) <Ariela Alaniz Pillo - Last Filed: 06/20/24 10:10> Date of Service: 06/20/24 <Sandra Mckinneyzal - Last Filed: 06/21/24 05:37> Review of Systems 10-point ROS is otherwise unremarkable General: Unremarkable Eyes: Unremarkable ENT: Unremarkable Respiratory: Shortness of Breath, SOB with Excertion Cardiovascular: Palpitations Gastrointestinal: Unremarkable Genitourinary: Unremarkable Musculoskeletal: Unremarkable Neurological: Unremarkable Lymphatics: Unremarkable <Dimple Alaniznichelle Ferro - Last Filed: 06/20/24 10:10> Physical Examination - Vital Signs Temperature: 97.1 F Blood Pressure: 131/54 Pulse: 99 Respirations: 17 Pulse Ox (%): 93 - Physical Exam General: Alert, In no apparent distress, Oriented x3 HEENT: Atraumatic, Normocephalic Neck: Supple Respiratory: Normal air movement Cardiovascular: No edema, Normal pulses, Regular rate/rhythm Capillary refill: <2 Seconds Gastrointestinal: Normal bowel sounds, Soft and benign Musculoskeletal: Other (Left upper extremity casted status post surgery) Integumentary: No rashes Neurological: Normal speech, Normal tone, Normal affect Lymphatics: No axilla or inguinal lymphadenopathy External genitalia: Deferred Rectal: Deferred - Studies Laboratory Data (last 24 hrs) 06/19/24 06/19/24 06/19/24 13:43 13:43 13:43 WBC 7.20 Hgb 13.2 L Hct 40.2 Plt Count 267 PT 12.0 INR 1.07 Sodium 137 Potassium 4.7 BUN 17 Creatinine 1.22 Glucose 216 H Magnesium 1.7 Total Bilirubin 0.6 AST 33 ALT 61 Alkaline Phosphatase 63 <Dimple Alaniznichelle Ferro - Last Filed: 06/20/24 10:10> Assessment And Plan - Plan Hypoxic resp failure 2nd to reactive airway disease Palpitations Dyspnea on exertion angina Nebs every 6h, 06/20/2024 responding well with little tachycardia Symbicort every 12h Solu-Medrol 60mg every 6h Gentle IVF Up from bed to chair 3 times daily to 4 times daily Trend cardiac enzymes Telemetry Incentive spirometer Propranolol 20 mg p.o. twice daily (will monitor asthma closely/however patient tachycardic with PACs and chest pain which he feels is worsened by his inhaler) Monitor and trend blood pressure, heart rate, and SpO2 06/20/24 lower oxygen requirement today with SpO2 at 96% s/p left ulnar nerve release today 06/19/24) Elevate affected extremity Neurochecks every 4 hours VTE prophylaxis Lovenox Discharge Plan: Home Plan to discharge in: 24 Hours - Code Status/Comfort Care Code Status Assessed: Yes (Full) Time Spent Managing PTS Care (In Minutes): 27 <Ariela Alaniz - Last Filed: 06/20/24 10:10> Date of Service: 06/20/24 Chart has been reviewed. Events of the last 24 hours have been noted. Case discussed with SEAMUS. I performed a substantial part of the MDM during this patient's care today. I personally made or approved the documented management plan and acknowledge its risk of complications. I agree with the findings and documentation provided in the SEAMUS's notes <Sandra Mckinney - Last Filed: 06/21/24 05:37>
--- NOTE | 2024-06-20 12:29 | EKG ---
Test Date: 2024-06-19 Test Time: 13:15:26 Wet Machine Cutter: ZUHAIR MEASUREMENT RESULTS: Intervals: Rate: 119 OH: 154 QRSD: 80 QT: 302 QTc: 424 [place]: P: 54 OH: 154 QRS: 61 T: 42 INTERPRETIVE STATEMENTS: Sinus tachycardia Otherwise normal ECG Compared to ECG 05/09/2024 18:31:00 No significant changes Electronically Signed On 06-20-24 12:26:16 CDT by Андрей Lucero
[2024-06-20] MEDS: TRAMADOL HCL 50 MG TAB PO PRN (14:53)
[2024-06-20 19:40] VITALS: BMI 41.0
[2024-06-21 04:44] LABS: Absolute Basophils 0.1 K/uL (0-0.5); Absolute Monocytes 0.6 K/uL (0.1-1.3); Absolute Neutrophil 13.6 K/uL (1.8-8.0); Basophils % 0.8 % (0-1.3); Eosinophils % 0.1 % (0-4.4); Hematocrit 41.2 % (39.6-49.0); Hemoglobin 13.6 g/dL (13.6-17.9); Lymphocytes % 6.4 % (15.3-44.8); MCH 28.6 pg (27.0-35.0); MCV 86.5 fL (80-100); MPV 7.4 fL (7.6-11.3); Monocytes % 3.8 % (3.3-12.3); Nucleated Red Blood Cells % 0.1 % (0-0); Platelets 322 thou/uL (152-406); RBC Red Blood Cell Count 4.76 M/uL (4.33-5.43); Red Cell Distribution Width 14.8 % (12.1-15.2)
[2024-06-21 04:45] LABS: Neutrophils % 88.9 % (41.7-73.7)
[2024-06-21 05:01] LABS: Albumin 3.6 g/dL (3.4-5.0); Anion Gap 7.3 mEq/L (5.0-15.0); Bilirubin Total 0.4 mg/dL (0.2-1.0); Globulin 3.6 g/dL (2.3-3.5); Magnesium 2.2 mg/dL (1.6-2.4); Phosphorus 2.8 mg/dL (2.5-4.9); Potassium 4.3 mEq/L (3.5-5.1); Protein, Total 7.2 g/dL (6.4-8.2)
--- NOTE | 2024-06-21 07:38 | P.PN ---
Date of Service: 06/21/24 subjective Review of Systems 10-point ROS is otherwise unremarkable Physical Examination - Vital Signs Reviewed - Physical Exam General: Alert, Oriented x3, Cooperative, Obese, HEENT: Atraumatic, Normocephalic Neck: Supple Respiratory: Clear to auscultation bilaterally, Normal air movement Cardiovascular: No murmurs, Irregular heart rate/rhythm Capillary refill: <2 Seconds Gastrointestinal: Normal bowel sounds Musculoskeletal: No clubbing, Other (Left upper extremity casted secondary to surgery today with a ulnar nerve release) Integumentary: No rashes Neurological: Normal speech, Normal tone, Normal affect, Other (Left upper extremity casted, full range of motion of fingers, numbness which is not new to left fourth and fifth fingers) Assessment and Plan - Plan Hypoxic resp failure 2nd to reactive airway disease Palpitations Dyspnea on exertion angina Nebs every 6h Symbicort every 12h Solu-Medrol 60mg every 6h Gentle IVF Up from bed to chair 3 times daily to 4 times daily Trend cardiac enzymes Telemetry Propranolol 20 mg p.o. twice daily (will monitor asthma closely/however patient tachycardic with PACs and chest pain which he feels is worsened by his inhaler) Monitor and trend blood pressure, heart rate, and SpO2 s/p left ulnar nerve release today 06/19/24) Elevate affected extremity Neurochecks every 4 hours VTE prophylaxis Lovenox Plan to discharge in: 24 Hours - Advance Directives Does patient have a Living Will: No Does patient have a Durable POA for Healthcare: No - Code Status/Comfort Care Code Status Assessed: Yes (Full)
[2024-06-21 08:25] VITALS: O2SAT 97
[2024-06-21 08:28] VITALS: BP 139/86
[2024-06-21 08:59] VITALS: TEMP 97
--- NOTE | 2024-06-21 10:16 | P.DS ---
Admission Date: 06/19/24 Discharge Date: 06/21/24 Disposition: ROUTINE DISCHARGE Discharge Condition: FAIR Reason for Admission: Hypoxic respiratory failure secondary to RAD, angina/palpitations Brief History of Present Illness: Mr. Jose is a 33-year-old gentleman with a past medical history of asthma, over the last several months he has had increasingly bothersome palpitations with shortness of breath, increased dyspnea on exertion, and chest pain. He had an ulnar nerve release today and the palpitations were more intense and he presented to the emergency department. On arrival his SpO2 was 88%. Chest x- ray clear, CT for PE negative, lab work unremarkable. We will admit him for further evaluation and treatment. 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 Home medications list reviewed: Yes (Patient takes Suboxone 8 mg 3 times daily (will need to bring his own)) v- Physical Exam General: Alert, Oriented x3, Cooperative, Obese, Other (Left upper extremity casted, full range of motion of fingers, numbness which is not new to left fourth and fifth fingers) HEENT: Atraumatic, Normocephalic Neck: Supple Respiratory: Clear to auscultation bilaterally, Normal air movement Cardiovascular: No murmurs, Irregular heart rate/rhythm Capillary refill: <2 Seconds Gastrointestinal: Normal bowel sounds Musculoskeletal: No clubbing, Other (Left upper extremity casted secondary to surgery today with a ulnar nerve release) Integumentary: No rashes Neurological: Normal speech, Normal tone, Normal affect Lymphatics: No axilla or inguinal lymphadenopathy Hospital Course: Mr. Jose is a 33-year-old gentleman with a past medical history of asthma, over the last several months he has had increasingly bothersome palpitations with shortness of breath, increased dyspnea on exertion, and chest pain. He had an ulnar nerve release today and the palpitations were more intense and he presented to the emergency department. On arrival his SpO2 was 88%. Chest x- ray clear, CT for PE negative, lab work unremarkable. We will admit him for further evaluation and treatment. Currently on 2 L via nasal cannula he is 92%. He was treated for asthma exacerbation, Solu-Medrol, albuterol, oxygen, Pulmicort. Breathing stabilized, plan to discharge home, he needs to follow-up PCP after discharge, Continue home medicines as previously prescribed Medications at discharge Medrol Dosepak, take as prescribed, Resume home inhalers, Symbicort, albuterol GOAL: Clear understanding of disease process INSTRUCTIONS: Physician Discharge Instructions: -Follow-up with PCP in 1 to 2 weeks -Please call [phone] if any questions regarding hospital stay -Please call nursing station at [phone] if any nursing or medication questions -Return to the emergency room if symptoms worsen Diet: ADA, low sodium Activity: Fall precautions Vital Signs/Physical Exam: Temp Pulse Resp BP Pulse Ox 97.0 F 88 22 H 139/86 90 L 06/21/24 08:00 06/21/24 08:26 06/21/24 08:00 06/21/24 08:26 06/21/24 08:00 Laboratory Data at Discharge: WBC 15.30 thou/uL (4.3-10.9) H 06/21/24 04:22 Hgb 13.6 g/dL (13.6-17.9) 06/21/24 04:22 Hct 41.2 % (39.6-49.0) 06/21/24 04:22 Plt Count 322 thou/uL (152-406) 06/21/24 04:22 PT 12.0 SECONDS (9.4-12.5) 06/19/24 13:43 INR 1.07 06/19/24 13:43 Sodium 140 mEq/L (136-145) 06/21/24 04:22 Potassium 4.3 mEq/L (3.5-5.1) 06/21/24 04:22 BUN 15 mg/dL (7-18) 06/21/24 04:22 Creatinine 0.86 mg/dL (0.70-1.30) 06/21/24 04:22 Glucose 179 mg/dL (74-106) H 06/21/24 04:22 Phosphorus 2.8 mg/dL (2.5-4.9) 06/21/24 04:22 Magnesium 2.2 mg/dL (1.6-2.4) 06/21/24 04:22 Total Bilirubin 0.4 mg/dL (0.2-1.0) 06/21/24 04:22 AST 16 U/L (15-37) 06/21/24 04:22 ALT 54 U/L (16-61) 06/21/24 04:22 Alkaline Phosphatase 60 U/L (45-117) 06/21/24 04:22 Triglycerides 73 mg/dL (<150) 06/20/24 05:24 Cholesterol 146 mg/dL (<200) 06/20/24 05:24 HDL Cholesterol 56 mg/dL (40-60) 06/20/24 05:24 Cholesterol/HDL Ratio 2.61 06/20/24 05:24 Home Medications: Albuterol Inhaler [Ventolin Inhaler*] 90 mcg OP DAILY PRN 06/19/24 Budesonide/Formoterol Fumarate [Symbicort 160-4.5 Mcg Inhaler] 160 mcg PO BID 06/19/24 Buprenorphine HCl/Naloxone HCl [Buprenorphine-Nalox 8-2Mg Film] 8 mg SL TID 06/19/24 Methylprednisolone [Medrol dosepack] 4 mg PO DIRECTED #1 blaine 06/21/24 New Medications: Methylprednisolone [Medrol dosepack] 4 mg PO DIRECTED #1 blaine Diet: AHA Activity: Ad spring Followup: Magno Hill MD [ACTIVE - CAN ADMIT] - 1-2 Weeks NONE,NONE [Primary Care Provider] - Time spent managing pt's care (in minutes): 45
[2024-06-21] MEDS ORDERED: PNEUMOCOCCAL VACCINE 0.5 ML IMVAC ONE (18:00)
== END 2024-06-21 09:54 | disposition home or self-care (01) | DRG 189 ==
LOC: ER 12:59 → ERHOLD 17:31 → 2ND 18:26
PROVIDERS: ADMIT Hospitalist; ATTEND Internal Medicine
DX: J96.01 Acute respiratory failure with hypoxia (principal); J45.901 Unspecified asthma with (acute) exacerbation; Z68.41 Body mass index [BMI] 40.0-44.9, adult; E66.9 Obesity, unspecified; I20.9 Angina pectoris, unspecified; F17.200 Nicotine dependence, unspecified, uncomplicated; Z88.5 Allergy status to narcotic agent; Z88.8 Allergy status to other drugs, medicaments and biological substances; Z79.899 Other long term (current) drug therapy
CPT/HCPCS: 36415; 71045; 71275; 80048; 80053; 80061; 80076; 83036; 83735; 83880; 84100; 84443; 84484; 85025; 85379; 85610; 93005; 94640; 94760; 96361; 96374; 99285; J1650; J2919; J7030; J7613; J7626; J7644; Q9967

== ENCOUNTER 2024-06-30 00:26 | Emergency (ER) | payer OTHER ==
--- OUTSIDE RECORDS SUMMARY | 2024-06-30 00:32 | XMS REPORT | Continuity of Care Document ---
Author Name Unknown Address [address] [facility] [address] [place] [address] [facility] thconnect Address [address] [facility] [address] [place] [address] Care Team Providers Care Title Closer Name Role Phone PCP, NO Primary Care Physician UnavailVENESSA Ortiz Attending Clinician UnavailVENESSA Yoo Attending Clinician UnavailJOHNSON Plaza Attending Clinician Unavailable ERUM PAYAN Attending Clinician Unavailable ERUM PAYAN Attending Clinician Unavailable Erum Payan MD Attending Clinician [phone] Mario Burnett MD Attending Clinician [phone] Venessa Khan MD Attending Clinician [phone] Talita Rodriguez PA-C Attending Clinician [phone] TALITA RODRIGUEZ Attending Clinician Unavailable TALITA RODRIGUEZ Attending Clinician Unavailable Venessa Khan MD Attending Clinician [phone] Pob, [facility] Main Attending Clinician UnavailCLIFF Chen Attending Clinician Unavailable CLIFF PERRY Attending Clinician Unavailable Cliff Perry MD Attending Clinician [phone] MARIO BURNETT Attending Clinician Unavail able MARIO BURNETT Attending Clinician Unavail able Campaigns, Generic Provider Attending Clinician Unavailable EbrahiAleena Burt Attending Clinician [phone] Unknown, Attending Attending Clinician Unavailab ALEENA Gardner Attending Clinician Unavailable Ramón Cuellar Attending Clinician Unavailable Cliff Hu Attending Clinician Unavailable Claudia Solo Attending Clinician UnavailRICHAR Rosales Attending Clinician UnavailJass Reyes Attending Clinician Unavailable Bhupinder Moreau Attending Clinician Unavailab ERUM Falcon Admitting Clinician Unavailable Venessa Khan MD Admitting Clinician [phone] VENESSA KHAN Admitting Clinician UnavailMARIO Padilla Admitting Clinician Unavail able Physician, No Primary or Family Admitting Clinic kaitlynn Unavailable Cliff Hu Admitting Clinician Unavailable Payers Payer Name Policy Type Policy Number Effective Date Expirati on Date Source JAMARI [facility] [id number] 2021 00:00:00 Problems Condition Name Condition Details Condition Category Status Onset Date Resolution Date Last Treatment Date Treating Clinician Comments Source Ulnar nerve compressio n, left Ulnar nerve compressio n, left Disease Active 06-08 00:00: 00 [facility] Pre-op testing Pre-op testing Disease Active 06-08 00:00: 00 [facility] Generalize d anxiety disorder Generalize d Anxiety Disorder Problem Active 05-18 00:00: 00 [facility] Asthma Asthma Problem Active 05-18 00:00: 00 [facility] Rhabdomyol ysis Rhabdomyol ysis Problem Active 05-18 00:00: 00 [facility] Ulnar neuropathy of left arm Ulnar Neuropathy of Left Arm Problem Active 05-18 00:00: 00 [facility] Allergies, Adverse Reactions, Alerts Allergy Name Allergy Type Status Severity Reaction(s) Onset Date Inactive Date Treating Clinician Comments Source fluticas one furoate DA Active U ANXIETY 2023-0 4-10 00:00: 00 [facility] vilanter ol DA Active U ANXIETY 2023-0 4-10 00:00: 00 [facility] umeclidi nium DA Active U ANXIETY 2023-0 4-10 00:00: 00 [facility] codeine DA Active UT HIVES 0 4-07 00:00: 00 [facility] TRILOGY DA Active SV SOB, ANXIETY 2023-0 4-06 00:00: 00 [facility] codeine DA Active UT HIVES 0 3-31 00:00: 00 [facility] fexofena dine DA Active MO SOB, ANXIETY 0 3-31 00:00: 00 [facility] Trilog Drug Allergy Active Rash 2023-0 3-02 00:00: 00 [facility] TRILOG DRUG Active Low Palpitations 2023-0 3-02 00:00: 00 [facility] FLUTICAS ONE-UMEC LIDIN- LANTER DRUG Active High Palpitations 2022-1 2-05 00:00: 00 [facility] Fluticas one-Umec lidin-Vi lanter Drug Allergy Active Shortness of Breath 2022-1 2-05 00:00: 00 [facility] CODEINE DRUG INGREDI Active Low Hives 2021-0 1-01 00:00: 00 [facility] Codeine Drug Allergy Active Rash 2021-0 1-01 00:00: 00 [facility] Codeine Allergy to substanc e Active [facility] TRELEGY ELLIPTA Allergy to substanc e Active [facility] Social History Social Habit Start Date Stop Date Quantity Comments Source History of tobacco use Smokes tobacco daily [facility] Alcoholic beverage intake 2024-06-26 00:00:00 2024-06-26 00:00:00 Ex-drinker (finding) [facility] Tobacco Comment 2024-06-08 00:00:00 2024-06-08 00:00:00 vapes [facility] Tobacco use and exposure 2024-06-08 00:00:00 2024-06-08 00:00:00 Smokeless tobacco non-user [facility] History of Social function 2024-05-26 00:00:00 2024-05-26 00:00:00 [facility] Sex assigned at 1990 00:00:00 1990 00:00:00 [facility] Smoking Status Start Date Stop Date Source Tobacco smoking consumption unknown [facility] Smokes tobacco daily 2024-06-08 00:00:00 [facility] Never smoked tobacco [facility] Medications Ordered Medication Name Filled Medication Name Start Date Stop Date Current Medication? Ordering Clinician Indication Dosage Frequency Signature (SIG) Comments Components Source HYDROcodone -acetaminop hen (NORCO 5) tablet 1 tablet 2023-09 14:15: 00 06-19 15:07 :00 No 1{tbl} 1 tablet, Oral, ONCE, 1 dose, On Wed06/19/24 at 0915, Routine, PACU [facility] FENTanyl (PF) (SUBLIMAZE) injection 25 mcg 2023-09 14:07: 36 06-19 20:45 :20 No 25ug 25 mcg, Slow IV Push, Q5MIN PRN, 4 doses, Starting on Wed06/19/24 at 0907, Until Wed06/19/24 at 1545, Routine, Pain Scale 4-6, PACU [facility] ondansetron (ZOFRAN (PF)) injection 4 mg 2023-09 14:07: 36 06-19 20:45 :20 No 4mg 4 mg, Slow IV Push, PRN, 1 dose, Starting on Wed06/19/24 at 0907, Until Wed06/19/24 at 1545, Routine, Nausea and Vomiting (N/V), PACU [facility] bupivacaine (preserv free) (SENSORCAIN E MPF) 0.25 % (2.5 mg/mL) injection 2023-09 007 13:47: 00 06-19 14:13 :04 No PRN, Starting on Wed06/19/24 at 0847, Until Wed06/19/24 at 0913, Routine, Intra-op [facility] water for irrigation irrigation solution 2023-09 007 13:40: 00 06-19 14:13 :04 No PRN, Starting on Wed06/19/24 at 0840, Until Wed06/19/24 at 09, Routine, Intra-op [facility] traMADoL 50 mg tablet 2023-09 00:00: 00 06-27 04:59 :00 No [id number] 50mg Take 1 tablet by mouth every 6 (six) hours as needed for Pain (scale 4-6) or Pain (scale 7-10) for up to 7 days. Indication s: acute pain [facility] buprenorphi ne-naloxone 8-2 mg sublingual film 05-26 09:08: [address] 1 Film under the tongue in the morning. [facility] diclofenac dodium 1 % gel 05-18 00:00: 00 Yes Apply to area(s). [facility] dexamethaso ne (DECADRON) injection 10 mg 05-13 22:30: 00 05-13 21:35 :00 No [id number] 10mg 10 mg, Intramuscu lar, ONCE, 1 dose, On 05/13/24 at 1730, Routine [facility] ipratropium -albuteroL (DUONEB) 0.5 mg-3 mg(2.5 mg base)/3 mL nebulizer solution 3 mL 05-13 22:15: 00 05-13 21:36 :00 No [id number] 3mL 3 mL, Inhalation , ONCE, 1 dose, On 05/13/24 at 1715, Routine [facility] albuterol 90 mcg/actuati on inhaler 05-13 00:00: 00 Yes [id number] 2{puff} Inhale 2 Puffs every 6 (six) hours as needed for Wheezing, Shortness of Breath, Bronchospa sm or Chest tightness. [facility] ibuprofen 800 mg tablet 03-28 00:00: 00 Yes 800mg Take 1 tablet by mouth every 8 (eight) hours as needed. [facility] budesonide- formoteroL 160-4.5 mcg/actuati on inhaler 2022-09 00:00: 00 Yes 2{puff} Inhale 2 Puffs in the morning and 2 Puffs in the evening. [facility] levalbutero l 1.25 mg/3 mL solution for nebulizatio n USE 1 VIAL VIA NEBULIZER THREE TIMES DAILY levalbutero l 1.25 mg/3 mL solution for nebulizatio n USE 1 VIAL VIA NEBULIZER THREE TIMES DAILY No levalbuter ol 1.25 mg/3 mL solution for nebulizati on USE 1 VIAL VIA NEBULIZER THREE TIMES DAILY [facility] levalbutero l HFA 45 mcg/actuati on aerosol inhaler INHALE 2 PUFFS BY MOUTH EVERY 6 HOURS levalbutero l HFA 45 mcg/actuati on aerosol inhaler INHALE 2 PUFFS BY MOUTH EVERY 6 HOURS No levalbuter ol HFA 45 mcg/actuat ion aerosol inhaler INHALE 2 PUFFS BY MOUTH EVERY 6 HOURS [facility] Spiriva Respimat 2.5 mcg/actuati on solution for inhalation INHALE 2 SPRAY(S) BY MOUTH ONCE DAILY Spiriva Respimat 2.5 mcg/actuati on solution for inhalation INHALE 2 SPRAY(S) BY MOUTH ONCE DAILY No Spiriva Respimat 2.5 mcg/actuat ion solution for inhalation INHALE 2 SPRAY(S) BY MOUTH ONCE DAILY [facility] Vital Signs Vital Name Observation Time Observation Value Comments S ournhi Systolic blood pressure 2024-06-27 06:50:00 120 mm[Hg] [facility] Diastolic blood pressure 2024-06-27 06:50:00 66 mm[Hg] [facility] Heart rate 2024-06-27 06:50:00 78 /min [facility] Body temperature 2024-06-27 06:50:00 37 Astrid [facility] Respiratory rate 2024-06-27 06:50:00 14 /min [facility] Oxygen saturation in Arterial blood by Pulse oximetry 2024-06-27 06:50:00 97 /min [facility] Body height 2024-06-27 02:56:00 172.7 cm [facility] weight 2024-06-27 02:56:00 122.471 [facility] BMI 2024-06-27 02:56:00 41.05 kg/m2 Univ [facility] Heart rate 2024-06-19 15:30:00 70 /[facility] Res[facility] rate 2024-06-19 15:30:00 17 /min [facility] Oxygen saturation in Arterial blood by Pulse oximetry 2024-06-19 15:30:00 96 /min [facility] Systolic blood pressure 2024-06-19 15:26:00 114 mm[Hg] [facility] Diastolic blood pressure 2024-06-19 15:26:00 62 mm[Hg] [facility] Body temperature 2024-06-19 15:26:00 36.44 Astrid [facility] Body weight 2024-06-19 12:13:00 122.471 kg [facility] BMI 2024-06-19 12:13:00 41.05 kg/m2 [facility] Body height 2024-06-08 22:00:00 172.7 cm Univ [facility] Heart rate 2024-06-19 15:04:00 81 /min [facility] Respiratory rate 2024-06-19 15:04:00 12 /min [facility] Oxygen saturation in Arterial blood by Pulse oximetry 2024-06-19 15:04:00 98 /min [facility] Systolic blood pressure 2024-06-19 15:02:00 99 mm[Hg] [facility] Diastolic blood pressure 2024-06-19 15:02:00 49 mm[Hg] [facility] Body temperature 2024-06-19 14:15:00 36.28 Astrid [facility] Body weight 2024-06-19 12:13:00 122.471 kg [facility] BMI 2024-06-19 12:13:00 41.05 kg/m2 [facility] Body height 2024-06-08 22:00:00 172.7 cm [facility] Body height 2024-06-05 21:12:00 167.6 cm [facility] Body weight 2024-06-05 21:12:00 128.368 kg [facility] BMI 2024-06-05 21:12:00 45.68 kg/m2 [facility] Systolic blood pressure 2024-05-26 14:06:00 119 mm[Hg] [facility] Diastolic blood pressure 2024-05-26 14:06:00 67 mm[Hg] [facility] Heart rate 2024-05-26 14:06:00 75 /min [facility] Body temperature 2024-05-26 14:06:00 36.83 Astrid [facility] Body height 2024-05-26 14:06:00 172.7 cm [facility] Body weight 2024-05-26 14:06:00 128.822 kg [facility] BMI 2024-05-26 14:06:00 43.18 kg/m2 [facility] Body Weight 2024-05-18 00:00:00 4496 [oz_av] [facility] BP Diastolic 2024-05-18 00:00:00 63 mm[Hg] [facility] Height 2024-05-18 00:00:00 68 [in_i] [facility] BMI (Body Mass Index) 2024-05-18 00:00:00 42.7 kg/m2 [facility] BP Systolic 2024-05-18 00:00:00 114 mm[Hg] [facility] Systolic blood pressure 2024-05-13 21:22:00 129 mm[Hg] [facility] Diastolic blood pressure 2024-05-13 21:22:00 78 mm[Hg] [facility] Heart rate 2024-05-13 21:22:00 80 /min [facility] Body temperature 2024-05-13 21:22:00 36.72 Astrid [facility] Respiratory rate 2024-05-13 21:22:00 20 /min [facility] Body weight 2024-05-13 21:22:00 125.828 kg [facility] Oxygen saturation in Arterial blood by Pulse oximetry 2024-05-13 21:22:00 96 /min [place] [facility] Procedures Procedure Date / Time Performed Performing Clinician Source EKG-12 LEAD 2024-06-27 06:44:05 Erum Payan [facility] TROPONIN I 2024-06-27 05:14:00 Erum Payan [facility] XR CHEST 1 VW 2024-06-27 04:44:19 Erum Payan [facility] MAGNESIUM 2024-06-27 03:13:00 Erum Payan [facility] TROPONIN I 2024-06-27 03:13:00 Erum Payan [facility] THYROID STIMULATING HORMONE 2024-06-27 03:13:00 Erum Payan [facility] COMP. METABOLIC PANEL (04062) 2024-06-27 03:13:00 Erum Payan [facility] CBC WITH DIFF 2024-06-27 03:13:00 Erum Payan [facility] N-TERMINAL PRO-BNP 2024-06-27 03:13:00 Erum Payan [facility] [id number] - [place] NEUROPLASTY &/TRANSPOSITION ULNAR NERVE ELBOW 2024-06-19 12:56:00 Venessa Khan [facility] XR CHEST 2 VW 2024-06-12 19:19[facility] 2024-06-12 19:12:12 Doctor Unass igned, [place] [facility] XR Chest 1 View Portable 2022-08-13 21:50:00 [facility] EKG 12 Lead in Emergency Room 2022-05-24 17:21:00 [facility] EKG 12 Lead in Emergency Room 2022-05-24 17:21:00 [facility] XR Chest 1 View Portable 2022-05-24 17:05:00 [facility] XR Chest 1 View Portable 2022-05-24 17:05:00 [facility] Encounters Start Date/Time End Date/Time Encounter Type Admission Type Attending [facility] Care Department Encounter ID Source 2024-07-03 16:00:00 2024-07-03 16:00:00 Outpatient VENESSA FLETCHER CRAIG [facility] [id number] [facility] 2024-06-30 16:00:00 2024-06-30 16:00:00 Outpatient JOHNSON CLARK [facility] [id number] [facility] 2024-06-26 21:59:00 2024-06-27 02:20:00 Emergency X KSENIA ERUM [facility] ERT [id number] [facility] 2024-06-26 21:59:00 2024-06-27 02:20:00 Emergency Saritha Payanbillie S [facility] 1..840.114 350.1.13.10 4.2.7.2.686 [id number] [facility] 2024-06-23 00:00:00 2024-06-26 15:43:10 Telephone [facility]?EMMANUELGem [facility] MEDICAL OFFICE BUILDING 1..840.114 350.1.13.10 4.2.7.2.686 [id number] [facility] 2024-06-26 00:00:00 2024-06-26 14:04:06 Telephone [facility] MEDICAL OFFICE BUILDING 1.2.840.114 350.1.13.10 4.2.7.2.686 [id number] [facility] 2024-06-19 00:00:00 2024-06-20 09:16:34 Telephone Venessa Khan [facility] MEDICAL OFFICE BUILDING 1.2.840.114 350.1.13.10 4.2.7.2.686 [id number] [facility] 2024-06-19 00:00:00 2024-06-19 15:28:13 Telephone Talita Rodriguez [facility] MEDICAL OFFICE BUILDING 1.2.840.114 350.1.13.10 4.2.7.2.686 [id number] [facility] 2024-06-19 06:57:00 2024-06-19 10:41:00 Hospital Encounter Venessa Khan [facility] 1.2.840.114 350.1.13.10 4.2.7.2.686 [id number] [facility] 2024-06-19 06:57:00 2024-06-19 10:41:00 Outpatient R VENESSA KHAN [facility] [id number] [facility] 2024-06-19 08:05:00 2024-06-19 10:04:00 Surgery Venessa Khan [facility] 1.2.840.114 350.1.13.10 4.2.7.2.686 [id number] [facility] 2024-06-12 14:04:22 2024-06-12 23:59:00 Hospital Encounter Talita Rodriguez [facility] 1.2.840.114 350.1.13.10 4.2.7.2.686 [id number] [facility] 2024-06-12 13:46:28 2024-06-12 14:03:00 Hospital Encounter Venessa Khan Craig [facility] 1.2.840.114 350.1.13.10 4.2.7.2.686 [id number] [facility] 2024-06-12 13:46:28 2024-06-12 14:03:00 Outpatient R MICHAEL TALITAGem RODRIGUEZ TALITA [facility] [id number] [facility] 2024-06-12 13:45:00 2024-06-12 14:00:00 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 Visit Pob, Adc Lab Main Venessa Khan, Adc Lab Main [facility] PROFESSIO NAL BUILDING 1.2.840.114 350.1.13.10 4.2.7.2.686 [id number] [facility] 2024-06-08 00:00:00 2024-06-08 11:26:36 Telephone Michael, [facility]ita[facility]?EMMANUELGem [facility] MEDICAL OFFICE BUILDING 1.2.840.114 350.1.13.10 4.2.7.2.686 [id number] [facility] 2024-06-08 00:00:00 2024-06-08 09:22:20 Prep For Surgery [facility] MEDICAL OFFICE BUILDING 1.2.840.114 350.1.13.10 4.2.7.2.686 [id number] [facility] 2024-06-05 16:00:00 2024-06-05 16:51:32 Outpatient R MICHAEL, TALITA MICHAEL, TALITA [facility] [id number] [facility] 2024-06-05 16:00:00 2024-06-05 16:51:32 Office Visit Michael [facility]ARDO [facility] MED[facility] OFF[facility] BUILDING 1.2.840.114 350.1.13.10 4.2.7.2.686 [id number] [facility] 2024-06-02 08:45:00 2024-06-02 08:45:00 Outpatient R ERIN VENESSA KHANVENESSA [facility] [id number] [facility] 2024-05-31 11:48:07 2024-05-31 23:59:00 [facility] [id number] 2024-05-31 11:48:07 2024-05-31 23:59:00 Hospital Encounter Bruno [facility] MEDICAL OFFICE BUILDING 1.2.840.114 350.1.13.10 4.2.7.2.686 [id number] [facility] 2024-05-30 00:00:00 2024-05-30 11:25:20 Telephone Mario Burnett [facility]?RICARDO [facility] MEDICAL OFFICE BUILDING 1.2.840.114 350.1.13.10 4.2.7.2.686 [id number] [facility] 2024-05-30 10:30:00 2024-05-30 10:30:00 Outpatient TALITA LAGUERRE SELENA [facility] [id number] [facility] 2024-05-26 09:20:00 2024-05-26 09:57:55 Outpatient R MARIO BURNETT HOWARD [facility] [id number] [facility] 2024-05-26 09:20:00 2024-05-26 09:57:55 Office Visit Fizt Mario [facility]?RICARDO [facility] MEDICAL OFFICE BUILDING 1.2.840.114 350.1.13.10 4.2.7.2.686 [id number] [facility] 2024-05-24 00:00:00 2024-05-24 11:51:01 Letter (Out) Campaigns, Generic Provider Campaigns, Generic Provider [facility] 1.2.840.114 350.1.13.10 4.2.7.2.686 [id number] [facility] 2024-05-18 00:00:00 2024-05-18 00:00:00 Nina Arreaga, [employer]-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 [facility] 904 [facility] 2024-05-14 00:00:00 2024-05-14 17:44:13 Telephone Aleena Green [facility]?RICARDO [facility] MEDICAL OFFICE BUILDING 1.2.840.114 350.1.13.10 4.2.7.2.686 [id number] [facility] 2024-05-13 16:20:00 2024-05-13 16:40:00 Urgent Care Aleena Green Unknown, Attending [facility] MEDICAL OFFICE BUILDING 1.2.840.114 350.1.13.10 4.2.7.2.686 [id number] [facility] 2024-05-13 16:20:00 2024-05-13 16:20:00 Outpatient R ALEENA GREEN [facility] [id number] [facility] 2023-12-22 18:34:00 2023-12-23 00:43:00 Emergency EM Ramón Cuellar [facility] [id number] [facility] 2023-12-19 02:52:00 2023-12-20 13:24:00 Inpatient EM Cliff Hu [facility] [id number] [facility] 2023-12-12 17:07:00 2023-12-12 19:38:00 Emergency EM Claudia Solo [facility] [id number] [facility] 2022-11-08 21:00:00 2022-11-08 22:05:00 Emergency ER RICHAR ORTIZ [id number] [facility] 2022-08-13 21:09:00 2022-08-13 23:08:00 Emergency [facility] [id number] [facility] 2022-05-25 01:41:00 2022-05-25 03:05:00 Emergency ER Bhupinder Moreau STLSJB STLSB [id number] [facility] 2022-05-24 16:49:00 2022-05-24 18:08:00 Emergency ER Bhupinder More[facility] [id number] [facility] Results Test Description Test Time Test Comments Results Result Co mments Source [facility] 1 [id number] 05:34:55ORDERING PHYSICIAN: Galdino MORRIS HISTORY: Chest Pain ? COMPARISON: 06/12/2024 FINDINGS: 2 frontal views of the chest Heart is normal in size. ?There is no pulmonary edema. There are no focalareas of consolidation. There is no pneumothorax. ?There are no pleuraleffusions. Osseous structures are un remarkable. ? Please note that chest radiography is not a sensitive modality for thedetection of masses.[facility] West[facility]yroid Stimulating [id number] 05:02:15* Test Item Value Reference Range Interpretation Comme nts TSH (test code = 0634370219) 4.14 0.45-4.70 Biotin has been reported to cause a negative bias, interpret results relative to patient's use of biotin. Lab Interpretation (test code = 54087-6) Normal [facility]2024-10-15 04:33:11* Test Item Value Reference Range Interpretation Comme nts MAGNESIUM (test code = 4018361633) 2.0 mg/dL 1.7-2.4 Lab Interpretation (test cod e = 07368-7) Normal [facility] West[facility]roponin [id number] 04:02:06* Test Item Value Reference Range Interpretation Comme nts TROPONIN I (test code = 8362108377) 0.002 ng/mL <=0.034 FATOUMATA (test code = FATOUMATA) Reference (Normal) Range (defined by the 99th percentile reference limit): <= 0.034 ng/mL Note: Cardiac troponin begins to rise 3-4 hours after the onset of ischemia. Repeat in 4-6 hours if the sample was drawn within 3-4 hours of the onset of the symptom and found normal. Diagnosis of myocardial injury is made with acute changes in cTn concentrations with at least one serial sample above the 99th percentile upper reference limit (URL), taken together with the patient's clinical presentation. Biotin has been reported to cause a negative bias, interpret results relative to patient's use of biotin. Lab Interpretation (test code = 19441-9) Normal [facility] (24278)2024-06-27 03:50:48* Test Item Value Reference Range Interpretation Comme nts NA (test code = 6799286986) 139 mmol/L 135-145 K (test code = 9082568202) 3.9 mmol/L 3.5-5.0 CL (test code = 6161624549) 101 mmol/L 98-108 CO2 TOTAL (test code = 9858088806) 33 mmol/L 23-31 H AGAP (test code = 5391204927) 5 2-16 BUN (test code = 1699189936) 19 mg/dL 7-23 GLUCOSE (test code = 6590000645) 104 mg/dL 70-110 CREATININE (test code = 2160-0) 0.83 mg/dL 0.60-1.25 TOTAL BILI (test code = 7137706012) 0.8 mg/dL 0.1-1.1 CALCIUM (test code = 4304670389) 8.8 mg/dL 8.6-10.6 T PROTEIN (test code = 3360199402) 7.5 g/dL 6.3-8.2 ALBUMIN (test code = 9218931802) 4.2 g/dL 3.5-5.0 ALK PHOS (test code = 1168701649) 57 U/L 34-122 ALTv (test code = 1742-6) 64 U/L 5-50 H AST(SGOT) (test code = 9946735472) 39 U/L 13-40 eGFR (test code = 69831-4) 119.3 mL/min/1.73m2 CKD-EPI eGFR (2020). Assuming creatinine has been stable day-to-day for at least three months, the eGFR indicates Category G1 (>= 90 mL/min/1.73 m2) Lab Interpretation (test code = 58053-5) Abnormal [facility] with [id number] 03:25:44* Test Item Value Reference Range Interpretation Comme nts WBC (test code = 6690-2) 12.82 4.20-10.70 H RBC (test code = 789-8) 4.87 4.26-5.52 HGB (test code = 718-7) 13.8 g/dL 12.2-16.4 HCT (test code = 4544-3) 44.2 % 38.4-49.3 MCV (test code = 787-2) 90.8 fL 81.7-95.6 MCH (test code = 785-6) 28.3 pg 26.1-32.7 MCHC (test code = 786-4) 31.2 g/dL 31.2-35.0 RDW-SD (test code = 39552-6) 46.2 fL 38.5-51.6 RDW-CV (test code = 788-0) 13.8 % 12.1-15.4 PLT (test code = 777-3) 286 150-328 MPV (test code = 91731-8) 9.5 fL 9.8-13.0 L NRBC/100 WBC (test code = 2551799097) 0.0 0.0-10.0 NRBC x10^3 (test code = 1318952094) See_Comment [Automated messa ge] The system which generated this result transmitted reference range: 10*3/?L. The reference range was not used to interpret this result as normal/abnormal. GRAN MAT (NEUT) % (test code = 770-8) 68.2 % IMM GRAN % (test code = 1028816153) 1.40 % LYMPH % (test code = 736-9) 20.6 % MONO % (test code = 5905-5) 8.5 % EOS % (test code = 713-8) 0.9 % BASO % (test code = 706-2) 0.4 % GRAN MAT x10^3(ANC) (test code = 0585084904) 8.74 10*3/uL 1.99-6.95 H IMM GRAN x10^3 (test code = 1370880119) 0.18 10*3/uL 0.00-0.06 H LYMPH x10^3 (test code = 731-0) 2.64 10*3/uL 1.09-3.23 MONO x10^3 (test code = 742-7) 1.09 10*3/uL 0.36-1.02 H EOS x10^3 (test code = 711-2) 0.12 10*3/uL 0.06-0.53 BASO x10^3 (test code = 704-7) 0.05 10*3/uL 0.01-0.09 Lab Interpretation (test code = 05810-9) [facility]normal [facility] [id number] 00:34:45EXAM: XR CHEST 2 VW COMPARISON: None. HISTORY: SURGERY ? TECHNIQUE: PA and lateral views of the chest were obtained. FINDINGS: No focal consolidation is identified. No pleural effusion or pneumothoraxis seen. The cardiomediastinal silhouette is unremarkable.No acute osseous abnormalities.[facility]- DUP VEIN UNI [id number] 00:03:00 [facility] 1990 Sex: M FAX: Marii Gaytan MD R3 [place]: St: REG Name: IGL HERCULES [facility] : 1990 Age/S: 33/M [address] Unit#: [id number] Loc: [place] [address] Phys: Marii Gaytan MD R3 Acct: [id number] Dis Date: Status: REG ER PHONE #: [phone] Exam Date: 12/22/2023 2339 FAX #: [phone] Reason: swelling, r/o DVT EXAMS: CPT CODE: [id number] [address] Examination: Ultrasound venous duplex left lower extremity Location code: H60 Comparison: None Discussion: Clinical history is remarkable for pain and swelling. Grayscale, duplex and spectral analysis was performed of the deep veins left lowerextremity. The deep veins are normal in appearance. [...] Signed Report FAX: Marii Gaytan MD R3 [place]: St: REG Name: GIL HERCULES : 1990 Age/S: 33/M [address] Unit #: [id number] Loc: [place] [address] Phys: Marii Gaytan MD R3 Acct: [id number] Dis Date: Status: REG ER PHONE #: [phone] Exam Date: 12/22/2023 2339 FAX #: [phone] Reason: swelling, r/o DVT EXAMS: CPT CODE: [id number] [place] [address] (Continued) Orig Print D/T: S: 12/23/2023 (0006) PAGE 2 Signed Report BASIC METABOLIC [id number] 21:06:00* Test Item Value Reference Range Interpretation Comme nts SODIUM (test code = NA) 137 mmol/L 137-145 N POTASSIUM (test code = K) 4.1 mmol/L 3.4-5.0 N CHLORIDE (test code = CL) 101 mmol/L 98-107 N CARBON DIOXIDE (test code = CO2) 29 mmol/L 22-30 N ANION GAP (test code = GAP) 11 mmol/L 10-20 N GLUCOSE (test code = GLU) 98 mg/dL 74-106 N BLOOD UREA NITROGEN (test code = BUN) 12 mg/dL 9-20 N GLOMERULAR FILTRATION RATE (test code = GFR) 121 mL/min The Glomerular Filtration Rate is a [...] <18 years. CREATININE (test code = CREAT) 0.8 mg/dL 0.7-1.3 N CALCIUM (test code = CA) 9.6 mg/dL 8.4-10.2 N INDEX HEMOLYSIS (test code = HEMINDEX) 26 Index/DL 0-100 N Spec Comments: SOBLIVER FUNCTION [id number] 21:06:00* Test Item Value Reference Range Interpretation [...] CK) 1118 U/L 55-170 H Spec Comments: [id number] 21:06:00* Test Item Value Reference Range Interpretation Comme nts LIPASE (test code = LIP) 88 U/L 23-300 N Spec Comments: [id number] 21:06:00* Test Item Value Reference Range Interpretation Comme nts MAGNESIUM (test code = MAG) 1.8 mg/dL 1.6-2.3 N Spec Comments: SOBNT PRO-BRAIN NATRIURETIC [id number] 21:06:00* Test Item Value Reference Range Interpretation [...] interpret this result as normal/abnormal. Spec Comments: [id number] 21:06:00* Test Item Value Reference Range Interpretation [...] TAKING BIOTIN SUPPLEMENTS~~~~~~~~~~~~~~~~ ~~~~~~~~~~~~~~~~~~~~~~~~~~~ ~~~~~~~~~~~~~~~~ Spec Comments: [id number] 20:18:00* Test Item Value Reference Range Interpretation Comme nts D-DIMER (test code = DDIMER) 274 ng/mLFEU 0-500 N THE DDIMER METHO D IS USED IN THE EXCLUSION OF DEEP VEINTHROMBOSIS AND/OR PULMONARY EMBOLISM AND THE CLINICAL CUT-OFF VALUE FOR EXCLUSION (500 NG/ML FEU) OF THESE CONDITIONSIS VALIDATED BY THE WET AND DRY SUGAR BIN OPERATOR OF THE METHOD. A NEGATIVE DDIMER RESULT WHEN COMBINED WITH A CLINICALASSESSMENT OF LOW PRETEST PROBABILITY HAS BEEN SHOWN TO HAVEA HIGH NEGATIVE PREDICTIVE VALUE OF DVT OR PE. D-DIMER VALUES >500 ng/mL ARE NOT DIAGNOSTIC FOR DVT,PEOR DIC WITHOUT OTHER CONFIRMATORY TESTS AND APPROPRIATECLINICAL EVALUATIONS. - XR CHEST 1 [id number] 20:10:00 [facility] : 1990 Sex: M FAX: Debbie Martel PA-C [place]: St: PRE Name: GIL HERCULES [facility] : 1990 Age/S: 33/M [address] Unit #: [id number] Loc: [place] [address] Phys: Debbie Martel PA-C Acct: [id number] Dis Date: Status: PRE ER PHONE #: [phone] Exam Date: 12/22/20231999 FAX #: [phone] Reason: Shortness of breath EXAMS: CPT CODE: [id number] XR CHEST 1 V 28604 EXAM: AP chest LOCATION: H 12 HISTORY:Shortness of breath COMPARISON: None. FINDINGS: The lungs are clear. No infiltrate or effusion is seen. The pulmonary vasculature is normal. The heart size is normal. The mediastinal silhouette is unremarkable. The bony thorax is intact. IMPRESSION: No acute disease. at 2009 Reported and signed by: Finesse Boyd MD CC: Debbie Martel Technologist: FRANK BEE [facility] Date/Time/By: 12/22/2023 (2009) : By: Felicia PAGE 1 Signed Report FAX: Debbie Martel PA-C [place]: St: PRE Name: GIL HERCULES [facility] : 1990 Age/S: 33/M [address] Unit #: [id number] Loc: [place] [address] Phys: Debbie Martel PA-C Acct: [id number] Dis Date: Status: PRE ER PHONE #: [phone] Exam Date: 12/22/20231999 FAX #: [phone] Reason: Shortness of breath EXAMS: CPT CODE: [id number] XR CHEST 1 V 28862 (Continued) Orig Print D/T: S: 12/22/2023 (2012) PAGE 2 Signed ReportCBC W/AUTO [id number] 20:08:00* Test Item Value Reference Range Interpretation [...] = BA#) 0.05 x10 3/uL 0.0-0.1 N [id number] 01:08:00* Test Item Value Reference Range Interpretation Comme nts LEAD (test code = LEAD) <1.0 ug/dL 0.0-3.4 Testing performe d by Inductively coupled plasma/MassSpectrometry.An alysis by inductively coupled plasma/massspectrometry (ICP/MS) Environmental Exposure: WHO Recommendation <5.0 Occupational Exposure: OSHA Lead Std 40.0 JONAH 30.0 Detection Limit = 1.0Performed At: [facility] [place], [place] [id number] Travis MD Ph:[phone]][id number] 12:27:00* Test Item Value Reference Range Interpretation Comme nts CKMB (test code = CKMBT) 0.68 ng/mL 0.5-5.0 A positive bias may occur for patients taking BIOTINsupplements. Spec Comments: CK TODAYCREATINE KINASE (CK)2023-12-20 09:59:00* Test Item Value Reference Range Interpretation Comme nts CREATINE KINASE (CK) (test c ode = CK) 3586 U/L 55-170 HH COMPREHENSIVE METABOLIC [id number] 06:00:00* Test Item Value Reference Range Interpretation [...] HEMINDEX) 22 Index/DL 0-100 N CBC W/AUTO [id number] 05:51:00* Test Item Value Reference Range Interpretation [...] 0.03 x10 3/uL 0.0-0.1 N CBC W/AUTO [id number] 13:41:00* Test Item Value Reference Range Interpretation Comme nts WHITE BLOOD CELL (test code = WBC) 4.8 x10 3/uL 5.0-12.0 L RED BLOOD CELL (test code = RBC) 4.30 x10 6/uL 4.70-6.10 L HEMOGLOBIN (test code = HGB) 12.1 g/dL 14.0-18.0 L CALLED RESULTS T O [id number] 12/19/23 AT 1152 BY [id number]. HEMATOCRIT (test code = HCT) 38.4 % [...] x10 3/uL 130-400 CALLED RESULTS T O [id number] 12/19/23 AT 1152 BY [id number]. MEAN PLATELET VOLUME (test code = MPV) [...] (test code = PLTMORPH) NORMAL NORMAL URINALYSIS [id number] 13:06:00* Test Item Value Reference Range Interpretation [...] code = WBCU) 0-3 /HPF See_Comment [Automated [employer]] The system which generated this result transmitted reference range: <4-5. The reference range was not used to interpret this result as normal/abnormal. UA RBC (test code = RBCU) 0-3 /HPF See_Comment [Automated [employer]Zero] The system which generated this result transmitted reference range: <4-5. The reference range was not used to interpret this result as normal/abnormal. UA BACTERIA (test code = BACU) None /HPF None-Rare UA MUCUS (test code = MUCU) Rare /LPF See_Comment [Automated [employer] ge] The system which generated this result transmitted reference range: <Rare. The reference range was not used to interpret this result as normal/abnormal. CARDIAC ENZYMES [id number] 12:53:00* Test Item Value Reference Range Interpretation [...] FOR PATIENTS TAKING BIOTIN SUPPLEMENTS~~~~~~~~~~~~~~~~ ~~~~~~~~~~~~~~~~~~~~~~~~~~~ ~~~~~~~~~~~~~~~~ [id number] 12:50:00* Test Item Value Reference Range Interpretation Comme nts CKMB (test code = CKMBT) 1.31 ng/mL 0.5-5.0 A positive bias may occur for patients taking BIOTINsupplements. COMPREHENSIVE METABOLIC [id number] 12:16:00* Test Item Value Reference Range Interpretation [...] HEMINDEX) 53 Index/DL 0-100 N CARDIAC ENZYMES [id number] 12:16:00* Test Item Value Reference Range Interpretation [...] FOR PATIENTS TAKING BIOTIN SUPPLEMENTS~~~~~~~~~~~~~~~~ ~~~~~~~~~~~~~~~~~~~~~~~~~~~ ~~~~~~~~~~~~~~~~ [id number] 12:16:00* Test Item Value Reference Range Interpretation Comme [facility] CKMB (test code = CKMBT) 1.18 ng/mL 0.5-5.0 N A positive bias may occur for patients taking BIOTINsupplements. LIPID PROFILE (CORONARY RISK)2023-12-19 08:37:00* Test Item Value Reference Range Interpretation Comme [facility] TRIGLYCERIDES (test code = TRIG) 96 mg/dL [...] Borderline Risk LDL Cholesterol<100mg/d L: Desirable LDL-C ffsvagkpnnhyl525-133d g/dL: Borderline High Risk LDL-C ybhugnhqumvth295-288q g/dL: High risk LDL-C concentration HDL-LDL Cholesterol is affected by a number of factors suchas smoking, age and sex.~~~~~~~~~~~~~~~~~ ~~~~~~~~~~~~~~~~~~~~~ ~~~~~~~~~~~~~~~~~~~~~ ~ [id number] 08:37:00* Test Item Value Reference Range Interpretation Comme nts MAGNESIUM (test code = MAG) 2.1 mg/dL 1.6-2.3 N CARDIAC ENZYMES [id number] 08:37:00* Test Item Value Reference Range Interpretation [...] PATIENTS TAKING BIOTIN SUPPLEMENTS~~~~~~~~~~~~~~~~ ~~~~~~~~~~~~~~~~~~~~~~~~~~~ ~~~~~~~~~~~~~~~~ T4 [id number] 04:42:00* Test Item Value Reference Range Interpretation Comme nts T4 FREE (test code = T4F) 1.19 ng/dL 0.78-2.19 N - CTA CHEST FOR [id number] 02:50:00 [facility] HERCULESTATIANA HATFIELDXOCHITL Gusman : 1990 Sex: M FAX: Klaudia Haq MD R3 [place]: St: REG Name: GIL HERCULES [facility] : 1990 Age/S: 33/M [address]: [id number] Loc: [place] [address] Phys: Klaudia Haq MD R3 Acct: [id number] Dis Date: Status: REG ER PHONE #: [phone] Exam Date: 12/18/20232358 FAX #: [phone] Reason: CHEST PAIN/SOB EXAMS: CPT CODE: [id number] [place] [address] LOCATION: H48 HISTORY: Male, 33 years of [...] obvious central or proximal subcentral pulmonary artery fillingdefect. Distal pulmonary arteries not well assessed due [...] infiltration of liver. IMPRESSION: 1. No obvious centralor proximal subcentral pulmonary embolism. 2. No aortic aneurysm or dissection. 3. No acute infiltrate or effusion. PAGE 1 Signed Report (CONTINUED) FAX: Klaudia Haq MD R3 [place]: St: REG------- Name: GIL HERCULES [facility] : 1990 Age/S: 33/M [address] Unit: [id number] Loc: [place], [place] [address]Lsrf: Klaudia Haq MD R3 Acct: [id number] Dis Date: Status: REG ER PHONE #: [phone] Exam Date: 12/18/20232358 FAX #: [phone] Reason: CHEST PAIN/SOB EXAMS: CPT CODE: [id number] [place] [address] (Continued) at 0250 Reported and signed by: Leila Mead MD CC: Klaudia Haq MD Technologist: RANI SAUNDERS; VIRGIE PÉREZ Trnscrd Dt/Tm: 12/19/2023 (0) tDEBRAW Orig Print D/T: S: 12/19/2023 (3 PAGE 2 Signed ReportTSH REFLEX TO [id number] 02:49:00* Test Item Value Reference Range Interpretation Comme nts TSH REFLEX TO FT4 (test code = TSHREFLEX) 8.490 MIU/L 0.465-4.68 H A positive bias may occur for patients taking BIOTINsupplements. - CT ABD PELVIS W/[id number] 02:47:00 [facility]ES GIL K : 1990 Sex: M FAX: Klaudia Haq MD R3 [place]: St: REG Name: GIL HERCULES [facility] : 1990 Age/S: 33/M [address]: [id number] Loc: [place] [address] Phys: Klaudia Haq MD R3 Acct: [id number] Dis Date: Status: REG ER PHONE #: [phone] Exam Date: 12/18/2023 5015 FAX #: [phone] Reason: RLQ, RUQ ABDOMINAL PAIN EXAMS: CPT CODE: [id number] CT ABD PELVIS W/CONT 97563 LOCATION: H48 HISTORY: Male, 33 years of age with RLQ, RUQ ABDOMINAL PAIN EXAM: CT ABDOMEN AND PELVIS WITH IV CONTRAST COMPARISON: None at this time. TECHNIQUE: Contrast: Nonionic IV contrast was given. No GI contrast was given. Portal venous phase: Abdomen and pelvis Delayed phase: None Reconstructions: Coronal and sagittalOne or more of the following dose reduction techniques were used: Automated exposure control; adjustment of the mA and/or kV according to the patient size; and/or use of iterative reconstruction technique. FINDINGS: Statements: Exam quality is acceptable. LOWER THORAX: Unremarkable. HEPATOBILIARY: Liver is fatty infiltrated. No discrete solid mass or hepatomegaly. The gallbladder is unremarkable.No biliary dilatation. PANCREAS: The pancreas is normal. SPLEEN: The spleen is normal. No mass or enlargement. ADRENALS: The adrenals are normal. GENITOURINARY: Right kidney contains a 1.5 cm diameter 54 Hounsfield units density exophytic mass in lower pole. No other discrete renal mass, hydronephro sis, or renal stone. Ureters are unremarkable. Urinary bladder is unremarkable. The visualized reproductive organs are unremarkable. GASTROINTESTINAL: No bowel wall thickening, bowel obstruction or perienteric inflammation. The appendix is normal. VASCULAR: No aortic aneurysm or dissection. IVC is unremarkable. Portal vein is patent. LYMPHATICS: No enlarged lymph nodes by CT size criteria. PAGE 1 Signed Report (CONTINUED) FAX: Klaudia Haq MD R3 [place]: St: REG Name: GIL HERCULES [facility] : 1990 Age/S: 33/M [address] Unit: [id number] Loc: [place] [address] Phys: Klaudia Haq MD R3 Acct: [id number] Dis Date: Status: REG ER PHONE #: [phone] Exam Date: 12/18/2023 4917 FAX #: [phone] Reason: RLQ, RUQ ABDOMINAL PAIN EXAMS: CPT CODE: [id number] CT ABD PELVIS W/CONT 33239 (Continued) BONES/SOFT TISSUES: No acute osseous findings. 4.3 cm fat-containing umbilical hernia is noted. No other ventral hernias are seen. PERITONEUM/OTHER: No free intraperitoneal air. No free intraperitoneal fluid. IMPRESSION: 1. No acute findings in abdomen or pelvis. 2. 1.5 cm hypodense solid appearing mass inferior right kidney. Recommend nonemergent further assessment with multiphasiccontrast enhanced CT scan or MRI. 3. Fatty liver. 4. 4.3 cm fat-containing umbilical hernia. at 0247 Reported and signed by: Leila Mead MD CC: Klaudia Haq MD Technologist: RANI SAUNDERS; VIRGIE PÉREZ Trnscrd Dt/Tm: 12/19/2023 (024) t.SDR.CLW Orig Print D/T: S: 12/19/2023 (5040 PAGE 2 Signed Report- DUP VEIN [id number] 23:43:00 [facility] : 1990 Sex: M FAX: Klaudia Haq MD R3 [place]: St: REG Name: GIL HERCULES [facility] : 1990 Age/S: 33/M [address] Unit #: [id number] Loc: [place] [address] Phys: Klaudia Haq MD R3 Acct: [id number] Dis Date: Status: REG ER PHONE #: [phone] Exam Date: 12/18/20232306 FAX #: [phone] Reason: BILATERAL CALF PAIN/SPASMS EXAMS: CPT CODE: [id number] DUP VEIN NATHEN [address]1741 EXAM: Ultrasound bilateral lower extremity venous Doppler [...] MD Technologist: JASON GOMEZ Trnscrd Date/Time/By: 12/18/2023 (5589) : By: Mary Carmen.HV2 PAGE 1 Signed Report FAX: Klaudia Haq MD R3 [place]: St: R EG - Name: DIOMEDESGIL Gusman [facility] : 1990 Age/S: 33/M [address] Unit #: [id number] Loc: [place] [address] Phys: Klaudia Haq MD R3 Acct: [id number] Dis Date: Status: REG ER PHONE #: [phone] Exam Date: 12/18/20232306 FAX #: [phone] Reason: BILATERAL CALF PAIN/SPASMS EXAMS: CPT CODE: [id number] DUP VEIN NATHEN 34908 (Continued) Orig Print D/T: S: 12/18/2023 (0408) PAGE 2 Signed ReportBASIC METABOLIC [id number] 23:11:00 * Test Item Value Reference Range Interpretation Comme [...] HEMINDEX) 18 Index/DL 0-100 N LIVER FUNCTION [id number] 23:11:00* Test Item Value Reference Range Interpretation [...] ode = CK) 7023 U/L 55-170 HH [id number] 23:11:00* Test Item Value Reference Range Interpretation Comme nts MAGNESIUM (test code = MAG) 2.0 mg/dL 1.6-2.3 N [id number] 23:11:00* Test Item Value Reference Range Interpretation [...] SUPPLEMENTS~~~~~~~~~~~~~~~~ ~~~~~~~~~~~~~~~~~~~~~~~~~~~ ~~~~~~~~~~~~~~~~ - XR CHEST 1 [id number] 22:34:00 [facility] : 1990 Sex: M FAX: Francisco JavierPawan [place]: St: REG Name: GIL HERCULES [facility] Oscar : 1990 Age/S: 33/M [address] Unit #: [id number] Loc: [place] [address] Phys: Pawan Mcintyre Acct: [id number] Dis Date: Status: REG ER PHONE #: [phone] Exam Date: 12/18/20232144 FAX #: [phone] Reason: chest pain EXAMS: CPT CODE: [id number] XR CHEST 1 V 46620 EXAM: - XR CHEST 1 V COMPARISON: [...] By: DellHV2 PAGE 1 Signed Report [facility]: [facility] St: REG -- Name: GIL HERCULES [facility] Bernard : 1990 Age/S: 33/M [address] Unit #: [id number] Loc: [place] [address] Phys: Pawan Mcintyre JSOEFNNKary Acct: [id number] Dis Date: Status: REG ER PHONE #: [phone] Exam Date: 12/18/20232144 FAX #: [phone] Reason: chest pain EXAMS: CPT CODE: [id number] XR CHEST 1 V 40303 (Continued) Orig Print D/T: S: 12/18/2023 (2237) PAGE 2 Signed ReportCBC W/AUTO [id number] 22:25:00* Test Item Value Reference Range Interpretation [...] 0.07 x10 3/uL 0.0-0.1 N COMPREHENSIVE METABOLIC [id number] 18:27:00* Test Item Value Reference Range Interpretation [...] Test Item Value Reference Range Interpretation Comme [facility] CREATINE KINASE (CK) (test c ode = CK) 259 UNITS/L 26-308 N Chemistry - BNP, HgbA1c, [id number] 22:22:00* Test Item Value Reference Range Interpretation Comme [facility] Chemistry - BNP, HgbA1c, PTH i (test code = BNP) 28.8 pg/mL 0-100 N [id number] 22:21:00* Test Item Value Reference Range Interpretation [...] for Estimated GFR: Greater than 90 mL/min/1.73 n0Xzjgifnh eGFR is based on the CKD-EPI 2020 [...] code = ALT) 37 U/L 8-55 N [id number] 22:21:00* Test Item Value Reference Range Interpretation Comme [facility] Chemistry (test code = TROPI-R) 0.015 ng/mL < 0.028 Reference Range 0.00 - 0.028 ng/mL Negative 0.029 - 0.29 ng/mL Indeterminate Greater or Equal to 0.3 ng/mL Strongly suggests [place] [id number] 22:09:00* Test Item Value Reference Range Interpretation [...] Test Item Value Reference Range Interpretation Comme [facility] Sodium Level (test code = 2951-2) 140 mmol/L 136-145 [facility] potassium measurement (moles/volume)2022-08-13 21:55:00* Test Item Value Reference Range Interpretation Comme [facility] Potassium Level (test code = 2823-3) 3.7 mmol/L 3.5-5.1 [facility] plasma chloride measurement (moles/volume)2022-08-13 21:55:00* Test Item Value Reference Range Interpretation Comme nts Chloride Level (test code = 2075-0) 106 mmol/L 98-107 [facility] or plasma carbon dioxide, total measurement (moles/volume)2022-08-13 21:55:00* Test Item Value Reference Range Interpretation Comme nts Carbon Dioxide Level (test c ode = 2027-9) 26 mmol/L 22-29 [facility] or plasma anion [id number] 21:55:00* Test Item Value Reference Range Interpretation Comme nts Anion Gap (test code = 88605-7) 12 mmol/L 10-20 [facility] or plasma urea nitrogen measurement (mass/volume)2022-08-13 21:55:00* Test Item Value Reference Range Interpretation Comme nts Blood Urea Nitrogen (test co de = 3094-0) 14 mg/dL 8.9-20.6 [facility] or plasma creatinine measurement (mass/volume)2022-08-13 21:55:00* Test Item Value Reference Range Interpretation Comme nts Creatinine (test code = 2160-0) 0.84 mg/dL 0.7-1.3 [facility]Glomerular [facility] rate/1.73 sq M.predicted [Volume Rate/Area] in Serum, Plasma [id number] 21:55:00* Test Item Value Reference Range Interpretation Comme [facility] Estimated GFR (CKD-EPI 2020) (test code = 27527-9) 120 [facility]Glucose [Mass/volume] in Serum or Plasma 2022-08-13 21:55:00* Test Item Value Reference Range Interpretation Comme [facility] Glucose Level (test code = 2345-7) 116 mg/dL 70-105 [facility] plasma calcium measurement (mass/volume)2022-08-13 21:55:00* Test Item Value Reference Range Interpretation Comme [facility] Calcium Level (test code = 96957-7) 9.0 mg/dL 7.8-10.44 [facility] total bilirubin measurement (mass/volume)2022-08-13 21:55:00* Test Item Value Reference Range Interpretation Comme [facility] Total Bilirubin (test code = 1975-2) 0.4 mg/dL 0.2-1.2 [facility] protein [facility] (mass/volume)2022-08-13 21:55:00* Test Item Value Reference Range Interpretation Comme [facility] Serum Total Protein (test co de = 2885-2) 6.8 g/dL 6.0-8.3 [facility] albumin measurement by bromocresol green (BCG) dye binding method ([id number] 21:55:00* Test Item Value Reference Range Interpretation Comme [facility] Albumin (test code = 34171-3) 4.2 g/dL 3.5-5.0 [facility] [facility] HospitalGlobulin [Mass/volume] in Serum by calculation 2022-08-13 21:55:00* Test Item Value Reference Range Interpretation Comme nts Globulin (test code = 49731-4) 2.6 g/dL 2.4-3.5 [facility]Albumin/Globulin [Mass Ratio] in Serum or [id number] 21:55:00* Test Item Value Reference Range Interpretation Comme nts Albumin/Globulin Ratio (test code = 1759-0) 1.6 g/dL 1.2-2.2 [facility] HospitalAlkaline phosphatase [Enzymatic activity/volume] in Serum or [id number] 21:55:00* Test Item Value Reference Range Interpretation Comme nts Alkaline Phosphatase (test c ode = 6768-6) 52 U/L 40-110 [facility] aspartate aminotransferase measurement (enzymatic activity/volume)2022-08-13 21:55:00* Test Item Value Reference Range Interpretation Comme nts Aspartate Amino Transf (AST/ SGOT) (test code = 1920-8) 24 U/L 5-34 [facility] alanine aminotransferase measurement without P-5'-P (enzymatic bnkiwv2315-81-03 21:55:00* Test Item Value Reference Range Interpretation Comme nts Alanine Aminotransferase (AL T/SGPT) (test code = 1744-2) 37 U/L 8-55 [facility] HospitalLeukocytes [#/volume] in Blood by Automated [id number] 21:55:00* Test Item Value Reference Range Interpretation Comme nts White Blood Count (test code = 6690-2) 6.4 10x3/uL 4.8-10.8 [facility] HospitalBlood erythrocytes automated count (number/volume)2022-08-13 21:55:00* Test Item Value Reference Range Interpretation Comme nts Red Blood Count (test code = 789-8) 4.78 mill/uL 4.70-6.10 [facility] hemoglobin measurement (mass/volume) 2022-08-13 21:55:00* Test Item Value Reference Range Interpretation Comme nts Hemoglobin (test code = 718-7) 14.0 g/dL 14.0-18.0 [facility] HospitalAutomated erythrocyte mean corpuscular volume 2022-08-13 21:55:00* Test Item Value Reference Range Interpretation Comme [facility] Mean Corpuscular Volume (blanca t code = 787-2) 87.6 fl 78.0-98.0 [facility] HospitalAutomated erythrocyte mean corpuscular hemoglobin (mass per erythrocyte)2022-08-13 21:55:00* Test Item Value Reference Range Interpretation Comme [facility] Mean Corpuscular Hemoglobin (test code = 785-6) 29.2 pg 27.0-31.0 [facility] HospitalAutomated erythrocyte mean corpuscular hemoglobin concentration measurement (mass/[id number] 21:55:00* Test Item Value Reference Range Interpretation Comme [facility] Mean Corpuscular Hemoglobin Concent (test code = 786-4) 33.3 g/dL 32.0-36.0 [facility] HospitalAutomated erythrocyte distribution width ratio 2022-08-13 21:55:00* Test Item Value Reference Range Interpretation Comme [facility] Red Cell Distribution Width (test code = 788-0) 12.0 % 11.5-14.5 [facility] HospitalAutomated blood platelet count (count/volume) 2022-08-13 21:55:00* Test Item Value Reference Range Interpretation Comme [facility] Platelet Count (test code = 777-3) 316 10x3/uL 130-400 [facility] HospitalAutomated blood platelet mean negkrf3845-93-07 21:55:00* Test Item Value Reference Range Interpretation Comme [facility] Mean Platelet Volume (test c ode = 42027-1) 6.4 fL 7.4-10.4 [facility] HospitalAutomated blood neutrophils/100 leukocytes 2022-08-13 21:55:00* Test Item Value Reference Range Interpretation Comme nts Neutrophils % (test code = 770-8) 72.8 % 42.0-75.0 [facility] HospitalLymphocytes/100 leukocytes in Blood by Automated [id number] 21:55:00* Test Item Value Reference Range Interpretation Comme nts Lymphocytes % (test code = 736-9) 16.6 % 21.0-51.0 [facility] HospitalAutomated blood monocytes/100 leukocytes 2022-08-13 21:55:00* Test Item Value Reference Range Interpretation Comme nts Monocytes % (test code = 5905-5) 8.4 % 0.0-10.0 [facility] HospitalAutomated blood eosinophils/100 leukocytes 2022-08-13 21:55:00* Test Item Value Reference Range Interpretation Comme nts Eosinophils % (test code = 713-8) 0.8 % 0.0-10.0 [facility] HospitalAutomated blood basophils/100 leukocytes 2022-08-13 21:55:00* Test Item Value Reference Range Interpretation Comme [facility] Basophils % (test code = 706-2) 1.5 % 0.0-1.0 [facility]Blfederal [facility] institution hospital neutrophils automated count (number/volume)2022-08-13 21:55:00* Test Item Value Reference Range Interpretation Comme [facility] Neutrophils # (test code = 751-8) 4.6 thou/uL 1.40-6.50 [facility] HospitalLymphocytes [#/volume] in Blood by Automated kqdur2470-17-12 21:55:00* Test Item Value Reference Range Interpretation Comme [facility] Lymphocytes # (test code = 731-0) 1.1 thou/uL 1.20-3.40 [facility] HospitalBlood monocytes automated count (number/volume) 2022-08-13 21:55:00* Test Item Value Reference Range Interpretation Comme nts Monocytes # (test code = 742-7) 0.5 thou/uL 0.11-0.59 [facility] HospitalBlood eosinophils automated count (count/volume)2022-08-13 21:55:00* Test Item Value Reference Range Interpretation Comme nts Eosinophils # (test code = 711-2) 0.0 thou/uL 0.0-0.7 [facility] HospitalAutomated blood basophil count (count/volume) 2022-08-13 21:55:00* Test Item Value Reference Range Interpretation Comme nts Basophils # (test code = 704-7) 0.1 thou/uL 0.0-0.2 [facility] HospitalChemistry2022-09-12 02:47:00* Test Item Value Reference Range Interpretation Comme nts Chemistry (test code = TROPI-R) Less than 0.010 ng/mL < 0.028 * Reference Range 0.00 - 0.028 ng/mL Negative 0.029 - 0.29 ng/mL Indeterminate Greater or Equal to 0.3 ng/mL Strongly suggests [place] Xmownctui1050-68-54 02:46:00* Test Item Value Reference Range Interpretation [...] for Estimated GFR: Greater than 90 mL/min/1.73 i2Spsczvkj eGFR is based on the CKD-EPI 2020 [...] code = ALT) 50 U/L 8-55 N Vposemuxikk6490-90-30 02:43:00* Test Item Value Reference Range Interpretation Comme nts Coagulation (test code = DDIMTT) Less than 0.27 *mcg/mL 0.27-0.43 L * Reference Range Units: mcg/mL of fibrinogen equivalent units(FEU)Based upon a retrospective study of [facility] patients in January 2006, a result of"Less than 0.44 mcg/mL FEU" is predictive of the absence ofa DVT or PE. Gmwtutbvfl2580-14-62 02:38:00* Test Item Value Reference Range Interpretation [...] Test Item Value Reference Range Interpretation Comme [facility] Creatinine (test code = 2160-0) 0.83 mg/dL 0.7-1.3 [facility] HospitalGlomerular filtration rate/1.73 sq M.predicted [Volume Rate/Area] in Serum, Plasma [id number] 02:15:00* Test Item Value Reference Range Interpretation Comme [facility] Estimated GFR (CKD-EPI 2020) (test code = 73662-2) 121 [facility] HospitalGlucose [Mass/volume] in Serum or Plasma 2022-05-25 02:15:00* Test Item Value Reference Range Interpretation Comme [facility] Glucose Level (test code = 2345-7) 91 mg/dL 70-105 [facility] plasma calcium measurement (mass/volume)2022-05-25 02:15:00* Test Item Value Reference Range Interpretation Comme [facility] Calcium Level (test code = 56823-3) 8.9 mg/dL 7.8-10.44 [facility] or plasma total bilirubin measurement (mass/volume)2022-05-25 02:15:00* Test Item Value Reference Range Interpretation Comme [facility] Total Bilirubin (test code = 1975-2) 1.2 mg/dL 0.2-1.2 [facility] or plasma protein measurement (mass/volume)2022-05-25 02:15:00* Test Item Value Reference Range Interpretation Comme [facility] Serum Total Protein (test co de = 2885-2) 7.2 g/dL 6.0-8.3 [facility] or plasma albumin measurement by bromocresol green (BCG) dye binding method ([id number] 02:15:00* Test Item Value Reference Range Interpretation Comme [facility] Albumin (test code = 81156-2) 4.3 g/dL 3.5-5.0 [facility] HospitalGlobulin [Mass/volume] in Serum by calculation 2022-05-25 02:15:00* Test Item Value Reference Range Interpretation Comme nts Globulin (test code = 40049-8) 2.9 g/dL 2.4-3.5 [facility] HospitalAlbumin/Globulin [Mass Ratio] in Serum or Jhfvrj3766-35-96 02:15:00* Test Item Value Reference Range Interpretation Comme [facility] Albumin/Globulin Ratio (test code = 1759-0) 1.5 g/dL 1.2-2.2 [facility] HospitalAlkaline phosphatase [Enzymatic activity/volume] in Serum or Fdfksh5701-45-04 02:15:00* Test Item Value Reference Range Interpretation Comme nts Alkaline Phosphatase (test c ode = 6768-6) 53 U/L 40-110 [facility] or plasma aspartate aminotransferase measurement (enzymatic activity/volume)2022-05-25 02:15:00* Test Item Value Reference Range Interpretation Comme nts Aspartate Amino Transf (AST/ SGOT) (test code = 1920-8) 28 U/L 5-34 [facility] or plasma alanine aminotransferase measurement without P-5'-P (enzymatic optobt9231-52-00 02:15:00* Test Item Value Reference Range Interpretation Comme nts Alanine Aminotransferase (AL T/SGPT) (test code = 1744-2) 50 U/L 8-55 [facility] HospitalLeukocytes [#/volume] in Blood by Automated [id number] 02:15:00* Test Item Value Reference Range Interpretation Comme nts White Blood Count (test code = 6690-2) 6.9 thou/uL 4.8-10.8 [facility] HospitalBlood erythrocytes automated count (number/volume)2022-05-25 02:15:00* Test Item Value Reference Range Interpretation Comme nts Red Blood Count (test code = 789-8) 4.79 mill/uL 4.70-6.10 [facility] HospitalBlood hemoglobin measurement (mass/volume) 2022-05-25 02:15:00* Test Item Value Reference Range Interpretation Comme [facility] Hemoglobin (test code = 718-7) 14.1 g/dL 14.0-18.0 [facility] HospitalAutomated erythrocyte mean corpuscular volume 2022-05-25 02:15:00* Test Item Value Reference Range Interpretation Comme [facility] Mean Corpuscular Volume (blanca t code = 787-2) 85.8 fL 78.0-98.0 [facility] HospitalAutomated erythrocyte mean corpuscular hemoglobin (mass per erythrocyte)2022-05-25 02:15:00* Test Item Value Reference Range Interpretation Comme [facility] Mean Corpuscular Hemoglobin (test code = 785-6) 29.4 pg 27.0-31.0 [facility] HospitalAutomated erythrocyte mean corpuscular hemoglobin concentration measurement (mass/cvw0376-44-90 02:15:00* Test Item Value Reference Range Interpretation Comme [facility] Mean Corpuscular Hemoglobin Concent (test code = 786-4) 34.2 g/dL 32.0-36.0 [facility] HospitalAutomated erythrocyte distribution width ratio 2022-05-25 02:15:00* Test Item Value Reference Range Interpretation Comme [facility] Red Cell Distribution Width (test code = 788-0) 12.4 % 11.5-14.5 [facility] HospitalAutomated blood platelet count (count/volume) 2022-05-25 02:15:00* Test Item Value Reference Range Interpretation Comme [facility] Platelet Count (test code = 777-3) 267 thou/uL 130-400 [facility] HospitalAutomated blood platelet mean zqkwow8753-17-74 02:15:00* Test Item Value Reference Range Interpretation Comme [facility] Mean Platelet Volume (test c ode = 60335-7) 6.0 fL 7.4-10.4 [facility] HospitalAutomated blood neutrophils/100 leukocytes 2022-05-25 02:15:00* Test Item Value Reference Range Interpretation Comme nts Neutrophils % (test code = 770-8) 54.6 % 42.0-75.0 [facility] HospitalLymphocytes/100 leukocytes in Blood by Automated [id number] 02:15:00* Test Item Value Reference Range Interpretation Comme nts Lymphocytes % (test code = 736-9) 33.4 % 21.0-51.0 [facility] HospitalAutomated blood monocytes/100 leukocytes 2022-05-25 02:15:00* Test Item Value Reference Range Interpretation Comme nts Monocytes % (test code = 5905-5) 9.2 % 0.0-10.0 [facility] HospitalAutomated blood eosinophils/100 leukocytes 2022-05-25 02:15:00* Test Item Value Reference Range Interpretation Comme [facility] Eosinophils % (test code = 713-8) 1.7 % 0.0-10.0 [facility] HospitalAutomated blood basophils/100 leukocytes 2022-05-25 02:15:00* Test Item Value Reference Range Interpretation Comme [facility] Basophils % (test code = 706-2) 1.1 % 0.0-1.0 [facility] HospitalBlood neutrophils automated count (number/volume)2022-05-25 02:15:00* Test Item Value Reference Range Interpretation Comme nts Neutrophils # (test code = 751-8) 3.8 thou/uL 1.40-6.50 [facility] HospitalLymphocytes [#/volume] in Blood by Automated [id number] 02:15:00* Test Item Value Reference Range Interpretation Comme nts Lymphocytes # (test code = 731-0) 2.3 thou/uL 1.20-3.40 [facility] HospitalBlood monocytes automated count (number/volume) 2022-05-25 02:15:00* Test Item Value Reference Range Interpretation Comme nts Monocytes # (test code = 742-7) 0.6 thou/uL 0.11-0.59 [facility] HospitalBlood eosinophils automated count (count/volume)2022-05-25 02:15:00* Test Item Value Reference Range Interpretation Comme nts Eosinophils # (test code = 711-2) 0.1 thou/uL 0.0-0.7 [facility] HospitalAutomated blood basophil count (count/volume) 2022-05-25 02:15:00* Test Item Value Reference Range Interpretation Comme nts Basophils # (test code = 704-7) 0.1 thou/uL 0.0-0.2 [facility] HospitalFibrin D-dimer FEU measurement in platelet poor plasma (mass/volume)2022-05-25 02:15:00* Test Item Value Reference Range Interpretation Comme [facility] D-Dimer (test code = 57941-3) Less than 0.27 *mcg/mL 0.27-0.43 [facility] plasma sodium measurement (moles/volume)2022-05-25 02:15:00* Test Item Value Reference Range Interpretation Comme [facility] Sodium Level (test code = 2951-2) 140 mmol/L 136-145 [facility] plasma potassium measurement (moles/volume)2022-05-25 02:15:00* Test Item Value Reference Range Interpretation Comme [facility] Potassium Level (test code = 2823-3) 3.8 mmol/L 3.5-5.1 [facility] or plasma chloride measurement (moles/volume)2022-05-25 02:15:00* Test Item Value Reference Range Interpretation Comme [facility] Chloride Level (test code = 2075-0) 107 mmol/L 98-107 [facility] or plasma carbon dioxide, total measurement (moles/volume)2022-05-25 02:15:00* Test Item Value Reference Range Interpretation Comme nts Carbon Dioxide Level (test c ode = 8-9) 22 mmol/L 22-29 [facility] or plasma anion [id number] 02:15:00* Test Item Value Reference Range Interpretation Comme nts Anion Gap (test code = 56353-1) 15 mmol/L 10-20 [facility] plasma urea nitrogen measurement (mass/volume)2022-05-25 02:15:00* Test Item Value Reference Range Interpretation Comme nts Blood Urea Nitrogen (test co de = 3094-0) 14 mg/dL 8.9-20.6 [facility] HospitalChemistry - BNP, HgbA1c, [id number] 17:35:00* Test Item Value Reference Range Interpretation Comme [facility] Chemistry - BNP, HgbA1c, PTH i (test code = BNP) 34.2 pg/mL 0-100 N Qhukjxjag6294-18-15 17:34:00* Test Item Value Reference Range Interpretation Comme [facility] Chemistry (test code = TROPI-R) 0.013 ng/mL < 0.028 Reference Range 0.00 - 0.028 ng/mL Negative 0.029 - 0.29 ng/mL Indeterminate Greater or Equal to 0.3 ng/mL Strongly suggests [place] Uccbpufbj6481-43-20 17:32:00* Test Item Value Reference Range Interpretation Comme [facility] Chemistry (test code = NA-T) 139 [...] for Estimated GFR: Greater than 90 mL/min/1.73 j6Pccfgsnz eGFR is based on the CKD-EPI 2020 [...] code = ALT) 54 U/L 8-55 N Ksmeinrop8997-80-63 17:32:00* Test Item Value Reference Range Interpretation Comme nts Chemistry (test code = CK) 342 U/L 30-200 H Oxgfwmjotq4007-73-39 17:21:00* Test Item Value Reference Range Interpretation [...] sq M.predicted [Volume Rate/Area] in Serum, Plasma [id number] 17:05:00* Test Item Value Reference Range Interpretation Comme nts Estimated GFR (CKD-EPI 2020) (test code = 64337-0) 116 [facility] HospitalGlucose [Mass/volume] in Serum or Plasma 2022-05-24 17:05:00* Test Item Value Reference Range Interpretation Comme nts Glucose Level (test code = 2345-7) 113 mg/dL 70-105 [facility] plasma calcium measurement (mass/volume)2022-05-24 17:05:00* Test Item Value Reference Range Interpretation Comme nts Calcium Level (test code = 26901-7) 9.2 mg/dL 7.8-10.44 [facility] or plasma total bilirubin measurement (mass/volume)2022-05-24 17:05:00* Test Item Value Reference Range Interpretation Comme nts Total Bilirubin (test code = 1975-2) 1.3 mg/dL 0.2-1.2 [facility] or plasma protein measurement (mass/volume)2022-05-24 17:05:00* Test Item Value Reference Range Interpretation Comme nts Serum Total Protein (test co de = 2885-2) 7.6 g/dL 6.0-8.3 [facility] or plasma albumin measurement by bromocresol green (BCG) dye binding method ([id number] 17:05:00* Test Item Value Reference Range Interpretation Comme nts Albumin (test code = 81093-8) 4.5 g/dL 3.5-5.0 [facility] HospitalGlobulin [Mass/volume] in Serum by calculation 2022-05-24 17:05:00* Test Item Value Reference Range Interpretation Comme nts Globulin (test code = 27489-3) 3.1 g/dL 2.4-3.5 [facility] HospitalAlbumin/Globulin [Mass Ratio] in Serum or Gvskoi9850-77-83 17:05:00* Test Item Value Reference Range Interpretation Comme nts Albumin/Globulin Ratio (test code = 1759-0) 1.5 g/dL 1.2-2.2 [facility] HospitalAlkaline phosphatase [Enzymatic activity/volume] in Serum or Xwgoop7409-39-58 17:05:00* Test Item Value Reference Range Interpretation Comme nts Alkaline Phosphatase (test c ode = 6768-6) 57 U/L 40-110 [facility] or plasma aspartate aminotransferase measurement (enzymatic activity/volume)2022-05-24 17:05:00* Test Item Value Reference Range Interpretation Comme nts Aspartate Amino Transf (AST/ SGOT) (test code = 1920-8) 28 U/L 5-34 [facility] HospitalCreatine kinase [Enzymatic activity/volume] in Serum or Wvlfrs5279-06-16 17:05:00* Test Item Value Reference Range Interpretation Comme nts Creatine Kinase (test code = 2157-6) 342 U/L 30-200 [facility] plasma alanine aminotransferase measurement without P-5'-P (enzymatic hclobh4893-59-90 17:05:00* Test Item Value Reference Range Interpretation Comme nts Alanine Aminotransferase (AL T/SGPT) (test code = 1744-2) 54 U/L 8-55 [facility] HospitalLeukocytes [#/volume] in Blood by Automated [id number] 17:05:00* Test Item Value Reference Range Interpretation Comme nts White Blood Count (test code = 6690-2) 7.4 thou/uL 4.8-10.8 [facility] HospitalBlood erythrocytes automated count (number/volume)2022-05-24 17:05:00* Test Item Value Reference Range Interpretation Comme [facility] Red Blood Count (test code = 789-8) 4.88 mill/uL 4.70-6.10 [facility] HospitalBlood hemoglobin measurement (mass/volume) 2022-05-24 17:05:00* Test Item Value Reference Range Interpretation Comme nts Hemoglobin (test code = 718-7) 14.1 g/dL 14.0-18.0 [facility] HospitalAutomated erythrocyte mean corpuscular volume 2022-05-24 17:05:00* Test Item Value Reference Range Interpretation Comme nts Mean Corpuscular Volume (blanca t code = 787-2) 88.7 fL 78.0-98.0 [facility] HospitalAutomated erythrocyte mean corpuscular hemoglobin (mass per erythrocyte)2022-05-24 17:05:00* Test Item Value Reference Range Interpretation Comme [facility] Mean Corpuscular Hemoglobin (test code = 785-6) 29.0 pg 27.0-31.0 [facility] HospitalAutomated erythrocyte mean corpuscular hemoglobin concentration measurement (mass/nqi0233-38-03 17:05:00* Test Item Value Reference Range Interpretation Comme [facility] Mean Corpuscular Hemoglobin Concent (test code = 786-4) 32.6 g/dL 32.0-36.0 [facility] HospitalAutomated erythrocyte distribution width ratio 2022-05-24 17:05:00* Test Item Value Reference Range Interpretation Comme [facility] Red Cell Distribution Width (test code = 788-0) 12.3 % 11.5-14.5 [facility] HospitalAutomated blood platelet count (count/volume) 2022-05-24 17:05:00* Test Item Value Reference Range Interpretation Comme [facility] Platelet Count (test code = 777-3) 308 thou/uL 130-400 [facility]Automated blood platelet mean qkhgah1317-81-11 17:05:00* Test Item Value Reference Range Interpretation Comme [facility] Mean Platelet Volume (test c ode = 26031-4) 6.4 fL 7.4-10.4 [facility] HospitalAutomated blood neutrophils/100 leukocytes 2022-05-24 17:05:00* Test Item Value Reference Range Interpretation Comme nts Neutrophils % (test code = 770-8) 67.5 % 42.0-75.0 [facility] HospitalLymphocytes/100 leukocytes in Blood by Automated [id number] 17:05:00* Test Item Value Reference Range Interpretation Comme nts Lymphocytes % (test code = 736-9) 22.0 % 21.0-51.0 [facility]Automated blood monocytes/100 leukocytes 2022-05-24 17:05:00* Test Item Value Reference Range Interpretation Comme nts Monocytes % (test code = 5905-5) 8.7 % 0.0-10.0 [facility]Automated blood eosinophils/100 leukocytes 2022-05-24 17:05:00* Test Item Value Reference Range Interpretation Comme nts Eosinophils % (test code = 713-8) 0.5 % 0.0-10.0 [facility]Automated blood basophils/100 leukocytes 2022-05-24 17:05:00* Test Item Value Reference Range Interpretation Comme nts Basophils % (test code = 706-2) 1.2 % 0.0-1.0 [facility]Blood neutrophils automated count (number/volume)2022-05-24 17:05:00* Test Item Value Reference Range Interpretation Comme [facility] Neutrophils # (test code = 751-8) 5.0 thou/uL 1.40-6.50 [facility] HospitalLymphocytes [#/volume] in Blood by Automated [id number] 17:05:00* Test Item Value Reference Range Interpretation Comme nts Lymphocytes # (test code = 731-0) 1.6 thou/uL 1.20-3.40 [facility] HospitalBlood monocytes automated count (number/volume) 2022-05-24 17:05:00* Test Item Value Reference Range Interpretation Comme nts Monocytes # (test code = 742-7) 0.6 thou/uL 0.11-0.59 [facility] HospitalBlood eosinophils automated count (count/volume)2022-05-24 17:05:00* Test Item Value Reference Range Interpretation Comme nts Eosinophils # (test code = 711-2) 0.0 thou/uL 0.0-0.7 [facility]Automated blood basophil count (count/volume) 2022-05-24 17:05:00* Test Item Value Reference Range Interpretation Comme nts Basophils # (test code = 704-7) 0.1 thou/uL 0.0-0.2 [facility] sodium measurement (moles/volume)2022-05-24 17:05:00* Test Item Value Reference Range Interpretation Comme nts Sodium Level (test code = 2951-2) 139 mmol/L 136-145 [facility] plasma potassium measurement (moles/volume)2022-05-24 17:05:00* Test Item Value Reference Range Interpretation Comme nts Potassium Level (test code = 2823-3) 3.5 mmol/L 3.5-5.1 [facility] plasma chloride measurement (moles/volume)2022-05-24 17:05:00* Test Item Value Reference Range Interpretation Comme nts Chloride Level (test code = 2075-0) 106 mmol/L 98-107 [facility] or plasma carbon dioxide, total measurement (moles/volume)2022-05-24 17:05:00* Test Item Value Reference Range Interpretation Comme [facility] Carbon Dioxide Level (test c ode = 2027-9) 22 mmol/L 22-29 [facility] or plasma anion [id number] 17:05:00* Test Item Value Reference Range Interpretation Comme nts Anion Gap (test code = 26887-1) 15 mmol/L 10-20 [facility] plasma urea nitrogen measurement (mass/volume)2022-05-24 17:05:00* Test Item Value Reference Range Interpretation Comme nts Blood Urea Nitrogen (test co de = 3094-0) 12 mg/dL 8.9-20.6 [facility] creatinine measurement (mass/volume)2022-05-24 17:05:00* Test Item Value Reference Range Interpretation Comme nts Creatinine (test code = 2160-0) 0.91 mg/dL 0.7-1.3 [facility]Glomerular [facility] rate/1.73 sq M.predicted [Volume Rate/Area] in Serum, Plasma [id number] 17:05:00* Test Item Value Reference Range Interpretation Comme nts Estimated GFR (CKD-EPI 2020) (test code = 61056-0) 116 [facility]Glucose [Mass/volume] in Serum or Plasma 2022-05-24 17:05:00* Test Item Value Reference Range Interpretation Comme nts Glucose Level (test code = 2345-7) 113 mg/dL 70-105 [facility] calcium measurement (mass/volume)2022-05-24 17:05:00* Test Item Value Reference Range Interpretation Comme [facility] Calcium Level (test code = 42243-6) 9.2 mg/dL 7.8-10.44 [facility] total bilirubin measurement (mass/volume)2022-05-24 17:05:00* Test Item Value Reference Range Interpretation Comme [facility] Total Bilirubin (test code = 1975-2) 1.3 mg/dL 0.2-1.2 [facility] protein measurement (mass/volume)2022-05-24 17:05:00* Test Item Value Reference Range Interpretation Comme [facility] Serum Total Protein (test co de = 2885-2) 7.6 g/dL 6.0-8.3 [facility] albumin measurement by bromocresol green (BCG) dye binding method ([id number] 17:05:00* Test Item Value Reference Range Interpretation Comme [facility] Albumin (test code = 76070-3) 4.5 g/dL 3.5-5.0 [facility]Globulin [Mass/volume] in Serum by calculation 2022-05-24 17:05:00* Test Item Value Reference Range Interpretation Comme [facility] Globulin (test code = 88715-8) 3.1 g/dL 2.4-3.5 [facility]/Globulin [Mass Ratio] in Serum or [id number] 17:05:00* Test Item Value Reference Range Interpretation Comme [facility] Albumin/Globulin Ratio (test code = 1759-0) 1.5 g/dL 1.2-2.2 [facility]Alkaline phosphatase [Enzymatic activity/volume] in Serum or [id number] 17:05:00* Test Item Value Reference Range Interpretation Comme nts Alkaline Phosphatase (test c ode = 6768-6) 57 U/L 40-110 [facility] aspartate aminotransferase measurement (enzymatic activity/volume)2022-05-24 17:05:00* Test Item Value Reference Range Interpretation Comme nts Aspartate Amino Transf (AST/ SGOT) (test code = 1920-8) 28 U/L 5-34 [facility]Creatine kinase [Enzymatic activity/volume] in Serum or [id number] 17:05:00* Test Item Value Reference Range Interpretation Comme nts Creatine Kinase (test code = 2157-6) 342 U/L 30-200 [facility] alanine aminotransferase measurement without P-5'-P (enzymatic [id number] 17:05:00* Test Item Value Reference Range Interpretation Comme nts Alanine Aminotransferase (AL T/SGPT) (test code = 1744-2) 54 U/L 8-55 [facility]Leukocytes [#/volume] in Blood by Automated [id number] 17:05:00* Test Item Value Reference Range Interpretation Comme [facility] White Blood Count (test code = 6690-2) 7.4 thou/uL 4.8-10.8 [facility] erythrocytes automated count (number/volume)2022-05-24 17:05:00* Test Item Value Reference Range Interpretation Comme nts Red Blood Count (test code = 789-8) 4.88 mill/uL 4.70-6.10 [facility] hemoglobin measurement (mass/volume) 2022-05-24 17:05:00* Test Item Value Reference Range Interpretation Comme nts Hemoglobin (test code = 718-7) 14.1 g/dL 14.0-18.0 [facility]Autom[facility] erythrocyte mean corpuscular volume 2022-05-24 17:05:00* Test Item Value Reference Range Interpretation Comme nts Mean Corpuscular Volume (blanca t code = 787-2) 88.7 fL 78.0-98.0 [facility]Autom[facility] erythrocyte mean corpuscular hemoglobin (mass per erythrocyte)2022-05-24 17:05:00* Test Item Value Reference Range Interpretation Comme [facility] Mean Corpuscular Hemoglobin (test code = 785-6) 29.0 pg 27.0-31.0 [facility]Autom[facility] erythrocyte mean corpuscular hemoglobin concentration measurement (mass/[id number] 17:05:00* Test Item Value Reference Range Interpretation Comme [facility] Mean Corpuscular Hemoglobin Concent (test code = 786-4) 32.6 g/dL 32.0-36.0 [facility]Autom[facility] erythrocyte distribution width ratio 2022-05-24 17:05:00* Test Item Value Reference Range Interpretation Comme [facility] Red Cell Distribution Width (test code = 788-0) 12.3 % 11.5-14.5 [facility]Autom[facility] blood platelet count (count/volume) 2022-05-24 17:05:00* Test Item Value Reference Range Interpretation Comme [facility] Platelet Count (test code = 777-3) 308 thou/uL 130-400 [facility]Autom[facility] blood platelet mean [id number] 17:05:00* Test Item Value Reference Range Interpretation Comme [facility] Mean Platelet Volume (test c ode = 80341-7) 6.4 fL 7.4-10.4 [facility]Autom[facility] blood neutrophils/100 leukocytes 2022-05-24 17:05:00* Test Item Value Reference Range Interpretation Comme [facility] Neutrophils % (test code = 770-8) 67.5 % 42.0-75.0 [facility] HospitalLymphocytes/100 leukocytes in Blood by Automated [id number] 17:05:00* Test Item Value Reference Range Interpretation Comme nts Lymphocytes % (test code = 736-9) 22.0 % 21.0-51.0 [facility]Autom[facility] blood monocytes/100 leukocytes 2022-05-24 17:05:00* Test Item Value Reference Range Interpretation Comme nts Monocytes % (test code = 5905-5) 8.7 % 0.0-10.0 [facility]Autom[facility] blood eosinophils/100 leukocytes 2022-05-24 17:05:00* Test Item Value Reference Range Interpretation Comme nts Eosinophils % (test code = 713-8) 0.5 % 0.0-10.0 [facility]Autom[facility] blood basophils/100 leukocytes 2022-05-24 17:05:00* Test Item Value Reference Range Interpretation Comme nts Basophils % (test code = 706-2) 1.2 % 0.0-1.0 [facility]Blood neutrophils automated count (number/volume)2022-05-24 17:05:00* Test Item Value Reference Range Interpretation Comme nts Neutrophils # (test code = 751-8) 5.0 thou/uL 1.40-6.50 [facility]Lymphocytes [#/volume] in Blood by Automated [id number] 17:05:00* Test Item Value Reference Range Interpretation Comme [facility] Lymphocytes # (test code = 731-0) 1.6 thou/uL 1.20-3.40 [facility]Blood monocytes automated count (number/volume) 2022-05-24 17:05:00* Test Item Value Reference Range Interpretation Comme [facility] Monocytes # (test code = 742-7) 0.6 thou/uL 0.11-0.59 [facility]Blood eosinophils automated count (count/volume)2022-05-24 17:05:00* Test Item Value Reference Range Interpretation Comme [facility] Eosinophils # (test code = 711-2) 0.0 thou/uL 0.0-0.7 [facility]Autom[facility] blood basophil count (count/volume) 2022-05-24 17:05:00* Test Item Value Reference Range Interpretation Comme nts Basophils # (test code = 704-7) 0.1 thou/uL 0.0-0.2 [facility] sodium measurement (moles/volume)2022-05-24 17:05:00* Test Item Value Reference Range Interpretation Comme nts Sodium Level (test code = 2951-2) 139 mmol/L 136-145 [facility] potassium measurement (moles/volume)2022-05-24 17:05:00* Test Item Value Reference Range Interpretation Comme nts Potassium Level (test code = 2823-3) 3.5 mmol/L 3.5-5.1 [facility] chloride measurement (moles/volume)2022-05-24 17:05:00* Test Item Value Reference Range Interpretation Comme nts Chloride Level (test code = 2075-0) 106 mmol/L 98-107 [facility] plasma carbon dioxide, total measurement (moles/volume)2022-05-24 17:05:00* Test Item Value Reference Range Interpretation Comme [facility] Carbon Dioxide Level (test c ode = 2027-) 22 mmol/L 22-29 [facility] anion [id number] 17:05:00* Test Item Value Reference Range Interpretation Comme [facility] Anion Gap (test code = 82170-4) 15 mmol/L 10-20 [facility] urea nitrogen measurement (mass/volume)2022-05-24 17:05:00* Test Item Value Reference Range Interpretation Comme [facility] Blood Urea Nitrogen (test co de = 3094-0) 12 mg/dL 8.9-20.6 [facility] creatinine measurement (mass/volume)2022-05-24 17:05:00* Test Item Value Reference Range Interpretation Comme [facility] Creatinine (test code = 2160-0) 0.91 mg/dL 0.7-1.3 [facility]XR [facility] 1990 [facility]: GIL HERCUL[facility] Dr. Phys: Jass Rollins, PATRICK [address] : 1990 Age: 31 SEX:M [phone] Exam Date: 08/13/22 Status: REG ER Acct: [id number] Loc: [facility] Pt Unit #: [id number] Report #: [id number] CC: Lolis Rollins DO IMAGING SERVICES REPORT Report Status: Signed Order # Category/Exam [id number] RAD/XR Chest 1 View Portable ([id number]): . Results Portable chest at 2218 (08/13/2022) HISTORY: Palpitations COMPARISON: 05/24/2022 FINDINGS: The heart remains normal in size and the lungs are clear. No acute infiltrate or effusionwas seen. There is no vascular congestion or edema. IMPRESSION: Stable exam showing no acute findings Reported By: RANCHO BRYAN MD Electronically Signed Date/Time: 08/13/222216 Technologist: Dictated Date/Time: 08/13/222215 Transcribed Date/Time:XR Chest 1 [facility] : 1990 [facility] Name: GIL HERCULES Dr. Phys: [place] [address] : 1990 Age: 31 SEX:M [phone] Exam Date: 05/24/22 Status: REG ER Acct: [id number] Loc: [facility] Pt Unit #: [id number] Report #: [id number] CC: Bhupinder Moreau IMAGING SERVICES REPORT Order # Category/Exam [id number] RAD/XR Chest 1 View Portable ([id number]): . Results EXAM: Single view of the chest HISTORY: Dyspnea COMPARISON: None FINDINGS: Singleview of the chest shows a normal sized cardiomediastinal silhouette. There is no evidence of consolidation, mass, or pleural effusion. No acute osseous abnormality. IMPRESSION: No acute cardiopulmonary disease Reported By: Panfilo Toscano DO Electronically Signed Date/Time: 05/24/221724 Technologist: SACHA Dictated Date/Time: 05/24/221724 Transcribed Date/Time: Notes Date/Time Note Provider Source 2024-06-27 02:34:41 Summary: Discharge Pt given printed and verbal discharge instructions regarding chest pain, encouraged hydration, Prescriptions provided none Discussed ibuprofen and to take with food to avoid GI distress. Pt verbalized understanding of instructions, pt awake alert oriented, resp reg unlabored, skin w/d, color appropriate for race, moves all ext well,pt encouraged to follow up with pcp Advised to seek medical attention for new/prolonged/worsening of symptoms, Symptoms No adverse reaction to meds given in ER noted upon discharge PIV d'cd, dressing to site, catheter in tact. Awake, alert oriented, resp reg unlabored, skin w/d, pt leaving amb with steady gait, in no apparent distress, Bessy Benjamin RN [facility] 2024-06-26 21:53:58 Patient arrived ambulatory c/o intermittent chest pain for the past couple of weeks to the left side of his chest radiating to his shoulder.. Radial decompression surgery last Wednesday to left arm. Cast present during triage. Admitted to [place] for two days afterwards for acute respiratory failure. 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 Pain is localized to midsternum with radiation to left breastbone region. Pain is pressure sensation and pt has sensation of racing heat beat. Has SPENCER. Has had hear rte to 150s. No diaphoresis. No syncope. Pt vapes and stopped vaping last week. Pt has had same symptoms prior to his recent ulnar nerve decompression surgery. Pt was admitted to [facility] for two days due to hypoxia. Oxygen saturations were in th 80s. Pt reports he had a dye Ct Scan and work up reportedly negative and was diagnosed with Asthma with acute exacerbation.No personal ro family hx of DVT/PE. Mother had an UT at age 60s otherwise no CAD. Pt does not have any cardiac hx otherwise . Pt does not drink alcoholic beverages. Denies any illicit drug use. Pt takes Suboxone 32 mg daily X 4 years for Opoid addiction. Chest pain occurs with exertion and is resolves with rest. 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 used: No Chest Pain Pain location: L chest Pain quality: pressure Pain radiates to: L shoulder Pain severity: Moderate Onset quality: Gradual Duration: 3 weeks Timing: Intermittent Progression: Resolved Chronicity: Recurrent Context: breathing Context: not drug use, not eating, not lifting, not movement, not raising an arm, not at rest, not stress and not trauma Relieved by: None tried Worsened by: Exertion Ineffective treatments: None tried Associated symptoms: lower extremity edema, palpitations and shortness of breath Associated symptoms: no abdominal pain, no altered mental status, no anxiety, no back pain, no claudication, no cough, no diaphoresis, no dizziness, no dysphagia, no fatigue, no fever, no headache, no heartburn, no nausea, no near-syncope, no numbness, no orthopnea, no PND, no syncope, no vomiting and no weakness Risk factors: male sex, obesity, smoking and surgery Risk factors: no aortic disease, no coronary artery disease, no diabetes mellitus, no Justine-Danlos syndrome, no high cholesterol, no hypertension, no immobilization, no Marfan's syndrome and no prior DVT/PE Past Medical History/Immunizations: Past Medical History: Diagnosis Date Mild intermittent asthma, uncomplicated Rhabdomyolysis Covid-19 X 3 ( 2021, and 2022) Tetanus received in last 5 years: No Childhood immunizations: Up-to-date Allergies: Allergies Allergen Reactions Jysnhylfywa-Knpmzrkni-Bsxvmtya Palpitations, Rash, Other - See comments and Shortness of Breath Codeine Hives, Other - See comments and Rash Trilog Palpitations and Rash Past Social History: Tobacco Use Every Day Smokeless Tobacco: Never used smokeless tobacco. Comments: vapes Vaping Use Some days Alcohol Use Not Currently. Drug Use Not Currently. Past Surgical History: Past Surgical History: Procedure Laterality Date HERNIA REPAIR 03/20/2024 groin, umbilical ULNAR NERVE TRANSPOSITION Left 06/19/2024 Surgeon: Venessa Khan MD; [place] [facility] [place] of Systems: Review of Systems Constitutional: Negative. Negative for diaphoresis, fatigue and fever. HENT: Negative. Negative for trouble swallowing. Eyes: Negative. Respiratory: Positive for shortness of breath and wheezing. Negative for cough and chest tightness. Currently taking steroids for his Asthma exacerbation Breasts: Negative. Cardiovascular: Positive for chest pain and palpitations. Negative for orthopnea, claudication, syncope, PND and near-syncope. Gastrointestinal: Negative. Negative for abdominal pain, heartburn, nausea and vomiting. Genitourinary: Negative. Musculoskeletal: Negative. Negative for back pain. Skin: Negative. Neurological: Negative. Negative for dizziness, weakness, light-headedness, numbness and headaches. Psychiatric/Behavioral: Negative. All other systems reviewed and are negative. Endocrine: Endocrine negative Physical Exam: ED Triage Vitals [06/26/242155] Weight 122.5 kg (270 lb) Actual or estimated Estimated by patient/family report Height 1.727 m (5' 8") BP (!) 150/78 Pulse 82 Resp 22 Temp 37 ?C (98.6 ?F) Temp source Oral SpO2 97 % Measured on Room air Physical Exam Vitals and nursing note reviewed. Constitutional: General: He is not in acute distress. Appearance: Normal appearance. He is well-developed and normal weight. He is not ill-appearing, toxic-appearing or diaphoretic. HENT: Head: Normocephalic and atraumatic. Nose: Nose normal. No congestion or rhinorrhea. Mouth/Throat: Mouth: Mucous membranes are moist. Pharynx: Oropharynx is clear. No posterior oropharyngeal erythema. Eyes: General: No scleral icterus. Right eye: No discharge. Left eye: No discharge. Extraocular Movements: Extraocular movements intact. Conjunctiva/sclera: Conjunctivae normal. Pupils: Pupils are equal, round, and reactive to light. Cardiovascular: Rate and Rhythm: Normal rate and regular rhythm. Pulses: Normal pulses. Heart sounds: Normal heart sounds. No murmur heard. Pulmonary: Effort: Pulmonary effort is normal. No respiratory distress. Breath sounds: No stridor. Rhonchi present. No wheezing or rales. Chest: Chest wall: No tenderness. Abdominal: General: Bowel sounds are normal. There is no distension. Palpations: Abdomen is soft. There is no mass. Tenderness: There is no abdominal tenderness. There is no right CVA tenderness, left CVA tenderness, guarding or rebound. Hernia: No hernia is present. Musculoskeletal: General: No swelling, tenderness, deformity or signs of injury. Normal range of motion. Cervical back: Normal range of motion and neck supple. No rigidity or tenderness. Right lower leg: No edema. Left lower leg: No edema. Lymphadenopathy: Cervical: No cervical adenopathy. Skin: General: Skin is warm and dry. Capillary Refill: Capillary refill takes less than 2 seconds. Coloration: Skin is not jaundiced or pale. Findings: No bruising, erythema, lesion or rash. Neurological: General: No focal deficit present. Mental Status: He is alert and oriented to person, place, and time. Cranial Nerves: No cranial nerve deficit. Sensory: No sensory deficit. Motor: No weakness. Coordination: Coordination normal. Gait: Gait normal. Deep Tendon Reflexes: Reflexes normal. Psychiatric: Behavior: Behavior normal. Thought Content: Thought content normal. Judgment: Judgment normal. Radiology: XR CHEST 1 VW Final Result ORDERING PHYSICIAN: ERUM PAYAN HISTORY: Chest Pain COMPARISON: 06/12/2024 FINDINGS: 2 frontal views of the chest Heart is normal in size. There is no pulmonary edema. There are no focal areas of consolidation. There is no pneumothorax. There are no pleural effusions. Osseous structures are unremarkable. Please note that chest radiography is not a sensitive modality for the detection of masses. IMPRESSION No radiographic evidence of acute cardiopulmonary process. RL: 135 [facility]: [id number] Lab Results: Lab Results CBC WITH DIFF - Abnormal Result Value Ref Range WBC 12.82 (*) 4.20 - 10.70 10*3/?L RBC 4.87 4.26 - 5.52 10*6/?L HGB 13.8 12.2 - 16.4 g/dL HCT 44.2 38.4 - 49.3 % MCV 90.8 81.7 - 95.6 fL MCH 28.3 26.1 - 32.7 pg MCHC 31.2 31.2 - 35.0 g/dL RDW-SD 46.2 38.5 - 51.6 fL RDW-CV 13.8 12.1 - 15.4 % PLT 286 150 - 328 10*3/?L MPV 9.5 (*) 9.8 - 13.0 fL NRBC/100 WBC 0.0 0.0 - 10.0 /100 WBCs NRBC x10 3 <0.01 10*3/?L GRAN MAT (NEUT) % 68.2 % IMM GRAN % 1.40 % LYMPH % 20.6 % MONO % 8.5 % EOS % 0.9 % BASO % 0.4 % GRAN MAT x10 3 (ANC) 8.74 (*) 1.99 - 6.95 10*3/uL IMM GRAN x10 3 0.18 (*) 0.00 - 0.06 10*3/uL LYMPH x10 3 2.64 1.09 - 3.23 10*3/uL MONO x10 3 1.09 (*) 0.36 - 1.02 10*3/uL EOS x10 3 0.12 0.06 - 0.53 10*3/uL BASO x10 3 0.05 0.01 - 0.09 10*3/uL COMP. METABOLIC PANEL (14452) - Abnormal NA 139 135 - 145 mmol/L K 3.9 3.5 - 5.0 mmol/L CL 101 98 - 108 mmol/L CO2 TOTAL 33 (*) 23 - 31 mmol/L AGAP 5 2 - 16 BUN 19 7 - 23 mg/dL GLUCOSE 104 70 - 110 mg/dL CREATININE 0.83 0.60 - 1.25 mg/dL TOTAL BILI 0.8 0.1 - 1.1 mg/dL CALCIUM 8.8 8.6 - 10.6 mg/dL T PROTEIN 7.5 6.3 - 8.2 g/dL ALBUMIN 4.2 3.5 - 5.0 g/dL ALK PHOS 57 34 - 122 U/L ALTv 64 (*) 5 - 50 U/L AST(SGOT) 39 13 - 40 U/L eGFR 119.3 mL/min/1.73m2 TROPONIN I - Normal TROPONIN I 0.002 <=0.034 ng/mL THYROID STIMULATING HORMONE - Normal TSH 4.14 0.45 - 4.70 mIU/L MAGNESIUM - Normal MAGNESIUM 2.0 1.7 - 2.4 mg/dL N-TERMINAL PRO-BNP - Normal NT-proBNP <20 <=125 pg/mL TROPONIN I - Normal TROPONIN I 0.002 <=0.034 ng/mL Orders and Treatments: Orders Placed This Encounter Procedures XR CHEST 1 VW Troponin I Cbc with Diff Comp. Metabolic Panel (79084) Thyroid Stimulating Hormone Magnesium N-Terminal Pro-Bnp Troponin I No orders of the defined types were placed in this encounter. First Provider Eval: ED Events Date/Time Event User Comments 06/26/242158 Medical Screening Begins ERUM PAYAN MD -- 06/26/242158 First Provider Evaluation ERUM PAYAN MD -- ED COURSE Diagnosis/Impression as of 06/27/24 0143 Chest pain, unspecified type Procedures: EKG-12 Lead ROUTINE ONCE Date/Time: 06/26/2024 10:02 PM Performed by: Erum Payan MD Authorized by: Erum Payan MD ECG interpreted by ED Physician in the absence of a rail technician: yes Previous ECG: Previous ECG: Compared to current Interpretation: Interpretation: normal Rate: ECG rate: 81 ECG rate assessment: normal Rhythm: Rhythm: sinus rhythm Ectopy: Ectopy: none QRS: QRS axis: Normal QRS intervals: Normal QRS conduction: normal ST segments: ST segments: Normal T waves: T waves: normal Q waves: Abnormal Q-waves: not present MDM: Medical Decision Making Gil Hercules is a 33 year old male with hx of Asthma who presents to the ED with intermittent episodes of chest ain X 3 weeks Problems Addressed: Chest pain, unspecified type: chronic illness or injury Details: Pt reports intermittent episodes of chest pain X 3 weeks. Was recently evaluated in [facility] for respiratory failure from Asthma and had a CT Pulmonary Angio for PE that was negative. Pt is concerned that if Cardiac work-up is negative, he could be cleared to continue Suboxone. Will therefor refer to Cardiology for cardiac work-up and possible clearance Amount and/or Complexity of Data Reviewed External Data Reviewed: ECG and notes. Labs: ordered. Decision-making details documented in ED Course. Radiology: ordered and independent interpretation performed. Decision-making details documented in ED Course. ECG/medicine tests: ordered and independent interpretation performed. Decision-making details documented in ED Course. Risk Prescription drug management. Flowsheet Documentation: Scoring Tools: No data recorded Disposition/Condition: ED Disposition ED Disposition Disch - Home Condition Stable Comment -- Discharge Medications: Patient's Medications START taking these medications No medications on file CONTINUE taking these medications which have NOT CHANGED ALBUTEROL 90 MCG/ACTUATION INHALER Inhale 2 Puffs every 6 (six) hours as needed for Wheezing, Shortness of Breath, Bronchospasm or Chest tightness. BUDESONIDE-FORMOTEROL 160-4.5 MCG/ACTUATION INHALER Inhale 2 Puffs in the morning and 2 Puffs in the evening. BUPRENORPHINE-NALOXONE 8-[address] 1 Film under the tongue in the morning. DICLOFENAC DODIUM 1 % GEL Apply to area(s). IBUPROFEN 800 MG TABLET Take 1 tablet by mouth every 8 (eight) hours as needed. START taking Modified Medications as Prescribed No medications on file STOP taking these medications No medications on file Follow-up: Contact information for follow-up Twan Kirk MD Specialty: CARDIOVASCULAR DISEASE [facility] [address] [place] [id number] Electronically signed by: Erum Payan MD 06/27/24143 [facility] 2024-06-26 15:44:13 Paperwork placed in ortho FMLA/disability folder for pt 07/03 appt. Michelle Galvan CHILD CARE CENTRE MANAGER [facility] 2024-06-26 15:33:36 Disability forms will be need to be filled out by ortho, as neurology work up is completed, and per SHERRIE : Patient not able to use left arm in a work environment, and won't be able to until after he has the EMG/NCV testing and then is evaluated by Orthopedics. Let pt know, according to this, ortho will be who evaluates for how long pt should be out, etc. Pt verbalized understanding. Pt already scheduled for appt on 07/03 for post op appt. Disability forms put in disability/FMLA ortho folder. Pt notified. Michelle Galvan CHILD CARE CENTRE MANAGER [facility] 2024-06-26 14:02:56 Patient came into clinic to drop of Disability forms. Placed it in provider box. Nathanael Chinchela [facility] 2024-06-23 12:55:29 Gil Hercules is a 33 year old male Pt is calling and states that he is going to drop off long term care pharmacist disability forms to get signed by dr burnett. Ruma Palm [facility] 2024-06-20 09:16:05 Sent patient a message via [employer] letting him know what the provider said. Patricia Grossman 06/20/2024 9:16 AM [facility] 2024-06-20 08:26:[address] Khan. With the pt taking suboxone chronically, we are unable to give any stronger pain medications. Pain should start to subside in about a week. Can continue tramadol or alternate 800mg ibuprofen with tylenol. ALLEN-PHYSICIAN CORRECTION OFFICER HEAD MIDLEVEL PROVIDER [facility] 2024-06-19 13:17:13 Routing encounter to provider to address. Patricia Grossman 06/19/2024 1:17 PM [facility] 2024-06-19 11:45:37 [facility] , Called to notify provider that patient is taking suboxone and tramadol will not do anything for patient . Please call back to advice pharmacy of further patient care nAgeline Espinoza [facility] 2024-06-19 11:07:01 Patient needs to be scheduled for a follow up appointment. Will route to PSS to assist. Patricia Grossman 06/19/2024 11:07 AM [facility] 2024-06-19 08:34:26 BRIEF OPERATIVE NOTE Date of Surgery: 06/19/2024 Surgeons and Role: * Venessa Khan MD - Primary * Edgar Bunch MD - Resident - Assisting Pre-Op Diagnosis: Ulnar nerve compression, left [G56.22] Pre-op testing [Z01.818] Post-Op Diagnosis Codes: * Ulnar nerve compression, left [G56.22] * Pre-op testing [Z01.818] Procedures: Procedure(s) (LRB): ULNAR NERVE TRANSPOSITION (Left) CPT: 31259, CODINGHELP, Any Complications Encounters: 0 Estimated Blood Loss: min Specimens Removed: * No specimens in log * * No implants in log * Patient's Condition: good Findings: above Any other important information: none Please see dictated operative report for additional detail. [facility] 2024-06-19 00:10:00 FACULTY SURGEON: Venessa Khan MD RESIDENT SURGEON: CORRECTION OFFICER HEAD OR TEACHING RESIDENT: EDGAR BUNCH MD PREOPERATIVE DIAGNOSIS: Left cubital tunnel syndrome. POSTOPERATIVE DIAGNOSIS: Left cubital tunnel syndrome. OPERATION: Left cubital tunnel release, in situ neurolysis. PROCEDURE: Complications: None. Disposition: Recovery room, stable. The patient was taken to the operative suite, placed in supine position, induced to anesthesia. Left elbow was prepped and draped in usual sterile fashion. An incision over the cubital tunnel was created. Gentle dissection down to the subcutaneous tissues was performed, followed by discovery of the ulnar nerve proximally and carried and gently dissected distally, verifying complete release. It was extremely tight right at the juncture of the elbow articulation. It did not sublux anterior after complete release was performed. It was left in situ. A layered closure was performed, followed by application of a sterile dressing. ESTIMATED BLOOD LOSS: Minimal. Venessa Khan MD CM/MODL J#: [id number] T [facility] 2024-06-12 13:45:00 Images from the original note were not included. Venipuncture collection performed by clean technique on the left anticubitus. Total of 1 attempts were made. Slight pressure and a bandage/dressing were applied to the site(s). The patient experienced no complications. The following specimens were processed according to instructions and sent to [facility] laboratories per lab order on 06/12/2024 : LT BLUE SST 1 RED LAV 1 PPT DK GREEN (LiHep) DK GREEN (SodH) SUH DK BLUE (K2) DK BLUE (S) ACD Blood Culture NIPT/NTD Patient has been identified by and name and was provided with cup, antiseptic towelette, and clean catch instructions. 1 urine specimen(s) sent. Unpreserved 1 Urine Culture Aptima tube Other urine T [facility] 2024-06-08 17:24:51 Spoke with patient and updated that per anesthesiaRolando, hold Suboxone dose morning of surgery. Patient verbalized understanding. T [facility] 2024-06-08 17:20:04 Images from the original note were not included. Your procedure is at [facility] on 06/19/24. The address is [address] [place] [address], [facility], [id number]. [facility] nursing staff will call you the workday before your procedure to let you know what time to arrive.On the day of your procedure, please go inside that door and check in at the desk. Please note: You may not travel home alone and that includes in a taxi or by bus. We must speak to your Responsible Adult (who will be picking you up) the morning of your procedure, before the start of your procedure. This person must be an adult over the age of 18 years of age. Do not eat any solid food after midnight the night before surgery. You may have sips of clear liquids such as water, gatorade, and sprite up until two hours before your scheduled procedure. You may take your medications with a sip of water as directed by physician. Anticoagulants will be per physician guidance. Medication Note(s)/Instructions:Takes buprenophine-naloxone 8-2mg SL daily but does not know if he should take morning of surgery. Message sent to anesthesia. Pending screening, we may test for COVID. If a patient tests positive, their cases are cancelled and/or rescheduled. COVID SCREENING NOTE: Denies COVID symptoms, no testing required. Additional requests, questions, concerns:CB number and availability provided. Discussed pre-op abs and testing. Patient will complete next week. Patient verbalized understanding of pre-op instructions and voiced no further questions at this time. [facility] 2024-05-30 11:23:53 Patient signed Release forms to receive Fitz Notes on 05/26/2024. Uploaded it to Media T Nathanael Thurston [facility] 2024-05-14 17:43:17 Spoke to pt. As per Cl Green,SPRING TESTER patient is able to use steroid inhaler. Arti Shetty RN 05/14/2024 5:44 PM [facility] 2024-05-14 17:02:12 Nurse spoke with patient already [facility] 2024-05-14 16:04:29 Gil Hercules is a 33 year old male Patient wants to know if he can use his steroid inhaler. Patient was seen at urgent care 05/13 and received a steroid shot . Please call at [phone] (home) [facility] 2023-12-22 20:52:00 [facility] ([facility]) EMERGENCY PROVIDER REPORT REPORT#:[id number] REPORT STATUS: Signed DATE:12/22/23 TIME: 2051 PATIENT: GIL HERCULES UNIT #: [id number] ROOM/BED: AGE: 33 SEX: M PCP PHYS: No Primary or Family Physician SERVICE AUTHOR: Marii Gaytan MD R3 * ALL edits or amendments must be made on the electronic/computer document * Marii Gaytan 12/22/232051: HPI-General Illness General Initial Greet Date/Time 12/22/231836 Presentation Chief Complaint Shortness of breath Free [...] emergency room: value of the HEART score. Net Heart J. 2008 Khoi:16(6):191-6. PubMed PMID: 28176923; PubMed Central PMCID: [id number]. Parker JUAREZ, Dexter HOUSTON, et al. A prospective validation of the HEART score for chest pain patients at the emergency department. Int J Cardiol. 2013 Jun 3:168(3):2153 -8. Doi: 10.1016/j.ijcard.2013.01.255. Ep2012Nov 17. PubMed PMID: 41202333. Review of Systems Free Text ROS Notes [...] Pulse Ox 98 12/21 1838 B/P 143/86 12/21 1837 B/P Mean 104.7 [...] (Auto) (20.5 - 45.5 %) 19.7 L Clarke % (Auto) (5.5 - 11.7 %) 8.6 Eos % (Auto) (0.9 - 2.9 %) 1.5 Baso % (Auto) (0.2 - 1.0 %) 0.7 Neut # (Auto) (2.2 - 4.8 x10 3/uL) 4.97 H Lymph # (Auto) (1.3 - 2.9 x10 3/uL) 1.42 Clarke # (Auto) (0.3 - 0.8 x10 3/uL) [...] ULTRASOUND - DUP VEIN UNI LT 12/21 2338 Report Impression - Status: SIGNED Entered: 12/23/2023 0006 Impression: 1. There is no evidence for deep venous thrombus identified in the left lower extremity Impression By: Balbir Iqbal MD Re-Evaluation MDM ED Course Medication(s) Ordered [...] this time. 2306: Disposition pending ultrasound, call avionics technician at this time, states that patient [...] Parts of this note were created using StartSampling speech recognition dictation software. All attempts were made to correct any errors at the time of dictation. However, there may be some errors present in the case coordinator that were inadvertently overlooked during the dictation. [...] 100 12/21 1837 Resp 18 12/21 1837 All vital signs available at the time [...] any other concerns. Please follow-up with referred rail technician, Dr. Harrington within 3-5 days. Departure Forms [...] Referrals Provider Referral: Vadim Paulson MD Address: [address] [id number] Provider Referral: Last Zendejas MD Address: [address] [place] [address] [place] [address] Supervising Physician Note Resident Saw Pt This [...] findings, exam and plan. at 0114 at 1927 RPT #:[id number] END OF REPORT [facility] 2023-12-22 18:41:00 [facility] (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 Denies any other health problems or taking [...] SL FILM) 1 TAB SL TID at 9720 RPT #:[id number] END OF REPORT [facility] 2023-12-20 16:10:00 [phone] [facility] [address] [place] [address] PATIENT NAME: GIL HERCULES ADMIT DATE: 12/19/23 ACCOUNT NO: [id number] ROOM NO: C.ST498 AGE: 33 REPORT TYPE: DISCHARGE SUMMARY SEX: [...] Dictated: 12/20/2023 16:10:27 Date Transcribed: 12/21/2023 03:32:24 AKMilvia/BEV Receipt ID: [id number] Authenticated by Cliff Hu MD On 12/21/2023 05:26:59 PM at 0526 PATIENT NAME: GIL HERCULES [facility] 2023-12-19 12:04:00 [phone] [facility] [address] [place] [address] PATIENT NAME: GIL HERCULES ADMIT DATE: 12/19/23 ACCOUNT NO: [id number] ROOM NO: C.ST498 AGE: 33 REPORT TYPE: [...] Date Transcribed: 12/19/2023 12:56:50 CATHLEEN/MELANI/DIMITRY Receipt ID: [id number] Authenticated by Cliff Hu MD On 12/21/2023 05:26:59 PM at 0526 PATIENT NAME: GIL HERCULES [facility] 2023-12-19 08:39:00 [facility] REPORT#:[id number] REPORT STATUS: Signed REPORT INITIALIZATION DATE:12/19/23 TIME: 838 PATIENT: GIL HERCULES UNIT #: [id number] ROOM/BED: [address] : [address] AGE: 33 SEX: M ATTEND: [...] (Severe, SOB, ANXIETY 12/18/23) at 1958 RPT #:[id number] END OF REPORT [facility] 2023-12-18 22:40:00 [facility] ([facility]) EMERGENCY PROVIDER REPORT REPORT#:[id number] REPORT STATUS: Signed DATE:12/18/23 TIME: 2239 PATIENT: GIL HERCULES UNIT #: [id number] [address] AGE: 33 SEX: M PCP PHYS: No [...] Result Date Time Pulse Ox 99 12/17 2205 B/P 143/77 12/17 2205 B/P Mean 99.2 12/17 2204 Temp 36.8 12/17 2204 Pulse 107 12/17 2205 Resp 18 12/17 2204 Last Documented: Result Date Time Pulse 98 12/18 0154 Pulse Ox 96 12/18 0153 B/P 133/60 12/18 0153 B/P Mean 86 12/18 0153 Temp 36.7 12/18 0145 Resp 18 12/17 2204 Review of Vital [...] Diagnostics Lab Results Interpretation Results Laboratory Tests 12/18/230: [Embedded Image Not Available] Laboratory Tests: 12/18 [...] % (Auto) (20.5 - 45.5 %) 27.1 Clarke % (Auto) (5.5 - 11.7 %) 8.6 Eos % (Auto) (0.9 - 2.9 %) 1.4 Baso % (Auto) (0.2 - 1.0 %) 0.8 Neut # (Auto) (2.2 - 4.8 x10 3/uL) 5.44 H Lymph # (Auto) (1.3 - 2.9 x10 3/uL) 2.39 Clarke # (Auto) (0.3 - 0.8 x10 3/uL) 0.76 Eos # (Auto) (0.0 - 0.2 x10 3/uL) 0.12 Baso # (Auto) (0.0 - 0.1 x10 3/uL) 0.07 Immature Gran % (0.0 - 2.0 %) 0.3 Nucleated RBC % (0 - 1.0 %) 0.0 Recent Impressions: RADIOLOGY - XR CHEST 1 V 12/18 2143 Report Impression - Status: SIGNED Entered: 12/18/2023 223 IMPRESSION: No acute cardiopulmonary abnormality. Impression By: Андрей Felix MD ULTRASOUND - DUP VEIN NATHEN 12/17 2307 Report Impression - Status: SIGNED Entered: 12/18/2023 2346 IMPRESSION: No DVT in the visualized venous structures of the bilateral lower extremities. Impression By: Андрей Felix MD CAT SCAN - CT ABD PELVIS W/CONT 12/17 2350 Report Impression - Status: SIGNED Entered: 12/19/2023 0250 IMPRESSION: 1. No acute findings in abdomen or pelvis. 2. 1.5 cm hypodense solid appearing mass inferior right kidney. Recommend nonemergent further assessment with multiphasic contrast enhanced CT scan or MRI. 3. Fatty liver. 4. 4.3 cm fat-containing umbilical hernia. Impression By: Leila Tee MD CAT SCAN - CTA CHEST FOR PE 12/17 7290 Report Impression - Status: SIGNED Entered: 12/19/2023 [...] Result Date Time Pulse Ox 99 12/17 220 B/P 143/77 12/17 2205 B/P Mean 99.2 12/17 2204 Temp 36.8 12/17 220 Pulse 107 12/17 2205 Resp 18 12/17 2205 Last Documented: Result Date Time Pulse 98 / 0154 Pulse Ox 96 / 0153 B/P 133/60 / 0153 B/P Mean 86 / 0153 Temp 36.7 12/18 0145 Resp 18 [...] over this patient's care. Elliot Ram 12/19/23 1637: Past Medical History - [...] and plan. rhabdomyolysis at 0255 at 1638 [facility] #:[id number] END OF REPORT [facility] 2023-12-18 22:07:00 [phone] [facility] [address] [place] [address] PATIENT NAME: GIL HERCULES ADMIT DATE: 12/19/23 ACCOUNT NO: [id number] ROOM NO: [facility] AGE: 33 REPORT TYPE: ELECTROCARDIOGRAM SEX: M ADMITTING PHYSICIAN:Cliff Hu MD ATTENDING PHYSICIAN:Cliff Hu MD Order: [id number] Test Reason : Test Date/Time Stamp: WedDec [...] SANZ at 1254 PATIENT NAME: GIL HERCULES [facility] 2023-12-18 21:55:00 [facility]) EMERGENCY PROVIDER REPORT REPORT#:[id number] REPORT STATUS: Signed DATE:12/18/23 TIME: 2154 PATIENT: GIL HERCULES UNIT #: [id number] ROOM/BED: AGE: 33 SEX: M PCP PHYS: [...] Parts of this note were created using StartSampling speech recognition dictation software. All things were made to correct any errors at the time of dictation, however there may be some errors present in the case coordinator that were inadvertently overlooked during the dictation. PMH-Provider in Triage Stated Complaint RHABDO WORSENING CK >1000 Allergies Coded Allergies: codeine (Mild, HIVES 12/12/23) Uncoded Allergies: TRILOGY (Severe, SOB, ANXIETY 12/18/23) Past Medical History: Reports: Asthma (ADD, opiod addiction). Smoking status: Smoking status for patients 13 years old or older: Unknown,if ever smoked at 2156 RPT #:[id number] END OF REPORT [facility] 2023-12-12 17:45:00 [facility] ([facility]) EMERGENCY PROVIDER REPORT REPORT#:[id number] REPORT STATUS: Signed DATE:12/12/23 TIME: 1744 PATIENT: GIL HERCULES UNIT #: [id number] ROOM/BED: AGE: 33 SEX: M PCP PHYS: No Primary or Family Physician SERVICE AUTHOR: Claudia Solo DO * ALL edits or amendments must be made on the electronic/computer document * HPI-General Illness General Confirmed Patient Yes Patient Type New patient Initial Greet Date/Time 12/12/23 173 Assumed Care at Time 1740 Presentation Chief [...] Past Medical History - Adult Stated Complaint [id number] PAIN-WEAK Allergies Coded Allergies: fexofenadine (From ANDREI) [...] (Auto) (20.5 - 45.5 %) 19.5 L Clarke % (Auto) (5.5 - 11.7 %) 7.4 Eos % (Auto) (0.9 - 2.9 %) 0.6 L Baso % (Auto) (0.2 - 1.0 %) 0.5 Neut # (Auto) (2.2 - 4.8 x10 3/uL) 6.02 H Lymph # (Auto) (1.3 - 2.9 x10 3/uL) 1.63 Clarke # (Auto) (0.3 - 0.8 x10 3/uL) [...] decision-making. ECG #1 Interpretation Date 12/12/23 Time 175 Interpreted by ED physician NL ECG Interpretation Normal rate, Normal sinus rhythm, No acute ischemic changes, No STEMI Re-Evaluation MDM Re-Evaluation/Progress #1 Time of Re-Eval 1838 Re-Eval Status Improved ED Course Medication(s) Ordered Medication(s) Ordered: Electrolytic, Caloric, And Dennise Sig/Hakan Start time Last Medication Dose Route Stop Time Status Admin Sodium Chloride 1,000 ML X1ED STA 12/11 181 AC 12/11 IV 12/11 1910 1824 Patient Discharge Departure Vital Signs/Condition Vital Signs First Documented: Result Date Time Pulse Ox 99 12/11 1739 B/P 143/67 12/11 1739 B/P Mean 92 12/11 1739 O2 Delivery Room air 12/11 1739 Temp 36.7 12/11 1739 Pulse 107 12/11 1739 Resp 16 12/11 1739 Last Documented: Result Date Time Pulse Ox 99 12/11 1739 B/P 143/67 12/11 1739 B/P Mean 92 12/11 1739 O2 Delivery Room air 12/11 1739 Temp 36.7 12/11 1739 Pulse 107 12/11 1739 Resp 16 12/11 1739 All vital signs available at the time of this entry have been reviewed. Condition Stable Clinical Impression Clinical Impression Primary Impression: Palpitations Secondary Impressions: Myalgia Disposition Decision Discharge )( Discharged to Home Yes )( Time 1847 )( Date 12/12/23 at 1848 RPT #:[id number] END OF REPORT [facility]
[2024-06-30] MEDS ORDERED: METHYLPREDNISOLONE 125 MG INJ ONE (01:05)
[2024-06-30] MEDS ORDERED: LORazepam 2 MG/ML VIAL ONE (01:05)
[2024-06-30] MEDS ORDERED: NA CHLORIDE 0.9% 1,000 ML ONE (01:06)
[2024-06-30 01:23] LABS: Barbiturates NEGATIVE (NEGATIVE); Benzodiazepines NEGATIVE (NEGATIVE); Cocaine NEGATIVE (NEGATIVE); METHAMPHETAM NEGATIVE (NEGATIVE); Methadone NEGATIVE (NEGATIVE); Opiates NEGATIVE (NEGATIVE); Phencyclidine NEGATIVE (NEGATIVE); THC Cannibis NEGATIVE (NEGATIVE)
[2024-06-30 01:31] LABS: Absolute Basophils 0.1 K/uL (0-0.5); Absolute Eosinophils 0.1 K/uL (0-0.5); Absolute Lymphocytes (CBC) 2.5 K/uL (0.7-4.9); Absolute Monocytes 0.7 K/uL (0.1-1.3); Absolute Neutrophil 3.9 K/uL (1.8-8.0); Basophils % 1.2 % (0-1.3); Eosinophils % 1.9 % (0-4.4); Hematocrit 39.6 % (39.6-49.0); Hemoglobin 12.9 g/dL (13.6-17.9); Lymphocytes % 33.8 % (15.3-44.8); MCH 28.4 pg (27.0-35.0); MCHC 32.5 g/dL (32.0-36.0); MCV 87.4 fL (80-100); MPV 7.7 fL (7.6-11.3); Monocytes % 10.1 % (3.3-12.3); Nucleated Red Blood Cells % 0.1 % (0-0); Platelets 239 thou/uL (152-406); RBC Red Blood Cell Count 4.53 M/uL (4.33-5.43); Red Cell Distribution Width 14.1 % (12.1-15.2)
[2024-06-30 01:32] LABS: PT Prothrombin Time 11.8 SECONDS (9.4-12.5); Protime INR 1.06
[2024-06-30 01:45] LABS: Albumin 3.3 g/dL (3.4-5.0); Albumin/Globulin Ratio 0.9 (1.1-1.8); Anion Gap 8.5 mEq/L (5.0-15.0); Bilirubin Direct 0.2 mg/dL (0-0.2); Bilirubin Indirect, Calculated 0.5 mg/dL (0.2-0.8); Bilirubin Total 0.7 mg/dL (0.2-1.0); Globulin 3.5 g/dL (2.3-3.5); Magnesium 1.9 mg/dL (1.6-2.4); Potassium 3.5 mEq/L (3.5-5.1); Protein, Total 6.8 g/dL (6.4-8.2); Troponin High Sensitivity 5.3 pg/mL (<58.9)
--- NOTE | 2024-06-30 03:17 | EDPHYS ---
Physician Documentation [facility] Name: Gil Jose Age: 33 yrs Sex: Male : 1990 Arrival Date: 06/30/2024 Time: 00:26 Bed 6 Private MD: ED Physician Marcel Vitale HPI: 06/30 00:36 This 33 yrs old Male presents to ER via Unassigned with complaints of Chest sp4 Pain, Palpitations, Shortness Of Breath, low O2. 03:15 33-year-old male presents with acute onset of chest pain and palpitations. Patient sp4 reported some decrease in oxygenation at home and also rapid heart rate at home. . Historical: - Allergies: 00:40 Codeine; lg3 00:40 triligy; lg3 - Home Meds: 00:40 Suboxone [Active]; Albuterol Inhl [Active]; Symbicort inhalation [Active]; lg3 - PMHx: 00:40 Anxiety; Asthma; Hernia; lg3 - PSHx: 00:40 hernia; Ulnar nerve decompression; lg3 - Immunization history:: Adult Immunizations up to date. - Infectious Disease History:: Denies. - Social history:: Smoking status: Patient/guardian denies using tobacco, Patient/guardian denies using alcohol, street drugs. - Family history:: not pertinent. ROS: 03:15 Constitutional: Negative for fever, chills, and weight loss, positive for chest pain sp4 and palpitations 03:15 All other systems are negative, Exam: 02:06 Constitutional: This is a well developed, well nourished patient who is awake, alert, sp4 and in no acute distress. Head/Face: Normocephalic, atraumatic. Eyes: Pupils equal round and reactive to light, extra-ocular motions intact. Lids and lashes normal. Conjunctiva and sclera are not injected. Cornea within normal limits. Periorbital areas with no swelling, redness, or edema. ENT: Nares patent. No nasal discharge, no septal abnormalities noted. Tympanic membranes are normal and external auditory canals are clear. Oropharynx with no redness, swelling, or masses, exudates, or evidence of obstruction, uvula midline. Mucous membranes moist. Neck: Trachea midline, no thyromegaly or masses palpated, and no cervical lymphadenopathy. Supple, full range of motion without nuchal rigidity, or vertebral point tenderness. Chest/axilla: Normal chest wall appearance and motion. Nontender with no deformity. No lesions are appreciated. Cardiovascular: Regular rate and rhythm with a normal S1 and S2. No gallops, murmurs, or rubs. Normal PMI, no JVD. No pulse deficits. Respiratory: Lungs have equal breath sounds bilaterally, clear to auscultation and percussion. No rales, rhonchi or wheezes noted. No increased work of breathing, no retractions or nasal flaring. Abdomen/GI: Soft, with normal bowel sounds. No distension or tympany. No guarding or rebound. No evidence of tenderness throughout. Back: No spinal tenderness. No costovertebral tenderness. Skin: Warm, dry with normal turgor. Normal color with no rashes, no lesions, and no evidence of cellulitis. MS/ Extremity: Pulses equal, no cyanosis. Neurovascular intact. Full, normal range of motion. Neuro: Awake and alert, GCS 15, oriented to person, place, time, and situation. Cranial nerves II-XII grossly intact. Motor strength 5/5 in all extremities. Sensory grossly intact. Psych: Awake, alert, with orientation to person, place and time. Behavior, mood, and affect are within normal limits 02:06 ECG was reviewed by the Attending Physician. EKG at 0037 normal sinus rhythm rate 91 Vital Signs: 00:30 BP 128 / 58; Pulse 97; Resp 17; Pulse Ox 98% ; br2 00:37 BP 119 / 76; Pulse 96; Resp 17 S; Temp 97.6(TE); Pulse Ox 100% on R/A; Weight 122.47 kg lg3 (R); Height 5 ft. 8 in. (R); Pain 5/10; 01:39 BP 108 / 60; Pulse 99; Resp 18; Pulse Ox 100% ; cp4 02:30 BP 107 / 60; Pulse 94; Resp 13 S; Pulse Ox 95% on R/A; br2 03:30 BP 110 / 64; Pulse 92; Resp 16 S; Temp 97.2(O); Pulse Ox 95% on R/A; br2 00:37 Body Mass Index 41.05 (122.47 kg, 172.72 cm) lg3 00:37 Pain Scale: Adult lg3 MDM: 00:43 Medical Screening Exam initiated sp4 03:09 ED course: EXAM: XR Chest, 1 View CLINICAL HISTORY: The patient is 33 years old and is sp4 Male; CHEST PAIN TECHNIQUE: Frontal view of the chest. COMPARISON: XR Chest dated November 07 2023 FINDINGS: LUNGS: Unremarkable. No consolidation. PLEURAL SPACE: Unremarkable. No pneumothorax. HEART: Unremarkable. No cardiomegaly. MEDIASTINUM: Unremarkable. Normal mediastinal contour. BONES/JOINTS: Unremarkable. No acute fracture. UPPER ABDOMEN: Unremarkable as visualized. IMPRESSION: No acute cardiopulmonary process.. 03:13 Differential diagnosis: acute pericarditis, anxiety, chest wall pain, cholecystitis, sp4 Cholelithiasis. HEART Score: History: Slightly Suspicious (0), ECG: Normal (0), Age: < or = 45 years (0), Risk Factors: No Risk Factors Known (0), Troponin: < or = 1 x Normal Limit (0), Total Score = 0. Data reviewed: vital signs, lab test result(s), EKG, radiologic studies, plain films. ED course: Patient is a 33-year-old male past medical history of asthma recent admission for asthma attack 06/19/2024. ED course: Patient was evaluated today for chest pain and palpitations and we see no sign of acute coronary syndrome or arrhythmia. Will discharge home with continuation of asthma management. Advised visit with cardiology as scheduled tomorrow for echocardiogram and Holter monitor. 06/30 00:37 Order name: Urine Drug Screen; Complete Time: 02:05 4 06/30 00:42 Order name: Basic Metabolic Panel; Complete Time: 02:05 4 06/30 00:42 Order name: CBC with Diff; Complete Time: 02:05 4 06/30 00:42 Order name: LFT's; Complete Time: 02:05 4 06/30 00:42 Order name: Magnesium; Complete Time: 02:05 4 06/30 00:42 Order name: NT PRO-BNP; Complete Time: 02:05 4 06/30 00:42 Order name: PT-INR; Complete Time: 02:05 4 06/30 00:42 Order name: Troponin HS; Complete Time: 02:05 4 06/30 00:42 Order name: XRAY Chest (1 view) 4 06/30 00:42 Order name: EKG; Complete Time: 00:43 sp4 06/30 00:42 Order name: Cardiac monitoring; Complete Time: : sp4 06/30 00:42 Order name: EKG - Nurse/Tech; Complete Time: 00:59 sp4 06/30 00:42 Order name: IV Saline Lock; Complete Time: 01: sp4 06/30 00:42 Order name: Labs collected and sent; Complete Time: : sp4 06/30 00:42 Order name: O2 Per Protocol; Complete Time: : sp4 06/30 00:42 Order name: O2 Sat Monitoring; Complete Time: : sp4 EC:06 Rate is 91 beats/min. Rhythm is regular, Normal Sinus Rhythm. QRS [place] is Normal. UT sp4 interval is normal. QRS interval is normal. QT interval is normal. No Q waves. T waves are Normal. No ST changes noted. Clinical impression: Normal ECG. Interpreted by me. Administered Medications: 01:10 Drug: Ativan IVP 2 mg IVP once Route: IVP; Site: right hand; cp4 01:39 Follow up: Response: No adverse reaction cp4 01:10 Drug: NS 0.9% IV 1000 ml IV at 1000 ml once; to be given as a bolus over 60 minutes cp4 Route: IV; Rate: 1000 ml; Site: right hand; 02:15 Follow up: Response: No adverse reaction; IV Status: Completed infusion; IV Intake: br2 1000ml 01:10 Drug: MethylPrednisoLONE IVP 125 mg IVP once Route: IVP; Site: right hand; cp4 01:39 Follow up: Response: No adverse reaction cp4 02:00 Follow up: Response: No adverse reaction br2 Disposition Summary: 06/30/24 03:17 Discharge Ordered Notes: Please see Produce Manager as scheduled Location: Home sp4 Problem: new sp4 Symptoms: have improved sp4 Condition: Stable sp4 Diagnosis - Anxiety disorder, unspecified sp4 - Acute Anxiety attack sp4 Followup: sp4 - With: Private Physician - When: 1 - 2 days - Reason: Recheck today's complaints Discharge Instructions: - Discharge Summary Sheet sp4 - Palpitations, [id number] sp4 Forms: - Patient Portal Instructions sp4 Signatures: Dispatcher [employer] Shara Garcia RN RN lg3 Marcel Vitale MD MD sp4 Elli Canales cp4 Jaclyn Trinidad RN br2 Corrections: (The following items were deleted from the chart) 00:37 00:37 URINE DRUG SCREEN+UC.LAB.BRZ ordered. EDMS EDMS 00:43 00:43 BASIC METABOLIC PANEL+C.LAB.BRZ ordered. EDMS EDMS 00:43 00:43 CBC+H.LAB.BRZ ordered. EDMS EDMS 00:43 00:43 HEPATIC FUNCTION+C.LAB.BRZ ordered. EDMS EDMS 00:43 00:43 MAGNESIUM+C.LAB.BRZ ordered. EDMS EDMS 00:43 00:43 PROBNP+C.LAB.BRZ ordered. EDMS EDMS 00:43 00:43 PROTIME (+INR)+COAG.LAB.BRZ ordered. EDMS EDMS 00:43 00:43 Troponin High Sensitivity+C.LAB.BRZ ordered. EDMS EDMS
--- NOTE | 2024-06-30 03:17 | ER ---
Nurse's Notes [facility] Name: Gil Jose Age: 33 yrs Sex: Male : 1990 Arrival Date: 06/30/2024 Time: 00:26 Bed 6 Private MD: Diagnosis: Anxiety disorder, unspecified;Acute Anxiety attack Presentation: 06/30 00:37 Chief complaint: Patient states: DC'd from upstairs last week for respiratory failure. lg3 was told at [place] if symptoms returned to come in. complaints of midsternal CP 5/10, SOB and palpitations. Coronavirus screen: Client denies travel out of the [place] in the last 14 days. At this time, the client does not indicate any symptoms associated with coronavirus-19. Ebola Screen: No symptoms or risks identified at this time. Initial Sepsis Screen: Does the patient meet any 2 criteria? No. Patient's initial sepsis screen is negative. Does the patient have a suspected source of infection? No. Patient's initial sepsis screen is negative. Risk Assessment: Do you want to hurt yourself or someone else? Patient reports no desire to harm self or others. Onset of symptoms was June 30, 2024. 00:37 Method Of Arrival: Ambulatory lg3 00:37 Acuity: FRANKI 3 lg3 Triage Assessment: 00:40 General: Appears in no apparent distress. comfortable, Behavior is cooperative, lg3 anxious. Pain: Complains of pain in chest Pain does not radiate. Pain currently is 5 out of 10 on a pain scale. Quality of pain is described as pressure, stabbing. EENT: No deficits noted. No signs and/or symptoms were reported regarding the EENT system. Neuro: No deficits noted. [place] Agitation-Sedation Scale (RASS): 0 - Alert and Calm Level of Consciousness is awake, alert, obeys commands, Oriented to person, place, time, situation. Cardiovascular: Reports chest pain, Capillary refill < 3 seconds Clubbing of nail beds is absent JVD is absent Patient's skin is warm and dry. Rhythm is sinus rhythm. Respiratory: No deficits noted. Reports shortness of breath Airway is patent Respiratory effort is even, unlabored, Respiratory pattern is regular, symmetrical. GI: No deficits noted. No signs and/or symptoms were reported involving the gastrointestinal system. : No deficits noted. No signs and/or symptoms were reported regarding the genitourinary system. Derm: No deficits noted. No signs and/or symptoms reported regarding the dermatologic system. Skin is intact, is healthy with good turgor, Skin is dry, Skin is normal, Skin temperature is warm. Musculoskeletal: No deficits noted. No signs and/or symptoms reported regarding the musculoskeletal system. Circulation, motion, and sensation intact. Range of motion: intact in all extremities. Historical: - Allergies: 00:40 Codeine; lg3 00:40 triligy; lg3 - Home Meds: 00:40 Suboxone [Active]; Albuterol Inhl [Active]; Symbicort inhalation [Active]; lg3 - PMHx: 00:40 Anxiety; Asthma; Hernia; lg3 - PSHx: 00:40 hernia; Ulnar nerve decompression; lg3 - Immunization history:: Adult Immunizations up to date. - Infectious Disease History:: Denies. - Social history:: Smoking status: Patient/guardian denies using tobacco, Patient/guardian denies using alcohol, street drugs. - Family history:: not pertinent. Screenin:35 [facility] ED Fall Risk Assessment (Adult) History of falling in the last 3 months, br2 including since admission No falls in past 3 months (0 pts) Confusion or Disorientation No (0 pts) Intoxicated or Sedated No (0 pts) Impaired Gait No (0 pts) Mobility Assist Device Used No (0 pt) Altered Elimination No (0 pt) Score/Fall Risk Level 0 - 2 = Low Risk Oriented to surroundings. Abuse screen: Denies threats or abuse. Denies injuries from another. Nutritional screening: No deficits noted. Tuberculosis screening: No symptoms or risk factors identified. Assessment: 00:35 Reassessment: Patient and/or family updated on plan of care and expected duration. Pain br2 level reassessed. Patient is alert, oriented x 3, equal unlabored respirations, skin warm/dry/pink. General: Appears in no apparent distress. comfortable, Behavior is cooperative, anxious. Respiratory: Reports shortness of breath at rest Airway is patent. 00:35 Pain: Pain began 2 hours ago. br2 01:30 Reassessment: Patient and/or family updated on plan of care and expected duration. Pain br2 level reassessed. Patient is alert, oriented x 3, equal unlabored respirations, skin warm/dry/pink. Patient states feeling better. Patient states symptoms have improved. 02:30 Reassessment: Patient and/or family updated on plan of care and expected duration. Pain br2 level reassessed. Patient is alert, oriented x 3, equal unlabored respirations, skin warm/dry/pink. Patient states feeling better. Patient states symptoms have improved. Pain: Denies pain. 03:09 Reassessment: Patient and/or family updated on plan of care and expected duration. Pain br2 level reassessed. Patient is alert, oriented x 3, equal unlabored respirations, skin warm/dry/pink. Patient states feeling better. Patient states symptoms have improved. Pain: Denies pain. 03:30 Pain: Denies pain. br2 Vital Signs: 00:30 BP 128 / 58; Pulse 97; Resp 17; Pulse Ox 98% ; br2 00:37 BP 119 / 76; Pulse 96; Resp 17 S; Temp 97.6(TE); Pulse Ox 100% on R/A; Weight 122.47 kg lg3 (R); Height 5 ft. 8 in. (R); Pain 5/10; 01:39 BP 108 / 60; Pulse 99; Resp 18; Pulse Ox 100% ; cp4 02:30 BP 107 / 60; Pulse 94; Resp 13 S; Pulse Ox 95% on R/A; br2 03:30 BP 110 / 64; Pulse 92; Resp 16 S; Temp 97.2(O); Pulse Ox 95% on R/A; br2 00:37 Body Mass Index 41.05 (122.47 kg, 172.72 cm) lg3 00:37 Pain Scale: Adult lg3 ED Course: 00:28 Patient arrived in ED. im 00:34 Marcel Vitale MD is Attending Physician. sp4 00:35 Patient has correct armband on for positive identification. Bed in low position. Call br2 light in reach. Side rails up X 1. Provided Education on: plan of care. Client placed on continuous cardiac and pulse oximetry monitoring. NIBP monitoring applied. 00:35 No provider procedures requiring assistance completed. br2 00:40 Triage completed. lg3 00:40 Arm band placed on right wrist. lg3 00:43 EKG done, by ED staff, reviewed by Marcel Vitale MD. Patient maintains SpO2 lg3 saturation greater than 95% on room air. 00:46 Jaclyn Trinidad, AILEEN is Primary Nurse. br2 01:06 Basic Metabolic Panel Sent. br2 01:07 CBC with Diff Sent. br2 01:07 LFT's Sent. br2 01:07 Magnesium Sent. br2 01:07 NT PRO-BNP Sent. br2 01:07 PT-INR Sent. br2 01:07 Troponin HS Sent. br2 01:07 Urine Drug Screen Sent. br2 01:09 Inserted saline lock: 20 gauge in right hand, using aseptic technique. Blood collected. br2 Flushed with 10 mL NS. 01:25 XRAY Chest (1 view) In Process Unspecified. EDMS 03:34 IV discontinued, intact, bleeding controlled, No redness/swelling at site. Pressure br2 dressing applied. Administered Medications: 01:10 Drug: Ativan IVP 2 mg IVP once Route: IVP; Site: right hand; cp4 01:39 Follow up: Response: No adverse reaction cp4 01:10 Drug: NS 0.9% IV 1000 ml IV at 1000 ml once; to be given as a bolus over 60 minutes cp4 Route: IV; Rate: 1000 ml; Site: right hand; 02:15 Follow up: Response: No adverse reaction; IV Status: Completed infusion; IV Intake: br2 1000ml 01:10 Drug: MethylPrednisoLONE IVP 125 mg IVP once Route: IVP; Site: right hand; cp4 01:39 Follow up: Response: No adverse reaction cp4 02:00 Follow up: Response: No adverse reaction br2 Medication: 03:30 VIS not applicable for this client. br2 Intake: 02:15 IV: 1000ml; Total: 1000ml. br2 Outcome: 03:17 Discharge ordered by . sp4 03:34 Discharged to home ambulatory, br2 03:34 Condition: improved 03:34 Discharge instructions given to patient, Instructed on discharge instructions, follow up and referral plans. Demonstrated understanding of instructions, follow-up care, 03:36 Patient left the ED. br2 Signatures: Dispatcher [employer] EDMS Shara Flores RN RN lg3 Marcel Vitale MD MD sp4 Amina [place] Christina cp4 Jaclyn Trinidad RN RN br2 Corrections: (The following items were deleted from the chart) 05:34 02:30 BP 107 / 60; Pulse 94bpm; Resp 13bpm; Spontaneous; Temp 95.0F Oral; br2 br2
[2024-06-30 04:54] VITALS: O2SAT 100
[2024-06-30 04:56] VITALS: BP 107/60; TEMP 95
--- NOTE | 2024-06-30 05:37 | RAD REPORT ---
EXAM: XR Chest, 1 View CLINICAL HISTORY: The patient is 33 years old and is Male; CHEST PAIN TECHNIQUE: Frontal view of the chest. COMPARISON: XR Chest dated November 07 2023 FINDINGS: LUNGS: Unremarkable. No consolidation. PLEURAL SPACE: Unremarkable. No pneumothorax. HEART: Unremarkable. No cardiomegaly. MEDIASTINUM: Unremarkable. Normal mediastinal contour. BONES/JOINTS: Unremarkable. No acute fracture. UPPER ABDOMEN: Unremarkable as visualized. IMPRESSION: No acute cardiopulmonary process. Electronically signed by: Teresa Mckeon MD 06/30/2024 01:56 AM CDT RP Due to temporary technical issues with the PACS/VeedMe reporting system, reports are being teo d by the in-house radiologist without review as a courtesy to ensure prompt reporting the interpreting radiologist is fully responsible for the content of the report. Transcribed Date/Time: 06/30/2024 5:37 AM
--- NOTE | 2024-07-04 13:07 | EKG ---
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
== END 2024-06-30 03:36 | disposition home or self-care (01) ==
LOC: ER 00:26
DX: F41.0 Panic disorder [episodic paroxysmal anxiety] (principal); F41.9 Anxiety disorder, unspecified
CPT/HCPCS: 96361; 93005; 85025; 80048; 36415; 83735; 85610; 80076; 84484; 83880; 80307; 71045; 96375; 96374; 99284; J2919; J7030

== ENCOUNTER 2024-08-14 03:12 | Emergency (ER) | payer OTHER ==
--- OUTSIDE RECORDS SUMMARY | 2024-08-14 03:18 | XMS REPORT | Continuity of Care Document ---
Author Name Unknown Address [address] [facility] [address] [place] [address] [facility] Address [address] [facility]. 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 Name Role Phone PCP, NO Primary Care Physician UnavailVENESSA Ortiz Attending Clinician UnavailVENESSA Zapata Attending Clinician UnavailVenessa Zapata MD Attending Clinician [phone] Isa Machado MD Attending Clinician [phone] Doctor Unassigned, Aldie Attending Clinician ISA Do Attending Clinician Unavailable ERUM PAYAN Attending Clinician Unavailable ERUM PAYAN Attending Clinician Unavailable Erum Payan MD Attending Clinician [phone] Mario Burnett MD Attending Clinician Talita Rodriguez PA-C Attending Clinician [phone] TALITA RODRIGUEZ Attending Clinician Unavailable TALITA RODRIGUEZ Attending Clinician Unavailable Venessa Khan MD Attending Clinician [phone] Pob, [facility] Main Attending Clinician UnavailCLIFF Chen Attending Clinician Unavailable CLIFF PERRY Attending Clinician Unavailable Bruno GROVE, Cliff Attending Clinician [phone] MARIO BURNETT Attending Clinician Unavail able MARIO BURNETT Attending Clinician Unavail able Abhilash Generic Provider Attending Clinician Unavailable EbrahiAleena Burt Attending Clinician +[phone] Unknown, Attending Attending Clinician Unavailab le ALEENA GREEN Attending Clinician Unavailable Ramón Cuellar Attending Clinician Unavailable Cliff Hu Attending Clinician Unavailable Claudia Solo Attending Clinician UnavailRICHAR Rosales Attending Clinician UnavailJass Reyes Attending Clinician Unavailable Bhupinder Moreau Attending Clinician Unavailab ERUM Falcon Admitting Clinician Unavailable Venessa Khan MD Admitting Clinician [phone] VENESSA KHAN Admitting Clinician UnavailMARIO Padilla Admitting Clinician Unavail able Physician, No Primary or Family Admitting Clinic kaitlynn Unavailable Cliff Hu Admitting Clinician Unavailable Payers Payer Name Policy Type Policy Number Effective Date Expirati on Date Source [employer] PPO [id number] 2021 00:00:00 Problems Condition Name Condition Details Condition Category Status Onset Date Resolution Date Last Treatment Date Treating Clinician Comments Source Precordial pain Precordial pain Disease Active 2023-09 00:00: 00 [facility] Palpitatio ns Palpitatio ns Disease Active 2023-09 00:00: 00 [facility] Ulnar nerve compressio n, left Ulnar nerve compressio n, left Disease Active 06-08 00:00: 00 [facility] Pre-op testing Pre-op testing Disease Active 06-08 00:00: 00 [facility] Generalize d anxiety disorder Generalize d Anxiety Disorder Problem Active 05-18 00:00: 00 [facility] Asthma Asthma Problem Active 9- 00:00: 00 [facility] Rhabdomyol ysis Rhabdomyol ysis Problem Active 9-05 00:00: 00 [facility] Ulnar neuropathy of left arm Ulnar Neuropathy of Left Arm Problem Active 9- 00:00: 00 [facility] Allergies, Adverse Reactions, Alerts Allergy Name Allergy Type Status Severity Reaction(s) Onset Date Inactive Date Treating Clinician Comments Source fluticas one furoate DA Active U ANXIETY 2023-0 4-10 00:00: 00 [facility] vilanter ol DA Active U ANXIETY 0 4-10 00:00: 00 [facility] umeclidi nium DA Active U ANXIETY 0 4-10 00:00: 00 [facility] codeine DA Active ND HIVES 2023-0 4-07 00:00: 00 [facility] TRILOGY DA Active SV SOB, ANXIETY 2023-0 4-06 00:00: 00 [facility] codeine DA Active ND HIVES 2023-0 3-31 00:00: 00 [facility] fexofena dine DA Active MO SOB, ANXIETY 2023-0 3-31 00:00: 00 [facility] Trilog Drug Allergy Active Rash 2023-0 3-02 00:00: 00 [facility] TRILOG DRUG Active Low Palpitations 4-0 3-02 00:00: 00 [facility] FLUTICAS ONE-UMEC LIDIN- LANTER DRUG Active High Palpitations 2022-1 2-05 00:00: 00 [facility] Fluticas one-Umec lidin-Vi lanter Drug Allergy Active Shortness of Breath 2022-1 2-05 00:00: 00 [facility] CODEINE DRUG INGREDI Active Low Hives 2-0 1-01 00:00: 00 [facility] Codeine Drug Allergy Active Rash 2021-0 1- 00:00: 00 [facility] Codeine Allergy to substanc e Active [facility] TRELEGY ELLIPTA Allergy to substanc e Active [facility] Social History Social Habit Start Date Stop Date Quantity Comments Source History of tobacco use Smokes tobacco daily [facility] Alcoholic beverage intake 2024-07-31 00:00:00 2024-07-31 00:00:00 Ex-drinker (finding) [facility] Tobacco Comment 2024-06-08 00:00:00 2024-06-08 00:00:00 vapes [facility] Tobacco use and exposure 2024-06-08 00:00:00 2024-06-08 00:00:00 Smokeless tobacco non-user [facility] History of Social function 2024-05-26 00:00:00 2024-05-26 00:00:00 [facility] Sex assigned at 1990 00:00:00 1990 00:00:00 [facility] Smoking Status Start Date Stop Date Source Tobacco smoking consumption unknown [facility] Smokes tobacco daily 2024-06-08 00:00:00 [facility] Never smoked tobacco [facility] Medications Ordered Medication Name Filled Medication Name Start Date Stop Date Current Medication? Ordering Clinician Indication Dosage Frequency Signature (SIG) Comments Components Source NaCl 0.9% (NS) IV infusion 250 mL 2023-09 21:15: 00 Yes [id number] 250mL at 50 mL/hr, IV Infusion, CONTINUOUS , Starting on Wed07/11/24 at 1615, Until Discontinu ed, Routine, To keep vein open [facility] perflutren protein-A microsphr (OPTISON) injection 3 mL 2023-09 21:00: 00 07-11 19:00 :00 No [id number] 3mL 3 mL, IV Push, ONCE, 1 dose, On Wed07/11/24 at 1600, Routine [facility] metoprolol (LOPRESSOR) injection 5 mg 2023-09 21:00: 00 07-11 19:21 :00 No [id number] 5mg 5 mg, Slow IV Push, ONCE, 1 dose, On Wed07/11/24 at 1600, Routine [facility] atropine injection 2 mg 2023-09 21:00: 00 07-11 19:10 :00 No [id number] 2mg 2 mg, Slow IV Push, ONCE, 1 dose, On Wed07/11/24 at 1600, Routine [facility] DOBUTamine (DOBUTREX) 250 mg/250 mL RTU infusion 2023-09 20:07: 38 Yes [id number] 5ug/kg/ min 5 mcg/kg/min , IV Infusion, TITRATE, MAP Goal > or = 65 mmHg, Titrate per admin instructio ns, Starting on Wed07/11/24 at 1507, Note and document the precise time that this is 3. accomplish ed. Begin the count with the EKG system's DSE applicatio n program. This is time zero. At 2 minutes and 30 seconds after beginning the initial dosing, acquire parasterna l long axis and parasterna l short axis view at papillary level, apical 4 chamber, 2 chamber and apical long axis view, and BP At the 3 minute interval, simultaneo usly obtain a 12 lead EKG, heart rate and 02 saturation and increase the Dobutamine infusion to 10 mcg/kg/min . At the 5 minutes and 30 second interval, acquire parasterna l long axis and parasterna l short axis view at papillary level, apical 4 chamber, 2 chamber and apical long axis view and measure BP. At the 6 minute interval, simultaneo usly obtain a 12 lead EKG, heart rate and 02saturati on and increase the Dobutamine infusion to 20 mcg/kg/min . At the 8 minutes and 30 second interval, acquire parasterna l long axis and parasterna l short axis view at papillary level, apical 4 chamber, 2 chamber and apical long axis view and measure BP. At the 9 minute interval, simultaneo usly obtain a 12 lead EKG, heart rate and 02 saturation and increase the Dobutamine infusion to 30 mcg/kg/min . (see Adjunctive Therapy) At the 11 minutes and 30 second interval, acquire parasterna l long axis and parasterna l short axis view at papillary level, apical 4 chamber, 2 chamber and apical long axis view and measure BP. At the 12 minute interval, simultaneo usly obtain a 12 lead EKG, heart rate and 02 saturation and increase the Dobutamine infusion to 40 mcg/kg/min . (see Adjunctive Therapy At the 14 minutes and 30 second interval, acquire parasterna l long axis and parasterna l short axis view at papillary level, apical 4 chamber, 2 chamber and apical long axis view and measure BP. At the 15 minute interval, simultaneo usly obtain a 12 lead EKG, heart rate and 02 saturation and terminate the Dobutamine infusion. (see Adjunctive Therapy) [facility] HYDROcodone -acetaminop hen (NORCO 5) tablet 1 tablet 2023-09 14:15: 00 06-19 15:07 :00 No 1{tbl} 1 tablet, Oral, ONCE, 1 dose, On Wed06/19/24 at 0915, Routine, PACU [facility] FENTanyl (PF) (SUBLIMAZE) injection 25 mcg 2023-09 14:07: 36 06-19 20:45 :20 No 25ug 25 mcg, Slow IV Push, Q5MIN PRN, 4 doses, Starting on Wed06/19/24 at 0907, Until Wed06/19/24 at 1545, Routine, Pain Scale 4-6, PACU [facility] ondansetron (ZOFRAN (PF)) injection 4 mg 2023-09 14:07: 36 06-19 20:45 :20 No 4mg 4 mg, Slow IV Push, PRN, 1 dose, Starting on Wed06/19/24 at 0907, Until Wed06/19/24 at 1545, Routine, Nausea and Vomiting (N/V), PACU [facility] bupivacaine (preserv free) (SENSORCAIN E MPF) 0.25 % (2.5 mg/mL) injection 2023-09 13:47: 00 06-19 14:13 :04 No PRN, Starting on Wed06/19/24 at 0847, Until Wed06/19/24 at 0913, Routine, Intra-op [facility] water for irrigation irrigation solution 2023-09 007 13:40: 00 06-19 14:13 :04 No PRN, Starting on Wed06/19/24 at 0840, Until Wed06/19/24 at 0913, Routine, Intra-op [facility] traMADoL 50 mg tablet 2023-09 007 00:00: 00 06-27 04:59 :00 No [id number] 50mg Take 1 tablet by mouth every 6 (six) hours as needed for Pain (scale 4-6) or Pain (scale 7-10) for up to 7 days. Indication s: acute pain [facility] buprenorphi ne-naloxone 8-2 mg sublingual film 05-26 09:08: [address] 1 Film under the tongue in the morning. [facility] diclofenac dodium 1 % gel 05-18 00:00: 00 Yes Apply to area(s). [facility] dexamethaso ne (DECADRON) injection 10 mg 05-13 22:30: 00 05-13 21:35 :00 No [id number] 10mg 10 mg, Intramuscu lar, ONCE, 1 dose, On 05/13/24 at 1730, Routine [facility] ipratropium -albuteroL (DUONEB) 0.5 mg-3 mg(2.5 mg base)/3 mL nebulizer solution 3 mL 05-13 22:15: 00 05-13 21:36 :00 No [id number] 3mL 3 mL, Inhalation , ONCE, 1 dose, On 05/13/24 at 1715, Routine [facility] albuterol 90 mcg/actuati on inhaler 05-13 00:00: 00 Yes [id number] 2{puff} Inhale 2 Puffs every 6 (six) hours as needed for Wheezing, Shortness of Breath, Bronchospa sm or Chest tightness. [facility] ibuprofen 800 mg tablet 16 00:00: 00 Yes 800mg Take 1 tablet by mouth every 8 (eight) hours as needed. [facility] budesonide- formoteroL 160-4.5 mcg/actuati on inhaler 2022-09 00:00: 00 Yes 2{puff} Inhale 2 Puffs in the morning and 2 Puffs in the evening. [facility] levalbutero l 1.25 mg/3 mL solution for nebulizatio n USE 1 VIAL VIA NEBULIZER THREE TIMES DAILY levalbutero l 1.25 mg/3 mL solution for nebulizatio n USE 1 VIAL VIA NEBULIZER THREE TIMES DAILY No levalbuter ol 1.25 mg/3 mL solution for nebulizati on USE 1 VIAL VIA NEBULIZER THREE TIMES DAILY [facility] levalbutero l HFA 45 mcg/actuati on aerosol inhaler INHALE 2 PUFFS BY MOUTH EVERY 6 HOURS levalbutero l HFA 45 mcg/actuati on aerosol inhaler INHALE 2 PUFFS BY MOUTH EVERY 6 HOURS No levalbuter ol HFA 45 mcg/actuat ion aerosol inhaler INHALE 2 PUFFS BY MOUTH EVERY 6 HOURS [facility] Spiriva Respimat 2.5 mcg/actuati on solution for inhalation INHALE 2 SPRAY(S) BY MOUTH ONCE DAILY Spiriva Respimat 2.5 mcg/actuati on solution for inhalation INHALE 2 SPRAY(S) BY MOUTH ONCE DAILY No Spiriva Respimat 2.5 mcg/actuat ion solution for inhalation INHALE 2 SPRAY(S) BY MOUTH ONCE DAILY [facility] Vital Signs Vital Name Observation Time Observation Value Comments S ource Systolic blood pressure 2024-07-31 21:50:00 112 mm[Hg[facility] Diastolic blood pressure 2024-07-31 21:50:00 53 mm[Hg] [facility] Heart rate 2024-07-31 21:50:00 82 /min [facility] Body height 2024-07-31 21:50:00 172.7 cm [facility] Body weight 2024-07-31 21:50:00 122.471 kg [facility] BMI 2024-07-31 21:50:00 41.05 kg/m2 [facility] Systolic blood pressure 2024-07-03 21:07:00 108 mm[Hg] [facility] Diastolic blood pressure 2024-07-03 21:07:00 73 mm[Hg] [facility] Heart rate 2024-07-03 21:07:00 84 /min [facility] Body height 2024-07-03 21:07:00 172.7 cm [facility] Body weight 2024-07-03 21:07:00 122.471 kg [facility] BMI 2024-07-03 21:07:00 41.05 kg/m2 [facility] Oxygen saturation in Arterial blood by Pulse oximetry 2024-07-03 21:07:00 96 /min [facility] Systolic blood pressure 2024-06-30 20:02:00 131 mm[Hg] [facility] Diastolic blood pressure 2024-06-30 20:02:00 83 mm[Hg] [facility] Heart rate 2024-06-30 20:02:00 109 /min Un[facility] Body temperature 2024-06-30 20:02:00 37.22 Astrid [facility] Respiratory rate 2024-06-30 20:02:00 20 /min [facility] Body height 2024-06-30 20:02:00 172.7 cm [facility] Body weight 2024-06-30 20:02:00 129.275 kg [facility] BMI 2024-06-30 20:02:00 43.33 kg/m2 [facility] Oxygen saturation in Arterial blood by Pulse oximetry 2024-06-30 20:02:00 95 /min [facility] Systolic blood pressure 2024-06-27 06:50:00 120 mm[Hg] [facility] Diastolic blood pressure 2024-06-27 06:50:00 66 mm[Hg] [facility] Heart rate 2024-06-27 06:50:00 78 /min [facility] Body temperature 2024-06-27 06:50:00 37 Astrid [facility] Respiratory rate 2024-06-27 06:50:00 14 /min [facility] Oxygen saturation in Arterial blood by Pulse oximetry 2024-06-27 06:50:00 97 /min [facility] Body height 2024-06-27 02:56:00 172.7 cm [facility] Body weight 2024-06-27 02:56:00 122.471 kg [facility] BMI 2024-06-27 02:56:00 41.05 kg/m2 [facility] Heart rate 2024-06-19 15:30:00 70 /min [facility] Respiratory rate 2024-06-19 15:30:00 17 /min [facility] Oxygen saturation in Arterial blood by Pulse oximetry 2024-06-19 15:30:00 96 /min [facility] Systolic blood pressure 2024-06-19 15:26:00 114 mm[Hg] [facility] Diastolic blood pressure 2024-06-19 15:26:00 62 mm[Hg] [facility] Body temperature 2024-06-19 15:26:00 36.44 Astrid [facility] Body weight 2024-06-19 12:13:00 122.471 kg [facility] BMI 2024-06-19 12:13:00 41.05 kg/m2 [facility] Body height 2024-06-08 22:00:00 172.7 cm [facility] Heart rate 2024-06-19 15:04:00 81 /min [facility] Respiratory rate 2024-06-19 15:04:00 12 /min [facility] Oxygen saturation in Arterial blood by Pulse oximetry 2024-06-19 15:04:00 98 /min [facility] Systolic blood pressure 2024-06-19 15:02:00 99 mm[Hg] [facility] Diastolic blood pressure 2024-06-19 15:02:00 49 mm[Hg] [facility] Body temperature 2024-06-19 14:15:00 36.28 Astrid [facility] Body weight 2024-06-19 12:13:00 122.471 kg [facility] BMI 2024-06-19 12:13:00 41.05 kg/m2 [facility] Body height 2024-06-08 22:00:00 172.7 cm [facility] Body height 2024-06-05 21:12:00 167.6 cm [facility] Body weight 2024-06-05 21:12:00 128.368 kg [facility] BMI 2024-06-05 21:12:00 45.68 kg/m2 [facility] Systolic blood pressure 2024-05-26 14:06:00 119 mm[Hg] [facility] Diastolic blood pressure 2024-05-26 14:06:00 67 mm[Hg] [facility] Heart rate 2024-05-26 14:06:00 75 /min [facility] Body temperature 2024-05-26 14:06:00 36.83 Astrid [facility] Body height 2024-05-26 14:06:00 172.7 cm [facility] Body weight 2024-05-26 14:06:00 128.822 kg [facility] BMI 2024-05-26 14:06:00 43.18 kg/m2 [facility] Body Weight 2024-05-18 00:00:00 4496 [oz_av] [facility] BP Diastolic 2024-05-18 00:00:00 63 mm[Hg] [facility] Height 2024-05-18 00:00:00 68 [in_i] [facility] BMI (Body Mass Index) 2024-05-18 00:00:00 42.7 kg/m2 [facility] BP Systolic 2024-05-18 00:00:00 114 mm[Hg] [facility] Systolic blood pressure 2024-05-13 21:22:00 129 mm[Hg] [facility] Diastolic blood pressure 2024-05-13 21:22:00 78 mm[Hg] [facility] Heart rate 2024-05-13 21:22:00 80 /min [facility] Body temperature 2024-05-13 21:22:00 36.72 Astrid [facility] Respiratory rate 2024-05-13 21:22:00 20 /min [facility] Body weight 2024-05-13 21:22:00 125.828 kg [facility] Oxygen saturation in Arterial blood by Pulse oximetry 2024-05-13 21:22:00 96 /min [facility] Procedures Procedure Date / Time Performed Performing Clinician Source COMPLETE ECHOCARDIOGRAM DOBUTAMINE STRESS TEST W CONTRAST 2024-07-11 20:46:07 Isa Machado [facility] EKG-12 LEAD 2024-06-27 06:44:05 Erum Payan [facility] TROPONIN I 2024-06-27 05:14:00 Erum Payan [facility] XR CHEST 1 VW 2024-06-27 04:44:19 Erum Payan [facility] MAGNESIUM 2024-06-27 03:13:00 Erum Payan [facility] TROPONIN I 2024-06-27 03:13:00 Erum Payan [facility] THYROID STIMULATING HORMONE 2024-06-27 03:13:00 Erum Payan [facility] COMP. METABOLIC PANEL ([id number]) 2024-06-27 03:13:00 Erum Payan [facility] CBC WITH DIFF 2024-06-27 03:13:00 Erum Payan [facility] N-TERMINAL PRO-BNP 2024-06-27 03:13:00 Erum Payan [facility] [id number] - [place] NEUROPLASTY &/TRANSPOSITION ULNAR NERVE ELBOW 2024-06-19 12:56:00 Venessa Khan [facility] XR CHEST 2 VW 2024-06-12 19:19:00 Talita Rodriguez [facility] EKG-12 LEAD 2024-06-12 19:12:12 Doctor Unass igned, Aldie [facility] XR Chest 1 View Portable 2022-08-13 21:50:00 [facility] EKG 12 Lead in Emergency Room 2022-05-24 17:21:00 [facility] EKG 12 Lead in Emergency Room 2022-05-24 17:21:00 [facility] XR Chest 1 View Portable 2022-05-24 17:05:00 [facility] XR Chest 1 View Portable 2022-05-24 17:05:00 [facility] Encounters Start Date/Time End Date/Time Encounter Type Admission Type Attending [facility] Care Facility Care Department Encounter ID Source 2024-08-30 13:00:00 2024-08-30 13:00:00 Outpatient R VENESSA KHAN [facility] [id number] [facility] 2024-07-31 15:30:00 2024-07-31 16:12:16 Outpatient R VENESSA KHAN [facility] [id number] [facility] 2024-07-31 15:30:00 2024-07-31 16:12:16 Office Visit Venessa Khan [facility] 1.2.840.114 350.1.13.10 4.2.7.2.686 [id number] [facility] 2024-07-24 00:00:00 2024-07-24 08:22:31 Telephone Isa Machado [facility] 1.2.840.114 350.1.13.10 4.2.7.2.686 [id number] [facility] 2024-06-20 00:00:00 2024-07-22 18:21:38 Patient Secure Msg Doctor Unassigned, Aldie Doctor Unassigned, Aldie [facility] 1.2.840.114 350.1.13.10 4.2.7.2.686 [id number] [facility] 2024-07-18 00:00:00 2024-07-18 14:37:51 Telephone Venessa Khan [facility] 1.2.840.114 350.1.13.10 4.2.7.2.686 [id number] [facility] 2024-07-14 00:00:00 2024-07-14 16:50:45 Telephone Isa Machado [facility] 1.2.840.114 350.1.13.10 4.2.7.2.686 [id number] [facility] 2024-07-11 13:29:40 2024-07-11 23:59:00 Outpatient R ISA MACHADO [facility] [id number] [facility] 2024-07-11 13:29:40 2024-07-11 23:59:00 Hospital Encounter [facility] 1.2.840.114 350.1.13.10 4.2.7.2.686 [id number] [facility] 2024-07-11 13:00:00 2024-07-11 13:28:00 Hospital Encounter [facility] 1.2.840.114 350.1.13.10 4.2.7.2.686 [id number] [facility] 2024-06-07 00:00:00 2024-07-08 18:21:34 Patient Secure Msg Doctor Unassigned, Aldie Doctor Unassigned, Aldie [facility] 1.2.840.114 350.1.13.10 4.2.7.2.686 [id number] [facility] 2024-07-03 16:00:00 2024-07-03 16:25:37 Outpatient R VENESSA KHAN [facility] [id number] [facility] 2024-07-03 16:00:00 2024-07-03 16:25:37 Office Visit Venessa Khan [facility] 1..114 350.1.13.10 4.2.7.2.686 [id number] [facility] 2024-06-30 16:00:00 2024-06-30 16:13:11 Outpatient R [facility] [id number] [facility] 2024-06-30 16:00:00 2024-06-30 16:13:11 Office Visit [facility] 1..114 350.1.13.10 4.2.7.2.686 [id number] [facility] 2024-06-26 21:59:00 2024-06-27 02:20:00 Emergency X ERUM PAYAN WAKILI [facility] E[facility] [id number] [facility] 2024-06-26 21:59:00 2024-06-27 02:20:00 Emergency Erum Payan [facility] 1..114 350.1.13.10 4.2.7.2.686 [id number] [facility] 2024-06-23 00:00:00 2024-06-26 15:43:10 Telephone Fitz Mario Jamison [facility] 1.84.114 350.1.13.10 4.2.7.2.686 [id number] [facility] 2024-06-26 00:00:00 2024-06-26 14:04:06 Telephone FitzMario bey [facility] 1.2.840.114 350.1.13.10 4.2.7.2.686 [id number] [facility] 2024-06-19 00:00:00 2024-06-20 09:16:34 Telephone [facility] 1.2.840.114 350.1.13.10 4.2.7.2.686 [id number] [facility] 2024-06-19 00:00:00 2024-06-19 15:28:13 Telephone Talita Rodriguez [facility] 1.2.840.114 350.1.13.10 4.2.7.2.686 [id number] [facility] 2024-06-19 06:57:00 2024-06-19 10:41:00 Hospital Encounter Venessa Khan [facility] 1.2.840.114 350.1.13.10 4.2.7.2.686 [id number] [facility] 2024-06-19 06:57:00 2024-06-19 10:41:00 Outpatient R VENESSA KHAN [facility] [id number] [facility] 2024-06-19 08:05:00 2024-06-19 10:04:00 Surgery Venessa Khan [facility] 1.2.840.114 350.1.13.10 4.2.7.2.686 [id number] [facility] 2024-06-12 14:04:22 2024-06-12 23:59:00 Hospital Encounter Talita Rodriguez [facility] 1.2.840.114 350.1.13.10 4.2.7.2.686 [id number] [facility] 2024-06-12 13:46:28 2024-06-12 14:03:00 Hospital Encounter Venessa Khan Craig [facility] 1.2.840.114 350.1.13.10 4.2.7.2.686 [id number] [facility] 2024-06-12 13:46:28 2024-06-12 14:03:00 Outpatient R MICHAEL TALITAGem RODRIGUEZ TALITA [facility] [id number] [facility] 2024-06-12 13:45:00 2024-06-12 14:00:00 Siphon Operator Visit Pob, Adc Lab Main Venessa Khan, Adc Lab Main [facility] PROFESSIO NAL BUILDING 1.2.840.114 350.1.13.10 4.2.7.2.686 [id number] [facility] 2024-06-08 00:00:00 2024-06-08 11:26:36 [facility]EMMANUELGem [facility] 1.2.840.114 350.1.13.10 4.2.7.2.686 [id number] [facility] 2024-06-08 00:00:00 2024-06-08 09:22:20 Prep For [facility]O [facility] BU[facility] 1.2.840.114 350.1.13.10 4.2.7.2.686 [id number] [facility] 2024-06-05 16:00:00 2024-06-05 16:51:32 Outpatient R MICHAEL, TALITA MICHAEL, TALITA [facility] [id number] [facility] 2024-06-05 16:00:00 2024-06-05 16:51:32 [facility] 1.2.840.114 350.1.13.10 4.2.7.2.686 [id number] [facility] 2024-06-02 08:45:00 2024-06-02 08:45:00 Outpatient R ERIN VENESSA [facility]ESSA [facility] [id number] [facility] 2024-05-31 11:48:07 2024-05-31 23:59:00 [facility] [id number] [facility] 2024-05-31 11:48:07 2024-05-31 23:59:00 Hospital Encounter Bruno [facility] MEDICAL OFFICE BUILDING 1.2.840.114 350.1.13.10 4.2.7.2.686 [id number] [facility] 2024-05-30 00:00:00 2024-05-30 11:25:20 Telephone Mario Burnett [facility]?RICARDO [facility] MEDICAL OFFICE BUILDING 1.2.840.114 350.1.13.10 4.2.7.2.686 [id number] [facility] 2024-05-30 10:30:00 2024-05-30 10:30:00 Outpatient TALITA LAGUERRE SELENA [facility] [id number] [facility] 2024-05-26 09:20:00 2024-05-26 09:57:55 Outpatient R MARIO BURNETT [facility] [id number] [facility] 2024-05-26 09:20:00 2024-05-26 09:57:55 Office Visit Fitz Mario [facility]?RICARDO LUPIS MEDICAL OFFICE BUILDING 1.2.840.114 350.1.13.10 4.2.7.2.686 [id number] [facility] 2024-05-24 00:00:00 2024-05-24 11:51:01 Letter (Out) Campaigns, Generic Provider Campaigns, Generic Provider [facility] 1.2.840.114 350.1.13.10 4.2.7.2.686 [id number] [facility] 2024-05-18 00:00:00 2024-05-18 00:00:00 Nina Arreaga, SENIOR COURTROOM CLERK-PANEL MACHINE OPERATOR-B C: [address] [place] [address] , Ph. [facility] 904 [facility] 2024-05-14 00:00:00 2024-05-14 17:44:13 Telephone Aleena Green [facility]?RICARDO [facility] MED[facility] OFFICE BUILDING 1.2.840.114 350.1.13.10 4.2.7.2.686 [id number] [facility] 2024-05-13 16:20:00 2024-05-13 16:40:00 Urgent Care Aleena Green Unknown, Attending [facility] MEDICAL OFFICE BUILDING 1.2.840.114 350.1.13.10 4.2.7.2.686 [id number] [facility] 2024-05-13 16:20:00 2024-05-13 16:20:00 Outpatient R ALEENA GREEN [facility] [id number] [facility] 2023-12-22 18:34:00 2023-12-23 00:43:00 Emergency EM Ramón Cuellar [facility] [id number] [facility] 2023-12-19 02:52:00 2023-12-20 13:24:00 Inpatient EM Cliff Hu HCAKW CARD [id number] 32 [facility] 2023-12-12 17:07:00 2023-12-12 19:38:00 Emergency EM Claudia Solo [facility] [id number] 03 [facility] 2022-11-08 21:00:00 2022-11-08 22:05:00 Emergency ER RICHAR ORTIZ [id number] [facility] 2022-08-13 21:09:00 2022-08-13 23:08:00 [id number] [facility] 2022-05-25 01:41:00 2022-05-25 03:05:00 Emergency [facility] [id number] [facility] 2022-05-24 16:49:00 2022-05-24 18:08:00 Emergency ER [facility] [id number] [facility] Results Test Description Test Time Test Comments Results Result Co mments Source [facility] Ams-[id number] 05:37:48* Test Item Value Reference Range Interpretation Comme nts NT-proBNP (test code = 04623-1) <=125 Lab Interpretation (test cod e = 06214-1) Normal [facility] 1 [id number] 05:34:55ORDERING PHYSICIAN: Galdino DANIELSON ?KSENIA HISTORY: Chest Pain ? COMPARISON: 06/12/2024 FINDINGS: 2 frontal views of the chest Heart is normal in size. ?There is no pulmonary edema. There are no focalareas of consolidation. There is no pneumothorax. ?There are no pleuraleffusions. Osseous structures are un remarkable. ? Please note that chest radiography is not a sensitive modality for thedetection of masses.[facility] CenterThyroid Stimulating [id number] 05:02:15* Test Item Value Reference Range Interpretation Comme nts TSH (test code = 5080899705) 4.14 0.45-4.70 Biotin has been reported to cause a negative bias, interpret results relative to patient's use of biotin. Lab Interpretation (test code = 02434-4) Normal [facility] CenterMagnesium2024-10-15 04:33:11* Test Item Value Reference Range Interpretation Comme nts MAGNESIUM (test code = 5122411790) 2.0 mg/dL 1.7-2.4 Lab Interpretation (test cod e = 52916-7) Normal [facility] CenterTroponin [id number] 04:02:06* Test Item Value Reference Range Interpretation Comme nts TROPONIN I (test code = 9211599573) 0.002 ng/mL <=0.034 FATOUMATA (test code = [...] of biotin. Lab Interpretation (test code = 47931-3) Normal [facility] CenterComp. Metabolic Panel (61625)2024-06-27 03:50:48* Test Item Value Reference Range Interpretation Comme nts NA (test code = 4917822828) 139 mmol/L 135-145 K (test code = 7260882651) 3.9 mmol/L 3.5-5.0 CL (test code = 9443461230) 101 mmol/L 98-108 CO2 TOTAL (test code = 7850758682) 33 mmol/L 23-31 H AGAP (test code = 0441689623) 5 2-16 BUN (test code = 4999056634) 19 mg/dL 7-23 GLUCOSE (test code = 1234635495) 104 mg/dL 70-110 CREATININE (test code = 2160-0) 0.83 mg/dL 0.60-1.25 TOTAL BILI (test code = 5773384282) 0.8 mg/dL 0.1-1.1 CALCIUM (test code = 2203273164) 8.8 mg/dL 8.6-10.6 T PROTEIN (test code = 2698693417) 7.5 g/dL 6.3-8.2 ALBUMIN (test code = 0566417615) 4.2 g/dL 3.5-5.0 ALK PHOS (test code = 7621353931) 57 U/L 34-122 ALTv (test code = 1742-6) 64 U/L 5-50 H AST(SGOT) (test code = 4638409046) 39 U/L 13-40 eGFR (test code = 49219-4) 119.3 mL/min/1.73m2 CKD-EPI eGFR (2020). Assuming creatinine has been stable day-to-day for at least three months, the eGFR indicates Category G1 (>= 90 mL/min/1.73 m2) Lab Interpretation (test code = 51711-4) Abnormal [facility] with Ypvh9251-86-25 03:25:44* Test Item Value Reference Range Interpretation [...] 31.2 g/dL 31.2-35.0 RDW-SD (test code = 26417-1) 46.2 fL 38.5-51.6 RDW-CV (test code = 788-0) 13.8 % 12.1-15.4 PLT (test code = 777-3) 286 150-328 MPV (test code = 70597-1) 9.5 fL 9.8-13.0 L NRBC/100 WBC (test code = 5082013467) 0.0 0.0-10.0 NRBC x10^3 (test code = 3539214734) See_Comment [Automated messa ge] The system which generated this result transmitted reference range: 10*3/?L. The reference range was not used to interpret this result as normal/abnormal. GRAN MAT (NEUT) % (test code = 770-8) 68.2 % IMM GRAN % (test code = 4215410751) 1.40 % LYMPH % (test code = 736-9) 20.6 % MONO % (test code = 5905-5) 8.5 % EOS % (test code = 713-8) 0.9 % BASO % (test code = 706-2) 0.4 % GRAN MAT x10^3(ANC) (test code = 6394515507) 8.74 10*3/uL 1.99-6.95 H IMM GRAN x10^3 (test code = 2933987330) 0.18 10*3/uL 0.00-0.06 H LYMPH x10^3 (test code = 731-0) 2.64 10*3/uL 1.09-3.23 MONO x10^3 (test code = 742-7) 1.09 10*3/uL 0.36-1.02 H EOS x10^3 (test code = 711-2) 0.12 10*3/uL 0.06-0.53 BASO x10^3 (test code = 704-7) 0.05 10*3/uL 0.01-0.09 Lab Interpretation (test code = 53953-6) Abnormal [facility] 2 [id number] 00:34:45EXAM: XR CHEST 2 VW COMPARISON: None. HISTORY: SURGERY ? TECHNIQUE: PA and lateral views of the chest were obtained. FINDINGS: No focal consolidation is identified. No pleural effusion or pneumothoraxis seen. The cardiomediastinal silhouette is unremarkable.No acute osseous abnormalities.[facility]- DUP VEIN UNI [id number] 00:03:00 [facility] 1990 Sex: M FAX: Marii Gaytan MD R3 [place]: St: REG Name: GIL HERCULES [facility] Oscar : 1990 Age/S: 33/M [address] Unit #: [id number] Loc: [place] [address] Phys: Marii Gaytan MD R3 Acct: [id number] Dis Date: Status: REG ER PHONE #: [phone] Exam Date: 12/22/2023 2339 FAX #: [phone] Reason: swelling, r/o DVT EXAMS: CPT CODE: [id number] [address] Examination: Ultrasound venous duplex left lower extremity Location code: H60 Comparison: None Discussion: Clinical history is remarkable for pain and swelling. Grayscale, duplex and spectral analysis was performed of the deep veins left lower extremity. The deep veins are normal in appearance. There is no evidence for deep venous thrombus.There is good compressibility the deep veins with normal response to augmentation and Valsalva maneuver. Impression: 1. There is no evidence for deep venous thrombus identified in the left lower extremity at 0003 Reported and signed by: Balbir Anderson MD CC: Marii Gaytan MD Technologist: YAMILE TOBIAS Trnscrd Date/Time/By: 12/23/2023 (0003) : By: DellVR5 PAGE 1 Signed Report FAX: Marii Gaytan MD R3 [place]: [facility]: REG Name: GIL HERCULES : 1990 Age/S: 33/M [address] Unit #: [id number] Loc: [place] [address] Phys: Marii Gaytan MD R3 Acct: [id number] Dis Date: Status: REG ER PHONE #: [phone] Exam Date: 12/22/2023 9915 FAX #: [phone] Reason: swelling, r/o DVT EXAMS: CPT CODE: [id number] [place] [address](Continued) Orig Print D/T: S: 12/23/2023 (0006) PAGE 2 Signed Report BASIC METABOLIC [id number] 21:06:00* Test Item Value Reference Range Interpretation [...] Index/DL 0-100 N Spec Comments: SOBLIVER FUNCTION [id number] 21:06:00* Test Item Value Reference Range Interpretation [...] CK) 1118 U/L 55-170 H Spec Comments: [id number] 21:06:00* Test Item Value Reference Range Interpretation Comme nts LIPASE (test code = LIP) 88 U/L 23-300 N Spec Comments: [id number] 21:06:00* Test Item Value Reference Range Interpretation Comme nts MAGNESIUM (test code = MAG) 1.8 mg/dL 1.6-2.3 N Spec Comments: SOBNT PRO-BRAIN NATRIURETIC [id number] 21:06:00* Test Item Value Reference Range Interpretation [...] interpret this result as normal/abnormal. Spec Comments: [id number] 21:06:00* Test Item Value Reference Range Interpretation [...] TAKING BIOTIN SUPPLEMENTS~~~~~~~~~~~~~~~~ ~~~~~~~~~~~~~~~~~~~~~~~~~~~ ~~~~~~~~~~~~~~~~ Spec Comments: [id number] 20:18:00* Test Item Value Reference Range Interpretation Comme nts D-DIMER (test code = DDIMER) 274 ng/mLFEU 0-500 N THE DDIMER METHO D IS USED IN THE EXCLUSION OF DEEP VEINTHROMBOSIS AND/OR PULMONARY EMBOLISM AND THE CLINICAL CUT-OFF VALUE FOR EXCLUSION (500 NG/ML FEU) OF THESE CONDITIONSIS VALIDATED BY THE TOILET ATTENDANT OF THE METHOD. A NEGATIVE DDIMER RESULT WHEN COMBINED WITH A CLINICALASSESSMENT OF LOW PRETEST PROBABILITY HAS BEEN SHOWN TO HAVEA HIGH NEGATIVE PREDICTIVE VALUE OF DVT OR PE. D-DIMER VALUES >500 ng/mL ARE NOT DIAGNOSTIC FOR DVT,PEOR DIC WITHOUT OTHER CONFIRMATORY TESTS AND APPROPRIATECLINICAL EVALUATIONS. - XR CHEST 1 [id number] 20:10:00 [facility] : 1990 Sex: M FAX: Debbie Martel PA-C [place]: St: PRE Name: GIL HERCULES [facility] : 1990 Age/S: 33/M [address] Unit #: [id number] Loc: [place] [address] Phys: Debbie Martel PA-C Acct: [id number] Dis Date: Status: PRE ER PHONE #: [phone] Exam Date: 12/22/20231999 FAX #: [phone] Reason: Shortness of breath EXAMS: CPT CODE: [id number] XR CHEST 1 V 74414 EXAM: AP chest LOCATION: H 12 HISTORY: Shortness of breath COMPARISON: None. FINDINGS: The lungs are clear. No infiltrate or effusion is seen. The pulmonary vasculature is normal. The heart size is normal. The mediastinal silhouette is unremarkable. The bony thorax is intact. IMPRESSION: No acute disease. at 2009 Reported and signed by: Finesse Boyd MD CC: Debbie Martel Technologist: FRANK PINEDA; CLARISSE BEE Trnscrd Date/Time/By: 12/22/2023 (2009) : By: Felicia PAGE 1 Signed Report FAX: Dbebie Martel PA-C [place]: St: PRE Name: GIL HERCULES [facility] : 1990 Age/S: 33/M [address] Unit #: [id number] Loc: [place] [address] Phys: Debbie Martel PA-C Acct: [id number] Dis Date: Status: PRE ER PHONE #: [phone] Exam Date: 12/22/20231999 FAX #: [phone] Reason: Shortness of breath EXAMS: CPT CODE: [id number] XR CHEST 1 V 53393 (Continued) Orig Print D/T: S: 12/22/2023 (2012) PAGE 2 Signed ReportCBC W/AUTO [id number] 20:08:00* Test Item Value Reference Range Interpretation [...] = BA#) 0.05 x10 3/uL 0.0-0.1 N [id number] 01:08:00* Test Item Value Reference Range Interpretation Comme nts LEAD (test code = LEAD) <1.0 ug/dL 0.0-3.4 Testing performe d by Inductively coupled plasma/MassSpectrometry.An alysis by inductively coupled plasma/massspectrometry (ICP/MS) Environmental Exposure: WHO Recommendation <5.0 Occupational Exposure: OSHA Lead Std 40.0 JONAH 30.0 Detection Limit = 1.0Performed At: [facility] [id number] Kyle L MD Ph:[phone]][id number] 12:27:00* Test Item Value Reference Range Interpretation Comme nts CKMB (test code = CKMBT) 0.68 ng/mL 0.5-5.0 A positive bias may occur for patients taking BIOTINsupplements. Spec Comments: CK TODAYCREATINE KINASE (CK)2023-12-20 09:59:00* Test Item Value Reference Range Interpretation Comme nts CREATINE KINASE (CK) (test c ode = CK) 3586 U/L 55-170 HH COMPREHENSIVE METABOLIC [id number] 06:00:00* Test Item Value Reference Range Interpretation [...] HEMINDEX) 22 Index/DL 0-100 N CBC W/AUTO [id number] 05:51:00* Test Item Value Reference Range Interpretation [...] 0.03 x10 3/uL 0.0-0.1 N CBC W/AUTO [id number] 13:41:00* Test Item Value Reference Range Interpretation Comme nts WHITE BLOOD CELL (test code = WBC) 4.8 x10 3/uL 5.0-12.0 L RED BLOOD CELL (test code = RBC) 4.30 x10 6/uL 4.70-6.10 L HEMOGLOBIN (test code = HGB) 12.1 g/dL 14.0-18.0 L CALLED RESULTS T O [id number] 12/19/23 AT 1152 BY 0ONT3016. HEMATOCRIT (test code = HCT) 38.4 % [...] x10 3/uL 130-400 CALLED RESULTS T O [id number] 12/19/23 AT 1152 BY 1LZP6088. MEAN PLATELET VOLUME (test code = MPV) [...] (test code = PLTMORPH) NORMAL NORMAL URINALYSIS [id number] 13:06:00* Test Item Value Reference Range Interpretation [...] code = WBCU) 0-3 /HPF See_Comment [Automated DailyDigitala ge] The system which generated this result transmitted reference range: <4-5. The reference range was not used to interpret this result as normal/abnormal. UA RBC (test code = RBCU) 0-3 /HPF See_Comment [Automated DailyDigitala NoteVault] The system which generated this result transmitted reference range: <4-5. The reference range was not used to interpret this result as normal/abnormal. UA BACTERIA (test code = BACU) None /HPF None-Rare UA MUCUS (test code = MUCU) Rare /LPF See_Comment [Automated DailyDigitala NoteVault] The system which generated this result transmitted reference range: <Rare. The reference range was not used to interpret this result as normal/abnormal. CARDIAC ENZYMES [id number] 12:53:00* Test Item Value Reference Range Interpretation [...] FOR PATIENTS TAKING BIOTIN SUPPLEMENTS~~~~~~~~~~~~~~~~ ~~~~~~~~~~~~~~~~~~~~~~~~~~~ ~~~~~~~~~~~~~~~~ [id number] 12:50:00* Test Item Value Reference Range Interpretation Comme nts CKMB (test code = CKMBT) 1.31 ng/mL 0.5-5.0 A positive bias may occur for patients taking BIOTINsupplements. COMPREHENSIVE METABOLIC [id number] 12:16:00* Test Item Value Reference Range Interpretation [...] HEMINDEX) 53 Index/DL 0-100 N CARDIAC ENZYMES [id number] 12:16:00* Test Item Value Reference Range Interpretation [...] FOR PATIENTS TAKING BIOTIN SUPPLEMENTS~~~~~~~~~~~~~~~~ ~~~~~~~~~~~~~~~~~~~~~~~~~~~ ~~~~~~~~~~~~~~~~ [id number] 12:16:00* Test Item Value Reference Range Interpretation [...] Borderline Risk LDL Cholesterol<100mg/d L: Desirable LDL-C ypogwkroplawd749-912x g/dL: Borderline High Risk LDL-C epxlerflhuuha736-164l g/dL: High risk LDL-C concentration HDL-LDL Cholesterol is affected by a number of factors suchas smoking, age and sex.~~~~~~~~~~~~~~~~~ ~~~~~~~~~~~~~~~~~~~~~ ~~~~~~~~~~~~~~~~~~~~~ ~ [id number] 08:37:00* Test Item Value Reference Range Interpretation Comme nts MAGNESIUM (test code = MAG) 2.1 mg/dL 1.6-2.3 N CARDIAC ENZYMES [id number] 08:37:00* Test Item Value Reference Range Interpretation [...] PATIENTS TAKING BIOTIN SUPPLEMENTS~~~~~~~~~~~~~~~~ ~~~~~~~~~~~~~~~~~~~~~~~~~~~ ~~~~~~~~~~~~~~~~ T4 [id number] 04:42:00* Test Item Value Reference Range Interpretation Comme nts T4 FREE (test code = T4F) 1.19 ng/dL 0.78-2.19 N - CTA CHEST FOR [id number] 02:50:00 [facility] 1990 Sex: M FAX: Klaudia Haq MD R3 [place]: St: REG Name: GIL HERCULES [facility] : 1990 Age/S: 33/M [address]: [id number] Loc: [place] [address] Phys: Klaudia Haq MD R3 Acct: [id number] Dis Date: Status: REG ER PHONE #: [phone] Exam Date: 12/18/20232358 FAX #: [phone] Reason: CHEST PAIN/SOB EXAMS: CPT CODE: [id number] [place] [address] LOCATION: H48 HISTORY: Male, 33 yearsof age with CHEST [...] Report (CONTINUED) FAX: Klaudia Haq MD R3 [place]: St: REG-------- Name: GIL HERCULES [facility] : 1990 Age/S: 33/M [address] Unit: [id number] Loc: [place] [address] Phys: Klaudia Haq MD R3 Acct: [id number] Dis Date: Status: REG ER PHONE #: [phone] Exam Date: 12/18/2023 2359 FAX #: [phone] Reason: CHEST PAIN/SOB EXAMS: CPT CODE: [id number] [place] [address] (Continued) at 0250 Reported and signed by: Leila Mead MD CC: Klaudia Haq MD Technologist: RANI SAUNDERS; VIRGIE PÉREZ Trnscrd Dt/Tm: 12/19/2023 (249) t.SDR.CLW Orig Print D/T: S: 12/19/2023 (3 PAGE 2 Signed ReportTSH REFLEX TO [id number] 02:49:00* Test Item Value Reference Range Interpretation Comme nts TSH REFLEX TO FT4 (test code = TSHREFLEX) 8.490 MIU/L 0.465-4.68 H A positive bias may occur for patients taking BIOTINsupplements. - CT ABD PELVIS W/[id number] 02:47:00 [facility] : 1990 Sex: M FAX: Klaudia Haq MD R3 [place]: St: REG Name: DIOMEDESGIL Naseem [facility] : 1990 Age/S: 33/M [address] Unit: [id number] Loc: [place] [address] Phys: Kladuia Haq MD R3 Acct: [id number] Dis Date: Status: REG ER PHONE #: [phone] Exam Date: 12/18/2023 7641 FAX #: [phone] Reason: RLQ, RUQ ABDOMINAL PAIN EXAMS: CPT CODE: [id number] CT ABD PELVIS W/CONT 75933 LOCATION: H48 HISTORY: Male, 33 years of [...] lower pole. No other discrete renal mass, hydronephr osis, or renal stone. Ureters are unremarkable. Urinary bladder is unremarkable. The visualized reproductive organs are unremarkable. GASTROINTESTINAL: No bowel wall thickening, bowel obstruction or perienteric inflammation. The appendix is normal. VASCULAR: No aortic aneurysm or dissection. IVC is unremarkable. Portal vein is patent. LYMPHATICS: No enlarged lymph nodes by CT size criteria. PAGE1 Signed Report (CONTINUED) FAX: Klaudia Haq MD R3 [place]: St: REG Name: HERCULESGIL [facility] : 1990 Age/S: 33/M [address] Unit: [id number] Loc: [place] [address] Phys: Klaudia Haq MD R3 Acct: [id number] Dis Date: Status: REG ER PHONE #: [phone] Exam Date: 12/18/20232358 FAX #: [phone] Reason: RLQ, RUQ ABDOMINAL PAIN EXAMS: CPT CODE: [id number] CT ABD PELVIS W/CONT 27992 (Continued) BONES/SOFT TISSUES: No acute osseous findings. 4.3 cm fat-containing umbilical hernia is noted. No other ventral hernias are seen. PERITONEUM/OTHER: No free intraperitoneal air. No free intraperitoneal fluid. IMPRESSION: 1. No acute findings in abdomen or pelvis. 2. 1.5 cm hypodensesolid appearing mass inferior right kidney. Recommend nonemergent further assessment with multiphasic contrast enhanced CT scan or MRI. 3. Fatty liver. 4. 4.3 cm fat-containing umbilical hernia. at 0247 Reported and signed by: Leila Mead MD CC: Klaudia Haq MD Technologist: RANI SAUNDERS; VIRGIE PÉREZ Trnscrd Dt/Tm: 12/19/2023 (0247) t.JAIROR.CLW Orig Print D/T: S: 12/19/2023 (0250 PAGE 2 Signed Report- KAREN ALMANZAR [id number] 23:43:00 [facility] : 1990 Sex: M FAX: Klaudia Haq MD R3 [place]: St: REG Name: GIL HERCULES [facility] : 1990 Age/S: 33/M [address] #: [id number] Loc: [place] [address] Phys: Klaudia Haq MD Acct: [id number] Dis Date: Status: REG ER PHONE #: [phone] Exam Date: 12/18/20232306 FAX #: [phone] Reason: BILATERAL CALF PAIN/SPASMS EXAMS: CPT CODE: [id number] DUP VEIN NATHEN [address] EXAM: Ultrasound bilateral lower extremity venous Doppler [...] CC: Klaudia Haq MD Technologist: JASON GOMEZ Trnnerd Date/Time/By: 12/18/2023 (8396) : By: DellHV2 PAGE 1 Signed Report FAX: Klaudia Haq MD R3 [place]: St: RE G Name: DIOMEDESGIL Naseem [facility] : 1990 Age/S: 33/M [address] Unit #: [id number] Loc: [place] [address] Phys: Klaudia Haq MD R3 Acct: [id number] Dis Date: Status: REG ER PHONE #: [phone] Exam Date: 12/18/20232306 FAX #: [phone] Reason: BILATERAL CALF PAIN/SPASMS EXAMS: CPT CODE: [id number] DUP VEIN NATHEN [address]114 (Continued) Orig Print D/T: S: 12/18/2023 (2543) PAGE 2 Signed ReportBASIC METABOLIC [id number] 23:11:00 * Test Item Value Reference Range [...] HEMINDEX) 18 Index/DL 0-100 N LIVER FUNCTION [id number] 23:11:00* Test Item Value Reference Range Interpretation [...] ode = CK) 7023 U/L 55-170 HH [id number] 23:11:00* Test Item Value Reference Range Interpretation Comme nts MAGNESIUM (test code = MAG) 2.0 mg/dL 1.6-2.3 N [id number] 23:11:00* Test Item Value Reference Range Interpretation [...] SUPPLEMENTS~~~~~~~~~~~~~~~~ ~~~~~~~~~~~~~~~~~~~~~~~~~~~ ~~~~~~~~~~~~~~~~ - XR CHEST 1 [id number] 22:34:00 [facility] : 1990 Sex: M FAX: Pawan Mcintyre [place]: St: REG Name: GIL HERCULES [facility] : 1990 Age/S: 33/M [address]: [id number] Loc: [place] [address] Phys: Pawan Mcintyre Acct: [id number] Dis Date: Status: REG ER PHONE #: [phone] Exam Date: 12/18/20232144 FAX #: [phone] Reason: chest pain EXAMS: CPT CODE: [id number] XR CHEST 1 V 33199 EXAM: - XR CHEST 1 V COMPARISON: 02/11/2024 LOCATION: C3 HISTORY: chest pain FINDINGS: Single view of the chest. No indwelling lines or tubes. No pneumothorax. The lungs are clear without significant effusions. The mediastinal contours are unremarkable/unchanged. No acute osseous findings are present. IMPRESSION: No acute cardiopulmonary abnormality. at 2234 Reported and signed by: Андрей Hein MD CC: Pwaan [place] Technologist: Klaudia Schwartz Trnscrd Date/Time/By: 12/18/2023 (2233) : By: [id number] PAGE 1 Signed Report FAX: Pawan Mcintyre [place]: St: REG -- Name: GIL HERCULES : 1990 Age/S: 33/M [address] Unit #: [id number] Loc: [place] [address] Phys: Pawan Mcintyre Acct: [id number] Dis Date: Status: REG ER PHONE #: [phone] Exam Date: 12/18/20232144 FAX #: [phone] Reason: chest pain EXAMS: CPT CODE: [id number] XR CHEST 1 V 70656 (Continued) Orig Print D/T: S: 12/18/2023 (2237) PAGE 2 Signed ReportCBC W/AUTO [id number] 22:25:00* Test Item Value Reference Range Interpretation [...] 0.07 x10 3/uL 0.0-0.1 N COMPREHENSIVE METABOLIC [id number] 18:27:00* Test Item Value Reference Range Interpretation [...] Test Item Value Reference Range [facility] CREATINE KINASE (CK) (test c ode = CK) 259 UNITS/L 26-308 N Chemistry - BNP, HgbA1c, [id number] 22:22:00* Test Item Value Reference Range Interpretation [facility] Chemistry - BNP, HgbA1c, PTH i (test code = BNP) 28.8 pg/mL 0-100 N Zmnrsprye3178-70-60 22:21:00* Test Item Value Reference Range Interpretation [facility] Chemistry (test code = NA-T) 140 [...] for Estimated GFR: Greater than 90 mL/min/1.73 z2Cekpajev eGFR is based on the CKD-EPI 2020 [...] code = ALT) 37 U/L 8-55 N Cubysbnoz5220-13-95 22:21:00* Test Item Value Reference Range Interpretation Comme nts Chemistry (test code = TROPI-R) 0.015 ng/mL < 0.028 Reference Range 0.00 - 0.028 ng/mL Negative 0.029 - 0.29 ng/mL Indeterminate Greater or Equal to 0.3 ng/mL Strongly suggests ND Xbcexxgrkm6629-11-09 22:09:00* Test Item Value Reference Range Interpretation [...] Test Item Value Reference Range Interpretation [facility] Sodium Level (test code = 2951-2) 140 mmol/L 136-145 [facility] potassium [facility] (moles/volume)2022-08-13 21:55:00* Test Item Value Reference Range Interpretation Comme nts Potassium Level (test code = 2823-3) 3.7 mmol/L 3.5-5.1 [facility] chloride measurement (moles/volume)2022-08-13 21:55:00* Test Item Value Reference Range Interpretation Comme nts Chloride Level (test code = 2075-0) 106 mmol/L 98-107 [facility] carbon dioxide, total measurement (moles/volume)2022-08-13 21:55:00* Test Item Value Reference Range Interpretation Comme nts Carbon Dioxide Level (test c ode = 2027-9) 26 mmol/L 22-29 [facility] anion [id number] 21:55:00* Test Item Value Reference Range Interpretation Comme nts Anion Gap (test code = 73476-3) 12 mmol/L 10-20 [facility] urea nitrogen measurement (mass/volume)2022-08-13 21:55:00* Test Item Value Reference Range Interpretation [facility] Blood Urea Nitrogen (test co de = 3094-0) 14 mg/dL 8.9-20.6 [facility] creatinine measurement (mass/volume)2022-08-13 21:55:00* Test Item Value Reference Range Interpretation [facility] Creatinine (test code = 2160-0) 0.84 mg/dL 0.7-1.3 [facility]Glomerular filtration rate/1.73 sq M.predicted [Volume Rate/Area] in Serum, Plasma [id number] 21:55:00* Test Item Value Reference Range Interpretation [facility] Estimated GFR (CKD-EPI 2020) (test code = 67172-7) 120 [facility] [Mass/volume] in Serum or Plasma 2022-08-13 21:55:00* Test Item Value Reference Range Interpretation [facility] Glucose Level (test code = 2345-7) 116 mg/dL 70-105 [facility] calcium measurement (mass/volume)2022-08-13 21:55:00* Test Item Value Reference Range Interpretation [facility] Calcium Level (test code = 75607-0) 9.0 mg/dL 7.8-10.44 [facility] total bilirubin measurement (mass/volume)2022-08-13 21:55:00* Test Item Value Reference Range Interpretation [facility] Total Bilirubin (test code = 1975-2) 0.4 mg/dL 0.2-1.2 [facility] protein measurement (mass/volume)2022-08-13 21:55:00* Test Item Value Reference Range Interpretation [facility] Serum Total Protein (test co de = 2885-2) 6.8 g/dL 6.0-8.3 [facility] albumin measurement by bromocresol green (BCG) dye binding method ([id number] 21:55:00* Test Item Value Reference Range Interpretation Comme nts Albumin (test code = 13321-0) 4.2 g/dL 3.5-5.0 [facility]Globulin [Mass/volume] in Serum by calculation 2022-08-13 21:55:00* Test Item Value Reference Range Interpretation Comme nts Globulin (test code = 17874-0) 2.6 g/dL 2.4-3.5 [facility] HospitalAlbumin/Globulin [Mass Ratio] in Serum or Jcoyez0675-05-79 21:55:00* Test Item Value Reference Range Interpretation [facility] Albumin/Globulin Ratio (test code = 1759-0) 1.6 g/dL 1.2-2.2 [facility] HospitalAlkaline phosphatase [Enzymatic activity/volume] in Serum or Ftiqjb7781-02-97 21:55:00* Test Item Value Reference Range Interpretation [facility] Alkaline Phosphatase (test c ode = 6768-6) 52 U/L 40-110 [facility] aspartate aminotransferase measurement (enzymatic activity/volume)2022-08-13 21:55:00* Test Item Value Reference Range Interpretation Comme nts Aspartate Amino Transf (AST/ SGOT) (test code = 1920-8) 24 U/L 5-34 [facility] alanine aminotransferase measurement without P-5'-P (enzymatic hgqxlp6440-11-18 21:55:00* Test Item Value Reference Range Interpretation Comme nts Alanine Aminotransferase (AL T/SGPT) (test code = 1744-2) 37 U/L 8-55 [facility]Leukocytes [#/volume] in Blood by Automated otaog6771-59-08 21:55:00* Test Item Value Reference Range Interpretation Comme nts White Blood Count (test code = 6690-2) 6.4 10x3/uL 4.8-10.8 [facility]Blood erythrocytes automated count (number/volume)2022-08-13 21:55:00* Test Item Value Reference Range Interpretation Comme nts Red Blood Count (test code = 789-8) 4.78 mill/uL 4.70-6.10 [facility]Blood hemoglobin measurement (mass/volume) 2022-08-13 21:55:00* Test Item Value Reference Range Interpretation [facility] Hemoglobin (test code = 718-7) 14.0 g/dL 14.0-18.0 [facility] HospitalAutomated erythrocyte mean corpuscular volume 2022-08-13 21:55:00* Test Item Value Reference Range Interpretation [facility] Mean Corpuscular Volume (blanca t code = 787-2) 87.6 fl 78.0-98.0 [facility] HospitalAutomated erythrocyte mean corpuscular hemoglobin (mass per erythrocyte)2022-08-13 21:55:00* Test Item Value Reference Range Interpretation [facility] Mean Corpuscular Hemoglobin (test code = 785-6) 29.2 pg 27.0-31.0 [facility]Automated erythrocyte mean corpuscular hemoglobin concentration measurement (mass/tlk9893-12-06 21:55:00* Test Item Value Reference Range Interpretation [facility] Mean Corpuscular Hemoglobin Concent (test code = 786-4) 33.3 g/dL 32.0-36.0 [facility]Automated erythrocyte distribution width ratio 2022-08-13 21:55:00* Test Item Value Reference Range Interpretation [facility] Red Cell Distribution Width (test code = 788-0) 12.0 % 11.5-14.5 [facility]Automated blood platelet count (count/volume) 2022-08-13 21:55:00* Test Item Value Reference Range Interpretation [facility] Platelet Count (test code = 777-3) 316 10x3/uL 130-400 [facility]Automated blood platelet mean ursrcr9434-87-87 21:55:00* Test Item Value Reference Range Interpretation [facility] Mean Platelet Volume (test c ode = 95422-5) 6.4 fL 7.4-10.4 [facility]Automated blood neutrophils/100 leukocytes 2022-08-13 21:55:00* Test Item Value Reference Range Interpretation [facility] Neutrophils % (test code = 770-8) 72.8 % 42.0-75.0 [facility] HospitalLymphocytes/100 leukocytes in Blood by Automated crvsl0602-70-18 21:55:00* Test Item Value Reference Range Interpretation Comme nts Lymphocytes % (test code = 736-9) 16.6 % 21.0-51.0 [facility]Automated blood monocytes/100 leukocytes 2022-08-13 21:55:00* Test Item Value Reference Range Interpretation Comme nts Monocytes % (test code = 5905-5) 8.4 % 0.0-10.0 [facility]Automated blood eosinophils/100 leukocytes 2022-08-13 21:55:00* Test Item Value Reference Range Interpretation Comme nts Eosinophils % (test code = 713-8) 0.8 % 0.0-10.0 [facility]Autom[facility] blood basophils/100 leukocytes 2022-08-13 21:55:00* Test Item Value Reference Range Interpretation Comme nts Basophils % (test code = 706-2) 1.5 % 0.0-1.0 [facility]Blood neutrophils automated count (number/volume)2022-08-13 21:55:00* Test Item Value Reference Range Interpretation [facility] Neutrophils # (test code = 751-8) 4.6 thou/uL 1.40-6.50 [facility] HospitalLymphocytes [#/volume] in Blood by Automated ymgyq1316-05-41 21:55:00* Test Item Value Reference Range Interpretation Comme nts Lymphocytes # (test code = 731-0) 1.1 thou/uL 1.20-3.40 [facility]Blood monocytes automated count (number/volume) 2022-08-13 21:55:00* Test Item Value Reference Range Interpretation Comme nts Monocytes # (test code = 742-7) 0.5 thou/uL 0.11-0.59 [facility]Blood eosinophils automated count (count/volume)2022-08-13 21:55:00* Test Item Value Reference Range Interpretation Comme nts Eosinophils # (test code = 711-2) 0.0 thou/uL 0.0-0.7 [facility]Automated blood basophil count (count/volume) 2022-08-13 21:55:00* Test Item Value Reference Range Interpretation Comme nts Basophils # (test code = 704-7) 0.1 thou/uL 0.0-0.2 [facility] HospitalChemistry2022-09-12 02:47:00* Test Item Value Reference Range Interpretation Comme nts Chemistry (test code = TROPI-R) Less than 0.010 ng/mL < 0.028 * Reference Range 0.00 - 0.028 ng/mL Negative 0.029 - 0.29 ng/mL Indeterminate Greater or Equal to 0.3 ng/mL Strongly suggests ND Xtkftkqqg2265-64-25 02:46:00* Test Item Value Reference Range Interpretation [...] for Estimated GFR: Greater than 90 mL/min/1.73 y8Dtownodj eGFR is based on the CKD-EPI 2020 [...] code = ALT) 50 U/L 8-55 N Whjhngaxncj6098-90-45 02:43:00* Test Item Value Reference Range Interpretation Comme nts Coagulation (test code = DDIMTT) Less than 0.27 *mcg/mL 0.27-0.43 L * Reference Range Units: mcg/mL of fibrinogen equivalent units(FEU)Based upon a retrospective study of [facility] patients in January 2006, a result of"Less than 0.44 mcg/mL FEU" is predictive of the absence ofa DVT or PE. Oiyanribnt5351-77-85 02:38:00* Test Item Value Reference Range Interpretation [...] (test code = 2160-0) 0.83 mg/dL 0.7-1.3 [facility] HospitalGlomerular filtration rate/1.73 sq M.predicted [Volume Rate/Area] in Serum, Plasma [id number] 02:15:00* Test Item Value Reference Range Interpretation Comme nts Estimated GFR (CKD-EPI 2020) (test code = 51307-7) 121 [facility] HospitalGlucose [Mass/volume] in Serum or Plasma 2022-05-25 02:15:00* Test Item Value Reference Range Interpretation Comme nts Glucose Level (test code = 2345-7) 91 mg/dL 70-105 [facility] calcium measurement (mass/volume)2022-05-25 02:15:00* Test Item Value Reference Range Interpretation Comme nts Calcium Level (test code = 00764-9) 8.9 mg/dL 7.8-10.44 [facility] plasma total bilirubin measurement (mass/volume)2022-05-25 02:15:00* Test Item Value Reference Range Interpretation Comme nts Total Bilirubin (test code = 1975-2) 1.2 mg/dL 0.2-1.2 [facility] protein measurement (mass/volume)2022-05-25 02:15:00* Test Item Value Reference Range Interpretation [facility] Serum Total Protein (test co de = 2885-2) 7.2 g/dL 6.0-8.3 [facility] plasma albumin measurement by bromocresol green (BCG) dye binding method ([id number] 02:15:00* Test Item Value Reference Range Interpretation Comme nts Albumin (test code = 44891-8) 4.3 g/dL 3.5-5.0 [facility] HospitalGlobulin [Mass/volume] in Serum by calculation 2022-05-25 02:15:00* Test Item Value Reference Range Interpretation [facility] Globulin (test code = 56518-4) 2.9 g/dL 2.4-3.5 [facility] HospitalAlbumin/Globulin [Mass Ratio] in Serum or Vlqpck2855-23-65 02:15:00* Test Item Value Reference Range Interpretation [facility] Albumin/Globulin Ratio (test code = 1759-0) 1.5 g/dL 1.2-2.2 [facility] HospitalAlkaline phosphatase [Enzymatic activity/volume] in Serum or Nevdvf2444-34-82 02:15:00* Test Item Value Reference Range Interpretation [facility] Alkaline Phosphatase (test c ode = 6768-6) 53 U/L 40-110 [facility] or plasma aspartate aminotransferase measurement (enzymatic activity/volume)2022-05-25 02:15:00* Test Item Value Reference Range Interpretation [facility] Aspartate Amino Transf (AST/ SGOT) (test code = 1920-8) 28 U/L 5-34 [facility] alanine aminotransferase measurement without P-5'-P (enzymatic gwisou5007-62-02 02:15:00* Test Item Value Reference Range Interpretation [facility] Alanine Aminotransferase (AL T/SGPT) (test code = 1744-2) 50 U/L 8-55 [facility] HospitalLeukocytes [#/volume] in Blood by Automated bmhfy7896-48-32 02:15:00* Test Item Value Reference Range Interpretation [facility] White Blood Count (test code = 6690-2) 6.9 thou/uL 4.8-10.8 [facility] erythrocytes automated count (number/volume)2022-05-25 02:15:00* Test Item Value Reference Range Interpretation [facility] Red Blood Count (test code = 789-8) 4.79 mill/uL 4.70-6.10 [facility]Blood hemoglobin measurement (mass/volume) 2022-05-25 02:15:00* Test Item Value Reference Range Interpretation Comme nts Hemoglobin (test code = 718-7) 14.1 g/dL 14.0-18.0 [facility]Automated erythrocyte mean corpuscular volume 2022-05-25 02:15:00* Test Item Value Reference Range Interpretation [facility] Mean Corpuscular Volume (blanca t code = 787-2) 85.8 fL 78.0-98.0 [facility]Automated erythrocyte mean corpuscular hemoglobin (mass per erythrocyte)2022-05-25 02:15:00* Test Item Value Reference Range Interpretation [facility] Mean Corpuscular Hemoglobin (test code = 785-6) 29.4 pg 27.0-31.0 [facility]Automated erythrocyte mean corpuscular hemoglobin concentration measurement (mass/kni5712-88-24 02:15:00* Test Item Value Reference Range Interpretation [facility] Mean Corpuscular Hemoglobin Concent (test code = 786-4) 34.2 g/dL 32.0-36.0 [facility]Autom[facility] erythrocyte distribution width ratio 2022-05-25 02:15:00* Test Item Value Reference Range Interpretation [facility] Red Cell Distribution Width (test code = 788-0) 12.4 % 11.5-14.5 [facility]Autom[facility] blood platelet count (count/volume) 2022-05-25 02:15:00* Test Item Value Reference Range Interpretation Comme nts Platelet Count (test code = 777-3) 267 thou/uL 130-400 [facility]Autom[facility] blood platelet mean blouun0257-86-66 02:15:00* Test Item Value Reference Range Interpretation Comme nts Mean Platelet Volume (test c ode = 84407-5) 6.0 fL 7.4-10.4 [facility]Autom[facility] blood neutrophils/100 leukocytes 2022-05-25 02:15:00* Test Item Value Reference Range Interpretation Comme nts Neutrophils % (test code = 770-8) 54.6 % 42.0-75.0 [facility] HospitalLymphocytes/100 leukocytes in Blood by Automated tnwkf9150-69-38 02:15:00* Test Item Value Reference Range Interpretation Comme nts Lymphocytes % (test code = 736-9) 33.4 % 21.0-51.0 [facility]Autom[facility] blood monocytes/100 leukocytes 2022-05-25 02:15:00* Test Item Value Reference Range Interpretation Comme nts Monocytes % (test code = 5905-5) 9.2 % 0.0-10.0 [facility] blood eosinophils/100 leukocytes 2022-05-25 02:15:00* Test Item Value Reference Range Interpretation [facility] Eosinophils % (test code = 713-8) 1.7 % 0.0-10.0 [facility] blood basophils/100 leukocytes 2022-05-25 02:15:00* Test Item Value Reference Range Interpretation Comme nts Basophils % (test code = 706-2) 1.1 % 0.0-1.0 [facility]Blood neutrophils automated count (number/volume)2022-05-25 02:15:00* Test Item Value Reference Range Interpretation Comme nts Neutrophils # (test code = 751-8) 3.8 thou/uL 1.40-6.50 [facility] HospitalLymphocytes [#/volume] in Blood by Automated navph8944-22-89 02:15:00* Test Item Value Reference Range Interpretation Comme nts Lymphocytes # (test code = 731-0) 2.3 thou/uL 1.20-3.40 [facility]Blood monocytes automated count (number/volume) 2022-05-25 02:15:00* Test Item Value Reference Range Interpretation Comme nts Monocytes # (test code = 742-7) 0.6 thou/uL 0.11-0.59 [facility]Blood eosinophils automated count (count/volume)2022-05-25 02:15:00* Test Item Value Reference Range Interpretation Comme nts Eosinophils # (test code = 711-2) 0.1 thou/uL 0.0-0.7 [facility]Autom[facility] blood basophil count (count/volume) 2022-05-25 02:15:00* Test Item Value Reference Range Interpretation Comme nts Basophils # (test code = 704-7) 0.1 thou/uL 0.0-0.2 [facility] HospitalFibrin D-dimer FEU measurement in platelet poor plasma (mass/volume)2022-05-25 02:15:00* Test Item Value Reference Range Interpretation [facility] D-Dimer (test code = 74081-8) Less than 0.27 *mcg/mL 0.27-0.43 [facility] sodium measurement (moles/volume)2022-05-25 02:15:00* Test Item Value Reference Range Interpretation [facility] Sodium Level (test code = 2951-2) 140 mmol/L 136-145 [facility] potassium measurement (moles/volume)2022-05-25 02:15:00* Test Item Value Reference Range Interpretation [facility] Potassium Level (test code = 2823-3) 3.8 mmol/L 3.5-5.1 [facility] chloride measurement (moles/volume)2022-05-25 02:15:00* Test Item Value Reference Range Interpretation [facility] Chloride Level (test code = 2075-0) 107 mmol/L 98-107 [facility] plasma carbon dioxide, total measurement (moles/volume)2022-05-25 02:15:00* Test Item Value Reference Range Interpretation [facility] Carbon Dioxide Level (test c ode = 2028-9) 22 mmol/L 22-29 [facility] anion kdv0466-19-00 02:15:00* Test Item Value Reference Range Interpretation Comme nts Anion Gap (test code = 48141-4) 15 mmol/L 10-20 [facility] urea nitrogen measurement (mass/volume)2022-05-25 02:15:00* Test Item Value Reference Range Interpretation [facility] Blood Urea Nitrogen (test co de = 3094-0) 14 mg/dL 8.9-20.6 [facility] - BNP, HgbA1c, HILs6617-19-21 17:35:00* Test Item Value Reference Range Interpretation [facility] Chemistry - BNP, HgbA1c, PTH i (test code = BNP) 34.2 pg/mL 0-100 N Mwnjsggdp7267-27-22 17:34:00* Test Item Value Reference Range Interpretation [facility] Chemistry (test code = TROPI-R) 0.013 ng/mL < 0.028 Reference Range 0.00 - 0.028 ng/mL Negative 0.029 - 0.29 ng/mL Indeterminate Greater or Equal to 0.3 ng/mL Strongly suggests ND Ciywjaqcm6725-01-51 17:32:00* Test Item Value Reference Range Interpretation [facility] Chemistry (test code = NA-T) 139 [...] for Estimated GFR: Greater than 90 mL/min/1.73 x2Erysoili eGFR is based on the CKD-EPI 2020 [...] code = ALT) 54 U/L 8-55 N Knoycjhpz2696-30-05 17:32:00* Test Item Value Reference Range Interpretation Comme nts Chemistry (test code = CK) 342 U/L 30-200 H Egunbljhih4426-50-80 17:21:00* Test Item Value Reference Range Interpretation [...] sq M.predicted [Volume Rate/Area] in Serum, Plasma dn1429-30-11 17:05:00* Test Item Value Reference Range Interpretation Comme nts Estimated GFR (CKD-EPI 2020) (test code = 65836-3) 116 [facility]Glucose [Mass/volume] in Serum or Plasma 2022-05-24 17:05:00* Test Item Value Reference Range Interpretation [facility] Glucose Level (test code = 2345-7) 113 mg/dL 70-105 [facility] calcium measurement (mass/volume)2022-05-24 17:05:00* Test Item Value Reference Range Interpretation [facility] Calcium Level (test code = 67364-9) 9.2 mg/dL 7.8-10.44 [facility] plasma total bilirubin measurement (mass/volume)2022-05-24 17:05:00* Test Item Value Reference Range Interpretation [facility] Total Bilirubin (test code = 1975-2) 1.3 mg/dL 0.2-1.2 [facility] protein measurement (mass/volume)2022-05-24 17:05:00* Test Item Value Reference Range Interpretation [facility] Serum Total Protein (test co de = 2885-2) 7.6 g/dL 6.0-8.3 [facility] albumin measurement by bromocresol green (BCG) dye binding method ([id number] 17:05:00* Test Item Value Reference Range Interpretation Comme nts Albumin (test code = 74482-3) 4.5 g/dL 3.5-5.0 [facility] HospitalGlobulin [Mass/volume] in Serum by calculation 2022-05-24 17:05:00* Test Item Value Reference Range Interpretation Comme nts Globulin (test code = 20170-5) 3.1 g/dL 2.4-3.5 [facility]Albumin/Globulin [Mass Ratio] in Serum or Rrjjwg4091-60-47 17:05:00* Test Item Value Reference Range Interpretation Comme nts Albumin/Globulin Ratio (test code = 1759-0) 1.5 g/dL 1.2-2.2 [facility] HospitalAlkaline phosphatase [Enzymatic activity/volume] in Serum or Vqxtxk4093-79-48 17:05:00* Test Item Value Reference Range Interpretation [facility] Alkaline Phosphatase (test c ode = 6768-6) 57 U/L 40-110 [facility] plasma aspartate aminotransferase measurement (enzymatic activity/volume)2022-05-24 17:05:00* Test Item Value Reference Range Interpretation [facility] Aspartate Amino Transf (AST/ SGOT) (test code = 1920-8) 28 U/L 5-34 [facility] HospitalCreatine kinase [Enzymatic activity/volume] in Serum or Nwqcyx2615-77-59 17:05:00* Test Item Value Reference Range Interpretation Comme nts Creatine Kinase (test code = 2157-6) 342 U/L 30-200 [facility] alanine aminotransferase measurement without P-5'-P (enzymatic zkmniy0973-04-11 17:05:00* Test Item Value Reference Range Interpretation Comme nts Alanine Aminotransferase (AL T/SGPT) (test code = 1744-2) 54 U/L 8-55 [facility]Leukocytes [#/volume] in Blood by Automated wlbrj9330-58-17 17:05:00* Test Item Value Reference Range Interpretation Comme nts White Blood Count (test code = 6690-2) 7.4 thou/uL 4.8-10.8 [facility]Blood erythrocytes automated count (number/volume)2022-05-24 17:05:00* Test Item Value Reference Range Interpretation Comme nts Red Blood Count (test code = 789-8) 4.88 mill/uL 4.70-6.10 [facility]Blood hemoglobin measurement (mass/volume) 2022-05-24 17:05:00* Test Item Value Reference Range Interpretation Comme nts Hemoglobin (test code = 718-7) 14.1 g/dL 14.0-18.0 [facility]Automated erythrocyte mean corpuscular volume 2022-05-24 17:05:00* Test Item Value Reference Range Interpretation Comme nts Mean Corpuscular Volume (blanca t code = 787-2) 88.7 fL 78.0-98.0 [facility] HospitalAutomated erythrocyte mean corpuscular hemoglobin (mass per erythrocyte)2022-05-24 17:05:00* Test Item Value Reference Range Interpretation [facility] Mean Corpuscular Hemoglobin (test code = 785-6) 29.0 pg 27.0-31.0 [facility]Automated erythrocyte mean corpuscular hemoglobin concentration measurement (mass/tfc5332-51-01 17:05:00* Test Item Value Reference Range Interpretation [facility] Mean Corpuscular Hemoglobin Concent (test code = 786-4) 32.6 g/dL 32.0-36.0 [facility]Autom[facility] erythrocyte distribution width ratio 2022-05-24 17:05:00* Test Item Value Reference Range Interpretation [facility] Red Cell Distribution Width (test code = 788-0) 12.3 % 11.5-14.5 [facility]Autom[facility] blood platelet count (count/volume) 2022-05-24 17:05:00* Test Item Value Reference Range Interpretation Comme nts Platelet Count (test code = 777-3) 308 thou/uL 130-400 [facility]Autom[facility] blood platelet mean kzkqmm6674-94-34 17:05:00* Test Item Value Reference Range Interpretation Comme nts Mean Platelet Volume (test c ode = 29136-2) 6.4 fL 7.4-10.4 [facility]Autom[facility] blood neutrophils/100 leukocytes 2022-05-24 17:05:00* Test Item Value Reference Range Interpretation Comme nts Neutrophils % (test code = 770-8) 67.5 % 42.0-75.0 [facility] HospitalLymphocytes/100 leukocytes in Blood by Automated [id number] 17:05:00* Test Item Value Reference Range Interpretation Comme nts Lymphocytes % (test code = 736-9) 22.0 % 21.0-51.0 [facility] monocytes/100 leukocytes 2022-05-24 17:05:00* Test Item Value Reference Range Interpretation Comme nts Monocytes % (test code = 5905-5) 8.7 % 0.0-10.0 [facility] eosinophils/100 leukocytes 2022-05-24 17:05:00* Test Item Value Reference Range Interpretation Comme nts Eosinophils % (test code = 713-8) 0.5 % 0.0-10.0 [facility] basophils/100 leukocytes 2022-05-24 17:05:00* Test Item Value Reference Range Interpretation Comme nts Basophils % (test code = 706-2) 1.2 % 0.0-1.0 [facility]Blood neutrophils automated count (number/volume)2022-05-24 17:05:00* Test Item Value Reference Range Interpretation Comme nts Neutrophils # (test code = 751-8) 5.0 thou/uL 1.40-6.50 [facility] HospitalLymphocytes [#/volume] in Blood by Automated [id number] 17:05:00* Test Item Value Reference Range Interpretation Comme nts Lymphocytes # (test code = 731-0) 1.6 thou/uL 1.20-3.40 [facility]Blood monocytes automated count (number/volume) 2022-05-24 17:05:00* Test Item Value Reference Range Interpretation Comme nts Monocytes # (test code = 742-7) 0.6 thou/uL 0.11-0.59 [facility]Blood eosinophils automated count (count/volume)2022-05-24 17:05:00* Test Item Value Reference Range Interpretation Comme nts Eosinophils # (test code = 711-2) 0.0 thou/uL 0.0-0.7 [facility] blood basophil count (count/volume) 2022-05-24 17:05:00* Test Item Value Reference Range Interpretation Comme nts Basophils # (test code = 704-7) 0.1 thou/uL 0.0-0.2 [facility] sodium measurement (moles/volume)2022-05-24 17:05:00* Test Item Value Reference Range Interpretation Comme nts Sodium Level (test code = 2951-2) 139 mmol/L 136-145 [facility] potassium measurement (moles/volume)2022-05-24 17:05:00* Test Item Value Reference [facility] Potassium Level (test code = 2823-3) 3.5 mmol/L 3.5-5.1 [facility] chloride measurement (moles/volume)2022-05-24 17:05:00* Test Item Value Reference Range Interpretation Comme [facility] Chloride Level (test code = 2075-0) 106 mmol/L 98-107 [facility] carbon dioxide, total measurement (moles/volume)2022-05-24 17:05:00* Test Item Value Reference Range Interpretation Comme [facility] Carbon Dioxide Level (test c ode = 2027-9) 22 mmol/L 22-29 [facility] anion [id number] 17:05:00* Test Item Value Reference Range Interpretation Comme [facility] Anion Gap (test code = 20881-2) 15 mmol/L 10-20 [facility] urea nitrogen measurement (mass/volume)2022-05-24 17:05:00* Test Item Value Reference Range Interpretation Comme [facility] Blood Urea Nitrogen (test co de = 3094-0) 12 mg/dL 8.9-20.6 [facility] creatinine measurement (mass/volume)2022-05-24 17:05:00* Test Item Value Reference Range Interpretation Comme nts Creatinine (test code = 2160-0) 0.91 mg/dL 0.7-1.3 [facility] HospitalGlomerular filtration rate/1.73 sq M.predicted [Volume Rate/Area] in Serum, Plasma [id number] 17:05:00* Test Item Value Reference Range Interpretation Comme nts Estimated GFR (CKD-EPI 2020) (test code = 63880-1) 116 [facility] HospitalGlucose [Mass/volume] in Serum or Plasma 2022-05-24 17:05:00* Test Item Value Reference Range Interpretation Comme nts Glucose Level (test code = 2345-7) 113 mg/dL 70-105 [facility] calcium measurement (mass/volume)2022-05-24 17:05:00* Test Item Value Reference Range Interpretation [facility] Calcium Level (test code = 92718-8) 9.2 mg/dL 7.8-10.44 [facility] total bilirubin measurement (mass/volume)2022-05-24 17:05:00* Test Item Value Reference Range Interpretation Com[facility] Total Bilirubin (test code = 1975-2) 1.3 mg/dL 0.2-1.2 [facility] protein measurement (mass/volume)2022-05-24 17:05:00* Test Item Value Reference Range Interpretation Comme [facility] Serum Total Protein (test co de = 2885-2) 7.6 g/dL 6.0-8.3 [facility] albumin measurement by bromocresol green (BCG) dye binding method ([id number] 17:05:00* Test Item Value Reference Range Interpretation Comme [facility] Albumin (test code = 28794-4) 4.5 g/dL 3.5-5.0 [facility] HospitalGlobulin [Mass/volume] in Serum by calculation 2022-05-24 17:05:00* Test Item Value Reference Range Interpretation Comme nts Globulin (test code = 12712-4) 3.1 g/dL 2.4-3.5 [facility] HospitalAlbumin/Globulin [Mass Ratio] in Serum or [id number] 17:05:00* Test Item Value Reference Range Interpretation Comme nts Albumin/Globulin Ratio (test code = 1759-0) 1.5 g/dL 1.2-2.2 [facility] HospitalAlkaline phosphatase [Enzymatic activity/volume] in Serum or Dorcvp2132-06-57 17:05:00* Test Item Value Reference Range Interpretation Comme nts Alkaline Phosphatase (test c ode = 6768-6) 57 U/L 40-110 [facility] aspartate aminotransferase measurement (enzymatic activity/volume)2022-05-24 17:05:00* Test Item Value Reference Range Interpretation Comme nts Aspartate Amino Transf (AST/ SGOT) (test code = 1920-8) 28 U/L 5-34 [facility] HospitalCreatine kinase [Enzymatic activity/volume] in Serum or [id number] 17:05:00* Test Item Value Reference Range Interpretation Comme nts Creatine Kinase (test code = 2157-6) 342 U/L 30-200 [facility] alanine aminotransferase measurement without P-5'-P (enzymatic tgkrqw5495-49-33 17:05:00* Test Item Value Reference Range Interpretation Comme nts Alanine Aminotransferase (AL T/SGPT) (test code = 1744-2) 54 U/L 8-55 [facility] HospitalLeukocytes [#/volume] in Blood by Automated [id number] 17:05:00* Test Item Value Reference Range Interpretation Comme nts White Blood Count (test code = 6690-2) 7.4 thou/uL 4.8-10.8 [facility]Blood erythrocytes automated count (number/volume)2022-05-24 17:05:00* Test Item Value Reference Range Interpretation Comme nts Red Blood Count (test code = 789-8) 4.88 mill/uL 4.70-6.10 [facility] hemoglobin measurement (mass/volume) 2022-05-24 17:05:00* Test Item Value Reference Range Interpretation Comme nts Hemoglobin (test code = 718-7) 14.1 g/dL 14.0-18.0 [facility] erythrocyte mean corpuscular volume 2022-05-24 17:05:00* Test Item Value Reference Range Interpretation Comme nts Mean Corpuscular Volume (blanca t code = 787-2) 88.7 fL 78.0-98.0 [facility]Autom[facility] erythrocyte mean corpuscular hemoglobin (mass per erythrocyte)2022-05-24 17:05:00* Test Item Value Reference Range Interpretation Comme [facility] Mean Corpuscular Hemoglobin (test code = 785-6) 29.0 pg 27.0-31.0 [facility]Autom[facility] erythrocyte mean corpuscular hemoglobin concentration measurement (mass/lgg9161-98-88 17:05:00* Test Item Value Reference Range Interpretation Comme [facility] Mean Corpuscular Hemoglobin Concent (test code = 786-4) 32.6 g/dL 32.0-36.0 [facility] erythrocyte distribution width ratio 2022-05-24 17:05:00* Test Item Value Reference Range Interpretation Comme [facility] Red Cell Distribution Width (test code = 788-0) 12.3 % 11.5-14.5 [facility]Autom[facility] blood platelet count (count/volume) 2022-05-24 17:05:00* Test Item Value Reference Range Interpretation Comme nts Platelet Count (test code = 777-3) 308 thou/uL 130-400 [facility]Autom[facility] blood platelet mean [id number] 17:05:00* Test Item Value Reference Range Interpretation Comme nts Mean Platelet Volume (test c ode = 26736-4) 6.4 fL 7.4-10.4 [facility]Autom[facility] blood neutrophils/100 leukocytes 2022-05-24 17:05:00* Test Item Value Reference Range Interpretation Comme nts Neutrophils % (test code = 770-8) 67.5 % 42.0-75.0 [facility] HospitalLymphocytes/100 leukocytes in Blood by Automated [id number] 17:05:00* Test Item Value Reference Range Interpretation Comme nts Lymphocytes % (test code = 736-9) 22.0 % 21.0-51.0 [facility]Autom[facility] blood monocytes/100 leukocytes 2022-05-24 17:05:00* Test Item Value Reference Range Interpretation Comme nts Monocytes % (test code = 5905-5) 8.7 % 0.0-10.0 [facility]Autom[facility] blood eosinophils/100 leukocytes 2022-05-24 17:05:00* Test Item Value Reference Range Interpretation Comme nts Eosinophils % (test code = 713-8) 0.5 % 0.0-10.0 [facility]Autom[facility] blood basophils/100 leukocytes 2022-05-24 17:05:00* Test Item Value Reference Range Interpretation Comme nts Basophils % (test code = 706-2) 1.2 % 0.0-1.0 [facility] neutrophils automated count (number/volume)2022-05-24 17:05:00* Test Item Value Reference Range Interpretation Comme nts Neutrophils # (test code = 751-8) 5.0 thou/uL 1.40-6.50 [facility] HospitalLymphocytes [#/volume] in Blood by Automated [id number] 17:05:00* Test Item Value Reference Range Interpretation Comme nts Lymphocytes # (test code = 731-0) 1.6 thou/uL 1.20-3.40 [facility]Blood monocytes automated count (number/volume) 2022-05-24 17:05:00* Test Item Value Reference Range Interpretation Comme nts Monocytes # (test code = 742-7) 0.6 thou/uL 0.11-0.59 [facility]Blood eosinophils automated count (count/volume)2022-05-24 17:05:00* Test Item Value Reference Range Interpretation Comme nts Eosinophils # (test code = 711-2) 0.0 thou/uL 0.0-0.7 [facility] blood basophil count (count/volume) 2022-05-24 17:05:00* Test Item Value Reference Range Interpretation Comme nts Basophils # (test code = 704-7) 0.1 thou/uL 0.0-0.2 [facility] sodium measurement (moles/volume)2022-05-24 17:05:00* Test Item Value Reference Range Interpretation Comme nts Sodium Level (test code = 2951-2) 139 mmol/L 136-145 [facility] potassium measurement (moles/volume)2022-05-24 17:05:00* Test Item Value Reference Range Interpretation Comme nts Potassium Level (test code = 2823-3) 3.5 mmol/L 3.5-5.1 [facility] chloride measurement (moles/volume)2022-05-24 17:05:00* Test Item Value Reference Range Interpretation Comme nts Chloride Level (test code = 2075-0) 106 mmol/L 98-107 [facility] plasma carbon dioxide, total measurement (moles/volume)2022-05-24 17:05:00* Test Item Value Reference Range Interpretation Comme nts Carbon Dioxide Level (test c ode = 2028-05) 22 mmol/L 22-29 [facility] anion [id number] 17:05:00* Test Item Value Reference Range Interpretation Comme nts Anion Gap (test code = 07987-8) 15 mmol/L 10-20 [facility] urea nitrogen measurement (mass/volume)2022-05-24 17:05:00* Test Item Value Reference Range Interpretation Comme nts Blood Urea Nitrogen (test co de = 3094-0) 12 mg/dL 8.9-20.6 [facility] creatinine measurement (mass/volume)2022-05-24 17:05:00* Test Item Value Reference Range Interpretation Comme nts Creatinine (test code = 2160-0) 0.91 mg/dL 0.7-1.3 [facility]XR [facility] 1990 [facility]: [facility] HERCULES [address] Phys: [place] [address] : 1990 Age: 31 SEX:M [phone] Exam Date: 08/13/22 Status: REG ER Acct: [id number] Loc: CONNIE Pt Unit #: [id number] Report #: [id number] CC: Lolis Rollins DO IMAGING SERVICES REPORT Report Status: Signed Order # Category/Exam [id number] RAD/XR Chest 1 View Portable ([id number]): . Results Portable chest at 2218 (08/13/2022) HISTORY: Palpitations COMPARISON: 05/24/2022 FINDINGS: The heart remains normal in size and the lungs are clear. No acute infiltrate or effusionwas seen. There is no vascular congestion or edema. IMPRESSION: Stable exam showing no acute findings Reported By: RANCHO BRYAN MD Electronically Signed Date/Time: 08/13/222216 Technologist: Dictated Date/Time: 08/13/222215 Transcribed Date/Time:XR Chest [address] [facility]: GIL HERCULES : 1990 [facility] Pt Name: HERCULESGIL HATFIELD NGUYEN [address] Phys: [place] [address] : 1990 Age: 31 SEX:M [phone] Exam Date: 05/24/22Status: REG ER Acct: [id number] Loc: CONNIE Pt Unit #: [id number] Report #: [id number] CC: Bhupinder Moreau IMAGING SERVICES REPORT Order # Category/Exam [id number] RAD/XR Chest 1 View Portable ([id number]): . Results EXAM: Single view of the chest HISTORY: Dyspnea COMPARISON: None FINDINGS: Single view of the chest shows a normal sized cardiomediastinal silhouette. There is no evidence of consolidation, mass, or pleural effusion. No acute osseous abnormality. IMPRESSION: No acute cardiopulmonary disease Reported By: Panfilo Toscano DO Electronically Signed Date/Time: 05/24/221724 Technologist: [facility] Dictated Date/Time: 05/24/221724 Transcribed Date/Time: Notes Date/Time Note Provider Source 2024-07-26 08:51:15 3rd attempt to contact patient. Voicemail full. Will send letter. Norris RN [facility] 2024-07-25 08:27:36 Images from the original note were not included. Attempted to contact patient with results/recommendations. Voicemail not set up. Isa Machado MD P Cardiology Nurse Holter monitor is within normal. No abnormal heart rhythms during monitored period. This is reassuring. Norris RN [facility] 2024-07-24 08:21:26 Images from the original note were not included. Attempted to contact patient to discuss results, no answer unable to leave a voice message mailbox that has not been set up. Isa Machado MD P Cardiology Nurse Holter monitor is within normal. No abnormal heart rhythms during monitored period. This is reassuring. E CREW SUPERVISOR Kaur Delacruz MA [facility] 2024-07-19 10:11:58 Spoke to patient, he is in [place]. Will have forms filled out on his appointment that is scheduled on 08/03/2024 E CREW SUPERVISOR Nathanael Thurston [facility] 2024-07-18 16:52:11 Routing to [facility] to schedule appointment to complete forms. 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 Baez [facility] 2024-07-14 16:43:23 Spoke with patient who states that he brought sleep study for Dr. Machado to review when he was seen a couple of weeks ago. Patient states Dr. Machado ordered a cpap. I don't see any documentaiton of this and I don't see copy of sleep study scanned into chart. Called Lexi and was informed that orders this patient have come from Dr. Hill's office. Called patient back to notify him that he needs to reach out to Dr. Hill's office to follow up on his cpap. Elle Norris RN [facility] 2024-07-14 08:41:26 Gil Hercules is a 33 year old male Pt calling he states ordered a CPAP machine for him. The [employer] is requesting additional information from so pt can receive the device. pt states they have have been trying to get the information for three wks now. Pt requesting an irish response. Please advise. Altaf Woody [facility] 2024-06-27 02:34:41 Summary: Discharge Pt given printed [...] in no apparent distress, Bessy Benjamin RN [facility] 2024-06-26 21:53:58 Patient arrived ambulatory c/o intermittent chest pain for the past couple of weeks to the left side of his chest radiating to his shoulder.. Radial decompression surgery last Wednesday to left arm. Cast present during triage. Admitted to [place] for two days afterwards for acute respiratory failure. 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 Pt was admitted to [facility] for two days due to hypoxia. Oxygen saturations were in th 80s. Pt reports he had a dye Ct Scan and work up reportedly negative and was diagnosed with Asthma with acute exacerbation.No personal ro family hx of DVT/PE. Mother had an ND at age 60s otherwise no CAD. Pt does not have any cardiac hx otherwise . Pt does not drink alcoholic beverages. Denies any illicit drug use. Pt takes Suboxone 32 mg daily X 4 years for Opoid addiction. Chest pain occurs with exertion and is resolves with rest. 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 RL: 135 [facility]: [id number] Lab Results: Lab Results CBC WITH DIFF [...] 0.01 - 0.09 10*3/uL COMP. METABOLIC PANEL (16351) - Abnormal NA 139 135 - 145 [...] I Cbc with Diff Comp. Metabolic Panel (14117) Thyroid Stimulating Hormone Magnesium N-Terminal Pro-Bnp Troponin [...] ED Physician in the absence of a wood dowel machine operator: yes Previous ECG: Previous ECG: Compared to [...] X 3 weeks. Was recently evaluated in [facility] for respiratory failure from Asthma and had [...] follow-up Twan Kirk MD Specialty: CARDIOVASCULAR DISEASE [facility] [address] [facility] [id number] Electronically signed by: Erum Payan MD 06/27/24 0144 [facility] 2024-06-26 15:44:13 Paperwork placed in ortho FMLA/disability folder for pt 07/03 appt. Michelle Galvan LVN [facility] 2024-06-26 15:33:36 Disability forms will be [...] disability/FMLA ortho folder. Pt notified. Michelle Galvan LVN [facility] 2024-06-26 14:02:56 Patient came into clinic to drop of Disability forms. Placed it in provider box. 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 Ruma Palm [facility] 2024-06-20 09:16:05 Sent patient a message via Lives[employer] letting him know what the provider said. Patricia Gusman Chauncey 06/20/2024 9:16 AM [facility] 2024-06-20 08:26:[address] Khan. With the pt taking suboxone chronically, we are unable to give any stronger pain medications. Pain should start to subside in about a week. Can continue tramadol or alternate 800mg ibuprofen with tylenol. ALLEN-PHYSICIAN WOOD CAULKER MIDLEVEL PROVIDER [facility] 2024-06-19 13:17:13 Routing encounter to provider to address. Patricia Grossman 06/19/2024 1:17 PM [facility] 2024-06-19 11:45:37 B Pharmacy , Called to notify provider that patient is taking suboxone and tramadol will not do anything for patient . Please call back to advice pharmacy of further patient care Angeline Espinoza [facility] 2024-06-19 11:07:01 Patient needs to be scheduled for a follow up appointment. Will route to PSS to assist. Patricia Grossman 06/19/2024 11:07 AM T [facility] 2024-06-19 08:34:26 BRIEF OPERATIVE NOTE Date of Surgery: 06/19/2024 Surgeons and Role: * Venessa Khan MD - Primary * Edgar Bunch MD - Resident - Assisting Pre-Op Diagnosis: Ulnar nerve compression, left [G56.22] Pre-op testing [Z01.818] Post-Op Diagnosis Codes: * Ulnar nerve compression, left [G56.22] * Pre-op testing [Z01.818] Procedures: Procedure(s) (LRB): ULNAR NERVE TRANSPOSITION (Left) CPT: 01899, CODINGHELP, Any Complications Encounters: 0 Estimated Blood Loss: min Specimens Removed: * No specimens in log * * No implants in log * Patient's Condition: good Findings: above Any other important information: none Please see dictated operative report for additional detail. [facility] [email or web address] 2024-06-19 00:10:00 FACULTY SURGEON: Venessa Khan MD RESIDENT SURGEON: WOOD CAULKER OR TEACHING RESIDENT: EDGAR BUNCH MD PREOPERATIVE [...] ESTIMATED BLOOD LOSS: Minimal. Venessa Khan MD CM/DUYL J#: [id number] [facility] [email or web address] 2024-06-12 13:45:00 Images from the original note were not included. Venipuncture collection performed by clean technique on the left anticubitus. Total of 1 attempts were made. Slight pressure and a bandage/dressing were applied to the site(s). The patient experienced no complications. The following specimens were processed according to instructions and sent to [facility] laboratories per lab order on 06/12/2024 [...] Urine Culture Aptima tube Other urine T [facility] 2024-06-08 17:24:51 Spoke with patient and updated that per anesthesiaRolando, hold Suboxone dose morning of surgery. Patient verbalized understanding. T [facility] 2024-06-08 17:20:04 Images from the original note were not included. Your procedure is at [facility] on 06/19/24. The address is [address] [place] [address], [id number]. [facility] nursing staff will call you [...] voiced no further questions at this time. [facility] 2024-05-30 11:23:53 Patient signed Release forms to receive Fitz Notes on 05/26/2024. Uploaded it to [employer] T Nathanael Thurston [facility] 2024-05-14 17:43:17 Spoke to pt. As per Cl Green,JOHNY patient is able to use steroid inhaler. Arti Shetty RN 05/14/2024 5:44 PM [facility] 2024-05-14 17:02:12 Nurse spoke with patient already [facility] 2024-05-14 16:04:29 Gil Hercules is a 33 year old male Patient wants to know if he can use his steroid inhaler. Patient was seen at urgent care 05/13 and received a steroid shot . Please call at [phone] (home) [facility] 2023-12-22 20:52:00 [facility] ([facility]) EMERGENCY PROVIDER REPORT REPORT#:[id number] REPORT STATUS: Signed DATE:12/22/23 TIME: 2051 PATIENT: GIL HERCULES UNIT #: [id number] ROOM/BED: AGE: 33 SEX: M PCP PHYS: [...] coronary arterial occlusion and . References: Dexter AJ, Parker BE, et al. Chest pain in the emergency room: value of the HEART score. Neth Heart J. 2008 Khoi:16(6):191-6. PubMed PMID: 89383210; PubMed Central PMCID: [id number]. Parker BE, Dexter AJ, et al. A prospective validation of the HEART score for chest pain patients at the emergency department. Int J Cardiol. 2013 Jun 3:168(3):2153 -8. Doi: 10.1016/j.ijcard.2013.01.255. Epub 2012Nov 17. PubMed PMID: 72646407. Review of Systems Free Text ROS Notes [...] (Auto) (20.5 - 45.5 %) 19.7 L [place] % (Auto) (5.5 - 11.7 %) 8.6 Eos % (Auto) (0.9 - 2.9 %) 1.5 Baso % (Auto) (0.2 - 1.0 %) 0.7 Neut # (Auto) (2.2 - 4.8 x10 3/uL) 4.97 H Lymph # (Auto) (1.3 - 2.9 x10 3/uL) 1.42 [place] # (Auto) (0.3 - 0.8 x10 3/uL) [...] extremity Impression By: Balbir Iqbal MD Re-Evaluation [facility] ED Course Medication(s) Ordered Medication(s) Ordered: Electrolytic, [...] this time. 2306: Disposition pending ultrasound, call agriculture laboratory technician at this time, states that patient [...] Parts of this note were created using [employer] speech recognition dictation software. All attempts were made to correct any errors at the time of dictation. However, there may be some errors present in the bridge attacher that were inadvertently overlooked during the dictation. [...] any other concerns. Please follow-up with referred wood dowel machine operator, Dr. Harrington within 3-5 days. Departure Forms [...] Referrals Provider Referral: Vadim Paulson MD Address: [address] [facility] [address] [place] [id number] Provider Referral: Last Zendejas MD Address: [address] [place] [address] Supervising Physician Note Resident Saw Pt This [...] and plan. 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 Denies any other health problems or [...] FILM) 1 TAB SL TID at 2150 [facility] #:[id number] END OF REPORT [facility] 2023-12-20 16:10:00 [id number] [facility] [address] [place] [address] PATIENT NAME: GIL HERCULES ADMIT DATE: 12/19/23 ACCOUNT NO: [id number] ROOM NO: ST498 AGE: 33 REPORT TYPE: [...] Dictated: 12/20/2023 16:10:27 Date Transcribed: 12/21/2023 03:32:24 AKQ/BEV Receipt ID: [id number] Authenticated by Cliff Hu MD On 12/21/2023 05:26:59 PM at 0526 PATIENT NAME: GIL HERCULES [facility] 2023-12-19 12:04:00 [id number] [facility] [address] [place], [place] [address]. [address] [place] [address] PATIENT NAME: GIL HERCULES ADMIT DATE: 12/19/23 ACCOUNT NO: [id number] ROOM NO: C.[id number] AGE: 33 REPORT TYPE: [...] Dictated: 12/19/2023 12:04:04 Date Transcribed: 12/19/2023 12:56:50 AKQ/MAN/RS Receipt ID: [id number] Authenticated by Cliff Hu MD On 12/21/2023 05:26:59 PM at 0526 PATIENT NAME: GIL HERCULES [facility] 2023-12-19 08:39:00 [facility] Hospitalist History Physical REPORT#:[id number] REPORT STATUS: Signed REPORT INITIALIZATION DATE:12/19/23 TIME: 838 PATIENT: GIL HERCULES UNIT #: [id number] ROOM/BED: [address] : [birth year] AGE: 33 SEX: M [...] (Severe, SOB, ANXIETY 12/18/23) at 1958 RPT #:[id number] END OF REPORT [facility] 2023-12-18 22:40:00 [facility] ([facility]) EMERGENCY PROVIDER REPORT REPORT#:[id number] REPORT STATUS: Signed DATE:12/18/23 TIME: 2239 PATIENT: GIL HERCULES UNIT #: [id number] ROOM/BED: [address] AGE: 33 SEX: M PCP PHYS: No [...] Mean 86 12/18 152 Temp 36.7 12/18 144 Resp 18 12/17 2204 Review of Vital [...] Diagnostics Lab Results Interpretation Results Laboratory Tests 12/18/232209: [Embedded Image Not Available] Laboratory Tests: 12/18 12/18 12/17 0249 2656 2210 Chemistry Sodium (137 - 145 mmol/L) [...] % (Auto) (20.5 - 45.5 %) 27.1 [place] % (Auto) (5.5 - 11.7 %) 8.6 Eos % (Auto) (0.9 - 2.9 %) 1.4 Baso % (Auto) (0.2 - 1.0 %) 0.8 Neut # (Auto) (2.2 - 4.8 x10 3/uL) 5.44 H Lymph # (Auto) (1.3 - 2.9 x10 3/uL) 2.39 [place] # (Auto) (0.3 - 0.8 x10 3/uL) [...] MD ULTRASOUND - DUP VEIN NATHEN 12/17 230 Report Impression - Status: SIGNED Entered: 12/18/2023 2346 IMPRESSION: No DVT in the visualized venous structures of the bilateral lower extremities. Impression By: Андрей Felix MD CAT SCAN - CT ABD PELVIS W/CONT 12/17 2349 Report Impression - Status: SIGNED Entered: 12/19/2023 025 IMPRESSION: 1. No acute findings in abdomen or pelvis. 2. 1.5 cm hypodense solid appearing mass inferior right kidney. Recommend nonemergent further assessment with multiphasic contrast enhanced CT scan or MRI. 3. Fatty liver. 4. 4.3 cm fat-containing umbilical hernia. Impression By: Leial Tee MD CAT SCAN - CTA CHEST FOR PE 12/17 2349 Report Impression - Status: SIGNED Entered: 12/19/2023 0253 IMPRESSION: 1. No obvious central or proximal subcentral pulmonary embolism. 2. No aortic aneurysm or dissection. 3. No acute infiltrate or effusion. Impression By: eLila Tee MD Lab Imaging Statement Laboratory radiographic [...] 84 ML .STK-MED ONE 12/17 2359 DC 12/17 IV 12/18 0000 2359 Electrolytic, Caloric, And Dennise Sig/Hakan Start time Last Medication Dose Route Stop Time Status Admin Sodium Chloride 5 ML Q12HR 12/18 0900 AC / IV 03/18 0901 0858 Sodium Chloride 5 [...] Temp 36.8 12/17 2204 Pulse 107 12/17 220 Resp 18 12/17 220 Last Documented: Result Date Time Pulse 98 [...] Decision Hospitalize Hosp Physician Name Cliff Hu [facility] Physician Hospitalist Request Time 0249 Request Date 12/19/23 )( Accepts Hospitalization Yes )( Reason for Hospitalization rhabdomyolysis )( Accepted Time 0249 )( Accepted Date 12/19/23 Call Information will [...] and plan. rhabdomyolysis at 0255 at 1638 [facility] #:[id number] END OF REPORT [facility] 2023-12-18 22:07:00 [id number] [facility] [address] [place], [place] [address]y. [address] [place] [address] PATIENT NAME: GIL HERCULES ADMIT DATE: 12/19/23 ACCOUNT NO: [id number] ROOM NO: [place] [address] AGE: 33 REPORT TYPE: ELECTROCARDIOGRAM SEX: M ADMITTING PHYSICIAN:Cliff Hu MD ATTENDING PHYSICIAN:Cliff Hu MD Order: [id number] Test Reason : Test Date/Time Stamp: WedDec [...] SANZ at 1254 PATIENT NAME: GIL HERCULES [facility] 2023-12-18 21:55:00 [facility] ([facility]) EMERGENCY PROVIDER REPORT REPORT#:[id number] REPORT STATUS: Signed DATE:12/18/23 TIME: 2154 PATIENT: GIL HERCULES UNIT #: [id number] ROOM/BED: AGE: 33 SEX: M PCP PHYS: [...] repair Social history vape use Allergies codeine, Rajlegy PCP clinic PE General/Const No acute distress Respiratory/Chest No respiratory distress Cardiovascular Heart sounds normal Neurologic Alert, Oriented X3 Psychiatric Mood normal Notice: Parts of this note were created using [employer] speech recognition dictation software. All things were made to correct any errors at the time of dictation, however there may be some errors present in the bridge attacher that were inadvertently overlooked during the dictation. PMH-Provider in Triage Stated Complaint RHABDO WORSENING CK >1000 Allergies Coded Allergies: codeine (Mild, HIVES 12/12/23) Uncoded Allergies: TRILOGY (Severe, SOB, ANXIETY 12/18/23) Past Medical History: Reports: Asthma (ADD, opiod addiction). Smoking status: Smoking status for patients 13 years old or older: Unknown,if ever smoked at 2156 RPT #:[id number] END OF REPORT [facility] 2023-12-12 17:45:00 [facility] ([facility]) EMERGENCY PROVIDER REPORT REPORT#:[id number] REPORT STATUS: Signed DATE:12/12/23 TIME: 1744 PATIENT: GIL HERCULES UNIT #: [id number] ROOM/BED: AGE: 33 SEX: M PCP PHYS: [...] Past Medical History - Adult Stated Complaint HIA-WHE-PTAWJK PAIN-WEAK Allergies Coded Allergies: fexofenadine (From ANDREI) (Intermediate, SOB, ANXIETY 12/12/23) codeine (Mild, HIVES 12/12/23) Past Medical History: Reports: Asthma (ADD, opiod addiction). Physical Exam Vital Signs Vital Signs First Documented: Result Date Time Pulse Ox 99 12/11 1739 B/P 143/67 12/11 1739 B/P Mean 92 12/11 1739 O2 Delivery Room air 12/11 173 Temp 36.7 12/11 173 Pulse 107 12/11 173 Resp 16 12/11 1738 Last Documented: Result [...] (Auto) (20.5 - 45.5 %) 19.5 L [place] % (Auto) (5.5 - 11.7 %) 7.4 Eos % (Auto) (0.9 - 2.9 %) 0.6 L Baso % (Auto) (0.2 - 1.0 %) 0.5 Neut # (Auto) (2.2 - 4.8 x10 3/uL) 6.02 H Lymph # (Auto) (1.3 - 2.9 x10 3/uL) 1.63 [place] # (Auto) (0.3 - 0.8 x10 3/uL) 0.62 Eos # (Auto) (0.0 - 0.2 x10 3/uL) 0.05 Baso # (Auto) (0.0 - 0.1 x10 3/uL) 0.04 Immature Gran % (0.0 - 2.0 %) 0.2 Recent Impressions: RADIOLOGY - XR CHEST 2 V 12/11 1749 Report Impression - Status: SIGNED Entered: 12/12/2023 7851 IMPRESSION: No evidence of acute cardiopulmonary disease. [...] STA 12/11 1810 AC 12/11 IV 12/11 191 1824 Patient Discharge Departure Vital Signs/Condition Vital [...] 184 )( Date 12/12/23 at 1848 RPT #:[id number] END OF REPORT [facility]
--- NOTE | 2024-08-14 04:08 | EDPHYS ---
Physician Documentation [facility] Name: Gil Jose Age: 33 yrs Sex: Male : 1990 Arrival Date: 08/14/2024 Time: 03:12 Bed 5 Private MD: ED Physician Nilesh Kahn HPI: 08/14 03:26 This 33 yrs old Male presents to ER via Unassigned with complaints of Chest Pain. sp3 03:26 33-year-old male with history of anxiety now presents to the ED with chief complaint sp3 chest pain and shortness of breath for last 24 hours. He states he just "wants to get checked out". He denies any trauma, fever, URI symptoms, back pain, cough, abdominal pain, nausea, vomiting, diarrhea, syncope, near syncope, focal neurological deficit, prolonged immobilization, travel history, known sick contacts, smoking history, drug use, or any other signs or symptoms on ROS at this time.. Historical: - Allergies: 03:35 Codeine; dd2 03:35 triligy; dd2 - PMHx: 03:35 Anxiety; Asthma; Hernia; dd2 - PSHx: 03:35 hernia; Ulnar nerve decompression; dd2 - Immunization history:: Adult Immunizations up to date, Client reports having NOT received the Covid vaccine. Flu vaccine is not up to date. - Infectious Disease History:: Denies. - Social history:: Smoking status: Patient reports use of chewing tobacco. Reported history of juuling and/or vaping. ROS: 03:27 Constitutional: Negative for fever, chills, and weight loss, Eyes: Negative for injury, sp3 pain, redness, and discharge, ENT: Negative for injury, pain, and discharge, Neck: Negative for injury, pain, and swelling, Abdomen/GI: Negative for abdominal pain, nausea, vomiting, diarrhea, and constipation, Back: Negative for injury and pain, MS/Extremity: Negative for injury and deformity, Skin: Negative for injury, rash, and discoloration, Neuro: Negative for headache, weakness, numbness, tingling, and seizure, Allergy/Immunology: Negative for hives, rash, and allergies, Endocrine: Negative for neck swelling, polydipsia, polyuria, polyphagia, and marked weight changes, Hematologic/Lymphatic: Negative for swollen nodes, abnormal bleeding, and unusual bruising, 03:27 All other systems are negative, Exam: 03:27 Constitutional: This is a well developed, well nourished patient who is awake, alert, sp3 and in no acute distress. Head/Face: Normocephalic, atraumatic. Eyes: Pupils equal round and reactive to light, extra-ocular motions intact. Lids and lashes normal. Conjunctiva and sclera are non-icteric and not injected. Cornea within normal limits. Periorbital areas with no swelling, redness, or edema. ENT: Nares patent. No nasal discharge, no septal abnormalities noted. External auditory canals are clear. Oropharynx with no redness, swelling, or masses, exudates, or evidence of obstruction, uvula midline. Mucous membranes moist. Neck: Trachea midline, no thyromegaly or masses palpated, and no cervical lymphadenopathy. Supple, full range of motion without nuchal rigidity, or vertebral point tenderness. No Meningismus. Chest/axilla: Normal chest wall appearance and motion. Nontender with no deformity. No lesions are appreciated. Cardiovascular: Regular rate and rhythm with a normal S1 and S2. No gallops, murmurs, or rubs. Normal PMI, no JVD. No pulse deficits. Respiratory: Lungs have equal breath sounds bilaterally, clear to auscultation and percussion. No rales, rhonchi or wheezes noted. No increased work of breathing, no retractions or nasal flaring. Abdomen/GI: Soft, non-tender, with normal bowel sounds. No distension or tympany. No guarding or rebound. No evidence of tenderness throughout. Back: No spinal tenderness. No costovertebral tenderness. Full range of motion. Skin: Warm, dry with normal turgor. Normal color with no rashes, no lesions, and no evidence of cellulitis. MS/ Extremity: Pulses equal, no cyanosis. Neurovascular intact. Full, normal range of motion. Neuro: Awake and alert, GCS 15, oriented to person, place, time, and situation. Cranial nerves II-XII grossly intact. Motor strength 5/5 in all extremities. Sensory grossly intact. Cerebellar exam normal. Normal gait. 03:27 Psych: Patient is anxious without psychosis, SI or HI.. 03:28 ECG was reviewed by the Attending Physician. EKG demonstrates normal sinus rhythm at 98 sp3 bpm with normal intervals, normal QRS, normal axis, normal ST/T-segment's without evidence of acute ischemia. Vital Signs: 03:21 BP 140 / 68; Pulse 82; Resp 16; Temp 97.8; Pulse Ox 100% on R/A; Weight 122.47 kg; dd2 Height 5 ft. 10 in. ; Pain 2/10; 04:10 BP 121 / 71; Pulse 97; Resp 18; mt4 03:21 Body Mass Index 38.74 (122.47 kg, 177.8 cm) dd2 03:21 Pain Scale: Adult dd2 [place] Coma Score: 03:38 Eye Response: spontaneous(4). Motor Response: obeys commands(6). Verbal Response: dd2 oriented(5). Total: 15. 04:12 Eye Response: spontaneous(4). Motor Response: obeys commands(6). Verbal Response: mt4 oriented(5). Total: 15. MDM: 03:24 Medical Screening Exam initiated sp3 03:27 Data reviewed: vital signs, nurses notes, EKG, radiologic studies. ED course: sp3 33-year-old male with PMH above anxiety and now resolving chest pain or shortness of breath. EKG demonstrates no abnormalities. X-ray pending chest x-ray is pending and if negative we will safely discharge patient home. Patient is driving so no antianxiolytics will be given in the ED. Differential diagnosis includes anxiety versus cardiac arrhythmia or other cardiac abnormality versus pulmonary process.. 04:06 ED course: Chest x-ray negative and patient stable. Vital signs normal we will safely sp3 discharge him home at this time.. 12 03:24 Order name: CXR XRAY sp3 08/14 03:24 Order name: EKG - Nurse/Tech; Complete Time: 03:25 sp3 Administered Medications: No medications were administered Disposition Summary: 08/14/24 04:07 Discharge Ordered Notes: Location: Home sp3 Condition: Stable sp3 Diagnosis - Generalized anxiety disorder sp3 Followup: sp3 - With: Private Physician - When: Upon discharge from the Emergency Department - Reason: Continuance of care Discharge Instructions: - Discharge Summary Sheet sp3 - Generalized Anxiety Disorder, Adult sp3 Forms: - Medication Reconciliation Form sp3 - Antibiotic Education sp3 - Prescription Opioid Use sp3 - Patient Portal Instructions sp3 - Leadership Thank You Letter sp3 Signatures: Dispatcher [employer] EDNilesh Gray MD MD sp3 ANDREE CHAMBERS RN RN dd2 Corrections: (The following items were deleted from the chart) 03:25 03:25 Chest Single View+RAD.RAD.BRZ ordered. EDMS EDMS
--- NOTE | 2024-08-14 04:08 | ER ---
Nurse's Notes [facility] Name: Gil Jose Age: 33 yrs Sex: Male : 1990 Arrival Date: 08/14/2024 Time: 03:12 Bed 5 Private MD: Diagnosis: Generalized anxiety disorder Presentation: 08/14 03:21 Chief complaint: Patient states: CHEST PAIN AND SHORTNESS OF BREATH SINCE LAST NIGHT. dd2 PT REPORTS HX OF ANXIETY BUT STATES THIS DOESN'T FEEL LIKE ANXIETY. Coronavirus screen: Client denies travel out of the [place] in the last 14 days. At this time, the client does not indicate any symptoms associated with coronavirus-19. Ebola Screen: Patient denies exposure to infectious person. Patient denies travel to an Ebola-affected area in the 21 days before illness onset. No symptoms or risks identified at this time. Initial Sepsis Screen: Does the patient meet any 2 criteria? No. Patient's initial sepsis screen is negative. Does the patient have a suspected source of infection? No. Patient's initial sepsis screen is negative. Risk Assessment: Do you want to hurt yourself or someone else? Patient reports no desire to harm self or others. Onset of symptoms was August 13, 2024. 03:21 Method Of Arrival: Ambulatory dd2 03:21 Acuity: FRANKI 3 dd2 Triage Assessment: 03:35 General: Appears in no apparent distress. Behavior is calm, cooperative, appropriate dd2 for age. Pain: Complains of pain in chest Pain does not radiate. Pain currently is 2 out of 10 on a pain scale. Pain began gradually, 1 day ago. EENT: No deficits noted. No signs and/or symptoms were reported regarding the EENT system. Neuro: Level of Consciousness is awake, alert, obeys commands, Oriented to person, place, time, situation, Appropriate for age. Cardiovascular: Reports chest pain, shortness of breath, Heart tones S1 S2 present Patient's skin is warm and dry. Rhythm is sinus rhythm. Respiratory: No deficits noted. Reports shortness of breath at rest on exertion Airway is patent Respiratory effort is even, unlabored, Respiratory pattern is regular, symmetrical, Breath sounds are clear bilaterally. the patient has mild shortness of breath. GI: No deficits noted. No signs and/or symptoms were reported involving the gastrointestinal system. Abdomen is non-distended, Abd is soft and non tender. : No deficits noted. No signs and/or symptoms were reported regarding the genitourinary system. Derm: No deficits noted. No signs and/or symptoms reported regarding the dermatologic system. Musculoskeletal: No deficits noted. No signs and/or symptoms reported regarding the musculoskeletal system. Circulation, motion, and sensation intact. Range of motion: intact in all extremities. Historical: - Allergies: 03:35 Codeine; dd2 03:35 triligy; dd2 - PMHx: 03:35 Anxiety; Asthma; Hernia; dd2 - PSHx: 03:35 hernia; Ulnar nerve decompression; dd2 - Immunization history:: Adult Immunizations up to date, Client reports having NOT received the Covid vaccine. Flu vaccine is not up to date. - Infectious Disease History:: Denies. - Social history:: Smoking status: Patient reports use of chewing tobacco. Reported history of juuling and/or vaping. Screenin:38 [facility] ED Fall Risk Assessment (Adult) History of falling in the last 3 months, dd2 including since admission No falls in past 3 months (0 pts) Confusion or Disorientation No (0 pts) Intoxicated or Sedated No (0 pts) Impaired Gait No (0 pts) Mobility Assist Device Used No (0 pt) Altered Elimination No (0 pt) Score/Fall Risk Level 0 - 2 = Low Risk Oriented to surroundings, Maintained a safe environment, Educated pt \T\ family on fall prevention, incl call for assistance when getting out of bed, Assessed \T\ reinforced patient's understanding of fall precautions, Hourly rounding (assess needs \T\ fall precautionary measures) done. Abuse screen: Denies threats or abuse. Nutritional screening: No deficits noted. Tuberculosis screening: No symptoms or risk factors identified. Assessment: 03:38 Reassessment: SEE TRIAGE ASSESSMENT FOR FULL ASSESSMENT. dd2 04:12 Pain: Denies pain. Pain: Complains of pain in chest Pain currently is 3 out of 10 on a mt4 pain scale. 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 Gait is steady, Speech is normal, Facial symmetry appears normal. Cardiovascular: Reports chest pain, Capillary refill < 3 seconds. Respiratory: Reports shortness of breath Airway is patent. Respiratory:. GI: Abdomen is obese. : Denies burning with urination. Vital Signs: 03:21 BP 140 / 68; Pulse 82; Resp 16; Temp 97.8; Pulse Ox 100% on R/A; Weight 122.47 kg; dd2 Height 5 ft. 10 in. ; Pain 2/10; 04:10 BP 121 / 71; Pulse 97; Resp 18; mt4 03:21 Body Mass Index 38.74 (122.47 kg, 177.8 cm) dd2 03:21 Pain Scale: Adult dd2 [place] Coma Score: 03:38 Eye Response: spontaneous(4). Motor Response: obeys commands(6). Verbal Response: dd2 oriented(5). Total: 15. 04:12 Eye Response: spontaneous(4). Motor Response: obeys commands(6). Verbal Response: mt4 oriented(5). Total: 15. ED Course: 03:14 Patient arrived in ED. jj6 03:24 Nilesh Kahn MD is Attending Physician. sp3 03:25 Nancy Huizar, RN is Primary Nurse. mt4 03:35 Triage completed. dd2 03:35 Arm band placed on right wrist. Patient placed in an exam room, on a stretcher, on dd2 pulse oximetry. 03:38 Patient has correct armband on for positive identification. Placed in gown. Bed in low dd2 position. Call light in reach. Side rails up X 1. Client placed on continuous cardiac and pulse oximetry monitoring. NIBP monitoring applied. monitoring analyst on. Door closed. Noise minimized. Warm blanket given. Pillow given. Verbal reassurance given. 03:38 No provider procedures requiring assistance completed. EKG done, by ED staff, reviewed dd2 by Nilesh Kahn MD. Patient maintains SpO2 saturation greater than 95% on room air. 04:05 CXR XRAY In Process Unspecified. EDMS 04:12 Provided Education on: discharge . mt4 04:12 Patient did not have IV access during this emergency room visit. mt4 04:14 Patient did not have IV access during this emergency room visit. dd2 Administered Medications: No medications were administered Medication: 03:38 VIS not applicable for this client. dd2 Outcome: 04:07 Discharge ordered by . sp3 04:14 Discharged to home ambulatory, dd2 04:14 Condition: stable 04:14 Discharge instructions given to patient, Instructed on discharge instructions, follow up and referral plans. medication usage, Demonstrated understanding of instructions, follow-up care, medications, 04:15 Patient left the ED. dd2 Signatures: Dispatcher [employer] Nilesh Watkins MD MD sp3 Jasmin Narayan6 Nancy Huizar RN RN mt4 ANDREE CHAMBERS RN RN dd2
[2024-08-14 05:10] VITALS: TEMP 97.8; O2SAT 100
[2024-08-14 05:11] VITALS: BP 121/71
--- NOTE | 2024-08-14 05:55 | RAD REPORT ---
EXAM: XR Chest, 1 View CLINICAL HISTORY: Chest pain. TECHNIQUE: Frontal view of the chest. COMPARISON: XR Chest 10/28/2023. FINDINGS: Lungs: Unremarkable. No consolidation. Pleural space: Unremarkable. No pneumothorax. Heart: Unremarkable. No cardiomegaly. Mediastinum: Unremarkable. Normal mediastinal contour. Bones/joints: Unremarkable. No acute fracture. IMPRESSION: No acute disease. Electronically signed by: Ananda Casillas MD 08/14/2024 04:33 AM [facility] Due to temporary technical issues with the PACS/Pushpay reporting system, reports are being teo d by the in-house radiologist without review as a courtesy to ensure prompt reporting the interpreting radiologist is fully responsible for the content of the report. Transcribed Date/Time: 08/14/2024 5:55 AM
== END 2024-08-14 04:15 | disposition home or self-care (01) ==
LOC: ER 03:12
DX: F41.1 Generalized anxiety disorder (principal); F17.220 Nicotine dependence, chewing tobacco, uncomplicated; Z28.310 Unvaccinated for COVID-19
CPT/HCPCS: 71045; 99284